=== PATIENT | male | born 1960 | race Caucasian/White ===

== ENCOUNTER 2021-10-11 03:08 | Emergency (ER) | payer OTHER, SELFPAY ==
[2021-10-11 03:13] VITALS: BP 163/100; PULSE 85; RESP 16; TEMP 36.6; O2SAT 97
--- NOTE | 2021-10-11 03:31 | ED_ITS ---
HPI - Abdominal Pain General Time Seen by Provider: 03:30 Date Seen: 10/11/21 Chief Complaint: Flank Pain Stated Complaint: Possible kidney stone Time Seen by Provider: 10/11/21 03:12 Source: patient Mode of arrival: ambulatory Limitations: no limitations History of Present Illness HPI narrative: Patient is a very nice 61-year-old gentleman who presents here with flank discomfort. And burning with urination. He has had this now for couple days more right-sided than left-sided. Very consistent with previous kidney stones he has had over 20 of these in the past. Greater than 16 CT scans here also. He does this pain isn't bad at all now. He has been taking a little bit ibuprofen on off he has had no blood in his urine he has had no fevers chills there is really no significant abdominal pain with this. Called the nurse line sinan. And he was worried that he possibly is obstructed and I came in. History of previous lithotripsy in the past, also previous instrumentation for removal of kidney stones. MD elicited complaint: flank pain Related Data Home Medications Medication Instructions Recorded Confirmed omeprazole 10/11/21 Allergies Allergy/AdvReac Type Severity Reaction Status Date / Time No Known Drug Allergies Allergy Verified 10/11/21 03:16 Review of Systems Status of ROS Reports: 10 or more systems reviewed and unremarkable except as noted in History and below [facility] Medical History (Updated 10/11/21 @ 04:02 by Luis Jasso MD) Hx of renal calculi Surgical History H/O rotator cuff surgery History of hernia surgery Social History Smoking Status: Never smoker Do you use any of these nicotine containing products: None How often do you have a drink containing alcohol: never AUDIT-C Alcohol total score: 0 Non-prescribed substance use: denies use Exam Const: Vital Signs, click to edit/add: Vital Signs - 24 hr 10/11/21 03:13 Temperature 97.8 F Pulse Rate [Right Pulse Oximeter] 85 Respiratory Rate 16 Blood Pressure [Ri ght Upper Arm] 163/100 H Pulse Oximetry 97 Documenting provider has reviewed patient's vital signs: yes Common normals: no apparent distress General appearance: cooperative, comfortable, well kempt and well developed HENMT: Common normals: normocephalic, head/scalp atraumatic, hearing grossly normal bilaterally, external ears normal, EAC's normal, TM's normal bilaterally, external nose normal, nasal mucous membranes and turbinates normal, moist oral mucous membranes, oropharynx normal, dentition normal and gingiva normal Head and scalp: normocephalic and atraumatic Nose: external nose normal and nasal mucous membranes and turbinates normal External ear: external ears normal External auditory canal: EAC's normal Tympanic membrane: TM's normal bilaterally Neck & C-Spine: Common normals: full ROM, no lymphadenopathy, supple, no meningeal signs, no JVD, thyroid normal and no carotid bruits Thyroid: thyroi d normal Resp: Common normals: normal respiratory effort, no retractions, no use of accessory muscles, clear to auscultation bilaterally and percussion normal Auscultation: clear to auscultation bilaterally Percussion: percussion normal Cardio: Common normals: no JVD, regular rate, regular rhythm, S1 normal heart sound, S2 normal heart sound, no gallops, no clicks, no murmurs, no rub and peripheral pulses 2+ throughout Rate: regular rate Rhythm: regular rhythm Heart sounds: S1 normal and S2 normal Peripheral pulses: pulses 2+ throughout GI: Common normals: Normal to inspection, nondistended, normoactive bowel sounds present, soft to palpation, non-tender, no hepatosplenomegaly, no masses and no bruits Palpation: soft and no hepatosplenomegaly : Common normals: no CVA tenderness, external exam normal, testes normal, scrotum normal, no scrotal swelling and no hernias present Bladder/kidney exam: no CVA tenderness Back & Pelvis: Common normals: no CVA tenderness Extremity: Common normals: normal to inspection, full ROM, normal capillary refill, no joint enlargement, no clubbing, cyanosis or edema and no pedal edema Neuro: Meningeal signs: no meningeal signs Psych: Appearance: well kempt Skin: Common normals: no rashes or lesions noted, no wounds, skin turgor normal, no jaundice, no petechiae and no mottling General skin exam: no rashes or lesions noted and turgor normal Course Course Hospital Course: I discussed with the patient at this point given his multitude of CT scans I think it would be prudent to get him to drink some water and we can do an ultrasound to see if he has hydronephrosis, and bilateral ureteral jets. If this is the case then I have a low suspicion that he has an obstructing stone. He was very comfortable with this. He declined any interventions such as Toradol or narcotic pain medications. As says he does not really have any pain. During this evaluation of this patient I considered multiple differential diagnosis is which included the life-threatening such as appendicitis, aortic aneurysm, mesenteric ischemia, bowel perforation, volvulus, and bowel obstruction. Other differential diagnosis is include but are not limited to cholecystitis, pancreatitis, hepatitis, gastritis, GERD, diverticulitis, peptic ulcer disease, pyelonephritis/UTI, renal colic/stone, testicular torsion as well as other acute scrotal processes, inflammatory bowel disease, as well as other etiologies Point of care ultrasound was done. I was unable to save the images. Both left and right kidney so no evidence of hydronephrosis. Small cyst is seen on the right kidney. I am able to see your tear old jets bilaterally in the bladder. Right greater than left. This does not all fit with his right-sided pain. Long talk with this nice gentleman about this. He is not really having any significant pain, he is using ibuprofen and Tylenol. Able to work normally. I explained to him that I think it be reasonable to watch this. Continue on the course continue with fluids, watch warning signs such as vomiting, increasing abdominal pain, fevers chills or sweats, dysuria frequency or arleen hematuria. Was at all prompt a re-evaluation here in the emergency room. He has an excellent relationship with his primary care physician Dr. Dove he says who could also order a CT scan as an outpatient if he feels like this is the way to go. Vital Signs Vital signs: Initial Vital Signs Temperature 97.8 F 10/11/21 03:13 Temperature Source Temporal Artery Scan 10/11/21 03:13 Pulse Rate 85 10/11/21 03:13 Pulse Rhythm 10/11/21 03:13 Respiratory Rate 16 10/11/21 03:13 Blood Pressure 163/100 H 10/11/21 03:13 Blood Pressure Mean 121 10/11/21 03:13 Blood Pressure Position Supine 10/11/21 03:13 Pulse Oximetry 97 10/11/21 03:13 Oxygen Delivery Method 10/11/21 03:13 Vital Signs Temperature 97.8 F 10/11/21 03:13 Pulse Rate 85 10/11/21 03:13 Respiratory Rate 16 10/11/21 03:13 Blood Pressure 163/100 H 10/11/21 03:13 Pulse Oximetry 97 10/11/21 03:13 Temperature 97.8 F 10/11/21 03:13 Pulse Rate 85 10/11/21 03:13 Respiratory Rate 16 10/11/21 03:13 Blood Pressure 163/100 H 10/11/21 03:13 Pulse Oximetry 97 10/11/21 03:13 MDM - Abdominal Pain Differential Diagnosis Differential diagnosis: Likely abdominal pain, calculus of kidney, constipation, diverticulitis, gastroenteritis, pancreatitis and small bowel obstruction Medical Records Attestation: I reviewed the patient's medical records. Discharge Plan Discharge Clinical Impression: Hx of renal calculi Abdominal pain Qualifiers: Abdominal location: right upper quadrant Qualified Code(s): R10.11 - Right upper quadrant pain Patient Disposition: Home, Self-Care Condition: Stable Instructions: Renal Colic (ED) Activity Level: No Restrictions Discharge Diet: Regular Prescriptions: No Action omeprazole 0RF Follow Up/Referrals: Kolby Lau MD [Primary Care Provider] - Stand Alone Forms: [facility] Info Instructions
== END 2021-10-11 04:14 | disposition home or self-care (01) ==
LOC: ED 04:09
PROVIDERS: Emergency Provider Family Medicine; PCP Family Medicine
DX: R10.11 Right upper quadrant pain (principal); Z87.442 Personal history of urinary calculi
CPT/HCPCS: 99283

== ENCOUNTER 2023-05-18 01:53 | Emergency (ER) | payer OTHER, SELFPAY ==
[2023-05-18 01:59] VITALS: BP 182/101; PULSE 74; RESP 20; TEMP 36.6; O2SAT 97; BMI 28.9
--- NOTE | 2023-05-18 02:11 | CT_ITS ---
CT ABDOMEN AND PELVIS WITHOUT CONTRAST. INDICATION: LEFT FLANK PAIN. TECHNIQUE: ROUTINE NONCONTRAST CT ABDOMEN AND PELVIS. COMPARISON: 12/22/2016, 07/05/2021, 01/04/2019, 09/02/2017, 07/18/2015. FINDINGS: LUNG BASES ARE CLEAR. STABLE SIMPLE CYST WITHIN THE CAUDATE LOBE OF THE LIVER. MILD HEPATIC STEATOSIS. CALCIFIED SPLENIC GRANULOMAS. MILD ATROPHY OF THE PANCREAS. THE GALLBLADDER IS NORMAL. CHRONIC CALCIFICATION ASSOCIATED WITH THE RIGHT ADRENAL GLAND. BILATERAL RENAL STONES. 7 MM STONE IN THE DISTAL LEFT URETER CAUSING MILD DISTENTION OF THE LEFT RENAL PELVIS. MILD VASCULAR CALCIFICATIONS. THERE IS A 1.9 CM EXOPHYTIC STRUCTURE ARISING FROM THE POSTERIOR ASPECT OF THE RIGHT KIDNEY. PROSTATE CALCIFICATIONS ARE PRESENT. NO BLADDER STONE. NO BOWEL OBSTRUCTION OR FREE AIR. NO FREE FLUID. NO ADENOPATHY. APPENDIX NORMAL. POSTOP CHANGES OF ANTERIOR ABDOMINAL WALL HERNIA REPAIR. DEGENERATIVE CHANGES ARE PRESENT AT BOTH HIPS. NO FRACTURE. IMPRESSION: PARTIALLY OBSTRUCTING 7 MM STONE IN THE DISTAL LEFT URETER. MULTIPLE STONES PRESENT ELSEWHERE THROUGHOUT BOTH KIDNEYS. PROBABLE CYST ARISING FROM THE RIGHT KIDNEY ALTHOUGH ULTRASOUND IS RECOMMENDED FOR CONFIRMATION. RESULTS COMMUNICATED VERBALLY TO THE EMERGENCY ROOM PHYSICIAN AFTER THE EXAMINATION.
--- NOTE | 2023-05-18 02:13 | ED_ITS ---
HPI - General Adult General Chief complaint: Flank Pain Stated complaint: possible kidney stone Time Seen by Provider: 05/18/23 02:05 Source: patient Mode of arrival: ambulatory Limitations: no limitations History of Present Illness HPI narrative: 62-year-old male presents the emergency department, self-referred. He has a history of prior kidney stones and awoke 2 hours ago with significant sharp pain in the left flank area. Feel similar to prior episodes of kidney stones, the last being about a year and half ago per his report. I do review N/C an episode from July of 2021. His unfortunately also had undergo stent placement and lithotripsy in the past, last was about 7 years ago. Reports that that was otherwise uncomplicated. Has not tried any medications to treat his pain prior to coming to the emergency department. No trauma or injury, no dysuria or hematuria. No recent fevers. Is nauseated but has not had any vomiting yet. No shortness of breath or difficulty breathing. No cough or abdominal pain. Pain does not radiate. Constant. Past medical history notable for multiple prior kidney stones, no other major long-term health problems. His only long-term medication is omeprazole. N onsmoker. ROS notable for the flank pain as above only, otherwise denies times 12 systems. Related Data Home Medications Medication Instructions Recorded Confirmed omeprazole 10/11/21 Previous Rx's Medication Instructions Recorded hydrocodone 5 mg-acetaminophen 325 1 tab PO Q6H PRN pain #30 tabs 10/11/21 mg tablet hydrocodone 5 mg-acetaminophen 325 1 tab PO Q4-6H PRN pain #10 tabs 05/18/23 mg tablet tamsulosin 0.4 mg capsule 0.4 mg PO DAILY PRN #30 caps 05/18/23 Allergies Allergy/AdvReac Type Severity Reaction Status Date / Time No Known Drug Allergies Allergy Verified 05/18/23 02:01 [facility] Medical History Hx of renal calculi ?Z87.442 - Personal history of urinary calculi (ICD-10) Surgical History H/O rotator cuff surgery ?Z98.890 - Other specified postprocedural states (ICD-10) History of hernia surgery ?Z98.890 - Other specified postprocedural states (ICD-10) ?Z87.19 - Personal history of other diseases of the digestive system (ICD-10) Social History Smoking Status: Never smoker Do you use any of these nicotine containing products: None How often do you have a drink containing alcohol: never AUDIT-C Alcohol total score: 0 Non-prescribed substance use: denies use Exam Const: Vital Signs, click to edit/add: Vital Signs - 24 hr 05/18/23 01:59 Temperature 98 F Pulse Rate [Pulse Oximeter] 74 Respiratory Rate 20 Blood Pressure [Ri ght Upper Arm] 182/101 H Pulse Oximetry 97 Oxygen Delivery Me thod Room Air Common normals: alert Other: Does seem uncomfortable but answers questions appropriately, no signs of intoxication. HENMT: Common normals: normocephalic Head and scalp: normocephalic Face and sinus: normal facial exam Mouth: oral and palatal mucosa normal Throat: posterior oropharynx normal Eye: Common normals: conjunctivae normal General eye: normal appearance of both eyes Conjunctiva: conjunctiva(e) normal Neck & C-Spine: Common normals: full ROM and no lymphadenopathy Resp: Common normals: normal respiratory effort, no use of accessory muscles and clear to auscultation bilaterally Effort & inspection: able to speak in complete sentences Auscultation: clear to auscultation bilaterally Cardio: Common normals: regular rate, regular rhythm, S1 normal heart sound, S2 normal heart sound and no murmurs Rate: regular rate Rhythm: regular rhythm Heart sounds: S1 normal and S2 normal GI: Common normals: Normal to inspection, nondistended, normoactive bowel sounds present, soft to palpation, non-tender, no hepatosplenomegaly and no masses Palpation: soft and no hepatosplenomegaly : Common normals: no CVA tenderness Bladder/kidney exam: no CVA tenderness Back & Pelvis: Common normals: no CVA tenderness Extremity: Common normals: normal capillary refill and no pedal edema Neuro: Sensorium/orientation: alert Motor exam: no movement abnormalities noted Psych: Common normals: speech normal Speech: normal speech Mood and affect: euthymic mood Insight: insight good Judgement: judgment good Skin: Common normals: no rashes or lesions noted General skin exam: no rashes or lesions noted Course Course ED Course: Left flank plain with no signs of tachycardia, hypotension or fever. Suspect kidney stone. Differential diagnosis also including musculoskeletal etiology, multiple different intra-abdominal possibilities, shingles though unlikely since there is no visible rash. Recommend CT scan of the abdomen and pelvis without contrast, urinalysis, basic labs to look for creatinine, electrolytes and white count. Will give Toradol 15 mg IV x1 with 4 mg of Zofran and 5 mg of oral oxycodone and await findings. Reevaluation(s) Time of Reevaluation #1: 03:22 Reevaluation #1: Patient feeling much better after Toradol, oxycodone and Zofran but pain not completely relieved. Normal labs reviewed. My interpretation of distal ureteral stone discussed. I am still waiting on Radiology over-read. Please note that we will only have limited Radiology interpretation due to the remote windows server administrator being down. We discussed plan of care. Discussed the risks and benefits of Flomax. Efficacy is small but I think it could be useful for him. Will give 0.4 mg now and send an additional supply to his pharmacy. He can follow up with Urology by phone in the morning, number given and referral placed. Will give prescriptions for Toradol and a few Percocet tablets from [employer]. Discussed pushing fluids. Encouraged straining of the urine but he does not need to return a stone. This will just help him know if it passes. Alarm symptoms reviewed that would warrant ED presentation including fever, severe pain and or inability to urinate. He verbalizes understanding and agreement. Vital Signs Vital signs: Initial Vital Signs Temperature 98 F 05/18/23 01:59 Temperature Source Temporal Artery Scan 05/18/23 01:59 Pulse Rate 74 05/18/23 01:59 Respiratory Rate 20 05/18/23 01:59 Blood Pressure 182/101 H 05/18/23 01:59 Blood Pressure Mean 128 H 05/18/23 01:59 Pulse Oximetry 97 05/18/23 01:59 Oxygen Delivery Method Room Air 05/18/23 01:59 Vital Signs Temperature 98 F 05/18/23 01:59 Pulse Rate 74 05/18/23 01:59 Respiratory Rate 20 05/18/23 01:59 Blood Pressure 182/101 H 05/18/23 01:59 Pulse Oximetry 97 02/12/24 01:59 Oxygen Delivery Method Room Air 05/18/23 01:59 Temperature 98 F 05/18/23 01:59 Pulse Rate 74 05/18/23 01:59 Respiratory Rate 20 05/18/23 01:59 Blood Pressure 182/101 H 05/18/23 01:59 Pulse Oximetry 97 05/18/23 01:59 Oxygen Delivery Method Room Air 05/18/23 01:59 Medications Administered Medications: Discontinued Medications Generic Name Dose Route Start Last Admin Trade Name Olivia PRN Reason Stop Dose Admin Ketorolac Tromethamine 15 mg 05/18/23 02:11 05/18/23 02:22 Ketorolac 15 Mg/Ml Inj IVP 05/18/23 02:12 15 mg ONCE ONE Administration Ondansetron HCl 4 mg 05/18/23 02:11 05/18/23 02:22 Ondansetron 2 Mg/Ml Inj IVP 05/18/23 02:12 4 mg ONCE ONE Administration Oxycodone HCl 5 mg 05/18/23 02:11 05/18/23 02:22 Oxycodone 5 Mg Tablet PO 05/18/23 02:12 5 mg ONCE ONE Administration Medical Decision Making Lab Data Lab results reviewed: Yes I reviewed the patient's lab results Lab results narrative: Labs all reassuring. Labs: Lab Results 05/18/23 05/18/23 Range/Units 02:02 02:30 WBC 8.27 (4.50-11.00) K/uL RBC 5.35 (4.30-5.90) m/uL Hgb 16.8 (13.5-17.5) gm/dL Hct 48.0 (37.0-53.0) % MCV 90 (80-100) fL MCH 31 (26-34) pg MCHC 35 (32-36) gm/dL RDW Coeff of Rajesh 12.6 (11.5-15.5) % Plt Count 270 (140-440) K/uL Neut % (Auto) 49.4 (42.0-72.0) % Lymph % (Auto) 37.4 (20-44) % [place] % (Auto) 9.4 (0.0-11.0) % Eos % (Auto) 3.1 (0.0-7.0) % Baso % (Auto) 0.5 (0.0-3.0) % Neut # (Auto) 4.08 (1.7-7.0) K/uL Lymph # (Auto) 3.09 H (0.90-2.90) K/uL [place] # (Auto) 0.80 (0.00-0.90) K/UL Eos # (Auto) 0.26 (0.00-0.50) K/uL Baso # (Auto) 0.04 (0.00-0.30) K/uL Abs Immat Gran (auto) 0.02 (0.00-0.30) K/uL Imm/Tot Granulo (auto) 0.2 % Sodium 140 (135-149) mmol/L Potassium 3.7 (3.6-5.1) mmol/L Chloride 107 (96-114) mmol/L Carbon Dioxide 20 (20-32) mmol/L Anion Gap 13 (7-15) mEq/L BUN 24 (7-30) mg/dL Creatinine 1.1 (0.5-1.5) mg/dL Estimated Creat Clear 76.06 Estimated GFR 77 ml/min Glucose 125 H (60-115) mg/dL Calcium 9.7 (8.4-10.6) mg/dL Urine Color Yellow (Yellow) Urine Appearance Clear (Clear) Urine pH 6.5 (5.0-8.5) Ur Specific [place] 1.020 (1.000-1.030) Urine Protein Negative (Negative) Urine Glucose (UA) Negative (Negative) Urine Ketones Negative (Negative) Urine Blood 1+ A (Negative) Urine Nitrite Negative (Negative) Urine Bilirubin Negative (Negative) Urine Urobilinogen 0.2 (0.2-1.0) Ur Leukocyte Esterase Negative (Negative) Urine RBC 0-2 (0-2) Urine WBC 0-2 (0-5) Ur Squamous Epith Cells Few (None-Few) Urine Bacteria None (None) Imaging Data CT scan - abdomen: Attestation: I have reviewed the pertinent imaging results. My impression: Please note that we do have limited CT interpretation due to computer processing and windows server administrator problem at this time. Per my interpretation, I see a left distal ureter stone that I am getting around 3-1/2 by 6 mm. There is some associated hydronephrosis and he has several stones still up in the kidney parenchyma. Radiologist's impression: 7mm distal left ureteral stone. Discharge Plan Discharge Clinical Impression: Calculus of distal left ureter Patient Disposition: Home, Self-Care Condition: Stable Instructions: Ureteral Stones (ED) Additional Instructions: As we discussed, your stone looks like it may need surgical help to pass. It is at the lower part of your ureter, near the turn into the bladder. This is 1 of the spots were kidney stones are most likely to get hung up. It is not surprising that you have increased symptoms here. I have started on a medication called Flomax, also known as tamsulosin. This may reduce spasm and could help the stone pass. For pain, I recommend Toradol. This is an anti-inflammatory medicine that is stronger than ibuprofen but similar. Take 1 of these tablets up to every 6 hours as needed for pain. You may stop it once the stone passes if you are pain free. I will also give you small supply of Percocet, a narcotic medication if the pain is more severe. Hopefully you rarely need this. Drink lots of fluids. If you start running high fevers, cannot urinate or feeling very ill, please come back to the emergency department. I have put in a referral for the urologist, but you should also call the number given early in the morning after opening to get an appointment this week. Please call [phone] and tell them that you have a 7mm distal ureteral stone and were told by the ED to call and that you should be seen this week. They will arrange the appointment. Activity Level: Activity as Tolerated Discharge Diet: Regular Prescriptions: New hydrocodone-acetaminophen 5-325 mg tablet 1 tab PO Q4-6H PRN (Reason: pain) Qty: 10 0RF tamsulosin 0.4 mg capsule 0.4 mg PO DAILY PRNQty: 30 0RF Rx Instructions: to help with spasm due to stone and to help it pass No Action omeprazole hydrocodone-acetaminophen 5-325 mg tablet 1 tab PO Q6H PRN (Reason: pain) Qty: 30 0RF Follow Up/Referrals: Kolby Lau MD [Primary Care Provider] - Nelson Anderson MD [Referring] - 2 Days (7mm left distal ureteral stone. needs urgent appointment.) Stand Alone Forms: [employer] Info Instructions
[2023-05-18 02:21] LABS: Basophils Absolute Auto 0.04 K/uL (0.00-0.30); Basophils Percent Auto 0.5 % (0.0-3.0); Eosinophils Absolute Auto 0.26 K/uL (0.00-0.50); Eosinophils Percent Auto 3.1 % (0.0-7.0); Hemoglobin* 16.8 gm/dL (13.5-17.5); Immature Granulocytes Abs Auto 0.02 K/uL (0.00-0.30); Immature Granulocytes Pct Auto 0.2 %; Lymphocytes Absolute Auto 3.09 K/uL (0.90-2.90); Lymphocytes Percent Auto 37.4 % (20-44); Mean Corpuscular HGB Conc 35 gm/dL (32-36); Mean Corpuscular Hemoglobin 31 pg (26-34); Mean Corpuscular Volume 90 fL (80-100); Monocytes Percent Auto 9.4 % (0.0-11.0); Neutrophils Absolute Auto 4.08 K/uL (1.7-7.0); Neutrophils Percent Auto 49.4 % (42.0-72.0); Platelet Count* 270 K/uL (140-440); RDW Coefficient of Variation % 12.6 % (11.5-15.5); Red Blood Count 5.35 m/uL (4.30-5.90); White Blood Count* 8.27 K/uL (4.50-11.00)
[2023-05-18 02:22] LABS: Chloride* 107 mmol/L (96-114); Sodium* 140 mmol/L (135-149)
[2023-05-18] MEDS: ONDANSETRON 2 MG/ML inj 4 MG IVP (02:22)
[2023-05-18] MEDS: OXYCODONE 5 MG TABLET PO (02:22)
[2023-05-18] MEDS: KETOROLAC 15 MG/ML inj IVP (02:22)
[2023-05-18 02:23] LABS: Potassium* 3.7 mmol/L (3.6-5.1); Slide Review Reflex No
[2023-05-18 02:25] LABS: Creatinine* 1.1 mg/dL (0.5-1.5); Est. Creatinine Clearance* 76.06; Estimated Glomerular Filt Rate 77 ml/min
[2023-05-18 02:26] LABS: Anion Gap 13 mEq/L (7-15); Blood Urea Nitrogen* 24 mg/dL (7-30); Calcium* 9.7 mg/dL (8.4-10.6); Carbon Dioxide* 20 mmol/L (20-32); Glucose* 125 mg/dL (60-115)
[2023-05-18 03:32] LABS: Appearance Urine Clear (Clear); Bilirubin Urine Negative (Negative); Blood Urine 1+ (Negative); Color Urine Yellow (Yellow); Glucose Urine Negative (Negative); Ketones Urine Negative (Negative); Leukocyte Esterase Urine Negative (Negative); Nitrite Urine Negative (Negative); Protein Urine Negative (Negative); Urobilinogen Urine 0.2 (0.2-1.0); pH Urine 6.5 (5.0-8.5)
[2023-05-18 03:42] LABS: RBC Urine 0-2 (0-2); Squamous Epithelial Cell Urine Few (None-Few); WBC Urine 0-2 (0-5)
== END 2023-05-18 04:10 | disposition home or self-care (01) ==
PROVIDERS: Emergency Provider Family Medicine; PCP Family Medicine
DX: N20.1 Calculus of ureter (principal)
CPT/HCPCS: 36415; 74176; 80048; 81001; 81003; 81015; 85025; 96374; 96375; 99284; A9270; J1885; J2405

== ENCOUNTER 2023-06-12 11:00 | Outpatient (CLI) | payer OTHER, SELFPAY | END 2023-06-12 11:01 | disposition home or self-care (01) | LOC: LKVREF 11:01 | PROVIDERS: PCP Family Medicine; Visit Provider Family Medicine | DX: Z01.818 Encounter for other preprocedural examination (principal) | CPT/HCPCS: 80048 ==

== ENCOUNTER 2023-11-25 15:01 | Outpatient (CLI) | payer OTHER, SELFPAY ==
--- OUTSIDE RECORDS SUMMARY | 2023-11-25 15:04 | XMS_ITS | Clinical Summary ---
Author Organization [facility] Address [address] [place] [id number] Care Team Providers Care Low Heel Builder Name Role Phone Melvin Lau MD Primary Care Provider [phone] Allergies No known active allergies Medications Medication Sig Dispensed Refills Start Date End Date Status TAMSULOSIN HCL PO Take 0.4 mg by mouth daily Active OMEPRAZOLE PO Take 20 mg by mouth daily Active HYDROcodone-acetamino phen (NORCO) 5-325 MG per tablet Take 1 tablet by mouth every 6 hours as needed for severe pain Active HYDROcodone-acetamino phen (NORCO) 5-325 MG per tabletIndications:Nihcolas culus of left kidney Take 1-2 tablets by mouth every 4 hours as needed for severe pain (Moderate to Severe Pain) 25 tablet 09/11/2017 Active ciprofloxacin (CIPRO) 250 MG tabletIndications:Nicholas culus of left kidney Take 1 tablet (250 mg) by mouth 2 times daily 6 tablet 09/11/2017 Active Social History Tobacco Use Types Packs/Day Years Used Date Smoking Tobacco: Never Smokeless Tobacco: Never Alcohol Use Standard Drinks/Week Comments Yes 0 (1 standard drink = 0.6 oz pur e alcohol) Adolescent Education Answer Date Record ed Getting School Help Needed Not on file 12/26 Sex and Gender Information Value Date Recorded Sex Assigned at Not on file Gender Identity Not on file Sexual Orientation Not on file Last Filed Vital Signs Vital Sign Reading Time Taken Comments Blood Pressure 140/93 09/11/2017 10:30 AM CDT Pulse - - Temperature 36.1 ??C (97 ??F) 09/11/2017 9:30 AM CDT Respiratory Rate 16 09/11/2017 10:30 AM CDT Oxygen Saturation 97% 09/11/2017 10:30 AM CDT Inhaled Oxygen Concentration - - Weight 88.5 kg (195 lb) 09/11/2017 6:03 AM CDT Height 177.8 cm (5' 10) 09/11/2017 6:03 AM CDT Body Mass Index 27.98 09/11/2017 6:03 AM CDT Plan of Treatment Not on file Medical Devices Implanted Type Area Sprayer Automatic Spray Machine Device Identifier Shelf Expiration Date Model / Serial / Lot Stent Ureteral Contour Soft Percuflex [id number] Implanted:Qty: 1 on 09/11/2017 by Nelson Anderson MD at [facility] Stent Left: Ureter [employer] 06/22/2020 [id number] / / [id number] Care Teams Low Heel Builder Relationship Specialty Start Date End Date Melvin Lau MD PCP - General Family Practice 09/08/17
--- OUTSIDE RECORDS SUMMARY | 2023-11-25 15:04 | XMS_ITS | Referral Summary ---
Author Organization [facility] Address [address] [place] [id number] Care Team Providers Care Tree Killer Name Role Phone Mlevin Lau MD Primary Care Provider [phone] Allergies No known active allergies Medications Medication Sig Dispensed Refills Start Date End Date Status TAMSULOSIN HCL PO Take 0.4 mg by mouth daily Active OMEPRAZOLE PO Take 20 mg by mouth daily Active HYDROcodone-acetamino phen (NORCO) 5-325 MG per tablet Take 1 tablet by mouth every 6 hours as needed for severe pain Active HYDROcodone-acetamino phen (NORCO) 5-325 MG per tabletIndications:Nicholas culus of left kidney Take 1-2 tablets [...] on file Medical Devices Implanted Type Area Program Administrator Device Identifier Shelf Expiration Date Model / Serial / Lot Stent Ureteral Contour Soft Percuflex [id number] Implanted:Qty: 1 on 09/11/2017 by Nelson Anderson MD at [facility] Stent Left: Ureter [employer] 06/22/2020 [id number] / / [id number] Care Teams Tree Killer Relationship Specialty Start Date End Date Melvin Lau MD PCP - General Family Practice 09/08/17
--- OUTSIDE RECORDS SUMMARY | 2023-11-25 15:05 | XMS_ITS | Patient Health Record ---
Author Organization [facility] Address [address] [place] [address] [place] [address] Care Team Providers Care Production Consultant Name Role Phone SELF, SELF Primary Care Provider Unavailabl e Reason For Referral No Information Medications Medication SIG (Take, Route, Fr equency, Duration) Notes Start Date End Date Status Omeprazole 20 MG 1 capsule 30 minutes before morning meal Orally Once a day for 30 day(s) Active Ibuprofen 200 MG 1 tablet with food o r milk as needed Orally Three times a day Active Tylenol 325 MG 1 tablet as needed O rally every 4 hrs Active Immunizations Vaccine Route Administration Date Status Comme nts Lidocaine Viscous 2% NS Nasal 04/10/2020 Administered Social History Tobacco Use: Social History Observation Description Date Details (start date - stop date) Never Smoker NA - NA Tobacco Use/Smoking Question Answer Notes Are you a nonsmoker Problems Problem Type SNOMED Code ICD Code Onset Dates Problem Status W/U Status Risk Notes Problem Gastroesophageal reflux disease (905560749) GERD (gastroesopha geal reflux disease) (K21.9) Active confirmed Problem Hiatal hernia (88567635) Hiatal hernia (K44.9) Active confirmed Problem Recurrent left inguinal hernia (752610114) Recurrent left inguinal hernia (K40.91) Active confirmed Problem Pain in testicle (81437748) Pain in left testicle (N50.812) Active confirmed Problem Postoperative follow-up visit (939219794) Post op follow-up exam (Z48.89) Active confirmed Plan Of Treatment No Information Insurance Providers Payer Name Payer Address Payer Phone Subscriber Number Group Number Insured Name Patient Relationship to Insured Coverage Start Date Coverage End Date [employer] [address] [place] [phone] [id number] BRADY Self - patient is the insured Medical (General) History Medical History History ICD Code GERD/acid reflux kidney stones testicle pain inguinal pain pain in scrotum controlled substance agreement signed - ?year ilioinguinal neuralgia genitofemoral neuralgia chronic pain hemorrhoids rotator cuff injury hydrocele Surgical History Surgery Date(Month/Year) Fragmenting of kidney stone Procedure on wrist Repair of shoulder Hernia repair
--- OUTSIDE RECORDS SUMMARY | 2023-11-25 15:05 | XMS_ITS | Referral Summary ---
Author Organization [facility] Address [address] [place] [address] Care Team Providers Care Gravure Press Set Up Operator Name Role Phone Clinic, No Primary Unavailable Unavailable Kolby Lau MD Primary Care Provider [phone] Allergies No known active allergies Medications Medication Sig Dispensed Refills Start Date End Date Status acetaminophen (TYLENOL) 325 mg oral tablet Take 325 mg by mouth every 4 (four) hours as needed. Active omeprazole (PRILOSEC) 10 mg oral delayed release capsule Take 20 mg by mouth once daily. Active ibuprofen 600 mg oral tablet Take 800 mg by mouth every 6 (six) hours as needed. Active ondansetron (ZOFRAN) 4 mg oral tablet Take 1 tablet (4 mg) by mouth every 8 (eight) hours as needed. 20 tablet 02/24/2020 Active calcium carbonate (TUMS) 200 mg calcium (500 mg) oral chew tab Chew 1 tablet twice a day. Active Active Problems No known active problems Social History Tobacco Use Types Packs/Day Years Used Date Smoking Tobacco: Never Smokeless Tobacco: Never Alcohol Use Standard Drinks/Week Comments Not Currently 0 (1 standard drink = 0.6 oz pur e alcohol) Sex and Gender Information Value Date Recorded Sex Assigned at Not on file Gender Identity Not on file Sexual Orientation Not on file Last Filed Vital Signs Vital Sign Reading Time Taken Comments Blood Pressure 139/83 04/10/2020 1:15 PM CORE PASTER Pulse 55 04/10/2020 1:15 PM CORE PASTER Temperature 36.1 ??C (97 ??F) 04/10/2020 1:15 PM CORE PASTER Respiratory Rate 16 04/10/2020 1:15 PM CORE PASTER Oxygen Saturation 100% 04/10/2020 1:15 PM CORE PASTER Inhaled Oxygen Concentration - - Weight 92.5 kg (204 lb) 04/03/2020 9:47 AM CORE PASTER Height 177.8 cm (5' 10) 04/03/2020 9:47 AM CORE PASTER Body Mass Index 29.27 04/03/2020 9:47 AM CORE PASTER Plan of Treatment Not on file Medical Devices Implanted Type Area Bridge Game Director Device Identifier Shelf Expiration Date Model / Serial / Lot Foley Cf Capsule - [id number] Implanted:Qty: 1 on 04/10/2020 by Kobe Johnson MD at [facility] Prosthetic Implant Non-Specific [employer] 05/17/2021 [id number] / [id number] Care Teams Gravure Press Set Up Operator Relationship Specialty Start Date End Date Clinic, No Primary PCP - Primary Care Clinic 02/24/20 [place] [address] [place] [address] PCP - General 02/24/20
--- OUTSIDE RECORDS SUMMARY | 2023-11-25 15:05 | XMS_ITS | Clinical Summary ---
Author Organization [facility] Address [address] [place], [place] [address] [address] Care Team Providers Care Appeals Examiner Name Role Phone Clinic, No Primary Unavailable Unavailable Kolby Lau MD Primary Care Provider [phone] Allergies No known active allergies Medications Medication [...] Comments Blood Pressure 139/83 04/10/2020 1:15 PM SECONDS HANDLER Pulse 55 04/10/2020 1:15 PM SECONDS HANDLER Temperature 36.1 ??C (97 ??F) 04/10/2020 1:15 PM SECONDS HANDLER Respiratory Rate 16 04/10/2020 1:15 PM SECONDS HANDLER Oxygen Saturation 100% 04/10/2020 1:15 PM SECONDS HANDLER Inhaled Oxygen Concentration - - Weight 92.5 kg (204 lb) 04/03/2020 9:47 AM SECONDS HANDLER Height 177.8 cm (5' 10) 04/03/2020 9:47 AM SECONDS HANDLER Body Mass Index 29.27 04/03/2020 9:47 AM SECONDS HANDLER Plan of Treatment Health Maintenance Due Date Last Done Comments Colonoscopy 1962 Hepatitis C Screening 1962 Lipid Screening 1962 Anxiety Screening (KAT-2) 08/31/1963 Depression Assessment (PHQ-2) 08/31/1963 Zoster Vaccine (1 of 2) 2012 Yearly Review of HCD 03/08/2021 03/08/2020, 02/24/2020 Adult Tetanus Booster 06/02/2021 06/02/2011 , 03/13/2008 RSV 60+ Yrs (1 - 1-dose 60+ series) 2022 COVID-19 Vaccine ( - 2022-2 4 season) 2022 Influenza Vaccine (#1) 2023 0, 01/18/2020, 02/15/2018 Pneumococcal <65 Aged Out No longer e ligible based on patient's age to complete this topic Medical Devices Implanted Type Area Bundles Hanger Device Identifier Shelf Expiration Date Model / Serial / Lot Foley Cf Capsule - [id number] Implanted:Qty: 1 on 04/10/2020 by Kobe Johnson MD at [facility] Prosthetic Implant Non-Specific [employer] 05/17/2021 [id number] / [id number] / [id number] Care Teams Appeals Examiner Relationship Specialty Start Date End Date Clinic, No Primary PCP - Primary Care Clinic 02/24/20 [place] [address] [place] [address] PCP - General 02/24/20
--- OUTSIDE RECORDS SUMMARY | 2023-11-25 15:05 | XMS_ITS | Clinical Summary ---
Author Organization [email or web address] Address [place], [place] [address] Care Team Providers Care Silk Washing Machine Operator Name Role Phone Pcp, No Primary Care Provider Unavailabl e Allergies Active Allergy Reactions Criticality Noted Date Comments Gabapentin Nausea Only,Behavior al Disturbances,Dizziness 09/07/2013 Medications Medication Sig Dispensed Refills Start Date End Date Status PRILOSEC 20 MG CAP take 1 capsule (20 mg) by oral route once daily before a meal 0 04/19/2007 Active ibuprofen (ADVIL; MOTRIN) 200 mg tablet Take 1 tablet by mouth 4 times daily if needed. 0 06/17/2013 Active ketamine 8%-gabapentin 6%-ketoprofen 10% gel Apply 1 mL topically to affected area(s) every 4 hours if needed. 60 mL 2 06/09/2014 Active HYDROcodone-aceta minophen, 5-325 mg, (NORCO) per tablet 1 tab prn HS for severe breakthru pain, Max acetaminophen dose: 4000mg in 24 hrs. 15 tablet 0 06/09/2014 Active traMADol (ULTRAM) 50 mg tabletIndications :Testicle pain 1-2 tabs HS prn moderate pain, Max of 4 tabs/day 45 tablet 0 11/10/2014 Active pregabalin (LYRICA) 25 mg capsuleIndication s:Testicle pain,Ilioinguinal neuralgia, left Take 1 capsule by mouth 2 times daily. 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 Genitofemoral neuralgia 06/17/2013 Kidney stones 07/07/2012 Immunizations Name Administration Dates Next Due Tdap 06/02/2011 Social History Tobacco Use Types Packs/Day Years Used Date Smoking Tobacco: Never Smokeless Tobacco: Never Tobacco Cessation:Counseling Given: Yes Alcohol Use Standard Drinks/Week Comments Yes 0 (1 standard drink = 0.6 oz pur e alcohol) occ Sex and Gender Information Value Date Recorded Sex Assigned at Not on file Gender Identity Not on file Sexual Orientation Not on file Obstetrics History Last Filed Vital Signs Vital Sign Reading Time Taken Comments Blood Pressure 151/97 11/10/2014 7:56 AM CDT Pulse 65 11/10/2014 7:56 AM CDT Temperature 36.5 ??C (97.7 ??F) 05/01/2014 12:[address] Respiratory Rate 14 11/10/2014 7:56 AM CDT Oxygen Saturation 97% 05/01/2014 12:51 PM GAS TURBINE POWERPLANT MECHANIC HELPER Inhaled Oxygen Concentration - - Weight 92.8 kg (204 lb 9.6 oz) 05/01/2014 12:51 PM GAS TURBINE POWERPLANT MECHANIC HELPER Height 177.8 cm (5' 10) 04/10/2014 1:53 PM GAS TURBINE POWERPLANT MECHANIC HELPER Body Mass Index 29.36 04/10/2014 1:53 PM GAS TURBINE POWERPLANT MECHANIC HELPER Plan of Treatment Health Maintenance Due Date Last Done Comments Depression screening for age 12+ 1974 HIV for age 15-65 1977 BMI (ht and wt on same day) for age 18+ 1980 Hepatitis C screening for age 18-79 1980 Zoster (shingles) series for age 50+ (1 of 2) 2012 Lipids for age 45-75 05/19/2016 05/19/2011 (Completed outside of [facility]) Tetanus booster 06/02/2021 06/02/2011, 06/02/2011 Colonoscopy through age 75 09/03/2021 09/04/2011 COVID-19 vaccine series ( - 2022-24 season) 2022 Influenza for age 50-64 12/06/2023 Tdap Completed 06/02/2011 Pneumococcal series for age 6-64 Aged Out No longer eligible based on patient's age to complete this topic Procedures Procedure Name Priority Date/Time Associated Diagnosis Comments SCAN-COLONOSCOPY 09/04/2011 12:0 0 AM CDT from Last 3 Months or Most Recently Relevant to Health Maintenance Results * SCAN-COLONOSCOPY (09/04/2011 12:00 AM CDT) Narrative Transcriptions Scanner - 09/04/2011 12:00 AM CDT Scanner OTHER from Last 3 Months or Most Recently Relevant to Health Maintenance Care Teams Silk Washing Machine Operator Relationship Specialty Start Date End Date Pcp, No . PCP - General 07/07/12
--- OUTSIDE RECORDS SUMMARY | 2023-11-25 15:05 | XMS_ITS | Data Portability ---
Author Organization [place] [facility] [place] [facility], [facility] Address [address] [place] [address] [address] [place] [address] Assessment Encounter Date Assessment Date Assessment LastModified by Organization Details LastModified Time 12/06/2019 12/06/2019 59 y/o male, HX OF CHRONIC LEFT TESTICULAR PAIN. HE RELATES IT TO HIS LEFT INGUINAL HERNIA REPAIR. EXAM POSSIBLE SMALL VARICOCELE. NO MASSES. ULTRASOUND NORMAL. PAIN IS QUITE TROUBLING. REVIEWED OPTIONS . PLAN- WILL PLAN CORD BLOCK WITH MARCAINE TO LOCALIZE PAIN TO TESTICLE. LATER DECIDE ON EXPLORATION. Not available 12/08/2019 10:25:49 12/16/2019 12/16/2019 59 Y/O MALE, HX CHRONIC LEFT TESTICULAR PAIN. SPERMATIC CORD BLOCK WITH 2 PERCENT MARCAINE. WILL ASSESS PAIN RELIEF. CALL NEXT WEEK. PLAN - CALL NEXT WEEK Not available 12/16/2019 13:52:57 01/09/2020 01/09/2020 59 Y/O MALE, HX CHRONIC LEFT GROIN , TESTICULAR PAIN . STARTED AFTER LIH REPAIR. ATTEMPTED A MARCAINE SPERMATIC CORD BLOCK TO SEE IT ITS TESTICULAR OR REFERRED PAIN. PAIN ONLY IMPROVED SLIGHTLY. APPEARS TO BE POSSIBLY NERVE PAIN. WILL HAVE HIM SEE GEN SURGERY FOR A SECOND OPINION. PLAN SEE GEN SURGERY. CHECK BACK AFTER EVALUATION. Not available 01/09/2020 15:51:40 06/23/2023 06/23/2023 62 Y/O MALE, HX RECURRENT STONES. S/P LEFT URS, HLL, LEFT STENT. DOING WELL. STENT REMOVED. RESIDUAL STONES ON PREEV. C.T. DONE AT [facility], HOWEVER , RADIOLOGIST DID NOT STATE SIZE OR LOCATIONS. PLAN RTC 3 MO KUB .INCREASED FLUIDS, LOW SALT DIET, LEMONADE. Not available 06/23/2023 14:41:00 Plan of Treatment Reminders Order Date Submit Date Provider Last Modified By Organization Details Last Modified Time Details Appointments None recorded. Lab urinalysis , dipstick 2023 024 [facility], [address] [place], [address], 13:53:10 Referral None recorded. Procedures None recorded. Surgeries cystoscopy , with ureterosco py, with lithotrips y, with insertion of ureteral stent (SURG) 2023 024 [email or web address] Not available 12:08:10 Imaging None recorded. Medication Orders tramadol 50 mg tablet 2019 020 Not available 13:50:37 Flomax 0.4 mg capsule 2023 024 [facility] #[id number], [address] [place], [place], [phone], 4 14:18:00 oxycodone 5 mg tablet 2023 024 [id number], [address] [place], [place], [phone], 14:17:59 Patient TargetsNo targets recorded. Patient Instructions Encounter Date Encounter Id Patient Instructions Last Modified By Organization Details Last Modified Time 05/25/2023 [id number] Discussed medica l expulsive therapy versus surgical intervention. Had a discussion with the patient about options for ureteral stone including medical expulsive therapy versus??ureterosc opy with??possible ureteral stent placement +/- laser lithotripsy.?H e??would like to proceed with cysto, URS/HLL/possible stent. ??Discussed the procedure, risks, and benefits with patient including but not limited to post-procedure pain or stent pain, infection/UTI/sep sis, hematuria, anesthesia reaction, injury to adjacent structures, and possible need for additional procedures. ??He??verbalized understanding of risks and wishes to proceed. 1. 7mm left distal stone - reviewed outside CT scan, labs, ED notes - no concern for infx based on UA today and no infectious symptoms - discussed medical expulsive therapy versus surgical intervention - continue Flomax, discussed side effects - continue PRN pain meds-- Tylenol, oxycodone - strain urine at home, bring stone for analysis if passed - will schedule for URS/HLL/possible stent, next available - return precautions for ER discussed-- worsening pain, fever/chills, N/V, other concerns [email or web address] Not available 05/25/2023 14:42:18 Reason for Referral None Reported. Results Created Date Observation Date Name Description Value Unit Range Abnormal Flag LastModifiedBy Organization Detail LastModifiedTime 05/25/19 24 05/25/2023 urina lysis , dipst ick Color-Status Yellow Not Available [facility] [address], [place], [address], 05/25/2023 13:52:34 05/25/19 24 05/25/2023 urina lysis , dipst ick Clarity-Stat us Clear Not Available [facility] [address], [place], [address], 05/25/2023 13:52:34 05/25/19 24 05/25/2023 urina lysis , dipst ick Sp [place]-Stat us 1.020 Not Available [facility] [address], [place], [address], 05/25/2023 13:52:34 05/25/19 24 05/25/2023 urina lysis , dipst ick pH-Status 5.5 Not Available [facility] [address], [place], [address], 05/25/2023 13:52:34 05/25/19 24 05/25/2023 urina lysis , dipst ick Nitrates-Sta tus negati ve Not Available [facility] [address], [place], [address], 05/25/2023 13:52:34 05/25/19 24 05/25/2023 urina lysis , dipst ick Blood-Status Small Not Available [facility] [address], [place], [address], 05/25/2023 13:52:34 05/25/19 24 05/25/2023 urina lysis , dipst ick Leuko-Status Negati ve Not Available [facility] [address], [place], [address], 05/25/2023 13:52:34 05/25/19 24 05/25/2023 urina lysis , dipst ick Specimen Type Voided Not Available [facility] [address], [place], [address], 05/25/2023 13:52:34 05/25/19 24 05/25/2023 urina lysis , dipst ick Performed by Morales michele RN Not Available [facility] [address], [place], [address], 05/25/2023 13:52:34 Result Notes None recorded. Problems Name Status Onset Date Resolution Date Notes Provider Name and Address Organization Details Recorded Time Calculus of kidney and ureter Active 4 Nelson Anderson MD [address] [place] [address],[address], [place], [address], [facility] 06/23/2023 14:41:07 Problem Notes None recorded. Procedures Surgical History Date Name Laterality Status Provider Name and Address Organization Details Recorded Time 06/23/19 24 Cystoscopy with foreign body/stent removal completed Nelson Anderson MD [address] [place] [address],[address], [place], [address], [facility] 06/23/2023 14:39:05 05/25/19 24 Urinalysis completed Macy shen [facility] 05/25/2023 13:51:40 repair of shoulder completed Rliey shen [facility] 12/06/2019 16:23:28 procedure on wrist completed Riley shen [facility] 12/06/2019 16:23:34 Fragmenting of kidney stone completed Riley shen [facility] 12/06/2019 16:24:10 Imaging Results None recorded. Procedure Notes None recorded. Medical Equipment None Reported. Allergies No known drug allergies Medications Name Sig Start Date Stop Date Status Note LastModified by Organization Details LastModified Time hydrocodone 5 mg-acetamino phen 325 mg tablet TAKE 1 TABLET BY MOUTH EVERY 4 TO 6 HOURS NEEDED FOR PAIN active Not Available Not Available No t Available doxycycline monohydrate 100 mg tablet 12/05 completed Not Available Not Available Not Available tramadol 50 mg tablet TAKE 1 TABLET BY MOUTH EVERY 8 HOURS NEEDED FOR PAIN. active Not Available Not Available No t Available ketorolac 10 mg tablet active Not Available Not Available No t Available oxycodone-ac etaminophen 5 mg-325 mg tablet active Not Available Not Available Not Available tamsulosin 0.4 mg capsule Take 1 capsule every day by oral route. active Not Available Not Available No t Available cephalexin 500 mg capsule TAKE 1 CAPSULE BY MOUTH TWICE DAILY. active Not Available Not Available No t Available levofloxacin 500 mg tablet 12/05 completed Not Available Not Available Not Available doxycycline hyclate 100 mg tablet 12/05 completed Not Available Not Available Not Available oxycodone 5 mg tablet TAKE 1 TABLET BY MOUTH EVERY 4 TO 6 HOURS NEEDED active Not Available Not Available No t Available cyclobenzapr ine 5 mg tablet TAKE 1 TABLET BY MOUTH EVERY DAY AT DINNER active Not Available Not Available No t Available omeprazole active Not Available Not Av ailable Not Available Vitals Date Recorded Body height Body mass index (BMI) Body weight Provider Name and Address Organization Details Last Updated DateTime 12/16/2019 177.8 cm 28.3 kg/m2 67614.7 g Nelson Anderson MD [address] [facility],[address], [place], [address], [facility] 12/16/2019 12:44:34 Date Recorded Body height Body mass index (BMI) Body weight Provider Name and Address Organization Details Last Updated DateTime 01/09/2020 177.8 cm 28.3 kg/m2 22567.7 g Nelson Anderson MD [address] [facility],[address], [place], [address], [facility] 01/09/2020 14:53:37 Date Recorded Body height Body mass index (BMI) Body weight Provider Name and Address Organization Details Last Updated DateTime 12/06/2019 177.8 cm 28.3 kg/m2 76092.7 g Riley [facility] 12/06/2019 16:22:19 Social History Question Answer Notes LastModified by Organizat ion Details LastModified Time Tobacco Smoking Status Never Smoker Riley shen [facility] 12/06/2019 16:23:12 What Is Your Level Of Alcohol Consumption? None Information not available 05/25/2023 What Was The Date Of Your Most Recent Tobacco Screening? 05/25/2023 Information not available 05/25/2023 Has Tobacco Cessation Counseling Been Provided? No [email or web address] Information not available 05/25/2023 Sex: Unknown Functional Status None recorded. Mental Status None recorded. Family History Nothing Reported. Medical History Condition Response Sexually Transmitted Infection N Diabetes N Other N Bleeding Disorder N High Blood Pressure N Kidney Stones Y High Cholesterol N GERD/Acid Reflux Y Heart Disease N Cancer N Depression N Lung Disease N Immunizations Vaccine Type Date Status Provider Name and Address Organization Details Recorded Time Influenza, split virus, quadrivalent, preservative 01/15/2023 completed Macy shen [facility] 05/25/2023 13:57:34 Influenza, split virus, quadrivalent, preservative 01/16/2021 karyn shen [facility] 05/25/2023 13:57:34 Influenza, split virus, quadrivalent, preservative 01/18/2020 karyn shen [facility] 05/25/2023 13:57:34 Influenza, split virus, quadrivalent, preservative 02/21/2022 karyn shen [facility] 05/25/2023 13:57:34 COVID-19, mRNA, LNP-S, PF, 100 mcg/0.5mL dose or 50 mcg/0.25mL dose 05/03/2020 completed Macy shen [facility] 05/25/2023 13:57:34 COVID-19, mRNA, LNP-S, PF, 100 mcg/0.5mL dose or 50 mcg/0.25mL dose 11[facility]01/2021 [facility]/25/[facility]23 13:57:34 COVID-19, mRNA, LNP-S, PF, 100 mcg/0.5mL dose or 50 mcg/0.25mL dose 04/05/2020 [facility] 05/25/2023 13:57:34 COVID-19, mRNA, LNP-S, PF, 30 mcg/0.3 mL dose 03/27/2021 [facility] 05/25/2023 13:57:34 COVID-19, mRNA, LNP-S, PF, 50 mcg/0.5 mL 01/30/2023 completed Macy shen [facility] 05/25/2023 13:57:34 Tdap 06/02/2011 [facility] 05/25/2023 13:57:34 Tdap 03/13/2008 [facility] 05/25/2023 13:57:34 Influenza, split virus, trivalent, preservative 03/14/2008 [facility] 05/25/2023 13:57:34 Influenza, split virus, quadrivalent, PF 01/24/2020 [facility] 05/25/[facility]23 13:57:34 Influenza, split virus, quadrivalent, PF 02/15/2018 [facility] 13:57:34 Past Encounters Encounter ID Performer Location Encounter Start Date Encounter Closed Date Diagnosis/Indication Diagnosis SNOMED-CT Code [id number] Nelson Anderson MD [facility] [address] [place] [address] 12/06/2019 16:01:42 12/08/2019 11:34:14 Pain in testicle [id number] Nelson Anderson MD [facility] [address] [place] [address] 12/16/2019 12:31:24 12/19/2019 12:53:19 Pain in scrotum [id number] Nelson Anderson MD [facility] [address] [place] [address] 01/09/2020 14:37:55 01/09/2020 17:54:17 Inguinal pain [id number] Pain in testicle 7574329 9 [id number] NADIA GAYTAN PA-C [facility] [address] [place] [id number] 05/25/2023 13:19:17 06/01/2023 09:29:06 Kidney stone [id number] [id number] Nelson Anderson MD [facility] [address] [place] [address] 06/23/2023 14:02:00 06/24/2023 11:03:24 Calculus of kidney and ureter [id number] Health Concerns Section Related Observation LastModified by Organization Detai ls LastModified Time None Recorded Concern Status LastModified by Organization Details LastModified Time None Recorded Advance Directives Directive None Recorded Payers Encounter Date Sequence Insurance Name Policy Number Policy [place] Covered Member ID [place] Member ID Guarantor Name 12/16/2019 1 [facility] Grace [id number] Kevin Grace 01/09/2020 1 [facility] Grace [id number] Kevin Grace 05/25/2023 1 TOMAS Grace [id number] Kevin Grace 06/23/2023 1 [facility] Grace [id number] Kevin Grace Notes Date Note Type Note Provider Name and Address Organization Details Recorded Time 12/06/2019 text/html HPI Notes: 59 YOM HERE FOR LEFT TESTICULAR PAIN THAT HAS BEEN ONGOING. HE WAS LAST SEEN (07-27-19).PAST HX LEFT HERNIA REPAIR , 2011. THATS WHEN THE PAIN STARTED. S/P VAS. PASSED STONE MULTIPLE STONE, LAST STONE PASSED WAS ON 03/12/19. CT DONE SHOWING MORE STONES. US done 08/31/19. Nelson Anderson MD [address] [place] [address],[address], [place], [address], [facility] 12/08/2019 10:27:08 12/16/2019 text/html HPI Notes: 59 YOM HERE FOR LEFT TESTICULAR PAIN THAT HAS BEEN ONGOING. HE WAS LAST SEEN (07-27-19).PAST HX LEFT HERNIA REPAIR , 2011. THATS WHEN THE PAIN STARTED. S/P VAS. PASSED MULTIPLE STONE, LAST STONE PASSED WAS ON 03/12/19. CT DONE SHOWING MORE STONES. US done 08/31/19 CHRONIC LEFT TESTICULAR PAIN. HERE FOR CORD BLOCK TRIAL. Nelson Anderson MD [address] [place] [address],[address], [place], [address], [facility] 12/16/2019 13:53:28 01/09/2020 text/html HPI Notes: 59 YOM HERE FOR LEFT TESTICULAR PAIN THAT HAS BEEN ONGOING. HE WAS LAST SEEN (07-27-19).PAST HX LEFT HERNIA REPAIR , 2011. THATS WHEN THE PAIN STARTED. S/P VAS. PASSED MULTIPLE STONE, LAST STONE PASSED WAS ON 03/12/19. CT DONE SHOWING MORE STONES. US done 08/31/19 CHRONIC LEFT TESTICULAR PAIN. HERE TO FOLLOW UP ON CORD BLOCK TRIAL. PAIN OERSISTED AFTER CORD BLOCK. APPEARS NERVE -LIKE PAIN ACCORDING TO PATIENT. Nelson Anderson MD [address] [place] [address],[address], [place], [address], [facility] 01/09/2020 15:52:15 05/25/2023 text/html HPI Notes: 62 yo M here for kidney stone. Recently seen in ED on 05/18 with flank pain; CT reveals 7mm distal left ureteral stone. He has had symptoms for about 2 weeks now. Continues to have renal colic, flares of severe pain. Has been taking Flomax TID and PRN narcotics from ED. Denies fever/chills, dysuria, n/v. 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 Has a long h/o stones, most recently passed stone 2018. Has required several surgeries with Dr Anderson. H/o chronic left testicular pain, tried marcaine spermatic cord block with Dr Anderson with minimal relief. UA today with blood NADIA GAYTAN PA-C [address] [facility],[address], [place], [address], [facility] 05/25/2023 14:42:36 06/23/2023 text/html HPI Notes: 62 yo M here for kidney stone. Recently seen in ED on 05/18 with flank pain; CT reveals 7mm distal left ureteral stone. He has had symptoms for about 2 weeks now. Continues to have renal colic, flares of severe pain. Has been taking Flomax TID and PRN narcotics from ED. Denies fever/chills, dysuria, n/v. 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 Has a long h/o stones, most recently passed stone 2019. Has required several surgeries with Dr Anderson. H/o chronic left testicular pain, tried marcaine spermatic cord block with Dr Anderson with minimal relief. UA today with blood S/P LEFT URS, HLL, LEFT STENT. DOING WELL, EXCEPT MILD STENT DISCOMFORT. HERE FOR STENT REMOVAL. Nelson Anderson MD [address] [facility],[address], [place], [address], [facility] 06/23/2023 14:41:23
--- OUTSIDE RECORDS SUMMARY | 2023-11-25 15:05 | XMS_ITS | Data Portability ---
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 I reviewed the pathophysiology of the disorder, potential contributing and risk factors as well as treatment options to address their complaints. I did not recommend advanced imaging with CT. Today panoramic imaging was obtained and reviewed with the patient. In this radiograph the mandibular condyles were partially visualized and appear relatively normal in morphology except for questionable osteophyte on the right condyle. There was no other suggestion of osseous or odontogenic abnormalities. Kevin was seen in consultation with Dr. Nirav DDS. He seems to have endured a muscle strain sprain injury triggered by shearing and chewing forces (biting into a frozen cookie). The primary location seems to be in the left masseter muscle area, however, there is also an articular disc presentation. He does seem to have episodic headaches which could be tension type. From a treatment perspective I recommended a rehabilitative treatment approach. Treatment begins with home self management designed to rest the muscles of mastication and reduce inflammation in the temporomandibular joints. This includes heat and ice compresses, eating a soft food or pain-free diet, bilateral chewing identifying and decreasing daytime muscle tension and modification of their sleep position. Today I taught simple jaw exercises designed to improve the jaw mechanics and movement, improve range of mouth opening and improve TM joint fluid circulation to facilitate healing. This includes jaw stretch with relaxed breathing. This was both demonstrated and given in written format. Beyond self management I believe that they would benefit from a mandibular intraoral appliance. In addition I've recommended rehabilitation with physical therapy. This will be done later. Today a prescription for cyclobenzaprine 5 mg qhs, was provided to the patient. The risks and benefits associated with the prescribed medication was discussed with the patient today. Patient was asked to discontinue medication intake and return to clinic if significant side effects were noted from the medication. The goal of treatment is to improve pain, function and focus on long-term self-management strategies. I believe that by following these treatment recommendations there is a excellent prognosis for reduction of symptoms. History was obtained from the patient. The patient has 4 diagnoses they would like to address. This case is moderate complexity because of limited diagnoses and acute nature. Data reviewed included: procedure documentation. Risk of complications include progressive disease/symptoms. Today time spent may have included a review of past records, history taking, review of diagnoses, contributing factors, treatment plan, diagnostic testing, prognosis, expectations, risks and complications of treatment/no treatment, discussions with other providers and completing documentation was 60 minutes. Not available 04/15/2023 09:30:24 04/15/2023 04/15/2023 Patient presents to therapy with signs and symptoms consistent with the ICD 10 diagnoses noted below. Main findings include: disc displacement with reduction. Subacute, now a month out from onset after biting into a frozen cookie. Painful click with chewing and also pain and deviation with full opening. Condition is evolving with moderate irritability and personal factors/comorbiditi es affecting the plan of care (see history section for list of factors). These findings limit the pt from participation in the following functional activities: eating chewy foods, opening wide to bite/yawn/drink and some discomfort with speaking/smiling. Treatment plan to include reducing myalgia, increasing joint ROM, teaching self management strategies and strengthening to provide long-term symptom reduction. The patient was educated on the risks/benefits of physical therapy and the anatomy pertaining to their present condition. The physical therapy POC and goals were discussed with the patient and all present questions/concerns were addressed. Pt agrees to treatment plan. Rehabilitation potential is good. Treatment to include: therapeutic exercise, manual therapy, neuro muscular re education, therapeutic activities, self care, possible dry needling and modalities as needed. Frequency: will be 2>1/weeks for 6-8 weeks, tapering as able for a total of 6 visits over 2 months. [email or web address] Not available 04/15/2023 11:26:23 04/28/2023 04/28/2023 Improved ROM bef ore and after click but still painful with a muscular knot in the L masseter. Advanced HEP today and dry needled this area. [email or web address] Not available 04/28/2023 17:37:55 05/14/2023 05/14/2023 Kevin presents wi th more pain that occ shoots into his ear with large opening. He was doing the CR exercise wrong with protrusion vs opening which we corrected today. I also advised him to trial OTC NSAIDs for inflammation and to avoid large opening bite with his lunch sandwhiches. [email or web address] Not available 05/14/2023 18:08:25 05/26/2023 05/26/2023 Today I reviewed the diagnosis, contributing factors and treatment options. I reviewed and reinforced continued use of self care and home exercises. I encouraged daily home care use which may consist of heat and ice compresses, oral habit reduction and relaxation techniques. - Kidney stone pain since a week. - Clenching teeth with kidney stone. - Jaw improving, symptoms with wide mouth opening. - Panorex reviewed. - He would like to wait on PT & do stretches by himself. - He will return if pain worsens. - Goals: bilateral chewing. - TMJ noises may be related with remodelling. History today was obtained from the patient. The patient has 4 diagnoses which we are addressing. Their symptoms are improving. This case is moderate complexity because of multiple diagnoses with chronic symptoms. Data reviewed included previous imaging. Discussion with treatment team members after visit was necessary. Risk of complications include disease/symptom progression were discussed. Today time spent may have included a review of past records, history taking, review of diagnoses, contributing factors, treatment plan, diagnostic testing, prognosis, expectations, risks and complications of treatment/no treatment, discussions with other providers and completing documentation was 30 minutes. Not available 05/26/2023 18:12:01 Plan of Treatment Reminders Order Date Submit Date Provider Last Modified By Organization Details Last Modified Time Details Appointments None recorded. Lab None recorded. Referral physical therapist referral 2023 024 Not available 09:27:04 Procedures None recorded. Surgeries None recorded. Imaging None recorded. Medication Orders cyclobenzap rine 5 mg tablet 2023 [id number], [address] [place], [place], [id number], 19:07:13 Patient Targets Encounter Date Encounter Id Patient Goals Patient Target Last Modified By Organization Details Last Modified Time buttermaker goals (to be met in 6 weeks):*Patient will report improved score on JFWL by at least 10%, indicating clinically significant improvement in self-reported level of function to allow patient to safely achieve pre-onset level of function.*Patien t will demonstrate the ability to open jaw to 40mm IO without compensations, noticeable difficulty or pain greater than 2/10 to be allow for adequate jaw function for chewing food of all types and consistencies without compensation or difficulty. [email or web address] Not available 04/15/2023 11:26:25 Patient Instructions Encounter Date Encounter Id Patient Instructions Last Modified By Organization Details Last Modified Time 04/07/2023 [id number] Self Care for TMD Not availab le 04/15/2023 09:27:04 oral appliance preparation* Not available 04/15/2023 09:27:06 Three Jaw Exercises Not available 04/15/2023 09:28:51 Contributing factors identified at today's appointment include: daytime clenching, sleep bruxism, oral habits. Not available 04/15/2023 09:29:16 04/15/2023 [id number] Total treatment time minutes today = 40 Next Visit Plan: how is joint mob? recheck ROM. Add CR. ROM to relocation 30mm, full 45 w/ pain. Patient/Therapist Goals: resume eating and decrease pain and popping Progress Note Date: 06/09 [email or web address] Not available 04/15/2023 11:28:26 04/28/2023 [id number] Total treatment time minutes today = 40 Next Visit Plan: Recheck ROM, upgrade CR. How was dry needling? ROM to relocation 40mm, full 42 w/ pain. Patient/Therapist Goals: resume eating and decrease pain and popping Progress Note Date: 06/09 lhovda Not available 04/28/2023 17:39:35 05/14/2023 [id number] Total treatment time minutes today = 33 Next Visit Plan: followup with Dr. Meza in 1.5 weeks. Plan PT followup after that. ROM to relocation 40mm, full 42 w/ pain. 2/8: 38 w/ more pain Patient/Therapist Goals: resume eating and decrease pain and popping Progress Note Date: 06/09 lhovda Not available 05/14/2023 18:10:06 Reason for Referral Physical Therapist Referral for Myofascial pain Referring Physician: Jayleen Meza, Pain Management, Encounter Date: 04/07/2023 Results Created Date Observation Date Name Description Value Unit Range Abnormal Flag LastModifiedBy Organization Detail LastModifiedTime 04/15/19 24 04/15/2023 oral appli ance prepa ratio n* Type of appliance mandib ular stabil izatio n applia nce Not Available [facility] [address], [place], [address], 04/15/2023 09:25:53 04/07/19 24 04/07/2023 XR, ortho panto gram No observ ation record ed. Not Available 04/07/2023 19:02:52 Result Notes None recorded. 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 Procedures Surgical History Date Name Laterality Status Provider Name and Address Organization Details Recorded Time 05/14/19 66208: Therapeutic Exercise completed Delmy Suresh DPT [address], [place], [address], [facility] 05/14/2023 18:09:34 05/14/19 24 29976: Neuromuscular Re-Education completed Delmy Suresh DPT [address], [place], [address], [facility] 05/14/2023 18:09:35 05/14/19 24 27189: Manual Therapy completed Delmy Suresh DPT [address], [place], [address], [facility] 05/14/2023 18:09:57 04/28/19 24 43896: Needle insertion(s) without injection(s), 1 or 2 muscle(s) completed Delmy Suresh DPT [address], [place], [address], [facility] 04/28/2023 17:39:15 04/28/19 24 47593: E-Stim - Direct Contact completed Delmy Suresh DPT [address], [place], [address], [facility] 04/28/2023 17:39:19 04/28/19 24 77338: Therapeutic Exercise completed Delmy Hovda, DPT [address], [place], [address], [place] [facility] 04/28/2023 17:38:33 04/28/19 24 42011: Neuromuscular Re-Education completed Delmy Suresh, DPT [address], [place], [address], [place] [facility] 04/28/2023 17:38:35 04/28/19 24 38022: Manual Therapy completed Delmy Suresh, DPT [address], [place], [address], [place] [facility] 04/28/2023 17:38:32 04/15/19 24 48607 - PT Eval Moderate Complexity completed Delmy Suresh, DPT [address], [place], [address], [place] [facility] 04/15/2023 11:24:52 04/15/19 24 38502: Self Care/Home Management Training completed Delmy Suresh, DPT [address], [place], [address], [place] [facility] 04/15/2023 11:24:00 04/15/19 24 64296: Therapeutic Exercise completed Delmy Suresh, DPT [address], [place], [address], [place] [facility] 04/15/2023 11:23:54 04/15/19 24 38862: Manual Therapy completed Delmy Suresh, DPT [address], [place], [address], [place] [facility] 04/15/2023 11:23:59 04/07/19 24 Orthopantogram completed Shaniqua shen, [facility] 04/07/2023 18:50:07 hernia repair completed Shaniqua shen, [facility] 04/07/2023 18:30:20 Shoulder Surgery completed Shaniqua shen, [facility] 04/07/2023 18:30:31 [place] Teeth Extraction completed Shaniqua shen [facility] 04/07/2023 18:30:39 Imaging Results Imaging Date Name Status LastModified by Organization Details LastModified Time 04/07/2023 XR, orthopantogram completed Inform ation not available 04/07/2023 19:02:52 Procedure Notes None recorded. Medical Equipment None Reported. Allergies No known drug allergies Medications Name Sig Start Date Stop Date Status Note LastModified by Organization Details LastModified Time hydrocodone 5 mg-acetaminophe n 325 mg tablet TAKE 1 TABLET BY MOUTH EVERY 4 TO 6 HOURS NEEDED FOR PAIN active Not Available Not Available No t Available ketorolac 10 mg tablet active Not Available Not Available Not Available oxycodone-aceta minophen 5 mg-325 mg tablet active Not Available Not Available Not Available tamsulosin 0.4 mg capsule TAKE 1 CAPSULE BY MOUTH DAILY NEEDED active Not Available Not Available No t Available omeprazole 20 mg capsule,delayed release Take 1 capsule every day by oral route. active Not Available Not Available No t Available oxycodone 5 mg tablet active Not Available Not Available Not Available cyclobenzaprine 5 mg tablet TAKE 1 TABLET BY MOUTH EVERY DAY AT DINNER active Not Available Not Available No t Available Vitals Date Recorded Body height Body mass index (BMI) Body weight Heart rate Systolic blood pressure Diastolic blood pressure Provider Name and Address Organization Details Last Updated DateTime 177.8 cm 29.7 kg/m2 12808.6 2 g 49 /min 153 mm[Hg] 95 mm[Hg] Shaniqua Hanks [facility] 18:29:07 Date Recorded Body height Systolic blood pressure Diastolic blood pressure Provider Name and Address Organization Details Last Updated DateTime 05/26/2023 177.8 cm 139 mm[Hg] 101 mm[Hg] Shaniqua Hanks [facility] 05/26/2023 16:30:01 Social History Question Answer Notes LastModified by Organizat ion Details LastModified Time Tobacco Smoking Status Never Smoker Shaniqua shen [facility] 04/07/2023 18:57:45 What Is Your Level Of Alcohol Consumption? Occasional Information not available 04/07/2023 What Is Your Level Of Caffeine Consumption? Moderate Information not available 04/07/2023 Are You Currently Employed? Yes Information not available 04/07/2023 What Type Of Diet Are You Following? REGULAR Information not available 04/07/2023 What Is The Highest Grade Or Level Of School You Have Completed Or The Highest Degree You Have Received? [id number] Information not available 04/07/2023 What Is Your Occupation? [employer] [place] Information not available 04/07/2023 What Number Best Describes Your Pain On Average In The Past Week? (0=no Pain, 10=pain As Bad As You Can Imagine) 3 Information not available 04/07/2023 What Number Best Describes How, During The Past Week, Pain Has Interfered With Your Enjoyment Of Life? (0=does Not Interfere, 10= Completely Interferes) 3 Information not available 04/07/2023 What Number Best Describes How, During The Past Week, Pain Has Interfered With Your General Activity? (0=does Not Interfere, 10=completely Interferes) 2 Information not available 04/07/2023 What Is Your Relationship Status? Information not available 04/07/2023 Sex: Unknown Functional Status Question Answer Note LastModified by Organization D etails LastModified Time What is your exercise level? None Information not available 04/07/2023 Mental Status None recorded. Family History Relationship Description Onset Age of this Age Resolved Age Notes Father No current problems or disability Mother No current problems or disability Medical History Condition Response Coronary Artery Disease N Other Y Gout N Chronic fatigue syndrome N Hyperthyroidism N Premenstrual syndrome (PMS) N MRSA N Head Trauma/Injury N Emphysema N Irritable bowel syndrome N Glaucoma N Lung Disease N COPD N Hypothyroidism N Depression N Pneumonia N Pacemaker N Orthopedic Problems N Obstructive Sleep Apnea N Anxiety Disorder N Autoimmune disease N Muscle, Joint, or Bone Problems N Vision or Eye Problems N Arthritis N Serious Illness or Injuries N Acid Reflux (GERD) Y Cancer N Stroke N Eating disorder N Neck Injury N Back Injury N High Cholesterol N History of chemotherapy N Neurologic Disorder N Liver Disease N Organ Transplant N Rheumatoid Arthritis N Headaches Y Fibromyalgia N Kidney Disease N Allergies/Hayfever N Post traumatic stress disorder (PTSD) N Parkinson's Disease N Migraines N Thyroid Problems N Brain Tumors N Anemia N Multiple Sclerosis N Immune System Disorder N Meningitis N Pancreatic disease N Heart Attack (NM) N Stomach Ulcers N Back pain N Diabetes N Bleeding Disorder N Seizures/Epilepsy N Sjogren's syndrome N Tuberculosis N AIDS/HIV N History of radiation therapy N Hyperlipidemia N Dementia N Asthma N Physical or sexual abuse N Substance Abuse N Peripheral Vascular Disease N Psoriasis N Reflux/GERD N Mental Problems N Vertigo N Sleep Disorder N GERD/Reflux N Aneurysm N Hepatitis N Heart Disease N Neuropathy N Pulmonary Embolism N Hypertension N Osteoporosis N Immunizations Vaccine Type Date Status Provider Name and Address Organization Details Recorded Time influenza, unspecified formulation 01/04/[address] [facility] 04/07/2023 18:28:37 SARS-COV-2 (COVID-19) vaccine, UNSPECIFIED 02/04/[address] 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 7175951043298 9104 Episodic t ension-type headache 995976480 [id number] MARK Pedraza e [address] [place] [id number] 04/15/2023 10:19:53 04/15/2023 11:37:43 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 4069787582933 9104 Episodic t ension-type headache 600126443 Myofascial pain 36945321 9 Spasm 12468726 [id number] Delmy Suresh, DPT [facility] [address] [place], [place] [id number] 04/28/2023 16:30:12 04/28/2023 17:22:39 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 0174385321242 9104 Episodic t ension-type headache 861015839 Myofascial pain 06539190 9 Spasm 48808498 [id number] Delmy Kerwin, DPT [place] [address] [place], [place] [id number] 05/14/2023 17:08:36 05/14/2023 18:04:53 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 2951362742398 9104 Episodic t ension-type headache 384022191 Myofascial pain 53307946 9 Spasm 33204908 [id number] SHIVANIAUGUSTINEGINATOMMY MEZA, BDS, [place] [address] [place] [id number] 05/26/2023 16:10:52 05/26/2023 18:16:47 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 2233322717241 9104 Episodic t ension-type headache 098309756 Myofascial pain 94797504 9 Spasm 79893761 Health Concerns Section Related Observation LastModified by Organization Detai ls LastModified Time None Recorded Concern Status LastModified by Organization Details LastModified Time None Recorded Advance Directives Directive None Recorded Payers Encounter Date Sequence Insurance Name Policy Number Policy [place] Covered Member ID [place] Member ID Guarantor Name 04/07/2023 1 [employer] Kevinryne Grace [id number] Kevin Grace 04/15/2023 1 [employer] Kevin Grace [id number] Kevin Grace 04/28/2023 1 [employer] Kevin Grace [id number] Kevin Grace 05/14/2023 1 [employer] Kevinryne Grace [id number] Kevin Grace 05/26/2023 1 [employer] Kevinryne Grace [id number] Kevin Grace Notes Date Note Type Note Provider Name and Address Organization Details Recorded Time text/html HPI Notes: general HPI for jaw, face, TMD pain Reported by patient. Onset: started 3 week(s) ago Location: left; masseteric; temporal Quality: dull Severity: pain level 3/10 Duration constant Symptom triggers: chews hard/crunchy/chewy foods Aggravating Factors: yawning; wide mouth opening; dental work; chewing Alleviating Factors: NSAIDs; acetaminophen; ice Associated Symptoms: no tooth pain; no malocclusion; no tinnitus; jaw popping left; headaches Prior Treatment: chiropractor adjustment Prior opinion dentist Patient presents today for evaluation of a possible temporomandibular disorder. These symptoms are acute and began with eating something hard. Previous consultation include evaluation with his/her dentist. Symptoms are left sided only and aggravated by jaw use and function. The patient is not aware of teeth clenching and grinding. Kevin states he was biting into a frozen cookie and that is when he noticed a pop in the jaw joint and sharp pain. He also has jaw joint noises which started with this injury. The patient does get headaches, but states that they occur 3-4 times per month. He manages it with OTC medications. Pain radiates to left ear. He has been working for the [employer] for about 42 years. JAYLEEN MEZA BDS, [place] [address] [address], [place], [address], [facility] 04/15/2023 09:30:51 4 text/html HPI Notes: Patient presents today for PT evaluation regarding: L sided jaw popping and pain. Symptoms present for: about a month after biting into a frozen cookie Aggravated by: chewing Improved by: heat and massaging it Current symptoms are reported at 2-3/10. Pt was previously able to complete ADLs and IADLs I without limitation or pain. Functional limitations and participation restrictions currently include: *yawning *speaking *laughing *oral hygiene *eating *friends and significant other can hear the click when he's eating Personal factors and/or comorbidities affecting the plan of care include: *Headaches: yes *Clenching *Bruxism *Stress *Stimulant use: caffeine *Medical/Surgical Hx: hernia repair, shoulder surgery - B RC repairs, 3rd molars, GERD. Denies: numbness, tingling, vision changes, swallowing difficulty. Previous Treatment: Dr. Meza Patient Goals include: Resume eating and decrease pain and popping. Patient Reported Outcome [id number] (out of 80): 04/14/23=24 Delmy Suresh DPT [address] [facility] [address], [place], [address], [facility] 04/15/2023 11:28:42 4 text/html HPI Notes: Pt reports less pain and the clicking is still present. He would like the clicking to improved as others can hear it when he is eating. Delmy Suresh DPT [address] [facility] [address], [place], [address], [facility] 04/28/2023 17:40:59 4 text/html HPI Notes: Pt reports being sore from being at the dentist yesterday. More of an ear ache lately, backed off on the exercises. Wide opening more painful and it takes a while to calm down. Click still present with chewing on the R. Delmy Suresh DPT [address] [facility] [address], [place], [address], [facility] 05/14/2023 18:10:15 4 text/html HPI Notes: general HPI for jaw, face, TMD pain Reported by patient. Onset: started 3 week(s) ago Location: left; masseteric; temporal Quality: dull Severity: pain level 0-3/10 Duration intermittent Symptom triggers: chews hard/crunchy/chewy foods Aggravating Factors: yawning; wide mouth opening; dental work; chewing Alleviating Factors: NSAIDs; acetaminophen; ice; soft foods; avoids opening wide, avoids hard foods Associated Symptoms: no tooth pain; no malocclusion; no tinnitus; jaw popping left; headaches Prior Treatment: chiropractor adjustment Prior opinion dentist Patient presents today for follow-up. They report jaw symptoms which are improved since the previous visit. Symptoms and pertinent information along with prior data was reviewed, updated and documented in the patient history of present illness. Patient rates the pain intensity as 0 on a scale of 0 to 10. Patient is engaged in active treatment at this time. Kevin is present today for a follow up appointment. His left sided jaw pain is intermittent, dull that occurs when opening wide and/or chewing hard foods. He also notes left sided jaw joint noises. He's avoids those triggers and is trying to do self care exercises. Kevin feels that the cyclobenzaprine was helpful with no side affects. He does not need a refill. He is currently dealing with kidney stones and has a future surgery coming. He's taking medications for his pain. JAYLEEN MEZA BDS, MS [address] [facility] [address], [place], [address], [facility] 05/26/2023 18:12:05
--- NOTE | 2023-11-25 15:30 | MR_ITS ---
[address] [address] Phone:?[phone] Fax:?[phone] Referring Physician Information: Taco Oneill M.D. [address] [facility] [address] Phone:?[phone] Fax:?[phone] Patient:?Kevin Grace D.O.B:?1960 Sex:?Male Phone:?[phone] [facility] MRN:?[id number] Exam Date:?11/25/2023 EXAM: MRI of the RIGHT SHOULDER, without contrast CLINICAL INFORMATION: Male, 63 years old, with right shoulder pain. INDICATION: Evaluate subscapularis and biceps. PRIOR SURGERY: History of shoulder surgery. PLAIN FILMS: Shoulder radiographs dated 11/16/2023. COMPARISONS: Right shoulder MRI dated 11/25/2019. TECHNICAL INFORMATION: Using a 1.5T MR scanner and a localizing surface coil: coronal obliques: PD, T2FS sagittal obliques: T2, PDFS axials: PD, PDFS SEDATION: None CONTRAST: None FINDINGS: Bones: Proximal humerus: A surgical anchor in the greater tuberosity reflects rotator cuff repair. No fracture or otherwise abnormal marrow signal/pathology. No humeral Hill-Sachs or reverse Hill-Sachs lesion/impaction or contusion. Glenoid: No fracture or marrow edema/pathology. No osseous Bankart lesion. Rotator cuff and muscles/tendons: Supraspinatus: Status post repair. As before, there is full-thickness disruption of the central tendon fibers measuring 10 mm anteroposterior by 20 mm mediolateral (sagittal T2 series image 12 and coronal STIR series 4 image 12). The anterior and posterior margins of the tendon appear to remain at least partially intact. Grade 1 muscle atrophy. Infraspinatus: Mild infraspinatus tendinopathy, without tear. Teres minor: No tendinopathy, tear or atrophy. Subscapularis: Full-thickness tearing of the lesser tuberosity attachment of subscapularis, which is retracted to level the glenohumeral joint and grade 1 muscle atrophy. The muscular attachment remains intact inferiorly. Deltoid: No strain or atrophy. Coracoacromial arch: Acromion morphology: Status post anterior acromioplasty for subacromial decompression, with good result. No os acromiale. Acromiohumeral space: The acromiohumeral space is decompressed. Coracohumeral space: The coracohumeral space is within normal limits. Acromioclavicular joint: Joint: Status post AC joint resection for subacromial decompression, with good result. Ligaments: Coracoclavicular ligaments are intact. Bursae: Subacromial-subdeltoid: Fluid in the subacromial-subdeltoid bursa reflects accumulation from the full-thickness rotator cuff tear. Subcoracoid: No convincing subcoracoid bursal thickening/bursitis. Biceps tendon: The long head of the biceps tendon is medially displaced at the lesser tuberosity. Marked tendinopathy and high-grade tearing of the intra- articular biceps long head tendon at the level of the bicipital groove (axial PD series 3 images 16-30). Glenohumeral joint: Effusion/cyst: Small glenohumeral joint effusion. Articular cartilage: Humeral head: Broad-based grade II/III chondromalacia of the humeral head with mild inferomedial marginal osteophytosis. Glenoid: Generalized grade II chondromalacia of the glenoid, with mild anterior and posterior marginal osteophytosis. Loose bodies: No discrete intra-articular body within the joint. Labrum:?Circumferential degeneration and tearing of the labrum, which is of doubtful clinical significance. Inferior glenohumeral ligament/axillary pouch:?Intact. The axillary pouch is normal in thickness and signal. No evidence of adhesive capsulitis or capsular injury. IMPRESSION: 1. Finding in keeping with a biceps tracy injury: -Full-thickness tearing of the lesser tuberosity attachment of subscapularis, with retraction to the level of the glenohumeral joint and grade 1 muscle atrophy. -Medial displacement of the biceps long head tendon at the lesser tuberosity. -Marked tendinopathy and high-grade tearing of the intra-articular biceps long head tendon at the level of the bicipital groove. -These findings have significantly progressed since the prior study dated 11/25/2019. 2. Status post supraspinatus tendon repair with a persistent full-thickness defect of the central distal tendon fibers measuring 10 mm anteroposterior by 20 mm mediolateral, but without significant interval change since the prior study. There is also mild infraspinatus tendinopathy, without tear. 3. Mild osteoarthritis of the glenohumeral joint with a small joint effusion that extends into the subacromial-subdeltoid bursa. 4. Status post anterior acromioplasty and AC joint resection for subacromial decompression, with good result. 5. Circumferential degeneration and tearing of the labrum, which is of doubtful clinical significance. BC Electronically signed on 11/26/2023 7:16:00 AM by Maksim Yoo M.D.
== END 2023-11-25 15:02 | disposition home or self-care (01) ==
LOC: MRI 15:02
PROVIDERS: PCP Family Medicine; Visit Provider Orthopaedic Surgery
DX: M25.511 Pain in right shoulder (principal); S46.211A Strain of muscle, fascia and tendon of other parts of biceps, right arm, initial encounter; M19.011 Primary osteoarthritis, right shoulder; S43.401A Unspecified sprain of right shoulder joint, initial encounter; Z98.890 Other specified postprocedural states
CPT/HCPCS: 73221

== ENCOUNTER 2023-12-12 11:10 | Emergency (ER) | payer OTHER, SELFPAY ==
[2023-12-12 11:24] VITALS: BP 177/91; PULSE 65; RESP 24; TEMP 36.3; O2SAT 98; BMI 30.3
--- NOTE | 2023-12-12 11:41 | CRLHL7_ITS ---
For Patients: As a result of the Century Cures Act, medical imaging exams and procedure reports are released immediately into your electronic medical record. You may view this report before your referring provider. If you have questions, please contact your health care provider. INDICATION: Flank pain TECHNIQUE: CT abdomen and pelvis without contrast. COMPARISON: CT 05/18/2023 FINDINGS: Lower chest: The heart is enlarged. Liver: Fatty liver. Gallbladder and bile ducts: No stones or inflammation. No biliary dilatation. Pancreas: Unremarkable. No mass or inflammation. Splenic granulomas. Adrenal glands: Stable peripherally calcified right adrenal nodule. Kidneys: Mild to moderate right hydronephrosis hydroureter with a 5 millimeters stone in the distal ureter just proximal to the UVJ. There is also nonobstructing 6 millimeter right pelvic stone in additional bilateral nonobstructing stones in both kidneys. Low-attenuation lesion right kidney incompletely assessed GI tract: Small hiatal hernia. Vasculature: Abdominal aorta is normal in caliber. Lymph nodes: No lymphadenopathy. Peritoneum/Abdominal Wall: Enlarged prostate gland. Inguinal hernia repair changes. Bones: Unremarkable for age. IMPRESSION: 1. [id number] right hydronephrosis hydroureter with a distal right ureteral 5 millimeter stone just proximal to the UVJ. Additional nonobstructing stones bilaterally. 2. Fatty Liver. Please note that all CT scans at this facility use dose modulation, iterative reconstruction, and/or weight-based dosing when appropriate to reduce radiation dose to as low as reasonably achievable. Dictated by Chelsey Abernathy MD @ 12/12/2023 12:40:57 PM (Electronically Signed)
[2023-12-12] MEDS: ONDANSETRON 2 MG/ML inj 4 MG IVP (11:44)
[2023-12-12] MEDS: HYDROmorphone 0.5 mg/0.5 ml inj 1 MG IVP (11:44)
[2023-12-12 11:45] VITALS: PULSE 62; RESP 32; O2SAT 97
[2023-12-12] MEDS: 0.9 % SODIUM CHLORIDE 1000 ml 1,000 ML IV (11:49)
--- NOTE | 2023-12-12 11:50 | ED.GENADULT ---
HPI - General Adult General Chief complaint: Flank Pain Stated complaint: Kidney stone Time Seen by Provider: 12/12/23 11:17 History of Present Illness HPI narrative: Patient is a 63-year-old gentleman who comes in today with severe right flank pain. He has a long history of kidney stones. His pain started this morning and is 10/10 with associated nausea without vomiting. Patient has had no hematuria. He has had multiple stones in the past. He has had no chest pain no shortness a breath orthopnea no PND. Patient has been feeling well in his usual state of health recently. Related Data Home Medications ?Medication ?Instructions ?Recorded ?Confirmed omeprazole 20 mg capsule,delayed 20 mg PO QDAY 06/12/23 12/12/23 release Allergies Allergy/AdvReac Type Severity Reaction Status Date / Time No Known Drug Allergies Allergy Verified 12/12/23 11:27 Review of Systems Status of ROS: Reports: 10 or more systems reviewed and unremarkable except as noted in History and below PFSH [facility] Medical History Hx of renal calculi ?Z87.442 - Personal history of urinary calculi (ICD-10) Hydronephrosis with urinary obstruction due to ureteral calculus ?N13.2 - Hydronephrosis with renal and ureteral calculous obstruction (ICD-10) History of hydrocele ?Z87.438 - Personal history of other diseases of male genital organs (ICD-10) Surgical History S/P nerve repair (03/23/97) ?Z98.890 - Other specified postprocedural states (ICD-10) History of excision of mass (03/20/97) ?Z98.890 - Other specified postprocedural states (ICD-10) History of hydrocelectomy ?Z98.890 - Other specified postprocedural states (ICD-10) S/P foot surgery, left ?Z98.890 - Other specified postprocedural states (ICD-10) Status post arthroscopy of right shoulder (11/21/16) ?Z98.890 - Other specified postprocedural states (ICD-10) Status post arthroscopy of left shoulder (01/01/07) ?Z98.890 - Other specified postprocedural states (ICD-10) History of inguinal hernia repair ?Z98.890 - Other specified postprocedural states (ICD-10) ?Z87.19 - Personal history of other diseases of the digestive system (ICD-10) History of hemorrhoidectomy (04/29/11) ?Z98.890 - Other specified postprocedural states (ICD-10) History of hernia surgery ?Z98.890 - Other specified postprocedural states (ICD-10) ?Z87.19 - Personal history of other diseases of the digestive system (ICD-10) Social History Smoking Status: Never smoker Do you use any of these nicotine containing products: None How often do you have a drink containing alcohol: never AUDIT-C Alcohol total score: 0 Non-prescribed substance use: denies use Exam Narrative: Exam Narrative: EXAM GENERAL: Patient appears acutely uncomfortable EYES: No scleral icterus. LYMPH: No supraclavicular or cervical lymphadenopathy. SKIN: Visible skin seen during exam normal or with benign process only. EXT: No dependent lower extremity pedal edema. HEART: Regular rate and rhythm with no murmurs, rubs, or gallops. LUNGS: Clear to auscultation bilaterally with no crackles or wheezes. ABD: Soft, non tender, non distended. PSYCH: Good eye contact, speech is not pressured. Const: Vital Signs, click to edit/add: Vital Signs - 24 hr 12/12/23 11:24 12/12/23 11:45 Temperature 97.3 F L Pulse Rate [Right Pulse Oximeter] 65 62 Respiratory Rate 24 32 H Blood Pressure [Ri ght Upper Arm] 177/91 H Pulse Oximetry 98 97 Oxygen Delivery Me thod Room Air Course Course ED Course: Patient seen and examined. CT abdomen pelvis CBC CMP UA lipase ordered. Patient given 1 L normal saline 4 mg of IV Zofran 1 mg of IV Dilaudid. Vital Signs Vital signs: Initial Vital Signs Temperature 97.3 F L 12/12/23 11:24 Temperature Source Temporal Artery Scan 12/12/23 11:24 Pulse Rate 65 12/12/23 11:24 Respiratory Rate 24 12/12/23 11:24 Blood Pressure 177/91 H 12/12/23 11:24 Blood Pressure Mean 119 H 12/12/23 11:24 Pulse Oximetry 98 12/12/23 11:24 Vital Signs Temperature 97.3 F L 12/12/23 11:24 Pulse Rate 65 12/12/23 11:24 Respiratory Rate 24 12/12/23 11:24 Blood Pressure 177/91 H 12/12/23 11:24 Pulse Oximetry 98 12/12/23 11:24 Temperature 97.3 F L 12/12/23 11:24 Pulse Rate 62 12/12/23 11:45 Respiratory Rate 32 H 12/12/23 11:45 Blood Pressure 177/91 H 12/12/23 11:24 Pulse Oximetry 97 12/12/23 11:45 Oxygen Delivery Method Room Air 12/12/23 11:45 Medications Administered Medications: Generic Name Dose Route Start Last Admin Trade Name Freq PRN Reason Stop Dose Admin Ondansetron HCl 4 mg 12/12/23 11:41 12/12/23 11:44 Ondansetron 2 Mg/Ml Inj IVP 4 mg ONCE PRN Administration Discontinued Medications Generic Name Dose Route Start Last Admin Trade Name Freq PRN Reason Stop Dose Admin Hydromorphone HCl 1 mg 12/12/23 11:41 12/12/23 11:44 Hydromorphone 0.5 Mg/0.5 Ml Inj IVP 12/12/23 11:42 1 mg ONCE ONE Administration Sodium Chloride 1,000 mls @ 1,000 mls/hr 12/12/23 11:41 12/12/23 11:49 0.9 % Sodium Chloride 1000 Ml IV 12/12/23 12:40 1,000 mls/hr .Q1H LUIZ Administration Ketorolac Tromethamine 30 mg 12/12/23 12:07 12/12/23 12:22 Ketorolac 30 Mg/Ml Inj IVP 12/12/23 12:08 30 mg ONCE ONE Administration Medical Decision Making MDM Narrative Medical decision making narrative: Patient is a 63-year-old gentleman with history of renal lithiasis who presents with right flank pain. He has a 5 minutes stone noted in the distal UVJ on the right. Did given 1 mg Dilaudid 4 mg of Zofran 30 mg of Toradol with resolution of his symptoms. One L of normal saline he now feels fine. Patient has a long history of stones and there does not appear to be any signs of infection. I did discharged with Vicodin 1-2 every 4-6 as needed no driving or using machinery. He will resume Flomax that he has at home non Zofran for nausea and follow-up with Dr. Lau after taking plenty fluids in the next week. Lab Data Labs: Lab Results 12/12/23 12/12/23 Range/Units 11:34 12:15 WBC 7.60 (4.50-11.00) K/uL RBC 5.43 (4.30-5.90) m/uL Hgb 16.8 (13.5-17.5) gm/dL Hct 48.1 (37.0-53.0) % MCV 89 (80-100) fL MCH 31 (26-34) pg MCHC 35 (32-36) gm/dL RDW Coeff of Rajesh 12.6 (11.5-15.5) % Plt Count 256 (140-440) K/uL Neut % (Auto) 69.9 (42.0-72.0) % Lymph % (Auto) 21.6 (20-44) % [place] % (Auto) 7.0 (0.0-11.0) % Eos % (Auto) 0.8 (0.0-7.0) % Baso % (Auto) 0.4 (0.0-3.0) % Neut # (Auto) 5.32 (1.7-7.0) K/uL Lymph # (Auto) 1.64 (0.90-2.90) K/uL [place] # (Auto) 0.50 (0.00-0.90) K/UL Eos # (Auto) 0.06 (0.00-0.50) K/uL Baso # (Auto) 0.03 (0.00-0.30) K/uL Abs Immat Gran (auto) 0.02 (0.00-0.30) K/uL Imm/Tot Granulo (auto) 0.3 % Sodium 136 (135-149) mmol/L Potassium 3.8 (3.6-5.1) mmol/L Chloride 104 (96-114) mmol/L Carbon Dioxide 20 (20-32) mmol/L Anion Gap 12 (7-15) mEq/L BUN 19 (7-30) mg/dL Creatinine 1.1 (0.5-1.5) mg/dL Estimated Creat Clear 72.82 Estimated GFR 76 ml/min Glucose 119 H (60-115) mg/dL Calcium 9.6 (8.4-10.6) mg/dL Total Bilirubin 1.3 (0.1-1.5) mg/dL AST 40 H (12-35) U/L ALT 36 (4-50) U/L Alkaline Phosphatase 72 (40-150) U/L Total Protein 8.2 (6.0-8.3) g/dL Albumin 4.9 (3.3-5.0) g/dL Lipase 49 (23-300) U/L Urine Color Dark yellow (Yellow) Urine Appearance Clear (Clear) Urine pH 8.5 (5.0-8.5) Ur Specific [place] 1.020 (1.000-1.030) Urine Protein 1+ A (Negative) Urine Glucose (UA) Negative (Negative) Urine Ketones Negative (Negative) Urine Blood 2+ A (Negative) Urine Nitrite Negative (Negative) Urine Bilirubin Negative (Negative) Urine Urobilinogen 0.2 (0.2-1.0) Ur Leukocyte Esterase Negative (Negative) Urine RBC 25-50 A (0-2) Urine WBC 2-5 (0-5) Ur Squamous Epith Cells Few (None-Few) Urine Bacteria Few A (None) Discharge Plan Discharge Clinical Impression: Kidney calculi Patient Disposition: Home, Self-Care Condition: Stable Instructions: Kidney Stones (ED) Additional Instructions: [place] as directed Zofran as directed Flomax which patient has previously had prescribed has at home. Plenty of rest Plenty fluids Follow-up with your doctor next week. Activity Level: No Restrictions Discharge Diet: Regular Prescriptions: No Action omeprazole 20 mg capsule,delayed release(DR/EC) 20 mg PO QDAY Follow Up/Referrals: oKlby Lau MD [Primary Care Provider] - Stand Alone Forms: [facility] Info Instructions
[2023-12-12 11:54] LABS: Basophils Absolute Auto 0.03 K/uL (0.00-0.30); Basophils Percent Auto 0.4 % (0.0-3.0); Eosinophils Absolute Auto 0.06 K/uL (0.00-0.50); Eosinophils Percent Auto 0.8 % (0.0-7.0); Hematocrit 48.1 % (37.0-53.0); Hemoglobin* 16.8 gm/dL (13.5-17.5); Immature Granulocytes Abs Auto 0.02 K/uL (0.00-0.30); Immature Granulocytes Pct Auto 0.3 %; Lymphocytes Absolute Auto 1.64 K/uL (0.90-2.90); Lymphocytes Percent Auto 21.6 % (20-44); Mean Corpuscular HGB Conc 35 gm/dL (32-36); Mean Corpuscular Hemoglobin 31 pg (26-34); Mean Corpuscular Volume 89 fL (80-100); Neutrophils Absolute Auto 5.32 K/uL (1.7-7.0); Neutrophils Percent Auto 69.9 % (42.0-72.0); Platelet Count* 256 K/uL (140-440); RDW Coefficient of Variation % 12.6 % (11.5-15.5); Red Blood Count 5.43 m/uL (4.30-5.90)
[2023-12-12 12:00] LABS: Slide Review Reflex No
--- OUTSIDE RECORDS SUMMARY | 2023-12-12 12:04 | XMS_ITS | Clinical Summary ---
Author Organization [facility] Address [address] [place], [place] [address] [address] Care Team Providers Care Gas Truck Driver Name Role Phone Clinic, No Primary Unavailable Unavailable Kolby Lau MD Primary Care Provider [phone] Allergies No known active allergies Medications Medication [...] Comments Blood Pressure 139/83 04/10/2020 1:15 PM ROOM SERVICE WAITER Pulse 55 04/10/2020 1:15 PM ROOM SERVICE WAITER Temperature 36.1 ??C (97 ??F) 04/10/2020 1:15 PM ROOM SERVICE WAITER Respiratory Rate 16 04/10/2020 1:15 PM ROOM SERVICE WAITER Oxygen Saturation 100% 04/10/2020 1:15 PM ROOM SERVICE WAITER Inhaled Oxygen Concentration - - Weight 92.5 kg (204 lb) 04/03/2020 9:47 AM ROOM SERVICE WAITER Height 177.8 cm (5' 10) 04/03/2020 9:47 AM ROOM SERVICE WAITER Body Mass Index 29.27 04/03/2020 9:47 AM ROOM SERVICE WAITER Plan of Treatment Health Maintenance Due Date Last Done Comments Colonoscopy 1960 Hepatitis C Screening 1960 Lipid Screening 1960 Anxiety Screening (KAT-2) 08/31/1961 Depression Assessment (PHQ-2) 08/31/1963 Zoster Vaccine (1 of 2) 2012 Yearly Review of HCD 03/08/2021 03/08/2020, 02/24/2020 Adult Tetanus Booster 06/02/2021 06/02/2011 , 03/13/2008 RSV 60+ Yrs (1 - 1-dose 60+ series) 2022 COVID-19 Vaccine ( - 2022-2 4 season) 2023 Influenza Vaccine (#1) 2023 0, 01/18/2020, 02/15/2018 Pneumococcal <65 Aged Out No longer e ligible based on patient's age to complete this topic Medical Devices Implanted Type Area Laboratory Immunologist Device Identifier Shelf Expiration Date Model / Serial / Lot Foley Cf Capsule - [id number] Implanted:Qty: 1 on 04/10/2020 by Kobe Johnson MD at [facility] [place] [facility] Prosthetic Implant Non-Specific [employer] 05/17/2021 [id number] Care Teams Gas Truck Driver Relationship Specialty Start Date End Date Clinic, No Primary PCP - Primary Care Clinic 02/24/20 [place] [address] [place] [address] PCP - General 02/24/20
--- OUTSIDE RECORDS SUMMARY | 2023-12-12 12:04 | XMS_ITS | Referral Summary ---
Author Organization [facility] Address [address] [place] [address] Care Team Providers Care Paper Bag Inspector Name Role Phone Melvin Lau MD Primary Care Provider [phone] Allergies No known active allergies Medications Medication [...] on file Medical Devices Implanted Type Area Accounts Receivable Processor Device Identifier Shelf Expiration Date Model / Serial / Lot Stent Ureteral Contour Soft Percuflex [id number] Implanted:Qty: 1 on 09/11/2017 by Nelson Anderson MD at [facility] Stent Left: Ureter [employer] 06/22/2020 [id number] / / [id number] Care Teams Paper Bag Inspector Relationship Specialty Start Date End Date Melvin Lau MD PCP - General Family Practice 09/08/17
--- OUTSIDE RECORDS SUMMARY | 2023-12-12 12:04 | XMS_ITS | Data Portability ---
Author Organization [place] [facility] Address [facility] [address] [place] [address] Care Team Providers Care Pediatric Clinical Dietician Name Role Phone THERESA YANCEY Referring Provider Assessment Encounter Date Assessment Date Assessment LastModified [...] Orders cyclobenzap rine 5 mg tablet 2023 [id number], [address] [place], [place], [id number], 19:07:13 Patient Targets Encounter Date Encounter Id Patient Goals Patient Target Last Modified By Organization Details Last Modified Time [facility] goals (to be met in 6 weeks):*Patient [...] By Organization Details Last Modified Time 04/07/2023 [id number] Self Care for TMD Not availab le 04/15/2023 09:27:04 oral appliance preparation* Not available 04/15/2023 09:27:06 Three Jaw Exercises Not available 04/15/2023 09:28:51 Contributing factors identified at today's appointment include: daytime clenching, sleep bruxism, oral habits. Not available 04/15/2023 09:29:16 04/15/2023 [id number] Total treatment time minutes today = 40 Next Visit Plan: how is joint mob? recheck ROM. Add CR. ROM to relocation 30mm, full 45 w/ pain. Patient/Therapist Goals: resume eating and decrease pain and popping Progress Note Date: 06/09 lhovda Not available 04/15/2023 11:28:26 04/28/2023 [id number] Total treatment time minutes today = 40 Next Visit Plan: Recheck ROM, upgrade CR. How was dry needling? ROM to relocation 40mm, full 42 w/ pain. Patient/Therapist Goals: resume eating and decrease pain and popping Progress Note Date: 06/09 lhovda Not available 04/28/2023 17:39:35 05/14/2023 [id number] Total treatment time minutes today = 33 [...] Name Description Value Unit Range Abnormal Flag Note LastModifiedBy Organization Detail LastModifiedTime 04/15/19 24 04/15/2023 oral appli ance prepa ratio n* Type of appliance mandib ular stabil izatio n applia nce Not Available [place] [address], [place], [address], 04/15/2023 09:25:53 04/07/19 24 04/07/2023 XR, ortho panto gram No observ ation record ed. Not Available 2023 19:02:52 Result Notes None recorded. 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 Procedures Surgical History Date Name Laterality Status Provider Name and Address Organization Details Recorded Time 05/14/19 24 57067: Therapeutic Exercise completed Delmy Suresh DPT [address], [place], [address], [facility] 05/14/2023 18:09:34 05/14/19 24 43806: Neuromuscular Re-Education completed Delmy Suresh DPT [address], [place], [address], [facility] 05/14/2023 18:09:35 05/14/19 24 17008: Manual Therapy completed Delmy Suresh DPT [address], [place], [address], [facility] 05/14/2023 18:09:57 04/28/19 24 88299: Needle insertion(s) without injection(s), 1 or 2 muscle(s) completed Delmy Suresh DPT [address], [place], [address], [facility] 04/28/2023 17:39:15 04/28/19 24 49566: E-Stim - Direct Contact completed Delmy Suresh DPT [address], [place], [address], [facility] 04/28/2023 17:39:19 04/28/19 64137: Therapeutic Exercise completed Delmy Suresh, DPT [address], [place], [address], [facility] 04/28/2023 17:38:33 04/28/19 79634: Neuromuscular Re-Education completed Delmy Suresh, DPT [address], [place], [address], [facility] 04/28/2023 17:38:35 04/28/19 29006: Manual Therapy completed Delmy Suresh, DPT [address], [place], [address], [facility] 04/28/2023 17:38:32 04/15/19 67120 - PT Eval Moderate Complexity completed Delmy Suresh DPT [address], [place], [address], [facility] 04/15/2023 11:24:52 04/15/19 11145: Self Care/Home Management Training completed JERARDO PedrazaT [address], [place], [address], [facility] 04/15/2023 11:24:00 04/15/19 30473: Therapeutic Exercise completed JERARDO PedrazaT [address], [place], [address], [facility] 04/15/2023 11:23:54 04/15/19 00192: Manual Therapy completed Delmy Suresh DPT [address], [place], [address], [facility] 04/15/2023 11:23:59 04/07/19 Orthopantogram completed Shaniqua shen [facility] 04/07/2023 18:50:07 hernia repair completed Shaniqua shen [facility] 04/07/2023 18:30:20 Shoulder Surgery completed Shaniqua shen [facility] 04/07/2023 18:30:31 Inez Teeth Extraction completed Shaniqua shen [facility] 04/07/2023 18:30:39 [...] and Address Organization Details Last Updated DateTime 4 177.8 cm 29.7 kg/m2 76402.6 2 g 49 /min 153 mm[Hg] 95 mm[Hg] Shaniqua Hanks [facility] 18:29:07 Date Recorded Body height Systolic blood pressure Diastolic blood pressure Provider Name and Address Organization Details Last Updated DateTime 05/26/2023 177.8 cm 139 mm[Hg] 101 mm[Hg] Shaniqua Hanks [facility] 05/26/2023 16:30:01 Social History Question Answer Notes LastModified by Organizat ion Details LastModified Time Tobacco Smoking Status Never Smoker Shaniqua shen [facility] 04/07/2023 18:57:45 [...] Or The Highest Degree You Have Received? [id number] Information not available 04/07/2023 What Is Your Occupation? [employer] Information not available 04/07/2023 What Number Best [...] Meningitis N Pancreatic disease N Heart Attack ([place]) N Stomach Ulcers N Back pain N [...] unspecified formulation 01/04/[address] [facility] 04/07/2023 18:28:37 SARS-COV-2 (COVID-19) vaccine, UNSPECIFIED 02/04/[address] [facility] 04/07/2023 18:28:57 Past Encounters Encounter ID Performer Location Encounter Start Date Encounter Closed Date Diagnosis/Indication Diagnosis SNOMED-CT Code Diagnosis ICD10 Code [id number] ROSALINA MEZA BDS, [place] [address] [place] [id number] 04/07/2023 18:12:57 04/07/2023 19:25:21 Myofascial pain 093191287 M79.11 Spasm 16204944 R25.2 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 1288543842 4413116 M26.632 Episodic t ension-type headache 970032588 G44.219 [id number] MARK Pedraza e [address] [place] [id number] 04/15/2023 10:19:53 04/15/2023 11:37:43 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 2371950940 2430030 M26.632 Episodic t ension-type headache 503075795 G44.219 Myofascial pain 36124748 9 M79.11 Spasm 95633144 R25.2 [id number] Delmy Kerwin, JERARDOT [place] [address] [place], [place] [id number] 04/28/2023 16:30:12 04/28/2023 17:22:39 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 8794434827 1087824 M26.632 Episodic t ension-type headache 093367440 G44.219 Myofascial pain 04598015 9 M79.11 Spasm 77552527 R25.2 [id number] Delmy Kerwin, JERARDOT [place] [address] [place], [place] [id number] 05/14/2023 17:08:36 05/14/2023 18:04:53 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 5556563288 5627315 M26.632 Episodic t ension-type headache 151528171 G44.219 Myofascial pain 79424747 9 M79.11 Spasm 64126035 R25.2 [id number] ROSALINA MEZA BDS, [place] [address] [place] [address] 05/26/2023 16:10:52 05/26/2023 18:16:47 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 5258268861 3916364 M26.632 Episodic t ension-type headache 692099824 G44.219 Myofascial pain 77092123 9 M79.11 Spasm 20176146 R25.2 Health Concerns Section Related Observation LastModified by Organization Detai ls LastModified Time None Recorded Concern Status LastModified by Organization Details LastModified Time None Recorded Advance Directives Directive None Recorded Payers Encounter Date Sequence Insurance Name Policy Number Policy [place] Covered Member ID [place] Member ID Guarantor Name 04/07/2023 1 [employer] Kevinryne Grace [id number] Kevinryne Grace 04/15/2023 1 [employer] Kevin Snajay [id number] Kevinryne Grace 04/28/2023 1 [employer] Kevin Sanjay [id number] Kevinryne Grace 05/14/2023 1 [employer] Kevinryne Grace [id number] Kevin Grace 05/26/2023 1 [employer] Kevinryne Grace [id number] Kevin Grace Notes Date Note Type Note Provider Name and Address Organization Details Recorded Time 4 text/html HPI Notes: general HPI for [...] ear. He has been working for the [employer] for about 42 years. JAYLEEN MEZA BDS, [place] [address], [place], [address], [facility] 04/15/2023 09:30:51 [...] of 82): 04/14/23=24 Delmy Suresh DPT [address], [place], [address], [facility] 04/15/2023 11:28:42 4 text/html HPI Notes: Pt reports less pain and the clicking is still present. He would like the clicking to improved as others can hear it when he is eating. Delmy Suresh DPT [address], [place], [address], [facility] 04/28/2023 17:40:59 4 text/html HPI Notes: Pt reports being sore from being at the dentist yesterday. More of an ear ache lately, backed off on the exercises. Wide opening more painful and it takes a while to calm down. Click still present with chewing on the R. Delmy Suresh DPT [address], [place], [address], [facility] 05/14/2023 18:10:15 [...] for his pain. JAYLEEN MEZA BDS, [place] [address], [place], [address], [facility] 05/26/2023 18:12:05
--- OUTSIDE RECORDS SUMMARY | 2023-12-12 12:04 | XMS_ITS | Referral Summary ---
Author Organization [facility] Address [address] [place] [address] Care Team Providers Care Brine Maker Name Role Phone Clinic, No Primary Unavailable Unavailable Kolby Lau MD Primary Care Provider [phone] Allergies No known active allergies Medications Medication [...] Comments Blood Pressure 139/83 04/10/2020 1:15 PM MAGNETIC OBSERVER Pulse 55 04/10/2020 1:15 PM MAGNETIC OBSERVER Temperature 36.1 ??C (97 ??F) 04/10/2020 1:15 PM MAGNETIC OBSERVER Respiratory Rate 16 04/10/2020 1:15 PM MAGNETIC OBSERVER Oxygen Saturation 100% 04/10/2020 1:15 PM MAGNETIC OBSERVER Inhaled Oxygen Concentration - - Weight 92.5 kg (204 lb) 04/03/2020 9:47 AM MAGNETIC OBSERVER Height 177.8 cm (5' 10) 04/03/2020 9:47 AM MAGNETIC OBSERVER Body Mass Index 29.27 04/03/2020 9:47 AM MAGNETIC OBSERVER Plan of Treatment Not on file Medical Devices Implanted Type Area Shingle Packer Device Identifier Shelf Expiration Date Model / Serial / Lot Foley Cf Capsule - [id number] Implanted:Qty: 1 on 04/10/2020 by Kobe Johnson MD at [facility] Prosthetic Implant Non-Specific [employer] 05/17/2021 [id number] Care Teams Brine Maker Relationship Specialty Start Date End Date Clinic, No Primary PCP - Primary Care Clinic 02/24/20 [place] [address] [place] [address] PCP - General 02/24/20
--- OUTSIDE RECORDS SUMMARY | 2023-12-12 12:04 | XMS_ITS | Clinical Summary ---
Author Organization [facility] Address [address] [place] [address] Care Team Providers Care Computer Engineering Technician Name Role Phone Melvin Lau MD Primary Care Provider [phone] Allergies No known active allergies Medications Medication [...] on file Medical Devices Implanted Type Area Online Retailer Device Identifier Shelf Expiration Date Model / Serial / Lot Stent Ureteral Contour Soft Percuflex [id number] Implanted:Qty: 1 on 09/11/2017 by Nelson Anderson MD at [facility] Stent Left: Ureter [employer] 06/22/2020 [id number] / / [id number] Care Teams Computer Engineering Technician Relationship Specialty Start Date End Date Melvin Lau MD PCP - General Family Practice 09/08/17
--- OUTSIDE RECORDS SUMMARY | 2023-12-12 12:04 | XMS_ITS | Patient Health Record ---
Author Organization [facility] Address [address] [place] [address] [place] [address] Care Team Providers Care Director Adult Name Role Phone SELF, SELF Primary Care [...] Status Risk Notes Problem Gastroesophageal reflux disease (387015128) GERD (gastroesopha geal reflux disease) (K21.9) Active confirmed Problem Hiatal hernia (00524391) Hiatal hernia (K44.9) Active confirmed Problem Recurrent left inguinal hernia (031324060) Recurrent left inguinal hernia (K40.91) Active confirmed Problem Pain in testicle (22281420) Pain in left testicle (N50.812) Active confirmed Problem Postoperative follow-up visit (607749254) Post op follow-up exam (Z48.89) Active confirmed Plan Of Treatment No Information Insurance Providers Payer Name Payer Address Payer Phone Subscriber Number Group Number Insured Name Patient Relationship to Insured Coverage Start Date Coverage End Date [facility] [address] [address] [place] [id number] KYLAH BRADY Self - patient is the [...]
--- OUTSIDE RECORDS SUMMARY | 2023-12-12 12:04 | XMS_ITS | Clinical Summary ---
Author Organization [facility] Address [place], [place] [address] Care Team Providers Care Medical Office Administrator Name Role Phone Pcp, No Primary Care [...] pain 03/20/2014 Controlled substance agreement signed 02/01/2014 Overview (02/01/2014): Manjit Rosenberg [facility] Testicle pain 06/17/2013 Ilioinguinal neuralgia [...] CDT Oxygen Saturation 97% 05/01/2014 12:51 PM SCIENTIFIC EDITOR Inhaled Oxygen Concentration - - Weight 92.8 kg (204 lb 9.6 oz) 05/01/2014 12:51 PM SCIENTIFIC EDITOR Height 177.8 cm (5' 10) 04/10/2014 1:53 PM SCIENTIFIC EDITOR Body Mass Index 29.36 04/10/2014 1:53 PM SCIENTIFIC EDITOR Plan of Treatment Health Maintenance Due Date Last Done Comments Depression screening for age 12+ 1974 HIV for age 15-65 1977 BMI (ht and wt on same day) for age 18+ 1980 Hepatitis C screening for age 18-79 1980 Zoster (shingles) series for age 50+ (1 of 2) 2012 Lipids for age 45-75 05/19/2016 05/19/2011 [facility] Tetanus booster 06/02/2021 06/02/2011, 06/02/2011 Colonoscopy through age 75 09/03/2021 09/04/2011 COVID-19 vaccine series ( season) 2023 Influenza for age 50-64 12/06/2023 Tdap Completed [...] Recently Relevant to Health Maintenance Care Teams Medical Office Administrator Relationship Specialty Start Date End Date Pcp, No . PCP - General 07/07/12
--- OUTSIDE RECORDS SUMMARY | 2023-12-12 12:05 | XMS_ITS | Data Portability ---
Author Organization [place] [facility], [facility] Address [address] [place] [address] [address] [place] [address] Assessment Encounter Date Assessment Date Assessment LastModified [...] RESIDUAL STONES ON PREEV. C.T. DONE AT [facility], HOWEVER , RADIOLOGIST DID NOT STATE SIZE OR LOCATIONS. PLAN RTC 3 MO KUB .INCREASED FLUIDS, LOW SALT DIET, LEMONADE. Not available 06/23/2023 14:41:00 Plan of Treatment Reminders Order Date Submit Date Provider Last Modified By Organization Details Last Modified Time Details Appointments None recorded. Lab urinalysis , dipstick 2023 024 [facility], [address] [place], [address], 13:53:10 Referral None recorded. Procedures None recorded. Surgeries cystoscopy , with ureterosco py, with lithotrips y, with insertion of ureteral stent (SURG) 2023 024 [email or web address] Not available 12:08:10 Imaging None recorded. Medication Orders tramadol 50 mg tablet 2019 020 Not available 13:50:37 Flomax 0.4 mg capsule 2023 024 [facility] #[id number], [address] [place], [place], [id number], 4 14:18:00 oxycodone 5 mg tablet 2023 024 [facility] #[id number], [address] [place], [place], [id number], 14:17:59 Patient TargetsNo targets recorded. Patient Instructions Encounter Date Encounter Id Patient Instructions Last Modified By Organization Details Last Modified Time 05/25/2023 [id number] Discussed medica l expulsive therapy versus surgical [...] Abnormal Flag Note LastModifiedBy Organization Detail LastModifiedTime 05/25/19 24 05/25/2023 urina lysis , dipst ick Color-Status Yellow Not Available [facility] [address], [place], [address], 05/25/2023 13:52:34 05/25/19 24 05/25/2023 urina lysis , dipst ick Clarity-Stat us Clear Not Available [facility] [address], [place], [address], 05/25/2023 13:52:34 05/25/19 24 05/25/2023 urina lysis , dipst ick Sp Romance-Stat us 1.020 Not Available [facility] [address], [place], [address], 05/25/2023 13:52:34 05/25/19 24 05/25/2023 urina lysis , dipst ick pH-Status 5.5 Not Available [facility] [address], [place], [address], 05/25/2023 13:52:34 05/25/19 24 05/25/2023 urina lysis , dipst ick Nitrates-Sta tus negati ve Not Available [facility] [address], [place], [address], 05/25/2023 13:52:34 05/25/19 24 05/25/2023 urina lysis , dipst ick Blood-Status Small Not Available [facility] [address], [place], [address], 05/25/2023 13:52:34 05/25/19 24 05/25/2023 urina lysis , dipst ick Leuko-Status Negati ve Not Available [facility] [address], [place], [address], 05/25/2023 13:52:34 05/25/19 24 05/25/2023 urina lysis , dipst ick Specimen Type Voided Not Available [facility] [address], [place], [address], 05/25/2023 13:52:34 05/25/19 24 05/25/2023 urina lysis , dipst ick Performed by Morales michele RN Not Available [facility] [address], [place], [address], 05/25/2023 13:52:34 Result Notes None recorded. Problems Name Problem SNOMED Code Status Onset Date Resolution Date Notes Provider Name and Address Organization Details Recorded Time Calculus of kidney and ureter 846984165 Active 024 Nelson Anderson MD [address] [place] [address],[address], [place], [address] , [facility] 14:41:07 Problem Notes None recorded. Procedures Surgical History Date Name Laterality Status Provider Name and Address Organization Details Recorded Time 06/23/19 24 Cystoscopy with foreign body/stent removal completed Nelson Anderson MD [address] [place] [address],[address], [place], [address], [facility] 06/23/2023 14:39:05/25/19 24 Urinalysis completed Macy shen, [facility] 05/25/2023 13:51:40 repair of shoulder completed Riley shen [facility] 12/06/2019 16:23:28 procedure on wrist completed Riley shen [facility] 12/06/2019 16:23:34 Fragmenting of kidney stone completed Riley shen [facility] 12/06/2019 16:24:10 Imaging Results None recorded. [...] Updated DateTime 12/16/2019 177.8 cm 28.3 kg/m2 43349.7 g Nelson Anderson MD [address] [facility],[address], [place], [address], [facility] 12/16/2019 12:44:34 Date Recorded Body height Body mass index (BMI) Body weight Provider Name and Address Organization Details Last Updated DateTime 01/09/2020 177.8 cm 28.3 kg/m2 13470.7 g Nelson Anderson MD [address] [facility] [address], [place], [address], [facility] 01/09/2020 14:53:37 Date Recorded Body height Body mass index (BMI) Body weight Provider Name and Address Organization Details Last Updated DateTime 12/06/2019 177.8 cm 28.3 kg/m2 30630.7 g Riley ANDRADE [facility] 12/06/2019 16:22:19 Social History Question Answer Notes LastModified by Organizat ion Details LastModified Time Tobacco Smoking Status Never Smoker Riley shen [facility] 12/06/2019 16:23:12 What Is Your Level Of Alcohol Consumption? None Information not available 05/25/2023 What Was The Date Of Your Most Recent Tobacco Screening? 05/25/2023 Information not available 05/25/2023 Has Tobacco Cessation Counseling Been Provided? No Information not available 05/25/2023 Sex: Unknown Functional Status None recorded. Mental Status None recorded. Family History Nothing Reported. Medical History Condition Response Sexually Transmitted Infection N Diabetes N Other N Bleeding Disorder N High Blood Pressure N Kidney Stones Y High Cholesterol N GERD/Acid Reflux Y Heart Disease N Cancer N Lung Disease N Depression N Immunizations Vaccine Type Date Status Provider Name and Address Organization Details Recorded Time Influenza, split virus, quadrivalent, preservative 01/15/2023 completed Macy shen [facility] 05/25/2023 13:57:34 Influenza, split virus, quadrivalent, preservative 01/16/2021 karyn shen [facility] 05/25/2023 13:57:34 Influenza, split virus, quadrivalent, preservative 01/18/2020 karyn shen [facility] 05/25/2023 13:57:34 Influenza, split virus, quadrivalent, preservative 02/21/2022 karyn shen [facility] 05/25/2023 13:57:34 COVID-19, mRNA, LNP-S, PF, 100 mcg/0.5mL dose or 50 mcg/0.25mL dose 05/03/2020 completed Macy shen [facility] 05/25/2023 13:57:34 COVID-19, mRNA, LNP-S, PF, 100 mcg/0.5mL dose or 50 mcg/0.25mL dose 11[facility]01[facility]2021 [facility] 13:57:34 COVID-19, mRNA, LNP-S, PF, 100 mcg/0.5mL dose or 50 mcg/0.25mL dose 04/05/2020 [facility]/25[facility]23 13:57:34 COVID-19, mRNA, LNP-S, PF, 30 mcg/0.3 mL dose 03/27/2021 [facility]/25[facility]23 13:57:34 COVID-19, mRNA, LNP-S, PF, 50 mcg/0.5 mL 01/30/2023 [facility] 13:57:34 Tdap 06/02/2011 [facility]/25/[facility]23 13:57:34 Tdap 03/13/2008 [facility]/25/[facility]23 13:57:34 Influenza, split virus, trivalent, preservative 03/14/2008 [facility]/25/[facility]23 13:57:34 Influenza, split virus, quadrivalent, PF 01/24/2020 [facility] 13:57:34 Influenza, split virus, quadrivalent, PF 02/15/2018 [facility] 13:57:34 Past Encounters Encounter ID Performer Location Encounter Start Date Encounter Closed Date Diagnosis/Indication Diagnosis SNOMED-CT Code Diagnosis ICD10 Code [id number] MD NATHANIEL Gupta[facility] [address] [place] [address] 12/06/2019 16:01:42 12/08/2019 11:34:14 Pain in testicle 36792914 N50.819 [id number] Nelson Anderson MD [facility] [address] [place] [address] 12/16/2019 12:31:24 12/19/2019 12:53:19 Pain in scrotum 16431903 N50.82 [id number] Nelson Anderson MD [facility] [address] [place], [place] [address] 01/09/2020 14:37:55 01/09/2020 17:54:17 Inguinal pain 722867990 R10.2 Pain in testicle 5347145 9 N50.819 [id number] NADIA GAYTAN PA-C [facility] [address] [place] [address] 05/25/2023 13:19:17 06/01/2023 09:29:06 Kidney stone 43400416 N20.0 [id number] Nelson Anderson MD [facility] [address] [place], [place] [address] 06/23/2023 14:02:00 06/24/2023 11:03:24 Calculus of kidney and ureter 064211721 N20.2 Health Concerns Section Related Observation LastModified by Organization Detai ls LastModified Time None Recorded Concern Status LastModified by Organization Details LastModified Time None Recorded Advance Directives Directive None Recorded Payers Encounter Date Sequence Insurance Name Policy Number Policy Ogden Covered Member ID [place] Member ID Guarantor Name 12/16/2019 1 [facility] [id number] Kevin Grace 01/09/2020 1 TOMAS Grace [id number] Kevin Grace 05/25/2023 1 TOMAS Grace [id number] Kevin Grace 06/23/2023 1 [facility] [id number] Kevin Grace Notes Date Note Type Note [...] STONES. US done 08/31/19. Nelson Anderson MD [address] [place] [address],[address], [place], [address], [facility] 12/08/2019 10:27:08 12/16/2019 text/html HPI [...] FOR CORD BLOCK TRIAL. Nelson Anderson MD [address] [place] [address],[address], [place], [address], [facility] 12/16/2019 13:53:28 01/09/2020 text/html HPI [...] PAIN ACCORDING TO PATIENT. Nelson Anderson MD [address] [place] [address],[address], [place], [address], [facility] 01/09/2020 15:52:15 05/25/2023 text/html HPI [...] Denies fever/chills, dysuria, n/v. 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 Has a long h/o stones, most recently passed stone 2018. Has required several surgeries with Dr Anderson. H/o chronic left testicular pain, tried marcaine spermatic cord block with Dr Anderson with minimal relief. UA today with blood NADIA GAYTAN PA-C [address] [facility],[address], [place], [address], [facility] 05/25/2023 14:42:36 06/23/2023 text/html HPI [...] Denies fever/chills, dysuria, n/v. 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 Nelson Anderson MD [address] [facility],[address], [place], [address], [facility] 06/23/2023 14:41:23
[2023-12-12 12:16] LABS: Albumin* 4.9 g/dL (3.3-5.0); Chloride* 104 mmol/L (96-114); Potassium* 3.8 mmol/L (3.6-5.1); Sodium* 136 mmol/L (135-149)
[2023-12-12 12:19] LABS: Alanine Aminotransferase* 36 U/L (4-50); Alkaline Phosphatase* 72 U/L (40-150); Anion Gap 12 mEq/L (7-15); Aspartate Amino Transferase* 40 U/L (12-35); Bilirubin Total* 1.3 mg/dL (0.1-1.5); Blood Urea Nitrogen* 19 mg/dL (7-30); Carbon Dioxide* 20 mmol/L (20-32); Creatinine* 1.1 mg/dL (0.5-1.5); Est. Creatinine Clearance* 72.82; Estimated Glomerular Filt Rate 76 ml/min; Glucose* 119 mg/dL (60-115); Lipase* 49 U/L (23-300); Total Protein* 8.2 g/dL (6.0-8.3)
[2023-12-12 12:20] LABS: Calcium* 9.6 mg/dL (8.4-10.6)
[2023-12-12 12:21] LABS: Appearance Urine Clear (Clear); Bilirubin Urine Negative (Negative); Blood Urine 2+ (Negative); Color Urine Dark yellow (Yellow); Glucose Urine Negative (Negative); Ketones Urine Negative (Negative); Leukocyte Esterase Urine Negative (Negative); Nitrite Urine Negative (Negative); Protein Urine 1+ (Negative); Urobilinogen Urine 0.2 (0.2-1.0); pH Urine 8.5 (5.0-8.5)
[2023-12-12] MEDS: KETOROLAC 30 MG/ML inj IVP (12:22)
[2023-12-12 12:46] LABS: Bacteria Urine Few; RBC Urine 25-50 (0-2); Squamous Epithelial Cell Urine Few (None-Few)
[2023-12-12 13:11] VITALS: BP 178/105; PULSE 62; RESP 16
== END 2023-12-12 13:12 | disposition home or self-care (01) ==
PROVIDERS: Emergency Provider Internal Medicine; PCP Family Medicine
DX: N20.0 Calculus of kidney (principal)
CPT/HCPCS: 36415; 74176; 80053; 81001; 81003; 83690; 85025; 87086; 96374; 96375; 99283; J1170; J1885; J2405; J7030

== ENCOUNTER 2023-12-13 00:08 | Emergency (ER) | payer OTHER, SELFPAY ==
[2023-12-13 00:14] VITALS: BP 154/99; PULSE 74; RESP 22; TEMP 36.4; O2SAT 97; BMI 30.3
--- NOTE | 2023-12-13 00:28 | ED_ITS ---
HPI - Male Genitourinary General Time Seen by Provider: 00:28 Date Seen: 12/13/23 Chief complaint: Urogenital Problems, Male Stated complaint: kidney stone, uncontrolled pain Time Seen by Provider: 12/13/23 00:27 Source: patient and RN notes reviewed Mode of arrival: ambulatory Limitations: no limitations History of Present Illness HPI Narrative: Kevin is a very pleasant 63-year-old gentleman with a known history of kidney stones, visit to the emergency room approximately 18 hours ago for 5 mm right ureteral calculus who comes to the emergency room this evening for increasing pain. Patient notes that he had awoken yesterday morning December 11 with pain 10/10 right flank with nausea. He was seen by my colleague shaunna at which time CT showed Jhpo-[id number] right hydronephrosis hydroureter with a distal right ureteral 5 millimeter stone just proximal to the UVJ. Patient had resolution of his discomfort with IV Toradol Dilaudid and Zofran. He was discharged home and instructed to continue with Flomax and he also had Vicodin and Zofran at his disposal. He states that he did well throughout the day until just recently when the pain suddenly returned quite intense. He did not have any vomiting nor has he experienced any fevers. He is concerned as he is not urinating as much as he would expect any is seeing blood in his urine. Kevin is not currently on any blood thinners. Unfortunately he does have a history of requiring lithotripsy. In May of this year he had a 7 mm stone requiring urological intervention. He has had at least 2 other incidents requiring intervention as well. Related Data Home Medications ?Medication ?Instructions ?Recorded ?Confirmed omeprazole 20 mg capsule,delayed 20 mg PO QDAY 06/12/23 12/12/23 release Allergies Allergy/AdvReac Type Severity Reaction Status Date / Time No Known Drug Allergies Allergy Verified 12/12/23 11:27 Review of Systems Status of ROS: Reports: 6 or more systems reviewed and unremarkable except as noted in History and below Const: Denies: fever, chills or fatigue ENMT: Denies: neck pain Cardio: Denies: chest pain or shortness of breath with exertion Resp: Denies: shortness of breath GI: Reports: abdominal pain and nausea; Denies: vomiting or diarrhea : Reports: blood in urine; Denies: painful urination or urinary frequency Musculo: Denies: neck pain Endo: Denies: fatigue PFSH PFSH Medical History Hx of renal calculi ?Z87.442 - Personal history of urinary calculi (ICD-10) Hydronephrosis with urinary obstruction due to ureteral calculus ?N13.2 - Hydronephrosis with renal and ureteral calculous obstruction (ICD- 10) History of hydrocele ?Z87.438 - Personal history of other diseases of male genital organs (ICD-10) Surgical History S/P nerve repair (03/23/97) ?Z98.890 - Other specified postprocedural states (ICD-10) History of excision of mass (03/20/97) ?Z98.890 - Other specified postprocedural states (ICD-10) History of hydrocelectomy ?Z98.890 - Other specified postprocedural states (ICD-10) S/P foot surgery, left ?Z98.890 - Other specified postprocedural states (ICD-10) Status post arthroscopy of right shoulder (11/21/16) ?Z98.890 - Other specified postprocedural states (ICD-10) Status post arthroscopy of left shoulder (01/01/07) ?Z98.890 - Other specified postprocedural states (ICD-10) History of inguinal hernia repair ?Z98.890 - Other specified postprocedural states (ICD-10) ?Z87.19 - Personal history of other diseases of the digestive system (ICD-10) History of hemorrhoidectomy (04/29/11) ?Z98.890 - Other specified postprocedural states (ICD-10) History of hernia surgery ?Z98.890 - Other specified postprocedural states (ICD-10) ?Z87.19 - Personal history of other diseases of the digestive system (ICD-10) Social History Smoking Status: Never smoker Do you use any of these nicotine containing products: None How often do you have a drink containing alcohol: never AUDIT-C Alcohol total score: 0 Non-prescribed substance use: denies use Exam Narrative: Exam Narrative: Alert and oriented. Patient appears to be uncomfortable but he is not toxic in appearance. External ears eyes nose clear. Heart with a regular rate and rhythm and lungs are clear bilaterally. Abdomen soft nontender. Lower extremities without edema and moving all extremities. Const: Vital Signs, click to edit/add: Vital Signs - 24 hr 12/13/23 00:14 Temperature 97.6 F Pulse Rate [Pulse Oximeter] 74 Respiratory Rate 22 Blood Pressure [Ri ght Upper Arm] 154/99 H Pulse Oximetry 97 Oxygen Delivery Me thod Room Air Documenting provider has reviewed patient's vital signs: yes Course Course ED Course: Patient had stone of 5 mm noted proximal to the UVJ earlier today. I suspect this stone is now moving. Patient will have IV placed, 1 L of saline given, meds to include 4 mg of IV morphine, Zofran 4 mg and the Toradol 15 mg IV. Will strain his urine. Reevaluation(s) Reevaluation #1: During the course of patient's stay, expanse updates were done from 0100 hours until 0345 hours. Access to past medical history was available during that time. Reevaluation #2: Patient required Dilaudid 0.5 mg as morphine only moderately improved patient's pain from 8/10 to 5/10. Post Dilaudid administration patient is feeling much improved. He was able to urinate but did not note is stone in the strainer. Vital Signs Vital signs: Initial Vital Signs Temperature 97.6 F 12/13/23 00:14 Temperature Source Oral 12/13/23 00:14 Pulse Rate 74 12/13/23 00:14 Respiratory Rate 22 12/13/23 00:14 Blood Pressure 154/99 H 12/13/23 00:14 Blood Pressure Mean 117 H 12/13/23 00:14 Blood Pressure Position Sitting 12/13/23 00:14 Pulse Oximetry 97 12/13/23 00:14 Oxygen Delivery Method Room Air 12/13/23 00:14 Vital Signs Temperature 97.6 F 12/13/23 00:14 Pulse Rate 74 12/13/23 00:14 Respiratory Rate 22 12/13/23 00:14 Blood Pressure 154/99 H 12/13/23 00:14 Pulse Oximetry 97 12/13/23 00:14 Oxygen Delivery Method Room Air 12/13/23 00:14 Temperature 97.6 F 12/13/23 00:14 Pulse Rate 74 12/13/23 00:14 Respiratory Rate 22 12/13/23 00:14 Blood Pressure 154/99 H 12/13/23 00:14 Pulse Oximetry 97 12/13/23 00:14 Oxygen Delivery Method Room Air 12/13/23 00:14 Medications Administered Medications: Generic Name Dose Route Start Last Admin Trade Name Olivia PRN Reason Stop Dose Admin Sodium Chloride 500 mls @ 500 mls/hr 12/13/23 00:33 12/13/23 03:38 0.9 % Sodium Chloride 500 Ml IV 12/13/23 01:32 Infused .Q1H ONE Infusion Ketorolac Tromethamine 15 mg 12/13/23 00:33 12/13/23 00:42 Ketorolac 15 Mg/Ml Inj IVP 12/13/23 00:34 15 mg ONCE ONE Administration Morphine Sulfate 4 mg 12/13/23 00:33 12/13/23 00:42 Morphine 4 Mg/Ml Inj IVP 12/13/23 00:34 4 mg ONCE ONE Administration Ondansetron HCl 4 mg 12/13/23 00:33 12/13/23 00:42 Ondansetron 2 Mg/Ml Inj IVP 12/13/23 00:34 4 mg ONCE ONE Administration MDM - Male Genitourinary MDM Narrative Medical decision making narrative: 1. Ureteral colic-known 5 mm stone proximal to the UVJ on CT earlier today. Patient is improved after morphine, Toradol, Zofran and Dilaudid. He also received normal saline. At this time will discharge him home. Ask him to continue to strain his urine. If he notes a stone any is feeling improved no follow-up necessary unless he has recurrent symptoms. If however, he does not notice stone and his pain is ongoing he will need to follow up with Urology or his primary care provider. He did undergo lithotripsy in May of this year for 7 mm stone. We are hopeful that he is able to pass the stone that he has at this time. 2. Disposition-home. Return for worsening symptoms especially fever, vomiting, worsening pain. Continue to strain urine. Medical Records Attestation: I reviewed the patient's medical records. Medical records narrative: CT from December 11 reviewed Lab Data Attestation: I reviewed the patient's lab results. Lab results narrative: Lab results from December 11 reviewed. Discharge Plan Discharge Prescriptions: No Action omeprazole 20 mg capsule,delayed release(DR/EC) 20 mg PO QDAY Follow Up/Referrals: Kolby Lau MD [Primary Care Provider] -
[2023-12-13] MEDS: MORPHINE 4 MG/ML INJ IVP (00:42)
[2023-12-13] MEDS: 0.9 % SODIUM CHLORIDE 500 ML 500 ML IV (00:42)
[2023-12-13] MEDS: ONDANSETRON 2 MG/ML inj 4 MG IVP (00:42)
[2023-12-13] MEDS: KETOROLAC 15 MG/ML inj IVP (00:42)
[2023-12-13] MEDS: HYDROmorphone 0.5 mg/0.5 ml inj IVP (01:30)
== END 2023-12-13 04:03 | disposition home or self-care (01) ==
PROVIDERS: Emergency Provider Family Medicine; PCP Family Medicine
DX: N23 Unspecified renal colic (principal)
CPT/HCPCS: 96361; 96374; 96375; 99283; 99284; J1170; J1885; J2270; J2405; J7030

== ENCOUNTER 2024-01-11 02:53 | Emergency (ER) | payer OTHER, SELFPAY ==
[2024-01-11 02:57] VITALS: BP 196/102; PULSE 100; RESP 18; TEMP 36.7; O2SAT 98; BMI 30.1
--- NOTE | 2024-01-11 03:03 | CRLHL7_ITS ---
For Patients: As a result of the Century Cures Act, medical imaging exams and procedure reports are released immediately into your electronic medical record. You may view this report before your referring provider. If you have questions, please contact your health care provider. Indication: Right-sided abdominal pain, history of urolithiasis Technique: Noncontrast CT through the abdomen and pelvis with multiplanar reformats. Comparison: CT abdomen and pelvis performed 12/12/2023 Findings: Lower chest: No acute abnormality appreciated. Hepatobiliary: Hepatic steatosis. No acute abnormality appreciated. Spleen: Unremarkable. Pancreas: No acute abnormality appreciated. Adrenal glands: Partially calcified right adrenal gland lesion appears unchanged. Kidneys: Multiple bilateral renal stones are again noted. A stone previously in the renal pelvis has migrated to the mid ureter measuring 6 millimeters and causing [id number] hydronephrosis. Bowel: No obstruction. No focal perienteric or pericolonic stranding is appreciated. The appendix is visualized and appears unremarkable. Vascular: Calcified atherosclerosis. Lymph nodes: No gross lymphadenopathy. Peritoneum: No free air. No free fluid. : No acute abnormality appreciated. Soft tissues: No acute abnormality appreciated. Postop changes to the ventral abdominal wall. Bones: No acute fracture. No lytic or blastic lesion. Impression: Multiple bilateral renal stones are again noted. Since prior examination, a 6 millimeter stone previously within the renal pelvis has migrated and is now present in the right mid ureter causing obstruction with mild to moderate hydronephrosis. Please note that all CT scans at this facility use dose modulation, iterative reconstruction, and/or weight-based dosing when appropriate to reduce radiation dose to as low as reasonably achievable. Dictated by Williams Fernandez MD @ 01/11/2024 3:48:46 AM (Electronically Signed)
[2024-01-11 03:08] LABS: Appearance Urine Clear (Clear); Bilirubin Urine Negative (Negative); Blood Urine Trace-lysed (Negative); Color Urine Yellow (Yellow); Glucose Urine Negative (Negative); Ketones Urine Negative (Negative); Leukocyte Esterase Urine Negative (Negative); Nitrite Urine Negative (Negative); Protein Urine Negative (Negative); Specific Gravity Urine 1.025 (1.000-1.030); Urobilinogen Urine 0.2 (0.2-1.0)
[2024-01-11 03:15] LABS: RBC Urine 0-2 (0-2); Squamous Epithelial Cell Urine Few (None-Few); WBC Urine 0-2 (0-5)
--- NOTE | 2024-01-11 03:15 | ED_ITS ---
HPI - Abdominal Pain General Date Seen: 01/11/24 Chief Complaint: Flank Pain Stated Complaint: Kidney Stone Time Seen by Provider: 01/11/24 02:59 Source: patient Mode of arrival: ambulatory Limitations: no limitations History of Present Illness HPI narrative: Patient is 63-year-old gentleman who presents here with right-sided abdominal pain, he has had this since last week, where he says of developed acutely is been taking ibuprofen 600 mg 2 to 3 times a day and able to control this, he has had previous kidney stones. Tells me he has had it least in past 20 kidney stones total. Has an appointment next week with his urologist consideration of lithotripsy. Was here a month ago, off for kidney stones and pain, but did pass that stone, and did was able to collected, tonight the pain got worse, so he came in here. He has no history of fevers chills or sweats there is no dysuria is noted no blood in his urine there is no history of abdominal trauma he has not vomited, although sometimes when the pain gets bad he feels like he might. Denies any changes bowel habits, does drink a lot of pop. MD elicited complaint: abdominal pain Related Data Home Medications ?Medication ?Instructions ?Recorded ?Confirmed omeprazole 20 mg capsule,delayed 20 mg PO QDAY 06/12/23 12/12/23 release Previous Rx's ?Medication ?Instructions ?Recorded hydrocodone 5 mg-acetaminophen 325 See Rx Instructions PO .ud PRN 12/14/23 mg tablet pain #42 tabs Allergies Allergy/AdvReac Type Severity Reaction Status Date / Time No Known Drug Allergies Allergy Verified 01/11/24 03:00 Review of Systems Status of ROS Reports: 10 or more systems reviewed and unremarkable except as noted in History and below [facility] Medical History Hx of renal calculi ?Z87.442 - Personal history of urinary calculi (ICD-10) Hydronephrosis with urinary obstruction due to ureteral calculus ?N13.2 - Hydronephrosis with renal and ureteral calculous obstruction (ICD- 10) History of hydrocele ?Z87.438 - Personal history of other diseases of male genital organs (ICD-10) Surgical History S/P nerve repair (03/23/97) ?Z98.890 - Other specified postprocedural states (ICD-10) History of excision of mass (03/20/97) ?Z98.890 - Other specified postprocedural states (ICD-10) History of hydrocelectomy ?Z98.890 - Other specified postprocedural states (ICD-10) S/P foot surgery, left ?Z98.890 - Other specified postprocedural states (ICD-10) Status post arthroscopy of right shoulder (11/21/16) ?Z98.890 - Other specified postprocedural states (ICD-10) Status post arthroscopy of left shoulder (01/01/07) ?Z98.890 - Other specified postprocedural states (ICD-10) History of inguinal hernia repair ?Z98.890 - Other specified postprocedural states (ICD-10) ?Z87.19 - Personal history of other diseases of the digestive system (ICD-10) History of hemorrhoidectomy (04/29/11) ?Z98.890 - Other specified postprocedural states (ICD-10) History of hernia surgery ?Z98.890 - Other specified postprocedural states (ICD-10) ?Z87.19 - Personal history of other diseases of the digestive system (ICD-10) Social History Smoking Status: Never smoker Do you use any of these nicotine containing products: None How often do you have a drink containing alcohol: never AUDIT-C Alcohol total score: 0 Non-prescribed substance use: denies use Exam Narrative: Exam Narrative: On examination in room 1, he is uncomfortable but speaking meet to me otherwise normally, vital signs are reviewed showed elevated blood pressure. Pupils equal round reactive to light there is no scleral icterus or redness he is alert or iented x3 cranial nerves 3-12 are normal oropharynx is normal, good hydration status chest is clear bilaterally no wheezing crackles noted his heart sounds are normal no clicks murmurs or gallops his abdomen is soft there is no guarding no organomegaly elevated BMI testicles both descended and normal, no evidence of inguinal masses. Or pain skin reveals no petechiae redness. Const: Vital Signs, click to edit/add: Vital Signs - 24 hr 01/11/24 02:57 Temperature 98.0 F Pulse Rate [Right Pulse Oximeter] 100 Respiratory Rate 18 Blood Pressure [Ri ght Upper Arm] 196/102 H Pulse Oximetry 98 Oxygen Delivery Me thod Room Air Documenting provider has reviewed patient's vital signs: yes Course Course ED Course: Discussed with the patient is a new 6 mm stone in his mid ureteral on the right, there is evidence of hydronephrosis here, and movement of the stone. I do think he needs to take his Flomax at home I will give him a small supply of hydrocodone he can take he has a follow-up appointment with Urology already. Uncontrolled pain fevers chills nausea vomiting he should come back to the emergency room, he will have someone come and get him. Vital Signs Vital signs: Initial Vital Signs Temperature 98.0 F 01/11/24 02:57 Temperature Source Temporal Artery Scan 01/11/24 02:57 Pulse Rate 100 01/11/24 02:57 Pulse Rhythm Regular 01/11/24 02:57 Pulse Strength 3+ Normal 01/11/24 02:57 Respiratory Rate 18 01/11/24 02:57 Blood Pressure 196/102 H 01/11/24 02:57 Blood Pressure Mean 133 H 01/11/24 02:57 Blood Pressure Position Standing 01/11/24 02:57 Pulse Oximetry 98 01/11/24 02:57 Oxygen Delivery Method Room Air 01/11/24 02:57 Vital Signs Temperature 98.0 F 01/11/24 02:57 Pulse Rate 100 01/11/24 02:57 Respiratory Rate 18 01/11/24 02:57 Blood Pressure 196/102 H 01/11/24 02:57 Pulse Oximetry 98 01/11/24 02:57 Oxygen Delivery Method Room Air 01/11/24 02:57 Temperature 98.0 F 01/11/24 02:57 Pulse Rate 100 01/11/24 02:57 Respiratory Rate 18 01/11/24 02:57 Blood Pressure 196/102 H 01/11/24 02:57 Pulse Oximetry 98 01/11/24 02:57 Oxygen Delivery Method Room Air 01/11/24 02:57 Medications Administered Medications: Discontinued Medications Generic Name Dose Route Start Last Admin Trade Name Freq PRN Reason Stop Dose Admin Hydromorphone HCl 0.5 mg 10/07/24 03:02 01/11/24 03:19 Hydromorphone 0.5 Mg/0.5 Ml Inj IVP 01/11/24 03:03 0.5 mg ONCE ONE Administration Ketorolac Tromethamine 30 mg 01/11/24 03:02 01/11/24 03:19 Ketorolac 30 Mg/Ml Inj IVP 01/11/24 03:03 30 mg ONCE ONE Administration Ondansetron HCl 4 mg 01/11/24 03:02 01/11/24 03:18 Ondansetron 2 Mg/Ml Inj IVP 01/11/24 03:03 4 mg ONCE ONE Administration Oral Electrolytes 1,014 ml 01/11/24 03:02 01/11/24 03:19 Electrolytes/Dextrose Oral Amber 1,000 Ml PO 01/11/24 03:03 1,014 ml ONCE STA Administration MDM - Abdominal Pain MDM Narrative Medical decision making narrative: During this evaluation of this patient I considered multiple differential diagnosis is which included the life-threatening such as appendicitis, aortic aneurysm, mesenteric ischemia, bowel perforation, volvulus, and bowel obstruction. Other differential diagnosis is include but are not limited to cholecystitis, pancreatitis, hepatitis, gastritis, GERD, diverticulitis, peptic ulcer disease, pyelonephritis/UTI, renal colic/stone, testicular torsion as well as other acute scrotal processes, inflammatory bowel disease, as well as other etiologies Differential Diagnosis Differential diagnosis: Likely abdominal pain, acute appendicitis, calculus of kidney, constipation, diverticulitis, endometriosis, gastroenteritis, p ancreatitis and small bowel obstruction Medical Records Attestation: I reviewed the patient's medical records. Lab Data Attestation: I reviewed the patient's lab results. Labs: Lab Results 01/11/24 01/11/24 Range/Units 03:00 03:21 WBC 7.18 (4.50-11.00) K/uL RBC 5.00 (4.30-5.90) m/uL Hgb 15.6 (13.5-17.5) gm/dL Hct 45.4 (37.0-53.0) % MCV 91 (80-100) fL MCH 31 (26-34) pg MCHC 34 (32-36) gm/dL RDW Coeff of Rajesh 12.9 (11.5-15.5) % Plt Count 235 (140-440) K/uL Neut % (Auto) 51.4 (42.0-72.0) % Lymph % (Auto) 34.4 (20-44) % Gonzales % (Auto) 10.4 (0.0-11.0) % Eos % (Auto) 2.8 (0.0-7.0) % Baso % (Auto) 0.7 (0.0-3.0) % Neut # (Auto) 3.69 (1.7-7.0) K/uL Lymph # (Auto) 2.47 (0.90-2.90) K/uL Gonzales # (Auto) 0.70 (0.00-0.90) K/UL Eos # (Auto) 0.20 (0.00-0.50) K/uL Baso # (Auto) 0.05 (0.00-0.30) K/uL Abs Immat Gran (auto) 0.02 (0.00-0.30) K/uL Imm/Tot Granulo (auto) 0.3 % Sodium 138 (135-149) mmol/L Potassium 3.5 L (3.6-5.1) mmol/L Chloride 108 (96-114) mmol/L Carbon Dioxide 20 (20-32) mmol/L Anion Gap 10 (7-15) mEq/L BUN 22 (7-30) mg/dL Creatinine 1.3 (0.5-1.5) mg/dL Estimated Creat Clear 61.61 Estimated GFR 63 ml/min Glucose 113 (60-115) mg/dL Calcium 9.7 (8.4-10.6) mg/dL Urine Color Yellow (Yellow) Urine Appearance Clear (Clear) Urine pH 6.0 (5.0-8.5) Ur Specific [place] 1.025 (1.000-1.030) Urine Protein Negative (Negative) Urine Glucose (UA) Negative (Negative) Urine Ketones Negative (Negative) Urine Blood Trace-lysed A (Negative) Urine Nitrite Negative (Negative) Urine Bilirubin Negative (Negative) Urine Urobilinogen 0.2 (0.2-1.0) Ur Leukocyte Esterase Negative (Negative) Urine RBC 0-2 (0-2) Urine WBC 0-2 (0-5) Ur Squamous Epith Cells Few (None-Few) Urine Bacteria None (None) Imaging Data CT scan - abdomen: Attestation: I have reviewed the pertinent imaging results. Radiologist's impression: [place] [address] Diagnostic Imaging Report Patient: Kevin Grace MR#: [id number] : 1960 Acct:[id number] Loc: ED Service Date: 01/11/[address]: Ordering Physician: Luis Jasso M.D. Date of Service: 01/11/24 Procedure(s): CT abdomen pelvis wo con Accession Number(s): [id number] cc: Kolby Lau M.D.; Luis Jasso M.D.~ For Patients: As a result of the Cures Act, medical imaging exams and procedure reports are released immediately into your electronic medical record. You may view this report before your referring provider. If you have questions, please contact your health care provider. Indication: Right-sided abdominal pain, history of urolithiasis Technique: Noncontrast CT through the abdomen and pelvis with multiplanar reformats. Comparison: CT abdomen and pelvis performed 12/12/2023 Findings: Lower chest: No acute abnormality appreciated. Hepatobiliary: Hepatic steatosis. No acute abnormality appreciated. Spleen: Unremarkable. Pancreas: No acute abnormality appreciated. Adrenal glands: Partially calcified right adrenal gland lesion appears unchanged. Kidneys: Multiple bilateral renal stones are again noted. A stone previously in the renal pelvis has migrated to the mid ureter measuring 6 millimeters and causing [id number] hydronephrosis. Bowel: No obstruction. No focal perienteric or pericolonic stranding is appreciated. The appendix is visualized and appears unremarkable. Vascular: Calcified atherosclerosis. Lymph nodes: No gross lymphadenopathy. Peritoneum: No free air. No free fluid. : No acute abnormality appreciated. Soft tissues: No acute abnormality appreciated. Postop changes to the ventral abdominal wall. Bones: No acute fracture. No lytic or blastic lesion. Impression: Multiple bilateral renal stones are again noted. Since prior examination, a 6 millimeter stone previously within the renal pelvis has migrated and is now present in the right mid ureter causing obstruction with mild to moderate hydronephrosis. Please note that all CT scans at this facility use dose modulation, iterative reconstruction, and/or weight-based dosing when appropriate to reduce radiation dose to as low as reasonably achievable. Dictated by Williams Fernandez MD @ 01/11/2024 3:48:46 AM (Electronically Signed) Discharge Plan Discharge Clinical Impression: Renal colic on right side, Urolithiasis Patient Disposition: Home w/ Parent or Adult Condition: Improved Instructions: Renal Colic (ED), How to Strain Your Urine (ED), Lithotripsy (DC) Additional Instructions: Home rest pain medications, and oral fluids, increasing fevers chills abdominal pain and return follow-up on Thursday with your urologist, you undoubtedly will need lithotripsy and possibly a stent. Activity Level: Light activity Prescriptions: No Action omeprazole 20 mg capsule,delayed release(DR/EC) 20 mg PO QDAY hydrocodone-acetaminophen 5-325 mg tablet See Rx Instructions PO .ud PRN (Reason: pain) Qty: 42 0RF Rx Instructions: 1-2 tabs Q6H prn pain orally UD PRN; Follow Up/Referrals: Kolby Lau MD [Primary Care Provider] - Stand Alone Forms: [employer] Info Instructions
[2024-01-11] MEDS: ONDANSETRON 2 MG/ML inj 4 MG IVP (03:18)
[2024-01-11] MEDS: ELECTROLYTES/DEXTROSE ORAL SOL 1,000 ML 1014 ML PO (03:19)
[2024-01-11] MEDS: KETOROLAC 30 MG/ML inj IVP (03:19)
[2024-01-11] MEDS: HYDROmorphone 0.5 mg/0.5 ml inj IVP ×2 (03:19→04:19)
--- OUTSIDE RECORDS SUMMARY | 2024-01-11 03:31 | XMS_ITS | Clinical Summary ---
Author Organization [email or web address] Address [place], [place] [address] Care Team Providers Care Operations Vocational Instructor Name Role Phone Pcp, No Primary Care [...] agreement signed 02/01/2014 Overview (02/01/2014): [facility] Testicle pain 06/17/2013 Ilioinguinal neuralgia [...] CDT Oxygen Saturation 97% 05/01/2014 12:51 PM CERTIFIED PHLEBOTOMY TECHNICIAN Inhaled Oxygen Concentration - - Weight 92.8 kg (204 lb 9.6 oz) 05/01/2014 12:51 PM CERTIFIED PHLEBOTOMY TECHNICIAN Height 177.8 cm (5' 10) 04/10/2014 1:53 PM CERTIFIED PHLEBOTOMY TECHNICIAN Body Mass Index 29.36 04/10/2014 1:53 PM CERTIFIED PHLEBOTOMY TECHNICIAN Plan of Treatment Health Maintenance Due Date Last Done Comments Depression screening for age 12+ 1974 HIV for age 15-65 1977 BMI (ht and wt on same day) for age 18+ 1980 Hepatitis C screening for age 18-79 1980 Zoster (shingles) series for age 50+ (1 of 2) 2012 Lipids for age 45-75 05/19/2016 05/19/2011 (Completed outside of [facility]) Tetanus booster 06/02/2021 06/02/2011, 06/02/2011 Colonoscopy through age 75 09/03/2021 09/04/2011 COVID-19 vaccine series (2023- season) 2023 Influenza for age 50-64 12/06/2023 [...] Recently Relevant to Health Maintenance Care Teams Operations Vocational Instructor Relationship Specialty Start Date End Date Pcp, No . PCP - General 07/07/12
--- OUTSIDE RECORDS SUMMARY | 2024-01-11 03:31 | XMS_ITS | Clinical Summary ---
Author Organization [facility] Address [address] [place] [address] Care Team Providers Care Ware Tester Name Role Phone Melvin Lau MD Primary Care Provider [phone] Allergies No known active allergies Medications Medication [...] on file Medical Devices Implanted Type Area Motors Assembler Device Identifier Shelf Expiration Date Model / Serial / Lot Stent Ureteral Contour Soft Percuflex [id number] Implanted:Qty: 1 on 09/11/2017 by Nelson [place] MD at [facility] Stent Left: Ureter [employer] 06/22/2020 [id number] / / [id number] Care Teams Ware Tester Relationship Specialty Start Date End Date Melvin Lau MD PCP - General Family Practice 09/08/17
--- OUTSIDE RECORDS SUMMARY | 2024-01-11 03:31 | XMS_ITS | Clinical Summary ---
Author Organization [facility] Address [address] [place], [place] [address] [address] Care Team Providers Care Advice Nurse Name Role Phone Clinic, No Primary Unavailable Unavailable Kolby Lau MD Primary Care Provider [phone] Allergies No known active allergies Medications Medication [...] Comments Blood Pressure 139/83 04/10/2020 1:15 PM TITLE CLERK AUTOMOBILE Pulse 55 04/10/2020 1:15 PM TITLE CLERK AUTOMOBILE Temperature 36.1 ??C (97 ??F) 04/10/2020 1:15 PM TITLE CLERK AUTOMOBILE Respiratory Rate 16 04/10/2020 1:15 PM TITLE CLERK AUTOMOBILE Oxygen Saturation 100% 04/10/2020 1:15 PM TITLE CLERK AUTOMOBILE Inhaled Oxygen Concentration - - Weight 92.5 kg (204 lb) 04/03/2020 9:47 AM TITLE CLERK AUTOMOBILE Height 177.8 cm (5' 10) 04/03/2020 9:47 AM TITLE CLERK AUTOMOBILE Body Mass Index 29.27 04/03/2020 9:47 AM TITLE CLERK AUTOMOBILE Plan of Treatment Health Maintenance Due Date Last Done Comments Colonoscopy 1960 Hepatitis C Screening 1960 Lipid Screening 1960 Anxiety Screening (KAT-2) 08/31/1963 Depression Assessment (PHQ-2) 08/31/1963 Zoster Vaccine (1 of 2) 2012 Yearly Review of HCD 03/08/2021 03/08/2020, 02/24/2020 Adult Tetanus Booster 06/02/2021 06/02/2011 , 03/13/2008 COVID-19 Vaccine ( - 2023-2 5 season) 2023 Influenza Vaccine (#1) 2023 0, 01/18/2020, 02/15/2018 RSV Vaccines (1 - 1-dose 75+ series) 2037 Pneumococcal <65 Aged Out No longer e ligible based on patient's age to complete this topic Medical Devices Implanted Type Area Manager Solar Device Identifier Shelf Expiration Date Model / Serial / Lot Foley Cf Capsule - [id number] Implanted:Qty: 1 on 04/10/2020 by Kobe Johnson MD at [facility] Prosthetic Implant Non-Specific [employer] 05/17/2021 [id number] Care Teams Advice Nurse Relationship Specialty Start Date End Date Clinic, No Primary PCP - Primary Care Clinic 02/24/20 [place] [address] [place] [address] PCP - General 02/24/20
--- OUTSIDE RECORDS SUMMARY | 2024-01-11 03:31 | XMS_ITS | Referral Summary ---
Author Organization [facility] Address [address] [place] [address] Care Team Providers Care Associate Civil Engineer Name Role Phone Clinic, No Primary Unavailable Unavailable Kolby Lau MD Primary Care Provider [phone] Allergies No known active allergies Medications Medication [...] Comments Blood Pressure 139/83 04/10/2020 1:15 PM CERTIFIED PROFESSIONAL CODER Pulse 55 04/10/2020 1:15 PM CERTIFIED PROFESSIONAL CODER Temperature 36.1 ??C (97 ??F) 04/10/2020 1:15 PM CERTIFIED PROFESSIONAL CODER Respiratory Rate 16 04/10/2020 1:15 PM CERTIFIED PROFESSIONAL CODER Oxygen Saturation 100% 04/10/2020 1:15 PM CERTIFIED PROFESSIONAL CODER Inhaled Oxygen Concentration - - Weight 92.5 kg (204 lb) 04/03/2020 9:47 AM CERTIFIED PROFESSIONAL CODER Height 177.8 cm (5' 10) 04/03/2020 9:47 AM CERTIFIED PROFESSIONAL CODER Body Mass Index 29.27 04/03/2020 9:47 AM CERTIFIED PROFESSIONAL CODER Plan of Treatment Not on file Medical Devices Implanted Type Area Press Service Reader Device Identifier Shelf Expiration Date Model / Serial / Lot Foley Cf Capsule - [id number] Implanted:Qty: 1 on 04/10/2020 by Kobe Johnson MD at [facility] Prosthetic Implant Non-Specific [employer] 05/17/2021 [id number] / [id number] Care Teams Associate Civil Engineer Relationship Specialty Start Date End Date Clinic, No Primary PCP - Primary Care Clinic 02/24/20 [place] [address] [place] [address] PCP - General 02/24/20
--- OUTSIDE RECORDS SUMMARY | 2024-01-11 03:31 | XMS_ITS | Referral Summary ---
Author Organization [facility] Address [address] [place] [address] Care Team Providers Care Manager Biostatistics Name Role Phone Melvin Lau MD Primary Care Provider [phone] Allergies No known active allergies Medications Medication [...] on file Medical Devices Implanted Type Area Financial Data Analyst Device Identifier Shelf Expiration Date Model / Serial / Lot Stent Ureteral Contour Soft Percuflex [id number] Implanted:Qty: 1 on 09/11/2017 by Nelson [place] MD at [facility] Stent Left: Ureter [employer] 06/22/2020 [id number] / / [id number] Care Teams Manager Biostatistics Relationship Specialty Start Date End Date Melvin Lau MD PCP - General Family Practice 09/08/17
--- OUTSIDE RECORDS SUMMARY | 2024-01-11 03:32 | XMS_ITS | Data Portability ---
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 Not available 04/15/2023 09:29:16 04/15/2023 [id number] Total treatment time minutes today = 40 Next Visit Plan: how is joint mob? recheck ROM. Add CR. ROM to relocation 30mm, full 45 w/ pain. Patient/Therapist Goals: resume eating and decrease pain and popping Progress Note Date: 06/09 lhovda Not available 04/15/2023 11:28:26 04/28/2023 [id number] Total treatment time minutes today = 40 Next Visit Plan: Recheck ROM, upgrade CR. How was dry needling? ROM to relocation 40mm, full 42 w/ pain. Patient/Therapist Goals: resume eating and decrease pain and popping Progress Note Date: 06/09 lhovda Not available 04/28/2023 17:39:35 05/14/2023 [id number] Total treatment time minutes today = 33 [...] stabil izatio n applia nce Not Available [place] [address], [place], [address], 04/15/2023 09:25:53 04/07/19 24 04/07/2023 XR, ortho panto gram No observ ation record ed. Not Available 2023 19:02:52 Result Notes None recorded. 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 Procedures Surgical History Date Name Laterality Status Provider Name and Address Organization Details Recorded Time 05/14/19 24 90436: Therapeutic Exercise completed Dlemy Suresh DPT [address], [place], [address], [facility] 05/14/2023 18:09:34 05/14/19 24 76783: Neuromuscular Re-Education completed Delmy Suresh DPT [address], [place], [address], [facility] 05/14/2023 18:09:35 05/14/19 24 55705: Manual Therapy completed Delmy Suresh DPT [address], [place], [address], [facility] 05/14/2023 18:09:57 04/28/19 24 13427: Needle insertion(s) without injection(s), 1 or 2 muscle(s) completed Delmy Suresh DPT [address], [place], [address], [facility] 04/28/2023 17:39:15 04/28/19 24 11631: E-Stim - Direct Contact completed Delmy Suresh DPT [address], [place], [address], [facility] 04/28/2023 17:39:19 04/28/19 79083: Therapeutic Exercise completed Delmy Suresh, DPT [address], [place], [address], [facility] 04/28/2023 17:38:33 04/28/19 16028: Neuromuscular Re-Education completed Delmy Suresh, DPT [address], [place], [address], [facility] 04/28/2023 17:38:35 04/28/19 47923: Manual Therapy completed Delmy Suresh, DPT [address], [place], [address], [facility] 04/28/2023 17:38:32 04/15/19 71873 - PT Eval Moderate Complexity completed Delmy Suresh DPT [address], [place], [address], [facility] 04/15/2023 11:24:52 04/15/19 38505: Self Care/Home Management Training completed JERARDO PedrazaT [address], [place], [address], [facility] 04/15/2023 11:24:00 04/15/19 96531: Therapeutic Exercise completed JERARDO PedrazaT [address], [place], [address], [facility] 04/15/2023 11:23:54 04/15/19 37489: Manual Therapy completed Delmy Suresh DPT [address], [place], [address], [facility] 04/15/2023 11:23:59 04/07/19 [facility] 04/07/2023 18:50:07 hernia repair completed Shaniqua Hanks [facility] 04/07/2023 18:30:20 Shoulder Surgery completed Shaniqua Hanks [facility] 04/07/2023 18:30:31 [place] Teeth Extraction [facility] [...] Updated DateTime 4 177.8 cm 29.7 kg/m2 66643.6 2 g 49 /min 153 mm[Hg] 95 mm[Hg] [facility] 18:29:07 Date Recorded Body height Systolic blood pressure Diastolic blood pressure Provider Name and Address Organization Details Last Updated DateTime 05/26/2023 177.8 cm 139 mm[Hg] 101 mm[Hg] [facility] 05/26/2023 16:30:01 Social History Question Answer Notes LastModified by Organizat ion Details LastModified Time Tobacco Smoking Status Never Smoker Shaniqua Hanks [facility] 04/07/2023 18:57:45 [...] Or The Highest Degree You Have Received? [id number] Information not available 04/07/2023 What Is Your Occupation? [employer] Information not available 04/07/2023 What Number Best [...] Age of this Age Resolved Age Notes LastModified by Organization Details LastModified Time Father No current problems or disability Not available 05/2023 18:29:33 Mother No current problems or disability Not available 05/2023 18:29:33 Medical History Condition Response Coronary Artery Disease N Other Y Gout N Chronic fatigue syndrome N Hyperthyroidism N Premenstrual syndrome (PMS) N MRSA N Head Trauma/Injury N Emphysema N Irritable bowel syndrome N COPD N Depression N Lung Disease N Glaucoma N Hypothyroidism N Pneumonia N Pacemaker N Orthopedic Problems N Obstructive Sleep Apnea N Anxiety Disorder N Muscle, Joint, or Bone Problems N Autoimmune disease N Vision or Eye Problems N Arthritis N Serious Illness or Injuries N Acid Reflux (GERD) Y Cancer N Stroke N Eating disorder N Neck Injury N Back Injury N High Cholesterol N Neurologic Disorder N History of chemotherapy N Liver Disease N Organ Transplant N [...] Vertigo N Sleep Disorder N GERD/Reflux N Hepatitis N Aneurysm N Neuropathy N Heart Disease N Pulmonary Embolism N Hypertension N Osteoporosis N Immunizations Vaccine Type Date Status Provider Name and Address Organization Details Recorded Time influenza, unspecified formulation 01/04/2023 completed R[place] [facility] 04/07/2023 18:28:37 SARS-COV-2 (COVID-19) vaccine, UNSPECIFIED 02/04/2023 completed [place]MOND [facility] 04/07/2023 18:28:57 Past Encounters Encounter ID Performer Location Encounter Start Date Encounter Closed Date Diagnosis/Indication Diagnosis SNOMED-CT Code Diagnosis ICD10 Code [id number] ROSALINA MEZA BDS, [place] [facility] [address] [place] [id number] 04/07/2023 18:12:57 04/07/2023 19:25:21 Myofascial pain 788642203 M79.11 Spasm 51430052 R25.2 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 7622382434 2227125 M26.632 Episodic t ension-type headache 336008523 G44.219 [id number] JERARDO PedrazaT [place] [address] [place] [id number] 04/15/2023 10:19:53 04/15/2023 11:37:43 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 5507925890 1340557 M26.632 Episodic t ension-type headache 055515179 G44.219 Myofascial pain 85407732 9 M79.11 Spasm 52989560 R25.2 [id number] Delmy Sweeneychanoeden, DPT [place] [address] [place] [id number] 04/28/2023 16:30:12 04/28/2023 17:22:39 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 1989420828 5653809 M26.632 Episodic t ension-type headache 519122320 G44.219 Myofascial pain 17348238 9 M79.11 Spasm 45740597 R25.2 [id number] Delmy Kerwin, DPT [place] [address] [place] [id number] 05/14/2023 17:08:36 05/14/2023 18:04:53 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 2740552817 7525153 M26.632 Episodic t ension-type headache 710173452 G44.219 Myofascial pain 86171661 9 M79.11 Spasm 90409619 R25.2 [id number] FRANKLIN ALANIZS, [place] [address] [place] [id number] 05/26/2023 16:10:52 05/26/2023 18:16:47 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 8479917066 6719005 M26.632 Episodic t ension-type headache 633195566 G44.219 Myofascial pain 74244695 9 M79.11 Spasm 38287420 R25.2 Health Concerns Section Related Observation LastModified by Organization Detai ls LastModified Time None Recorded Concern Status LastModified by Organization Details LastModified Time None Recorded Advance Directives Directive None Recorded Payers Encounter Date Sequence Insurance Name Policy Number Policy [place] Covered Member ID [place] Member ID Guarantor Name 04/07/2023 1 [employer] Kevinryne Grace [id number] Kevinryne Grace 04/15/2023 1 [employer] Kevinryne Grace [id number] Kevinryne Grace 04/28/2023 1 [employer] Kevinryne Grace [id number] Kevinryne Grace 05/14/2023 1 [employer] Kevinryne Grace [id number] Kevinryne Grace 05/26/2023 1 [employer] Kevinryne Grace [id number] Kevinryne Grace Notes Date Note Type Note Provider [...] ear. He has been working for the [employer] for about 42 years. JAYLEEN MEZA BDS, [place] [address], [place], [address], [facility] 04/15/2023 09:30:51 4 text/html HPI Notes: Patient presents today for PT evaluation regarding: L sided jaw popping and pain. Symptoms present for: about a month after biting into a frozen cookie Aggravated by: chewing Improved by: heat and massaging it Current symptoms are reported at 2-06/13. Pt was previously able to complete ADLs [...] (out of 80): 04/14/23=24 Delmy Suresh DPT [address] [place] [address] [address], [place], [address], [facility] 04/15/2023 11:28:42 4 text/html HPI Notes: Pt reports less pain and the clicking is still present. He would like the clicking to improved as others can hear it when he is eating. Delmy Suresh DPT [address], [place], [address], [facility] 04/28/2023 17:40:59 4 text/html HPI Notes: Pt reports being sore from being at the dentist yesterday. More of an ear ache lately, backed off on the exercises. Wide opening more painful and it takes a while to calm down. Click still present with chewing on the R. Delmy Suresh DPT [address], [place], [address], [facility] 05/14/2023 [...] for his pain. JAYLEEN MEZA BDS, [place] [address], [place], [address], [facility] 05/26/2023 18:12:05
--- OUTSIDE RECORDS SUMMARY | 2024-01-11 03:32 | XMS_ITS | Patient Health Record ---
Author Organization [facility] Address [address] [place] [address] [place] [address] Care Team Providers Care Hydraulic Design Engineer Name Role Phone SELF, SELF Primary Care [...] Status Risk Notes Problem Gastroesophageal reflux disease (687286844) GERD (gastroesopha geal reflux disease) (K21.9) Active confirmed Problem Hiatal hernia (97234569) Hiatal hernia (K44.9) Active confirmed Problem Recurrent left inguinal hernia (818126145) Recurrent left inguinal hernia (K40.91) Active confirmed Problem Pain in testicle (06510929) Pain in left testicle (N50.812) Active confirmed Problem Postoperative follow-up visit (381065848) Post op follow-up exam (Z48.89) Active confirmed Plan Of Treatment No Information Insurance Providers Payer Name Payer Address Payer Phone Subscriber Number Group Number Insured Name Patient Relationship to Insured Coverage Start Date Coverage End Date [facility] [address] [address] [place] [address] [id number] KYLAH BRADY Self - patient is the [...]
--- OUTSIDE RECORDS SUMMARY | 2024-01-11 03:32 | XMS_ITS | Data Portability ---
Author Organization [place] [facility] [place] [facility], [facility] Address [address] [place] [address] [address] [place] [address] Assessment Encounter Date Assessment Date Assessment LastModified [...] RESIDUAL STONES ON PREEV. C.T. DONE AT [facility], HOWEVER , RADIOLOGIST DID NOT STATE SIZE OR LOCATIONS. PLAN RTC 3 MO KUB .INCREASED FLUIDS, LOW SALT DIET, LEMONADE. Not available 06/23/2023 14:41:00 Plan of Treatment Reminders Order Date Submit Date Provider Last Modified By Organization Details Last Modified Time Details Appointments ESTABLISH ED 10 2023 03:10P M Not available Not available Not available Lab urinalysi s, dipstick 2023 024 [facility], [address], [place], [address], 05/25/2023 13:53:10 Referral None recorded. Procedures None recorded. Surgeries cystoscop y, with ureterosc opy, with lithotrip sy, with insertion of ureteral stent (SURG) 2023 024 [email or web address] Not available 06/02/2023 12:08:10 Imaging None recorded. Medication Orders tramadol 50 mg tablet 2019 020 Not available 05/25/2023 13:50:37 Flomax 0.4 mg capsule 2023 024 [facility] #[id number], [address] [place], [place], [phone], 05/25/2023 14:18:00 oxycodone 5 mg tablet 2023 024 [id number], [address] [place], [place], [phone], 05/25/2023 14:17:59 Patient TargetsNo targets recorded. Patient Instructions Encounter Date Encounter Id Patient Instructions Last Modified By Organization Details Last Modified Time 05/25/2023 [id number] Discussed medica l expulsive therapy versus surgical [...] Available [facility] [address], [place], [address], 05/25/2023 13:52:34 05/25/19 24 05/25/2023 urina lysis , dipst ick Clarity-Stat us Clear Not Available [facility] [address], [place], [address], 05/25/2023 13:52:34 05/25/19 24 05/25/2023 urina lysis , dipst ick Sp [place]-Stat us 1.020 Not Available [facility] [address], [place], [address], 05/25/2023 13:52:34 05/25/19 24 05/25/2023 urina lysis , dipst ick pH-Status 5.5 Not Available [facility] [address], [place], [address], 05/25/2023 13:52:34 05/25/19 24 05/25/2023 urina lysis , dipst ick Nitrates-Sta tus negati ve Not Available [facility] [address], [place], [address], 05/25/2023 13:52:34 05/25/19 24 05/25/2023 urina lysis , dipst ick Blood-Status Small Not Available [facility] [address], [place], [address], 05/25/2023 13:52:34 05/25/19 24 05/25/2023 urina lysis , dipst ick Leuko-Status Negati ve Not Available [facility] [address], [place], [address], 05/25/2023 13:52:34 05/25/19 24 05/25/2023 urina lysis , dipst ick Specimen Type Voided Not Available [facility] [address], [place], [address], 05/25/2023 13:52:34 05/25/19 24 05/25/2023 urina lysis , dipst ick Performed by Morales michele RN Not Available [facility] [address], [place], [address], 05/25/2023 13:52:34 12/22/19 24 12/12/2023 CT, abdom en + pelvi s, w/o contr ast No observ ation record ed. [email or web address] [facility] [address], [place], [address], 12/24/2023 14:03:48 Result Notes None recorded. Problems Name Problem SNOMED Code Status Onset Date Resolution Date Notes Provider Name and Address Organization Details Recorded Time Calculus of kidney and ureter 577558957 Active 024 Nelson Anderson MD [address] [place] [address],[address], [place], [address] , [facility] 14:41:07 Problem Notes None recorded. Procedures Surgical History Date Name Laterality Status Provider Name and Address Organization Details Recorded Time 06/23/19 24 Cystoscopy with foreign body/stent removal completed Nelson Anderson MD [address] [facility],[address], [place], [address], [facility] 06/23/2023 14:39:05 05/25/19 24 Urinalysis completed Macy Ding [facility] 05/25/2023 13:51:40 repair of shoulder completed Riley [address] [facility] 12/06/2019 16:23:28 procedure on wrist completed Riley Ariana [facility] 12/06/2019 16:23:34 Fragmenting of kidney stone completed Riley Ariana [facility] 12/06/2019 16:24:10 Imaging Results Imaging Date Name Status LastModified by Organiz ation Details LastModified Time 12/12/2023 CT, abdomen + pelvis, w/o contrast completed [email or web address] [facility] [address], [place], [address], 12/24/2023 14:03:48 Procedure Notes None recorded. Medical Equipment None [...] Updated DateTime 12/16/2019 177.8 cm 28.3 kg/m2 67535.7 g Nelson Anderson MD [address] [place] [address] 12/16/2019 12:44:34 Date Recorded Body height Body mass index (BMI) Body weight Provider Name and Address Organization Details Last Updated DateTime 01/09/2020 177.8 cm 28.3 kg/m2 49588.7 g Nelson Anderson MD [address] [place] [address] [facility] 01/09/2020 14:53:37 Date Recorded Body height Body mass index (BMI) Body weight Provider Name and Address Organization Details Last Updated DateTime 12/06/2019 177.8 cm 28.3 kg/m2 [address] [facility] 12/06/2019 16:22:19 Social History Question Answer Notes LastModified by Organizat ion Details LastModified Time Tobacco Smoking Status Never Smoker Riley shen [facility] 12/06/2019 16:23:12 What Is Your Level Of Alcohol Consumption? None Information not available 05/25/2023 What Was The Date Of Your Most Recent Tobacco Screening? 05/25/2023 Information not available 05/25/2023 Has Tobacco Cessation Counseling Been Provided? No Information not available 05/25/2023 Sex: Unknown Functional Status None recorded. Mental Status None recorded. Family History Nothing Reported. Medical History Condition Response Diabetes N Sexually Transmitted Infection N Bleeding Disorder N Other N High Blood Pressure N Kidney Stones Y Cancer N Depression N Lung Disease N High Cholesterol N GERD/Acid Reflux Y Heart Disease N Immunizations Vaccine Type Date Status Provider Name and Address Organization Details Recorded Time Influenza, split virus, quadrivalent, preservative 01/15/2023 completed Macy shen, [facility] 05/25/2023 13:57:34 Influenza, split virus, quadrivalent, preservative 01/16/2021 completed Macy Ding null, [facility] 05/25/2023 13:57:34 Influenza, split virus, quadrivalent, preservative 01/18/2020 completed Macy Ding null, [facility] 05/25/2023 13:57:34 Influenza, split virus, quadrivalent, preservative 02/21/2022 completed Macy Ding null, [facility] 05/25/2023 13:57:34 COVID-19, mRNA, LNP-S, PF, 100 mcg/0.5mL dose or 50 mcg/0.25mL dose 05/03/2020 [facility] 13:57:34 COVID-19, mRNA, LNP-S, PF, 100 mcg/0.5mL dose or 50 mcg/0.25mL dose 11/01/2021 [facility] 05/25/2023 13:57:34 COVID-19, mRNA, LNP-S, PF, 100 mcg/0.5mL dose or 50 mcg/0.25mL dose 04/05/2020 [facility] 13:57:34 COVID-19, mRNA, LNP-S, PF, 30 mcg/0.3 mL dose 03/27/2021 [facility] 13:57:34 COVID-19, mRNA, LNP-S, PF, 50 mcg/0.5 mL 01/30/2023 completed Macy Ding null, [facility] 05/25/2023 13:57:34 Tdap 06/02/2011 [facility] 05/25/[facility]23 13:57:34 Tdap 03/13/2008 [facility] 05/25/2023 13:57:34 Influenza, split virus, trivalent, preservative 03/14/2008 completed [place] [facility] 05/25/2023 13:57:34 Influenza, split virus, quadrivalent, PF 01/24/2020 completed RAYMOND Gardner [facility] 05/25/2023 13:57:34 Influenza, split virus, quadrivalent, PF 02/15/2018 completed [place]AY[place] Gardner [facility] 05/25/2023 13:57:34 Past Encounters Encounter ID Performer Location Encounter Start Date Encounter Closed Date Diagnosis/Indication Diagnosis SNOMED-CT Code Diagnosis ICD10 Code [id number] Nelson Anderson MD [facility] [address] [place] [address] 12/06/2019 16:01:42 12/08/2019 11:34:14 Pain in testicle 07676233 N50.819 [id number] Nelson Anderson MD [facility] [address] [place] [address] 12/16/2019 12:31:24 12/19/2019 12:53:19 Pain in scrotum 68452923 N50.82 [id number] Nelson Anderson MD [facility] [address] [place] [address] 01/09/2020 14:37:55 01/09/2020 17:54:17 Inguinal pain 704736755 R10.2 Pain in testicle 9179763 9 N50.819 [id number] NADIA GAYTAN PA-C [facility] [address] [place] [id number] 05/25/2023 13:19:17 06/01/2023 09:29:06 Kidney stone 20135525 N20.0 [id number] Nelson Anderson MD [facility] [address] [place] [address] 06/23/2023 14:02:00 06/24/2023 11:03:24 Calculus of kidney and ureter 104321227 N20.2 Health Concerns Section Related Observation LastModified by Organization Detai ls LastModified Time None Recorded Concern Status LastModified by Organization Details LastModified Time None Recorded Advance Directives Directive None Recorded Payers Encounter Date Sequence Insurance Name Policy Number Policy Og[place] Covered Member ID [place] Member ID Guarantor Name 12/16/2019 1 [facility] [id number] Kevin Grace 01/09/2020 1 [employer] Fishern Sanjay [id number] Kevin Grace 05/25/2023 1 [employer] Fishern Sanjay [id number] Kevin Sridhar Johntiff 06/23/2023 1 [facility] Robson Fisherryne Lopeztiff [id number] Kevin Sridhar Sanjay Notes Date Note Type Note Provider Name [...] STONES. US done 08/31/19. Nelson Anderson MD [address] [place] [address],[address], [address], [facility] 12/08/2019 10:27:08 12/16/2019 text/html HPI Notes: 59 [...] FOR CORD BLOCK TRIAL. Nelson Anderson MD [address] [place] [address],[address] [place] [address], [address], [facility] 12/16/2019 13:53:28 01/09/2020 text/html HPI Notes: [...] PAIN ACCORDING TO PATIENT. Nelson Anderson MD [address] [facility],[address], [place], [address], [facility] 01/09/2020 15:52:15 05/25/2023 text/html HPI Notes: [...] Denies fever/chills, dysuria, n/v. 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 Has a long h/o stones, most recently passed stone 2018. Has required several surgeries with Dr Anderson. H/o chronic left testicular pain, tried marcaine spermatic cord block with Dr Anderson with minimal relief. UA today with blood NADIA GAYTAN PA-C [address] [place] [address],[address], [place], [address], [facility] 05/25/2023 14:42:36 06/23/2023 text/html HPI Notes: [...] Denies fever/chills, dysuria, n/v. 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 Nelson Anderson MD [address] [place] [address],[address], [place], [address], [facility] 06/23/2023 14:41:23
[2024-01-11 03:34] LABS: Basophils Absolute Auto 0.05 K/uL (0.00-0.30); Basophils Percent Auto 0.7 % (0.0-3.0); Eosinophils Percent Auto 2.8 % (0.0-7.0); Hematocrit 45.4 % (37.0-53.0); Hemoglobin* 15.6 gm/dL (13.5-17.5); Immature Granulocytes Abs Auto 0.02 K/uL (0.00-0.30); Immature Granulocytes Pct Auto 0.3 %; Lymphocytes Absolute Auto 2.47 K/uL (0.90-2.90); Lymphocytes Percent Auto 34.4 % (20-44); Mean Corpuscular HGB Conc 34 gm/dL (32-36); Mean Corpuscular Hemoglobin 31 pg (26-34); Mean Corpuscular Volume 91 fL (80-100); Monocytes Percent Auto 10.4 % (0.0-11.0); Neutrophils Absolute Auto 3.69 K/uL (1.7-7.0); Neutrophils Percent Auto 51.4 % (42.0-72.0); Platelet Count* 235 K/uL (140-440); RDW Coefficient of Variation % 12.9 % (11.5-15.5); White Blood Count* 7.18 K/uL (4.50-11.00)
[2024-01-11 03:36] LABS: Slide Review Reflex No
[2024-01-11 03:40] LABS: Chloride* 108 mmol/L (96-114); Potassium* 3.5 mmol/L (3.6-5.1); Sodium* 138 mmol/L (135-149)
[2024-01-11 03:43] LABS: Anion Gap 10 mEq/L (7-15); Blood Urea Nitrogen* 22 mg/dL (7-30); Carbon Dioxide* 20 mmol/L (20-32); Creatinine* 1.3 mg/dL (0.5-1.5); Est. Creatinine Clearance* 61.61; Estimated Glomerular Filt Rate 63 ml/min; Glucose* 113 mg/dL (60-115)
[2024-01-11 03:44] LABS: Calcium* 9.7 mg/dL (8.4-10.6)
== END 2024-01-11 05:16 | disposition home or self-care (01) ==
PROVIDERS: Emergency Provider Family Medicine; PCP Family Medicine
DX: N20.0 Calculus of kidney (principal)
CPT/HCPCS: 36415; 74176; 80048; 81001; 85025; 96374; 96375; 96376; 99283; 99284; J1171; J1885; J2405

== ENCOUNTER 2024-01-16 22:49 | Observation (INO) | payer OTHER, SELFPAY ==
[2024-01-16 22:55] VITALS: BP 170/105; PULSE 67; RESP 20; TEMP 36.8; O2SAT 98; BMI 30.8
--- NOTE | 2024-01-16 23:07 | ED_ITS ---
HPI - General Adult General Time Seen by Provider: 23:07 Date Seen: 01/16/24 Chief complaint: Flank Pain Stated complaint: kidney stone Time Seen by Provider: 01/16/24 23:06 Source: patient, RN notes reviewed and old records reviewed Mode of arrival: ambulatory Limitations: no limitations History of Present Illness HPI narrative: Kevin is a very pleasant 63-year-old gentleman with a history of kidney stones, recent passage of a 5 mm stone a and now diagnosed 1 week ago with a 2nd stone measuring 6 mm who comes to the emergency room with sudden increasing pain and some hematuria. He notes that he has seen the urologist and he does have a planned procedure on January 31. However, the pain became so much worse tonight in spite of the use of tramadol and [place] as well as ibuprofen earlier this morning that he came to the emergency room. He denies fevers chills. He has had waves of nausea but no vomiting. He noticed that his urine became more pink this evening. Related Data Home Medications ?Medication ?Instructions ?Recorded ?Confirmed omeprazole 20 mg capsule,delayed 20 mg PO DAILY 06/12/23 01/17/24 release tamsulosin 0.4 mg capsule 0.4 mg PO DAILY 01/16/24 01/16/24 tramadol 50 mg tablet 50 mg PO Q8H PRN 01/16/24 01/16/24 Allergies Allergy/AdvReac Type Severity Reaction Status Date / Time No Known Drug Allergies Allergy Verified 01/16/24 22:58 Review of Systems Status of ROS: Reports: 6 or more systems reviewed and unremarkable except as noted in History and below [facility] Medical History (Updated 01/19/24 @ 00:01 by Background Geoffrey) Rotator cuff tear, right ?M75.101 - Unspecified rotator cuff tear or rupture of right shoulder, not specified as traumatic (ICD-10) Osteoarthritis of right shoulder ?M19.011 - Primary osteoarthritis, right shoulder (ICD-10) Osteoarthritis of right hip ?M16.11 - Unilateral primary osteoarthritis, right hip (ICD-10) Tear of right biceps muscle ?S46.211A - Strain of muscle, fascia and tendon of other parts of biceps, right arm, initial encounter (ICD-10) Calculus of kidney ?N20.0 - Calculus of kidney (ICD-10) Gastroesophageal reflux (09/13/11) ?K21.9 - Gastro-esophageal reflux disease without esophagitis (ICD-10) Adenomatous polyp of colon ?D12.6 - Benign neoplasm of colon, unspecified (ICD-10) Diverticulosis (01/14/12) ?K57.90 - Diverticulosis of intestine, part unspecified, without perforation or abscess without bleeding (ICD-10) Family history of colon cancer ?Z80.0 - Family history of malignant neoplasm of digestive organs (ICD-10) Nephrolithiasis ?N20.0 - Calculus of kidney (ICD-10) Hypertension ?I10 - Essential (primary) hypertension (ICD-10) Hydronephrosis with urinary obstruction due to ureteral calculus ?N13.2 - Hydronephrosis with renal and ureteral calculous obstruction (ICD- 10) History of hydrocele ?Z87.438 - Personal history of other diseases of male genital organs (ICD-10) Surgical History S/P nerve repair (03/23/97) ?Z98.890 - Other specified postprocedural states (ICD-10) History of excision of mass (03/20/97) ?Z98.890 - Other specified postprocedural states (ICD-10) History of hydrocelectomy ?Z98.890 - Other specified postprocedural states (ICD-10) S/P foot surgery, left ?Z98.890 - Other specified postprocedural states (ICD-10) Status post arthroscopy of right shoulder (11/21/16) ?Z98.890 - Other specified postprocedural states (ICD-10) Status post arthroscopy of left shoulder (01/01/07) ?Z98.890 - Other specified postprocedural states (ICD-10) History of inguinal hernia repair ?Z98.890 - Other specified postprocedural states (ICD-10) ?Z87.19 - Personal history of other diseases of the digestive system (ICD-10) History of hemorrhoidectomy (04/29/11) ?Z98.890 - Other specified postprocedural states (ICD-10) History of hernia surgery ?Z98.890 - Other specified postprocedural states (ICD-10) ?Z87.19 - Personal history of other diseases of the digestive system (ICD-10) Social History What is your current living situation?: I presently have a place to live Problems where you live: no known problems Problems where you live details: NA In the past 12 months, utilities in danger of being shut off: no In past 12 months, lack of transportation kept you from medical appts, meetings, work, or getting things needed for daily living: no In the past 12 mos, have been you worried that your food would run out before you had money to buy more?: never true In the past 12 mos, the food you bought just didn't last and you didn't have money to buy more?: never true Highest level of school completed/degree received: Associate degree: academic program Smoking Status: Never smoker Do you use any of these nicotine containing products: None Second hand tobacco smoke exposure: No How often do you have a drink containing alcohol: never AUDIT-C Alcohol total score: 0 Non-prescribed substance use: denies use Caffeine: No How often does anyone, including family, friends and others, physically hurt you : never How often does anyone, including family, friends and others, insult or talk down to you: never How often does anyone, including family, friends and others, threaten you with harm: never How often does anyone, including family, friends and others, scream or curse at you: never service: No Exam Narrative: Exam Narrative: Alert and oriented. Clearly uncomfortable. Difficult to remain still. Mentating normally. Heart with regular rate and rhythm lungs are clear. Oral cavity with moist mucous membranes. Abdomen is protruded firm. No significant tenderness or palpation. Lower extremities without edema. Const: Vital Signs, click to edit/add: Vital Signs - 24 hr 01/16/24 22:55 01/16/24 23:17 01/16/24 23:24 Temperature 98.2 F 98.2 F Pulse Rate [Right Pulse Oximeter] 67 Respiratory Rate 20 Blood Pressure [Ri ght Upper Arm] 170/105 H Pulse Oximetry 98 96 Oxygen Delivery Me thod Room Air Documenting provider has reviewed patient's vital signs: yes Course Course ED Course: Patient notes ongoing symptoms since newly diagnosed with a 2nd stone this fall measuring 6 mm in the right mid ureter on January 10. Tonight patient has increasing pain but no evidence of fever. Patient had has had IV placed and Toradol 50 mg IV given as well as Dilaudid 0.5 mg IV. Will check CBC, basic panel, urinalysis. Reevaluation(s) Reevaluation #1: Patient initially had some relief with the Dilaudid. Patient is noting with pain coming back and will repeat dose of Dilaudid. At this time do not feel patient would be able to maintain pain control at home and thus will admit. Vital Signs Vital signs: Initial Vital Signs Temperature 98.2 F 01/16/24 22:55 Temperature Source Temporal Artery Scan 01/16/24 22:55 Pulse Rate 67 01/16/24 22:55 Respiratory Rate 20 01/16/24 22:55 Blood Pressure 170/105 H 01/16/24 22:55 Blood Pressure Mean 126 H 01/16/24 22:55 Blood Pressure Position Sitting 01/16/24 22:55 Pulse Oximetry 98 01/16/24 22:55 Oxygen Delivery Method Room Air 01/16/24 22:55 Vital Signs Temperature 98.2 F 01/16/24 22:55 Pulse Rate 67 01/16/24 22:55 Respiratory Rate 20 01/16/24 22:55 Blood Pressure 170/105 H 01/16/24 22:55 Pulse Oximetry 98 01/16/24 22:55 Oxygen Delivery Method Room Air 01/16/24 22:55 Temperature 98.2 F 01/17/24 08:30 Pulse Rate 70 01/17/24 08:30 Respiratory Rate 18 01/17/24 08:30 Blood Pressure 168/103 H 01/17/24 08:30 Pulse Oximetry 95 01/17/24 08:30 Oxygen Delivery Method Room Air 01/17/24 08:30 Medications Administered Medications: Discontinued Medications Generic Name Dose Route Start Last Admin Trade Name Freq PRN Reason Stop Dose Admin Amlodipine Besylate 5 mg 01/17/24 09:00 01/17/24 08:34 Amlodipine 5 Mg Tablet PO 5 mg DAILY LUIZ Administration Docusate Sodium 100 mg 01/17/24 11:20 01/17/24 12:47 Docusate Sodium 100 Mg Capsule PO 100 mg BID PRN Administration Constipation Hydromorphone HCl 0.5 mg 01/16/24 23:13 01/16/24 23:18 Hydromorphone 0.5 Mg/0.5 Ml Inj IVP 01/16/24 23:14 0.5 mg ONCE ONE Administration Hydromorphone HCl 0.5 mg 01/17/24 00:15 01/17/24 00:00 Hydromorphone 0.5 Mg/0.5 Ml Inj IVP 01/17/24 00:16 0.5 mg ONCE ONE Administration Hydromorphone HCl 0.5 mg 01/17/24 00:54 01/17/24 03:58 Hydromorphone 0.5 Mg/0.5 Ml Inj IVP 0.5 mg Q1H PRN Administration Pain Hydromorphone HCl 1 mg 01/17/24 04:20 01/17/24 12:51 Hydromorphone 0.5 Mg/0.5 Ml Inj IVP 1 mg Q2H PRN Administration Pain Sodium Chloride 500 mls @ 500 mls/hr 01/17/24 00:15 01/17/24 00:20 0.9 % Sodium Chloride 500 Ml IV 01/17/24 01:14 500 mls/hr .Q1H ONE Administration Sodium Chloride 1,000 mls @ 75 mls/hr 01/17/24 00:56 01/17/24 04:06 0.9 % Sodium Chloride 1000 Ml IV 75 mls/hr .[id number] LUIZ Administration Ketorolac Tromethamine 15 mg 01/16/24 23:13 01/16/24 23:17 Ketorolac 15 Mg/Ml Inj IVP 01/16/24 23:14 15 mg ONCE ONE Administration Omeprazole 20 mg 01/17/24 04:30 01/17/24 04:36 Omeprazole [address] PO 20 mg DAILY LUIZ Administration Ondansetron HCl 4 mg 01/16/24 23:13 01/16/24 23:17 Ondansetron 2 Mg/Ml Inj IVP 01/16/24 23:14 4 mg ONCE ONE Administration Sodium Chloride 5 ml 01/17/24 09:00 01/17/24 08:34 Sodium Chloride 0.9 % (Flush) 10 Ml Syringe IVF 5 ml BID LUIZ Administration Tamsulosin HCl 0.4 mg 01/17/24 09:00 01/17/24 08:34 Tamsulosin Hcl 0.4 Mg Capsule PO 0.4 mg DAILY LUIZ Administration Medical Decision Making MDM Narrative Medical decision making narrative: 1. Ureteral colic-patient known to have a 6 mm right mid ureter stone. Patient has procedure for removal scheduled for January 31. No evidence of UTI, leukocytosis tonight. Dilaudid use for discomfort after initial dose of Toradol 15 mg IV. Seems to be improved with this but I do not think we would be able to control his pain as an outpatient and thus I suggested admission. Without evidence of sepsis or rising abnormal creatinine, unfortunately I do not think we would be able to find urologist that would take this stone out this evening. Therefore, suggest admission with transfer to tertiary care during day hours. Perhaps we could find somebody tomorrow but it is Thursday. More likely on Thursday morning. 2. Rising creatinine-patient had a creatinine of 0.9 previously in tonight 1.3 with a normal BUN. Initiating 500 mL fluids at this time. Further hydration will be p.o. but patient is somewhat nauseated. 3. Disposition-admit to the [facility] for pain control. Will speak to [facility] hospitalist. Dictation finished at a later time as [email or web address] update shut our system down. Dr. Kemp, hospitalist accepted this patient to the floor. Did have concerns about admitting here versus transfer to outside facility. As above, my experience has been that urologist will not take out stones in a stable patient for pain alone. Do suggest trying to transfer during daylight hours. Medical Records Medical records reviewed: Yes I reviewed the patient's medical records Lab Data Lab results reviewed: Yes I reviewed the patient's lab results Labs: Lab Results 01/16/24 Range/Units 23:07 WBC 9.02 (4.50-11.00) K/uL RBC 5.07 (4.30-5.90) m/uL Hgb 15.8 (13.5-17.5) gm/dL Hct 47.0 (37.0-53.0) % MCV 93 (80-100) fL MCH 31 (26-34) pg MCHC 34 (32-36) gm/dL RDW Coeff of Rajesh 12.9 (11.5-15.5) % Plt Count 216 (140-440) K/uL Neut % (Auto) 60.3 (42.0-72.0) % Lymph % (Auto) 26.8 (20-44) % [place] % (Auto) 9.4 (0.0-11.0) % Eos % (Auto) 2.1 (0.0-7.0) % Baso % (Auto) 0.6 (0.0-3.0) % Neut # (Auto) 5.44 (1.7-7.0) K/uL Lymph # (Auto) 2.42 (0.90-2.90) K/uL [place] # (Auto) 0.80 (0.00-0.90) K/UL Eos # (Auto) 0.19 (0.00-0.50) K/uL Baso # (Auto) 0.05 (0.00-0.30) K/uL Abs Immat Gran (auto) 0.07 (0.00-0.30) K/uL Imm/Tot Granulo (auto) 0.8 % Sodium 133 L (135-149) mmol/L Potassium 3.9 (3.6-5.1) mmol/L Chloride 103 (96-114) mmol/L Carbon Dioxide 20 (20-32) mmol/L Anion Gap 10 (7-15) mEq/L BUN 23 (7-30) mg/dL Creatinine 1.3 (0.5-1.5) mg/dL Estimated Creat Clear 61.61 Estimated GFR 63 ml/min Glucose 99 (60-115) mg/dL Calcium 9.1 (8.4-10.6) mg/dL Urine Color Yellow (Yellow) Urine Appearance Clear (Clear) Urine pH 5.0 (5.0-8.5) Ur Specific [place] <= 1.005 (1.000-1.030) Urine Protein Negative (Negative) Urine Glucose (UA) Negative (Negative) Urine Ketones Negative (Negative) Urine Blood 3+ A (Negative) Urine Nitrite Negative (Negative) Urine Bilirubin Negative (Negative) Urine Urobilinogen 0.2 (0.2-1.0) Ur Leukocyte Esterase Negative (Negative) Urine RBC 5-10 A (0-2) Urine WBC 0-2 (0-5) Ur Squamous Epith Cells None (None-Few) Urine Bacteria Few A (None) Imaging Data CT scan - abdomen: Attestation: I have reviewed the pertinent imaging results. My impression: This CT was done on January 10. No CT was repeated tonight. Radiologist's impression: Lower chest: No acute abnormality appreciated. Hepatobiliary: Hepatic steatosis. No acute abnormality appreciated. Spleen: Unremarkable. Pancreas: No acute abnormality appreciated. Adrenal glands: Partially calcified right adrenal gland lesion appears unchanged. Kidneys: Multiple bilateral renal stones are again noted. A stone previously in the renal pelvis has migrated to the mid ureter measuring 6 millimeters and causing [id number] hydronephrosis. Bowel: No obstruction. No focal perienteric or pericolonic stranding is appreciated. The appendix is visualized and appears unremarkable. Vascular: Calcified atherosclerosis. Lymph nodes: No gross lymphadenopathy. Peritoneum: No free air. No free fluid. : No acute abnormality appreciated. Soft tissues: No acute abnormality appreciated. Postop changes to the ventral abdominal wall. Bones: No acute fracture. No lytic or blastic lesion. Impression: Multiple bilateral renal stones are again noted. Since prior examination, a 6 millimeter stone previously within the renal pelvis has migrated and is now present in the right mid ureter causing obstruction with mild to moderate hydronephrosis. Discharge Plan Discharge Clinical Impression: Colic, ureteral, Nephrolithiasis Patient Disposition: Admitted As Observation Condition: Improved
[2024-01-16 23:10] LABS: Appearance Urine Clear (Clear); Basophils Absolute Auto 0.05 K/uL (0.00-0.30); Basophils Percent Auto 0.6 % (0.0-3.0); Bilirubin Urine Negative (Negative); Blood Urine 3+ (Negative); Color Urine Yellow (Yellow); Eosinophils Absolute Auto 0.19 K/uL (0.00-0.50); Eosinophils Percent Auto 2.1 % (0.0-7.0); Glucose Urine Negative (Negative); Hemoglobin* 15.8 gm/dL (13.5-17.5); Immature Granulocytes Abs Auto 0.07 K/uL (0.00-0.30); Immature Granulocytes Pct Auto 0.8 %; Ketones Urine Negative (Negative); Leukocyte Esterase Urine Negative (Negative); Lymphocytes Absolute Auto 2.42 K/uL (0.90-2.90); Lymphocytes Percent Auto 26.8 % (20-44); Mean Corpuscular HGB Conc 34 gm/dL (32-36); Mean Corpuscular Hemoglobin 31 pg (26-34); Mean Corpuscular Volume 93 fL (80-100); Monocytes Percent Auto 9.4 % (0.0-11.0); Neutrophils Absolute Auto 5.44 K/uL (1.7-7.0); Neutrophils Percent Auto 60.3 % (42.0-72.0); Nitrite Urine Negative (Negative); Platelet Count* 216 K/uL (140-440); Protein Urine Negative (Negative); RDW Coefficient of Variation % 12.9 % (11.5-15.5); Red Blood Count 5.07 m/uL (4.30-5.90); Specific Gravity Urine <= 1.005 (1.000-1.030); Urobilinogen Urine 0.2 (0.2-1.0); White Blood Count* 9.02 K/uL (4.50-11.00)
[2024-01-16 23:13] LABS: Slide Review Reflex No
--- OUTSIDE RECORDS SUMMARY | 2024-01-16 23:16 | XMS_ITS | Clinical Summary ---
Author Organization [facility] Address [address] [place], [place] [address] [address] Care Team Providers Care Security Assurance Analyst Name Role Phone Clinic, No Primary Unavailable Unavailable Kolby Lau MD Primary Care Provider [phone] Allergies No known active allergies Medications Medication [...] Comments Blood Pressure 139/83 04/10/2020 1:15 PM SEWING INSPECTOR Pulse 55 04/10/2020 1:15 PM SEWING INSPECTOR Temperature 36.1 ??C (97 ??F) 04/10/2020 1:15 PM SEWING INSPECTOR Respiratory Rate 16 04/10/2020 1:15 PM SEWING INSPECTOR Oxygen Saturation 100% 04/10/2020 1:15 PM SEWING INSPECTOR Inhaled Oxygen Concentration - - Weight 92.5 kg (204 lb) 04/03/2020 9:47 AM SEWING INSPECTOR Height 177.8 cm (5' 10) 04/03/2020 9:47 AM SEWING INSPECTOR Body Mass Index 29.27 04/03/2020 9:47 AM SEWING INSPECTOR Plan of Treatment Health Maintenance Due Date [...] this topic Medical Devices Implanted Type Area Basket Hand Weaver Device Identifier Shelf Expiration Date Model / Serial / Lot Foley Cf Capsule - [id number] Implanted:Qty: 1 on 04/10/2020 by Kobe Johnson MD at [facility] [place] Prosthetic Implant Non-Specific [employer] 05/17/2021 [id number] Care Teams Security Assurance Analyst Relationship Specialty Start Date End Date Clinic, No Primary PCP - Primary Care Clinic 02/24/20 [place] [address] [place] [address] PCP - General 02/24/20
--- OUTSIDE RECORDS SUMMARY | 2024-01-16 23:16 | XMS_ITS | Clinical Summary ---
Author Organization [facility] Address [address] [place] [id number] Care Team Providers Care Spooler Name Role Phone Melvin Lau MD Primary Care Provider [phone] Allergies No known active allergies Medications Medication [...] 09/11/2017 6:03 AM CDT Plan of Treatment Upcoming Encounters Date Type Department Care Team (Latest Contact Info) Description 02/01/2024 11:30 AM CDT [facility] [address], [address] [place] [phone] Nelson Anderson MD [facility] [address] [place] [id number] 02/01/2024 11:30 AM CDT - 02/01/2024 1:[address] [facility] [address] [place] [phone] Nelson Anderson MD [facility] [address] [place] [id number] cystoscopy, right retrograde pyelogram, right ureteroscopy, holmium laser lithotripsy, possible right ureteral stent placement Scheduled Procedures Name Priority Associated Diagnoses Date/Ti wi CYSTOURETEROSCOPY, WITH RETROGRADE PYELOGRAM, HOLMIUM LASER LITHOTRIPSY OF URETERAL CALCULUS, AND STENT INSERTION Calculus, kidney Calculus, ureter 02/01/2024 11:30 AM CDT Goals Goal Patient Goal Type Associated Problems Recent Progress Patient-Stated? Author MYC ECC SURG ENROLL Care Plan MyC ECC SURG ENROLL No Millicent [employer] Medical Devices Implanted Type Area Technical Staff Assistant Device Identifier Shelf Expiration Date Model / Serial / Lot Stent Ureteral Contour Soft Percuflex [id number] Implanted:Qty: 1 on 09/11/2017 by Nelson Anderson MD at [facility] Stent Left: Ureter [employer] 06/22/2020 [id number] / / [id number] Additional Health Concerns Active Problems Noted Date Diagnosed Date MyC ECC SURG ENROLL 01/15/2024 Care Teams Spooler Relationship Specialty Start Date End Date Melvin Lau MD PCP - General Family Practice 09/08/17
--- OUTSIDE RECORDS SUMMARY | 2024-01-16 23:16 | XMS_ITS | Data Portability ---
Author Organization [place] - [facility] Address [address] [facility] [address] [place] [address] Assessment Encounter Date Assessment Date Assessment LastModified by Organization Details LastModified Time 12/16/2019 12/16/2019 59 Y/O MALE, HX CHRONIC LEFT TESTICULAR PAIN. SPERMATIC CORD BLOCK WITH 2 PERCENT MARCAINE. WILL ASSESS PAIN RELIEF. CALL NEXT WEEK. PLAN - CALL NEXT WEEK [email or web address] Not available 12/16/2019 13:52:57 01/09/2020 01/09/2020 59 [...] RESIDUAL STONES ON PREEV. C.T. DONE AT [facility], HOWEVER , RADIOLOGIST DID NOT STATE SIZE OR LOCATIONS. PLAN RTC 3 MO KUB .INCREASED FLUIDS, LOW SALT DIET, LEMONADE. Not available 06/23/2023 14:41:00 01/13/2024 01/13/2024 63 Y/O MALE, HX OF RECURRENT STONES. PASSED A RT. 5 MM STONE IN . NOW WITH NEW ONSET PAIN AND A 6MM RT MID URETERAL STONE WITH RT HYDRO. KUB TODAY SHOWS THAT THE STONE HAS PROGRESSED INTO THE LOWER URETER. ALSO NOTED 1.5 CM LEFT LOWER POLE STONE.REVIEWED OPTIONS ORDERED REVIEWED ,INTERPRETED KUB REVIEWED RECENT ER VISIT, C.T. SCAN PLAN WILL SCHEDULE CYSTO, RT RETROGRADE, RT URS, HOLMIUM LASER, POSSIBLE RT STENT.PROCEDUR E EXPLAINED IN DETAIL. Not available 01/13/2024 16:29:46 Plan of Treatment Reminders Order Date Submit Date Provider Last Modified By Organization Details Last Modified Time Details Appointments None recorded. Lab urinalysis, dipstick 2023 [facility], [address], [place], [address], 13:53:10 Referral None recorded. Procedures None recorded. Surgeries cystoscopy, with ureteroscop y, with lithotripsy , with insertion of ureteral stent (SURG) 2023 [email or web address] Not available 12:08:10 Imaging XR, kidney + ureter + bladder - [facility] [place] 12/12/232023 024 [email or web address] 89 [facility] , [address], [place], [address], 14:25:07 Medication Orders Flomax 0.4 mg capsule 2023 [id number], [address] [place], [place], [id number], 14:18:00 oxycodone 5 mg tablet 2023 024 [id number], [address] [place], [place], [phone], 14:17:59 tramadol 50 mg tablet 2023 024 [email or web address] Not available 16:17:51 tamsulosin 0.4 mg capsule 2023 024 [id number], [address] [facility] [place], [id number], 16:24:24 Patient TargetsNo targets recorded. Patient Instructions Encounter Date Encounter Id Patient Instructions Last Modified By Organization Details Last Modified Time 05/25/2023 [id number] Discussed medica l expulsive therapy versus surgical [...] Abnormal Flag Note LastModifiedBy Organization Detail LastModifiedTime 05/25/1905/25/2023 urina lysis , dipst ick Color-Status Yellow Not Available [facility] [address], [place], [address], 05/25/2023 13:52:34 05/25/19 24 05/25/2023 urina lysis , dipst ick Clarity-Stat us Clear Not Available [facility] [address], [place], [address], 05/25/2023 13:52:34 05/25/19 24 05/25/2023 urina lysis , dipst ick Sp [place]-Stat us 1.020 Not Available [facility] [address], [place], [address], 05/25/2023 13:52:34 05/25/19 24 05/25/2023 urina lysis , dipst ick pH-Status 5.5 Not Available [facility] [address], [place], [address], 05/25/2023 13:52:34 05/25/19 24 05/25/2023 urina lysis , dipst ick Nitrates-Sta tus negati ve Not Available [facility] [address], [place], [address], 05/25/2023 13:52:34 05/25/19 24 05/25/2023 urina lysis , dipst ick Blood-Status Small Not Available [facility] [address], [place], [address], 05/25/2023 13:52:34 05/25/19 24 05/25/2023 urina lysis , dipst ick Leuko-Status Negati ve Not Available [facility] [address], [place], [address], 05/25/2023 13:52:34 05/25/19 24 05/25/2023 urina lysis , dipst ick Specimen Type Voided Not Available [facility] [address], [place], [address], 05/25/2023 13:52:34 05/25/19 24 05/25/2023 urina lysis , dipst ick Performed by Morales michele RN Not Available [facility] [address], [place], [address], 05/25/2023 13:52:34 12/22/19 24 12/12/2023 CT, abdom en + pelvi s, w/o contr ast No observ ation record ed. [email or web address] [facility] [address], [place], [address], 01/12/2024 13:54:53 01/14/20 24 01/13/2024 XR, kidne y + urete r + bladd er EXAM: XR, KIDNEY + URETER + BLADDE R LOCATI ON: [facility] DATE: INDICA TION: Calcul us of kidney COMPAR GENOVEVA: IMPRES CHRIS: The right mid/di stal ureter al obstru cting calcul us that was previo usly projec ting at the level of the L5 upper endpla te on the CT is not defini tively seen radiog raphic ally. There is a 5 mm calcif icatio n in the right pelvis which could repres ent the ureter al calcul us that has passed slight ly inferi flaquito. Few other stable bilate ral renal calcul i includ ing the larges t 12 mm calcul us in the left kidney and a few right renal calcul i measur ing about 3 mm. Mesh repair of a ventra l abdomi nal hernia . Prosta tic calcif icatio ns. This report was electr onical ly interp reted by: Tawanna Connors MD on 2023 at 13:28 [facility] [place] [address] [facility] [address], [place], [address], 01/14/2024 14:31:17 Result Notes Documentation Provider Name and Address Organization Details Recorded Time Xr, Kidney + Ureter + Bladder : EXAM: XR, KIDNEY + URETER + BLADDER LOCATION: [facility] DATE: 01/13/2024 INDICATION: Calculus of kidney COMPARISON: 01/11/2024 IMPRESSION: The right mid/distal ureteral obstructing calculus that was previously projecting at the level of the L5 upper endplate on the CT is not definitively seen radiographically. There is a 5 mm calcification in the right pelvis which could represent the ureteral calculus that has passed slightly inferiorly. Few other stable bilateral renal calculi including the largest 12 mm calculus in the left kidney and a few right renal calculi measuring about 3 mm. Mesh repair of a ventral abdominal hernia. Prostatic calcifications. This report was electronically interpreted by: Tawanna Connors MD on 01/14/2024 at 13:28 Not Available [facility] 01/14/2024 14:31:18 Problems Name Problem SNOMED Code Status Onset Date Resolution Date Notes Provider Name and Address Organization Details Recorded Time Calculus of kidney and ureter 682670439 Active 024 Nelson Anderson MD [address] [place] [address],[address], [address] , [facility] 4 14:41:07 Ureteric stone 83347550 Active 024 Nelson Anderson MD [address] [place] [address],[address], [address] , [facility] 4 16:29:56 Right flank pain 938673139 Active 024 Nelson Anderson MD [address] [place] [address],[address] [place] [address], [address] , [facility] 4 16:30:01 Problem Notes None recorded. Procedures Surgical History Date Name Laterality Status Provider Name and Address Organization Details Recorded Time 06/23/19 24 Cystoscopy with foreign body/stent removal completed Nelson Anderson MD [address] [place] [address],[address], [address], [facility] 06/23/2023 14:39:05 05/25/19 24 Urinalysis [facility] 05/25/2023 13:51:40 repair of shoulder completed [address] [facility] 12/06/2019 16:23:28 procedure on wrist completed [address] [facility] 12/06/2019 16:23:34 Fragmenting of kidney stone completed [facility] 12/06/2019 16:24:10 Imaging Results Imaging Date Name Status LastModified by Organiz ation Details LastModified Time 12/12/2023 CT, abdomen + pelvis, w/o contrast completed [email or web address] [facility] [address], [place], [address], 01/12/2024 13:54:53 01/13/2024 XR, kidney + ureter + bladder [facility] [address], [place], [address], 01/14/2024 14:31:17 Procedure Notes None recorded. Medical Equipment None Reported. Allergies No known drug allergies Medications Name Sig Start Date Stop Date Status Note LastModified by Organization Details LastModified Time hydrocodone 5 mg-acetamin ophen 325 mg tablet TAKE 1 TO 2 TABLETS BY MOUTH EVERY 6 HOURS NEEDED DIRECTED FOR PAIN active Not Available Not Available No t Available doxycycline monohydrate 100 mg tablet 12/05 completed Not Available Not Available Not Available tramadol 50 mg tablet Take 1 tablet every 8 hours by oral route as needed. 2023 active Not Available Not Available Not Avai lable ketorolac 10 mg tablet active Not Available Not Available Not Available oxycodone-a cetaminophe n 5 mg-325 mg tablet active Not Available Not Available No t Available tamsulosin 0.4 mg capsule Take 1 capsule every day by oral route. 2023 active Not Available Not Available Not Avai lable cephalexin 500 mg capsule TAKE 1 CAPSULE BY MOUTH TWICE DAILY. active Not Available Not Available No t Available levofloxaci n 500 mg tablet 12/05 completed Not Available Not Available Not Available ondansetron 4 mg disintegrat ing tablet active Not Available Not Available N ot Available doxycycline hyclate 100 mg tablet 12/05 completed Not Available Not Available Not Available oxycodone 5 mg tablet TAKE 1 TABLET BY MOUTH EVERY 4 TO 6 HOURS NEEDED active Not Available Not Available No t Available cyclobenzap rine 5 mg tablet TAKE 1 TABLET BY MOUTH EVERY DAY AT DINNER active Not Available Not Available No t Available omeprazole active Not Available Not Av ailable Not Available Vitals Date Recorded Body height Body mass index (BMI) Body weight Provider Name and Address Organization Details Last Updated DateTime 12/16/2019 177.8 cm 28.3 kg/m2 15225.7 g Nelson Anderson MD [address] [facility],[address], [address] 12/16/2019 12:44:34 Date Recorded Body height Body mass index (BMI) Body weight Provider Name and Address Organization Details Last Updated DateTime 01/09/2020 177.8 cm 28.3 kg/m2 68219.7 g Nelson Anderson MD [address] [place] [address], [address] 01/09/2020 14:53:37 Date Recorded Body height Body mass index (BMI) Body weight Provider Name and Address Organization Details Last Updated DateTime 01/13/2024 177.8 cm 28.3 kg/m2 78008.7 g Nelson Anderson MD [address] [place] [address], [address] [place] [address] 01/13/2024 15:53:44 Social History Question Answer Notes LastModified by Organizat ion Details LastModified Time Tobacco Smoking Status Never Smoker [facility] 12/06/2019 16:23:12 What Is Your Level [...] Time Influenza, split virus, quadrivalent, preservative 01/15/2023 karyn shen [facility] 05/25/2023 13:57:34 Influenza, split virus, quadrivalent, preservative 01/16/2021 karyn shen [facility] 05/25/2023 13:57:34 Influenza, split virus, quadrivalent, preservative 01/18/2020 karyn shen [facility] 05/25/2023 13:57:34 Influenza, split virus, quadrivalent, preservative 02/21/2022 [facility] 05/25/2023 13:57:34 COVID-19, mRNA, LNP-S, PF, 100 mcg/0.5mL dose or 50 mcg/0.25mL dose 05/03/2020 [facility] 05/25/2023 13:57:34 COVID-19, mRNA, LNP-S, PF, 100 mcg/0.5mL dose or 50 mcg/0.25mL dose 11/01/2021 [facility] 05/25/2023 13:57:34 COVID-19, mRNA, LNP-S, PF, 100 mcg/0.5mL dose or 50 mcg/0.25mL dose 04/05/2020 [facility] 05/25/2023 13:57:34 COVID-19, mRNA, LNP-S, PF, 30 mcg/0.3 mL dose 03/27/2021 [facility] 05/25/2023 13:57:34 COVID-19, mRNA, LNP-S, PF, 50 mcg/0.5 mL 01/30/2023 [facility] 05/25/2023 13:57:34 Tdap 06/02/2011 [facility] 05/25/2023 13:57:34 Tdap 03/13/2008 [facility] 05/25/2023 13:57:34 Influenza, split virus, trivalent, preservative 03/14/2008 [facility] 05/25/2023 13:57:34 Influenza, split virus, quadrivalent, PF 01/24/2020 [facility] 05/25/2023 13:57:34 Influenza, split virus, quadrivalent, PF 02/15/2018 [facility] 05/25/2023 13:57:34 Tdap 06/12/2023 completed Riley shen [facility] 01/13/2024 15:51:31 Past Encounters Encounter ID Performer Location Encounter Start Date Encounter Closed Date Diagnosis/Indication Diagnosis SNOMED-CT Code Diagnosis ICD10 Code [id number] Nelson Anderson MD [facility] [address] [place] [address] 12/06/2019 16:01:42 12/08/2019 11:34:14 Pain in testicle 16485258 N50.819 [id number] Nelson Anderson MD [facility] [address] [place] [address] 12/16/2019 12:31:24 12/19/2019 12:53:19 Pain in scrotum N50.82 [id number] Nelson Anderson MD [facility] [address] [place] [address] 01/09/2020 14:37:55 01/09/2020 17:54:17 Inguinal pain 665412546 R10.2 Pain in testicle 5995246 9 N50.819 [id number] NADIA GAYTAN PA-C [facility] [address] [place] [id number] 05/25/2023 13:19:17 06/01/2023 09:29:06 Kidney stone 87078219 N20.0 [id number] Nelson Anderson MD [facility] [address] [place] [address] 06/23/2023 14:02:00 06/24/2023 11:03:24 Calculus of kidney and ureter 869917623 N20.2 [id number] Nelson Anderson MD [facility] [address] [place] [address] 01/13/2024 15:46:35 01/14/2024 14:25:07 Calculus of kidney and ureter 944190534 N20.2 Ureteric stone 74867494 N20.1 Right flank pain 0266145 09 R10.9 Health Concerns Section Related Observation LastModified by Organization Detai ls LastModified Time None Recorded Concern Status LastModified by Organization Details LastModified Time None Recorded Advance Directives Directive None Recorded Payers Encounter Date Sequence Insurance Name Policy Number Policy Ogden Covered Member ID [place] Member ID Guarantor Name 12/16/2019 1 [employer] [place] Kevin Grace [id number] Kevin Grace 01/09/2020 1 [employer] [id number] Kevinryne Grace [id number] Kevin Grace 05/25/2023 1 [employer] [id number] Kevin Grace [id number] Kevin Grace 06/23/2023 1 [employer] [id number] Kevin Grace [id number] Kevin Grace 01/13/2024 1 [employer] [id number] Kevinryne Grace [id number] Kevinryne Grace Notes Date Note Type Note Provider Name and Address Organization Details Recorded Time 12/16/2019 text/html HPI Notes: 59 YOM HERE FOR LEFT TESTICULAR PAIN THAT HAS BEEN ONGOING. HE WAS LAST SEEN (07-27-19).PAST HX LEFT HERNIA REPAIR , 2011. THATS WHEN THE PAIN STARTED. S/P VAS. PASSED MULTIPLE STONE, LAST STONE PASSED WAS ON 03/12/19. CT DONE SHOWING MORE STONES. US done 08/31/19 CHRONIC LEFT TESTICULAR PAIN. HERE FOR CORD BLOCK TRIAL. Nelson Anderson MD [address] [place] [address],[address], [address], [facility] 12/16/2019 13:53:28 01/09/2020 text/html HPI [...] PAIN ACCORDING TO PATIENT. Nelson Anderson MD [address] [place] [address],[address], [place], [address], [facility] 01/09/2020 15:52:15 05/25/2023 text/html HPI [...] Denies fever/chills, dysuria, n/v. 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 Has a long h/o stones, most recently passed stone 2019. Has required several surgeries with Dr Anderson. H/o chronic left testicular pain, tried marcaine spermatic cord block with Dr Anderson with minimal relief. UA today with blood NADIA GAYTAN PA-C [address] [facility],[address], [place], [address], [facility] 05/25/2023 14:42:36 06/23/2023 text/html HPI [...] Denies fever/chills, dysuria, n/v. 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 Nelson Anderson MD [address] [facility],[address], [place], [address], [facility] 06/23/2023 14:41:23 01/13/2024 text/html HPI Notes: 62 yo M here for kidney stones. PASSED A 5MM, NOW HAS 6MM IN RIGHT MID URETER Recently seen in ED on 05/18 with flank pain; CT reveals 7mm distal left ureteral stone. He has had symptoms for about 2 weeks now. Continues to have renal colic, flares of severe pain. Has been taking Flomax TID and PRN narcotics from ED. Denies fever/chills, dysuria, n/v. 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 Has a long h/o stones, most recently passed stone 2019. Has required several surgeries with Dr Anderson. H/o chronic left testicular pain, tried marcaine spermatic cord block with Dr Anderson with minimal relief. UA today with blood STENT REMOVAL ON 06/2201/13/24 MOD RT FLANK PAIN. KUB SHOWS THAT THE STONE HAS MIGRATED INTO THE DISTAL URETER. ALSO NOTED WAS A LARGE 1.5 CM LEFT LOWER POLE STONE. Nelson Anderson MD [address] [facility],[address], [place], [address], [facility] 01/13/2024 16:30:18
--- OUTSIDE RECORDS SUMMARY | 2024-01-16 23:16 | XMS_ITS | Clinical Summary ---
Author Organization [facility] Address [place], [place] [address] Care Team Providers Care Extrusion Press Operator Name Role Phone Pcp, No Primary [...] agreement signed 02/01/2014 Overview (02/01/2014): Manjit Rosenberg [facility] Testicle pain 06/17/2013 Ilioinguinal neuralgia [...] CDT Oxygen Saturation 97% 05/01/2014 12:51 PM WATCH CRYSTAL CUTTER Inhaled Oxygen Concentration - - Weight 92.8 kg (204 lb 9.6 oz) 05/01/2014 12:51 PM WATCH CRYSTAL CUTTER Height 177.8 cm (5' 10) 04/10/2014 1:53 PM WATCH CRYSTAL CUTTER Body Mass Index 29.36 04/10/2014 1:53 PM WATCH CRYSTAL CUTTER Plan of Treatment Health Maintenance Due Date Last Done Comments Depression screening for age 12+ 1974 HIV for age 15-65 1977 BMI (ht and wt on same day) for age 18+ 1980 Hepatitis C screening for age 18-79 1980 Zoster (shingles) series for age 50+ (1 of 2) 2012 Lipids for age 45-75 05/19/2016 05/19/2011 ([facility] outside [facility]) Tetanus booster 06/02/2021 06/02/2011, 06/02/2011 Colonoscopy [...] Recently Relevant to Health Maintenance Care Teams Extrusion Press Operator Relationship Specialty Start Date End Date Pcp, No . PCP - General 07/07/12
--- OUTSIDE RECORDS SUMMARY | 2024-01-16 23:16 | XMS_ITS | Referral Summary ---
Author Organization [facility] Address [address] [place] [address] Care Team Providers Care Metal Roofing Mechanic Name Role Phone Melvin Lau MD Primary Care Provider [phone] Allergies No known active allergies Medications Medication [...] Description 02/01/2024 11:30 AM CDT [facility] [address], [address] [place] [phone] Nelson Anderson MD [facility] [address] [place] [id number] 02/01/2024 11:30 AM CDT - 02/01/2024 1:[address] [facility] [address], [address] [place] [phone] Nelson Anderson MD [facility] [address] [place] [id number] cystoscopy, right retrograde pyelogram, right ureteroscopy, holmium laser lithotripsy, possible right ureteral stent placement Scheduled Procedures Name Priority Associated Diagnoses Date/Ti ok CYSTOURETEROSCOPY, WITH RETROGRADE PYELOGRAM, HOLMIUM LASER LITHOTRIPSY OF URETERAL CALCULUS, AND STENT INSERTION Calculus, kidney Calculus, ureter 02/01/2024 11:30 AM CDT Goals Goal Patient Goal Type Associated Problems Recent Progress Patient-Stated? Author MYC ECC SURG ENROLL Care Plan MyC ECC SURG ENROLL No Millicent [employer] Medical Devices Implanted Type Area Radiological Metallurgist Device Identifier Shelf Expiration Date Model / Serial / Lot Stent Ureteral Contour Soft Percuflex [id number] Implanted:Qty: 1 on 09/11/2017 by Nelson Anderson MD at [facility] Stent Left: Ureter [employer] 06/22/2020 [id number] / / [id number] Additional Health Concerns Active Problems Noted Date Diagnosed Date MyC ECC SURG ENROLL 01/15/2024 Care Teams Metal Roofing Mechanic Relationship Specialty Start Date End Date Melvin Lau MD PCP - General Family Practice 09/08/17
--- OUTSIDE RECORDS SUMMARY | 2024-01-16 23:16 | XMS_ITS | Patient Health Record ---
Author Organization [facility] Address [address] [place] [address] [place] [address] Care Team Providers Care Brownfield Redevelopment Site Manager Name Role Phone SELF, SELF Primary Care [...] Status Risk Notes Problem Gastroesophageal reflux disease (364661306) GERD (gastroesopha geal reflux disease) (K21.9) Active confirmed Problem Hiatal hernia (56637325) Hiatal hernia (K44.9) Active confirmed Problem Recurrent left inguinal hernia (373963266) Recurrent left inguinal hernia (K40.91) Active confirmed Problem Pain in testicle (77964229) Pain in left testicle (N50.812) Active confirmed Problem Postoperative follow-up visit (408116324) Post op follow-up exam (Z48.89) Active confirmed Plan Of Treatment No Information Insurance Providers Payer Name Payer Address Payer Phone Subscriber Number Group Number Insured Name Patient Relationship to Insured Coverage Start Date Coverage End Date [facility] [address] [address] [place] [id number] KYLAH BRADY Self - patient is the [...]
--- OUTSIDE RECORDS SUMMARY | 2024-01-16 23:16 | XMS_ITS | Referral Summary ---
Author Organization [facility] Address [address] [place] [address] Care Team Providers Care Senior Java Web Developer Name Role Phone Clinic, No Primary Unavailable Unavailable Kolby Lau MD Primary Care Provider [phone] Allergies No known active allergies Medications Medication [...] Comments Blood Pressure 139/83 04/10/2020 1:15 PM SUPPLY CHAIN PROCUREMENT MANAGER Pulse 55 04/10/2020 1:15 PM SUPPLY CHAIN PROCUREMENT MANAGER Temperature 36.1 ??C (97 ??F) 04/10/2020 1:15 PM SUPPLY CHAIN PROCUREMENT MANAGER Respiratory Rate 16 04/10/2020 1:15 PM SUPPLY CHAIN PROCUREMENT MANAGER Oxygen Saturation 100% 04/10/2020 1:15 PM SUPPLY CHAIN PROCUREMENT MANAGER Inhaled Oxygen Concentration - - Weight 92.5 kg (204 lb) 04/03/2020 9:47 AM SUPPLY CHAIN PROCUREMENT MANAGER Height 177.8 cm (5' 10) 04/03/2020 9:47 AM SUPPLY CHAIN PROCUREMENT MANAGER Body Mass Index 29.27 04/03/2020 9:47 AM SUPPLY CHAIN PROCUREMENT MANAGER Plan of Treatment Not on file Medical Devices Implanted Type Area Swedger Device Identifier Shelf Expiration Date Model / Serial / Lot Foley Cf Capsule - [id number] Implanted:Qty: 1 on 04/10/2020 by Kobe Johnson MD at [facility] Prosthetic Implant Non-Specific [employer] 05/17/2021 [id number] / [id number] / [id number] Care Teams Senior Java Web Developer Relationship Specialty Start Date End Date Clinic, No Primary PCP - Primary Care Clinic 02/24/20 [place] [address] [place] [address] PCP - General 02/24/20
--- OUTSIDE RECORDS SUMMARY | 2024-01-16 23:16 | XMS_ITS | Data Portability ---
Author Organization [place] [facility] Address [address] 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 Not available 04/15/2023 09:29:16 04/15/2023 [id number] Total treatment time minutes today = 40 Next Visit Plan: how is joint mob? recheck ROM. Add CR. ROM to relocation 30mm, full 45 w/ pain. Patient/Therapist Goals: resume eating and decrease pain and popping Progress Note Date: 06/09 lhovda Not available 04/15/2023 11:28:26 04/28/2023 [id number] Total treatment time minutes today = 40 Next Visit Plan: Recheck ROM, upgrade CR. How was dry needling? ROM to relocation 40mm, full 42 w/ pain. Patient/Therapist Goals: resume eating and decrease pain and popping Progress Note Date: 06/09 lhovda Not available 04/28/2023 17:39:35 05/14/2023 [id number] Total treatment time minutes today = 33 [...] stabil izatio n applia nce Not Available Sidell [address], [place], [address], 04/15/2023 09:25:53 04/07/19 24 04/07/2023 XR, ortho panto gram No observ ation record ed. Not Available 2023 19:02:52 Result Notes None recorded. 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 Procedures Surgical History Date Name Laterality Status Provider Name and Address Organization Details Recorded Time 05/14/19 24 21200: Therapeutic Exercise completed Delmy Suresh DPT [address], [place], [address], [facility] 05/14/2023 18:09:34 05/14/19 24 13053: Neuromuscular Re-Education completed Delmy Suresh DPT [address], [place], [address], [facility] 05/14/2023 18:09:35 05/14/19 24 71360: Manual Therapy completed Delmy Suresh DPT [address], [place], [address], [facility] 05/14/2023 18:09:57 04/28/19 24 21039: Needle insertion(s) without injection(s), 1 or 2 muscle(s) completed Delmy Suresh DPT [address], [place], [address], [facility] 04/28/2023 17:39:15 04/28/19 24 99470: E-Stim - Direct Contact completed Delmy Suresh DPT [address], [place], [address], [facility] 04/28/2023 17:39:19 04/28/19 10637: Therapeutic Exercise completed Delmy Suresh, DPT [address], [place], [address], [facility] 04/28/2023 17:38:33 04/28/19 34785: Neuromuscular Re-Education completed Delmy Suresh, DPT [address], [place], [address], [facility] 04/28/2023 17:38:35 04/28/19 33950: Manual Therapy completed Delmy Suresh, DPT [address], [place], [address], [facility] 04/28/2023 17:38:32 04/15/19 08310 - PT Eval Moderate Complexity completed Delmy Suresh DPT [address], [place], [address], [facility] 04/15/2023 11:24:52 04/15/19 84120: Self Care/Home Management Training completed JERARDO PedrazaT [address], [place], [address], [facility] 04/15/2023 11:24:00 04/15/19 28582: Therapeutic Exercise completed JERARDO PedrazaT [address], [place], [address], [facility] 04/15/2023 11:23:54 04/15/19 92818: Manual Therapy completed Delmy Suresh DPT [address], [place], [address], [facility] 04/15/2023 11:23:59 04/07/19 [facility] 04/07/2023 18:50:07 hernia repair completed Shaniqua Hanks [facility] 04/07/2023 18:30:20 Shoulder Surgery completed Shaniqua Hanks [facility] 04/07/2023 18:30:31 Chapin Teeth Extraction [facility] [...] Updated DateTime 4 177.8 cm 29.7 kg/m2 54838.6 2 g 49 /min 153 mm[Hg] 95 mm[Hg] [facility] 18:29:07 Date Recorded Body height Systolic blood pressure Diastolic blood pressure Provider Name and Address Organization Details Last Updated DateTime 05/26/2023 177.8 cm 139 mm[Hg] 101 mm[Hg] [facility] 05/26/2023 16:30:01 Social History Question Answer Notes LastModified by Organizat ion Details LastModified Time Tobacco Smoking Status Never Smoker Shaniqua Hanks [facility] 04/07/2023 [...] Or The Highest Degree You Have Received? VS42430-4 Information not available 04/07/2023 What Is Your Occupation? [employer] [place] Information not available 04/07/2023 What Number Best [...] N Premenstrual syndrome (PMS) N MRSA N Emphysema N Head Trauma/Injury N Irritable bowel syndrome N COPD N Depression N Lung Disease N Hypothyroidism N Glaucoma N Pneumonia N Pacemaker N Orthopedic Problems N Obstructive Sleep Apnea N Anxiety Disorder N Autoimmune disease N Muscle, Joint, or Bone Problems N Vision or Eye Problems N Arthritis N Serious Illness or Injuries N Acid Reflux (GERD) Y Cancer N Stroke N Neck Injury N Eating disorder N Back Injury N High Cholesterol N History of chemotherapy N Neurologic Disorder N Liver Disease N Organ Transplant N Rheumatoid Arthritis N Fibromyalgia N Headaches Y Kidney Disease N Allergies/Hayfever N Post traumatic stress disorder (PTSD) N Parkinson's Disease N Migraines N Thyroid Problems N Brain Tumors N Anemia N Multiple Sclerosis N Immune System Disorder N Meningitis N Pancreatic disease N Heart Attack ([place]) N Stomach Ulcers N Back pain N [...] influenza, unspecified formulation 01/04/2023 completed RAYMOND [facility] 04/07/2023 18:28:37 SARS-COV-2 (COVID-19) vaccine, UNSPECIFIED 02/04/2023 completed RAYMOND [facility] 04/07/2023 18:28:57 Past Encounters Encounter ID Performer Location Encounter Start Date Encounter Closed Date Diagnosis/Indication Diagnosis SNOMED-CT Code Diagnosis ICD10 Code [id number] ROSALINA MEZA BDS, [place] [address] [place] [id number] 04/07/2023 18:12:57 04/07/2023 19:25:21 Myofascial pain 721328804 M79.11 Spasm 05842392 R25.2 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 1098538358 3829343 M26.632 Episodic t ension-type headache 509714059 G44.219 [id number] JERARDO PedrazaT [place] to [address] [place] [id number] 04/15/2023 10:19:53 04/15/2023 11:37:43 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 9082689418 7704446 M26.632 Episodic t ension-type headache 579476058 G44.219 Myofascial pain 64428232 9 M79.11 Spasm 61951547 R25.2 [id number] Delmy Sweeneychanoeden, DPT [place] [address] [place] [id number] 04/28/2023 16:30:12 04/28/2023 17:22:39 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 8303228436 0245906 M26.632 Episodic t ension-type headache 656513738 G44.219 Myofascial pain 61669406 9 M79.11 Spasm 90999577 R25.2 [id number] Delmy Kerwin, DPT [place] [address] [place] [id number] 05/14/2023 17:08:36 05/14/2023 18:04:53 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 3445124206 7130179 M26.632 Episodic t ension-type headache 216651989 G44.219 Myofascial pain 20145170 9 M79.11 Spasm 44747941 R25.2 [id number] FRANKLIN ALANIZS, [place] e [address] [place] [id number] 05/26/2023 16:10:52 05/26/2023 18:16:47 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 9905233849 7876849 M26.632 Episodic t ension-type headache 055082694 G44.219 Myofascial pain 35616592 9 M79.11 Spasm 44381132 R25.2 Health Concerns Section Related Observation LastModified by Organization Detai ls LastModified Time None Recorded Concern Status LastModified by Organization Details LastModified Time None Recorded Advance Directives Directive None Recorded Payers Encounter Date Sequence Insurance Name Policy Number Policy [place] Covered Member ID Ogden Member ID Guarantor Name 04/07/2023 1 [employer] Kevinryne Grace [id number] Kevinryne Grace 04/15/2023 1 [employer] Kevinryne Grace [id number] Kevinryne Grace 04/28/2023 1 [employer] Kevinryne Grace [id number] Kevinryne Grace 05/14/2023 1 [employer] Kevinryne Grace [id number] Kevinryne Grace 05/26/2023 1 [employer] Kevinryne Grace [id number] Kevinryne Grace Notes Date Note Type Note [...] ear. He has been working for the [employer] for about 42 years. JAYLEEN MEZA BDS, [place] [address], [place], [address], [facility] 04/15/2023 [...] (out of 80): 04/14/23=24 Delmy Suresh DPT [address] [place] [address], [place], [address], [facility] 04/15/2023 11:28:42 4 text/html HPI Notes: Pt reports less pain and the clicking is still present. He would like the clicking to improved as others can hear it when he is eating. Delmy Suresh DPT [address], [place], [address], [facility] 04/28/2023 17:40:59 4 text/html HPI Notes: Pt reports being sore from being at the dentist yesterday. More of an ear ache lately, backed off on the exercises. Wide opening more painful and it takes a while to calm down. Click still present with chewing on the R. Delmy Suresh DPT [address], [place], [address], [facility] 05/14/2023 [...] for his pain. [place]LE[place]DS[place] [address], [place], [address], [facility] 05/26/2023 18:12:05
[2024-01-16 23:17] VITALS: TEMP 36.8
[2024-01-16 23:17] LABS: Bacteria Urine Few; WBC Urine 0-2 (0-5)
[2024-01-16] MEDS: ONDANSETRON 2 MG/ML inj 4 MG IVP (23:17)
[2024-01-16] MEDS: KETOROLAC 15 MG/ML inj IVP (23:17)
--- OUTSIDE RECORDS SUMMARY | 2024-01-16 23:17 | XMS_ITS | Continuity of Care Document ---
Author Organization [place] - [facility] Address [address] [place] [address] Assessment Encounter Date Assessment Date Assessment LastModified by Organization Details LastModified Time 01/13/2024 01/13/2024 63 Y/O MALE, HX OF RECURRENT STONES. PASSED A RT. 5 MM STONE IN . NOW WITH NEW ONSET PAIN AND A 6MM RT MID URETERAL STONE WITH RT HYDRO. KUB TODAY SHOWS THAT THE STONE HAS PROGRESSED INTO THE LOWER URETER. ALSO NOTED 1.5 CM LEFT LOWER POLE STONE.REVIEWE D OPTIONS ORDERED REVIEWED ,INTERPRETED KUB REVIEWED RECENT ER VISIT, C.T. SCAN PLAN WILL SCHEDULE CYSTO, RT RETROGRADE, RT URS, HOLMIUM LASER, POSSIBLE RT STENT.PROCEDU RE EXPLAINED IN DETAIL. Not available 01/13/2024 16:29:46 Plan of Treatment Reminders Order Date Submit Date Provider Last Modified By Organization Details Last Modified Time Details Appointments None recorded. Lab None recorded. Referral None recorded. Procedures None recorded. Surgeries None recorded. Imaging XR, kidney + ureter + bladder - PREV KINMUNDY 12/12/232023 024 [email or web address] [address] [facility] , [address], [place], [address], 14:25:07 Medication Orders tramadol 50 mg tablet 2023 024 ssamb Not available 16:17:51 tamsulosin 0.4 mg capsule 2023 024 [id number], [address] [place], [place], [id number], 16:24:24 Patient TargetsNo targets recorded. Patient InstructionsNo instructions recorded. Reason for Referral None Reported. Results Created Date Observation Date Name Description Value Unit Range Abnormal Flag Note LastModifiedBy Organization Detail LastModifiedTime 12/22/19 24 12/12/2023 CT, abdom en + pelvi s, w/o contr ast No observ ation record ed. [email or web address] [facility] [address], [place], [address], 01/12/2024 13:54:53 01/14/2001/13/2024 XR, kidne y + urete r + bladd er EXAM: XR, KIDNEY + URETER + BLADDE R LOCATI ON: [facility] DATE: INDICA TION: Calcul us of kidney [...] Tawanna Connors MD on 2023 at 13:28 [facility] [address], [place], [address], 01/14/2024 14:31:17 Result Notes None recorded. Problems Name Problem SNOMED Code Status Onset Date Resolution Date Notes Provider Name and Address Organization Details Recorded Time Calculus of kidney and ureter 544202228 Active Nelson [place] MD [address] [place] [address] [place], [place] [address], [place], [address] , [facility] 4 14:41:07 Ureteric stone 90980757 Active 024 Nelson [place] MD [address] [place] [address],[address], [place], [address] , [facility] 4 16:29:56 Right flank pain 208362336 Active 024 Nelson [place] MD [address] [place] [address],[address], [place], [address] , [facility] 4 16:30:01 Problem Notes None recorded. Procedures Surgical History Date Name Laterality Status Provider Name and Address Organization Details Recorded Time 06/23/19 24 Cystoscopy with foreign body/stent removal completed Nelson [place] MD [address] [place] [address],[address], [place], [address], [facility] 06/23/2023 14:39:05 05/25/19 24 Urinalysis completed Macy Ding [facility] 05/25/2023 13:51:40 repair of shoulder completed Riley Lane [facility] 12/06/2019 16:23:28 procedure on wrist completed Riley Lane [facility] 12/06/2019 16:23:34 Fragmenting of kidney stone completed Riley Ariana [facility] 12/06/2019 16:24:10 Imaging Results None recorded. Procedure [...] Updated DateTime 01/13/2024 177.8 cm 28.3 kg/m2 95845.7 g Nelson [place] MD [address] [place] [address],[facility] [address], [place], [address] 01/13/2024 15:53:44 Social History Question Answer Notes LastModified by Organizat ion Details LastModified Time Tobacco Smoking Status Never Smoker Riley shen [facility] 12/06/2019 16:23:12 What Is Your Level Of [...] split virus, quadrivalent, preservative 01/15/2023 karyn shen [facility] 05/25/2023 13:57:34 Influenza, split virus, quadrivalent, preservative 01/16/2021 karyn Cavazos Toña null, [facility] 05/25/2023 13:57:34 Influenza, split virus, quadrivalent, preservative 01/18/2020 completed Macy Ding null, [facility] 05/25/2023 13:57:34 Influenza, split virus, quadrivalent, preservative 02/21/2022 [facility] 13:57:34 COVID-19, mRNA, LNP-S, PF, 100 mcg/0.5mL dose or 50 mcg/0.25mL dose 05/03/2020 [facility] 05/25/2023 13:57:34 COVID-19, mRNA, LNP-S, PF, 100 mcg/0.5mL dose or 50 mcg/0.25mL dose 11/01/2021 [facility] 05/25/2023 13:57:34 COVID-19, mRNA, LNP-S, PF, 100 mcg/0.5mL dose or 50 mcg/0.25mL dose 04/05/2020 [facility] 05/25/2023 13:57:34 COVID-19, mRNA, LNP-S, PF, 30 mcg/0.3 mL dose 03/27/2021 [facility] 05/25/2023 13:57:34 COVID-19, mRNA, LNP-S, PF, 50 mcg/0.5 mL 01/30/2023 completed Macy Ding null, [facility] 05/25/2023 13:57:34 Tdap 06/02/2011 [facility] 05/25/2023 13:57:34 Tdap 03/13/2008 [facility] 05/25/2023 13:57:34 Influenza, split virus, trivalent, preservative 03/14/2008 [facility] 05/25/2023 13:57:34 Influenza, split virus, quadrivalent, PF 01/24/2020 completed Macy shen [facility] 05/25/2023 13:57:34 Influenza, split virus, quadrivalent, PF 02/15/2018 completed RAYMOND [facility] 05/25/2023 13:57:34 Tdap 06/12/2023 completed Riley Bermanb hermelinda [facility] 01/13/2024 15:51:31 Past Encounters Encounter ID Performer Location Encounter Start Date Encounter Closed Date Diagnosis/Indication Diagnosis SNOMED-CT Code Diagnosis ICD10 Code [id number] Nelson [place] MD [facility] [address] [place] [id number] 01/13/2024 15:46:35 01/14/2024 14:25:07 Calculus of kidney and ureter 810919485 N20.2 Ureteric stone 52977751 N20.1 Right flank pain 8134504 09 R10.9 Health Concerns Section Related Observation LastModified by Organization Detai ls LastModified Time None Recorded Concern Status LastModified by Organization Details LastModified Time None Recorded Payers Encounter Date Sequence Insurance Name Policy Number Policy [place] Covered Member ID Og[place] Member ID Guarantor Name 01/13/2024 1 [employer] [id number] Kevinryne Grace [id number] Kevin Sridhar Grace Notes Date Note Type Note Provider Name and Address Organization Details Recorded Time 01/13/2024 text/html HPI Notes: 62 yo M [...] Denies fever/chills, dysuria, n/v. 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 Nelson [place] MD [address] [facility],[address], [place], [address], [facility] 01/13/2024 16:30:18
[2024-01-16] MEDS: HYDROmorphone 0.5 mg/0.5 ml inj IVP (23:18)
[2024-01-16 23:22] LABS: Chloride* 103 mmol/L (96-114)
[2024-01-16 23:23] LABS: Potassium* 3.9 mmol/L (3.6-5.1); Sodium* 133 mmol/L (135-149)
[2024-01-16 23:24] VITALS: O2SAT 96
[2024-01-16 23:25] LABS: Creatinine* 1.3 mg/dL (0.5-1.5); Est. Creatinine Clearance* 61.61; Estimated Glomerular Filt Rate 63 ml/min
[2024-01-16 23:26] LABS: Anion Gap 10 mEq/L (7-15); Blood Urea Nitrogen* 23 mg/dL (7-30); Calcium* 9.1 mg/dL (8.4-10.6); Carbon Dioxide* 20 mmol/L (20-32); Glucose* 99 mg/dL (60-115)
[2024-01-16 23:30] VITALS: TEMP 36.8
[2024-01-17] MEDS: 0.9 % SODIUM CHLORIDE 500 ML 500 ML IV (00:20)
[2024-01-17 00:49] VITALS: BP 150/85; PULSE 74; RESP 20; TEMP 36.8; O2SAT 96
[2024-01-17] MEDS: HYDROmorphone 0.5 mg/0.5 ml inj IVP ×3 (02:00→03:58)
[2024-01-17] MEDS: 0.9 % SODIUM CHLORIDE 1000 ml 1,000 ML 75 ML IV (04:06)
[2024-01-17 04:19] VITALS: BP 184/106; RESP 18; TEMP 35.7; O2SAT 99; BMI 30.7
[2024-01-17 04:20] VITALS: BP 184/106; RESP 18; TEMP 35.7; O2SAT 99
--- NOTE | 2024-01-17 04:21 | W.PM.THH&P_ITS ---
Telehealth- H&P: HPI History of Present Illness Time Seen by Provider: 04:01 Date Seen: 01/17/24 Chief complaint: kidney stone Narrative: Kevni Grace is seen as an Interactive Telehealth visit. Kevin Grace is a 63 year old male who isWith history of recurrent nephro lithiasis and ureterolithiasis with multiple urologic procedures over the last 30 years. He recently had a 5 mm stone that passed on its own. He has had prior stone retrieval via transurethral cystoscopy multiple times in the past with prior stenting's. He has had prior lithotripsy. He believes his stone morphology is calcium. He had recurrence of the pain on the 09 of January, d of the right posterior flank radiating to the groin to the testicle. Was found to have a 6 mm mid ureteral stone on the right with some hydronephrosis. Previously there was a plan for urologic intervention for January 31. He presented tonight with increasing pain and some hematuria. . He is being admitted observation for pain control and to arrange for transfer to a facility that can provide urologic care. no fevers or chills. Review of Systems Status of ROS: Reports: 6 or more systems reviewed and unremarkable except as noted in History and below [facility] Medical History Hx of renal calculi ?Z87.442 - Personal history of urinary calculi (ICD-10) Hydronephrosis with urinary obstruction due to ureteral calculus ?N13.2 - Hydronephrosis with renal and ureteral calculous obstruction (ICD- 10) History of hydrocele ?Z87.438 - Personal history of other diseases of male genital organs (ICD-10) Surgical History S/P nerve repair (03/23/97) ?Z98.890 - Other specified postprocedural states (ICD-10) History of excision of mass (03/20/97) ?Z98.890 - Other specified postprocedural states (ICD-10) History of hydrocelectomy ?Z98.890 - Other specified postprocedural states (ICD-10) S/P foot surgery, left ?Z98.890 - Other specified postprocedural states (ICD-10) Status post arthroscopy of right shoulder (11/21/16) ?Z98.890 - Other specified postprocedural states (ICD-10) Status post arthroscopy of left shoulder (01/01/07) ?Z98.890 - Other specified postprocedural states (ICD-10) History of inguinal hernia repair ?Z98.890 - Other specified postprocedural states (ICD-10) ?Z87.19 - Personal history of other diseases of the digestive system (ICD-10) History of hemorrhoidectomy (04/29/11) ?Z98.890 - Other specified postprocedural states (ICD-10) History of hernia surgery ?Z98.890 - Other specified postprocedural states (ICD-10) ?Z87.19 - Personal history of other diseases of the digestive system (ICD-10) Social History Smoking Status: Never smoker Do you use any of these nicotine containing products: None Second hand tobacco smoke exposure: No How often do you have a drink containing alcohol: never AUDIT-C Alcohol total score: 0 Non-prescribed substance use: denies use Meds Home Medications and Allergies Home Medications ?Medication ?Instructions ?Recorded ?Confirmed ?Type omeprazole 20 mg capsule,delayed 20 mg PO QDAY 06/12/23 01/16/24 History release tamsulosin 0.4 mg capsule 0.4 mg PO DAILY 01/16/24 01/16/24 History tramadol 50 mg tablet 50 mg PO Q8H PRN 01/16/24 01/16/24 History Allergies Allergy/AdvReac Type Severity Reaction Status Date / Time No Known Drug Allergies Allergy Verified 01/16/24 22:58 Exam Narrative Exam Narrative: Physical Exam GENERAL: ?vital signs reviewed, well developed and nourished, moderate discomfort HEENT: pupils are equal round and reactive to light, extraocular movements are grossly within normal limits and oral mucosa is moist. NECK: Supple without lymphadenopathy or thyromegaly according to nursing staff examination observation HEART: Regular rate and rhythm without any rubs, murmurs, or gallops. LUNGS: Clear to auscultation bilaterally with good air movement throughout ABDOMEN: Observation from nurse assisted exam, abdomen appears soft, nontender, and nondistended with Positive bowel sounds noted No CVA tenderness EXTREMITIES: no edema good perfusion Const Vital Signs, click to edit/add: Vital Signs - 24 hr 01/16/24 22:55 01/16/24 23:17 01/16/24 23:24 Temperature 98.2 F 98.2 F Pulse Rate [Right Pulse Oximeter] 67 Respiratory Rate 20 Blood Pressure [Left Arm] Blood Pressure [Right Upper Arm] 170/105 H Pulse Oximetry 98 96 Oxygen Delivery Method Room Air 01/16/24 23:30 01/17/24 00:49 01/17/24 04:20 Temperature 98.2 F 98.2 F 96.2 F L Pulse Rate [Right Pulse Oximeter] 74 Respiratory Rate 20 18 Blood Pressure [Left Arm] 184/106 H Blood Pressure [Right Upper Arm] 150/85 H Pulse Oximetry 96 99 Oxygen Delivery Method Room Air Room Air Hospitalist - H&P: Result Labs Labs: Short CBC Laboratory Results - last 24 hr 01/16/24 23:07 WBC 9.02 RBC 5.07 Hgb 15.8 Hct 47.0 MCV 93 MCH 31 MCHC 34 RDW Coeff of Rajesh 12.9 Plt Count 216 Neut % (Auto) 60.3 Lymph % (Auto) 26.8 [place] % (Auto) 9.4 Eos % (Auto) 2.1 Baso % (Auto) 0.6 Neut # (Auto) 5.44 Lymph # (Auto) 2.42 [place] # (Auto) 0.80 Eos # (Auto) 0.19 Baso # (Auto) 0.05 Abs Immat Gran (auto) 0.07 Imm/Tot Granulo (auto) 0.8 Sodium 133 L Potassium 3.9 Chloride 103 Carbon Dioxide 20 Anion Gap 10 BUN 23 Creatinine 1.3 Estimated Creat Clear 61.61 Estimated GFR 63 Glucose 99 Calcium 9.1 Urine Color Yellow Urine Appearance Clear Urine pH 5.0 Ur Specific [place] <= 1.005 Urine Protein Negative Urine Glucose (UA) Negative Urine Ketones Negative Urine Blood 3+ A Urine Nitrite Negative Urine Bilirubin Negative Urine Urobilinogen 0.2 Ur Leukocyte Esterase Negative Urine RBC 5-10 A Urine WBC 0-2 Ur Squamous Epith Cells None Urine Bacteria Few A Imaging CT scan - abdomen: Radiologist's impression: 01/10 Multiple bilateral renal stones are again noted. Since prior examination, a 6 millimeter stone previously within the renal pelvis has migrated and is now present in the right mid ureter causing obstruction with mild to moderate hydronephrosis. Assessment and Plan Assessment and plan (1) Ureterolithiasis: Status: Acute (2) Hydronephrosis, right: Status: Acute (3) Hypertension: Status: Acute Plan 63-year-old gentleman with recurrent kidney stones who has a mid right ureteral stone [address] on 10 6 comes in with uncontrolled pain. Has evidence of hydronephrosis on CT scan from the seventh. Plan: Repeat CT unenhanced today Patient warrants transfer for acute urologic intervention Symptomatic treatment with hydromorphone for pain control Gentle hydration with normal saline at 75 cc an hour Tamsulosin Sequential intermittent compression devices for DVT prophylaxis amlodipine 5mg x 1 Seen tonight by telemedicne Camera on time 0401 Camera off time 0413 Telehealth: Statement Statement Telehealth Visit: Today's History and Physical is provided via interactive telehealth by Jose Kemp MD.? Patient is located at [facility].? Provider is located at [facility] Nursing staff assisted with the patient's exam. The visit being done today meets criteria for a telehealth visit and the patient or patient?s parent/guardian is aware the visit is a telehealth visit. Camera Start Time: 04:01 Camera End Time: 04:13
[2024-01-17] MEDS: OMEPRAZOLE 20 MG CAPSULE DR PO (04:36)
[2024-01-17] MEDS: HYDROmorphone 0.5 mg/0.5 ml inj 1 MG IVP ×4 (05:50→12:51)
--- NOTE | 2024-01-17 06:01 | PC.NURSE ---
Pt here for pain control. Needs to be transferred to have 6mm Stone removed.
[2024-01-17 08:00] VITALS: PULSE 70; RESP 18
[2024-01-17 08:30] VITALS: BP 168/103; PULSE 70; RESP 18; TEMP 36.8; O2SAT 95
[2024-01-17] MEDS: SODIUM CHLORIDE 0.9 % (FLUSH) 10 ML SYRINGE 5 ML IVF (08:34)
[2024-01-17] MEDS: AMLODIPINE 5 MG TABLET PO (08:34)
[2024-01-17] MEDS: TAMSULOSIN HCL 0.4 MG CAPSULE PO (08:34)
--- NOTE | 2024-01-17 11:33 | P.DS_ITS ---
Transfer Discharge Sum: Prov Provider Time Seen by Provider: 08:10 Date Seen: 01/17/24 Date of admission: 01/17/24 00:46 Primary care physician: Kolby Lau MD Attending physician on discharge: Irina Simpson Anticipated date of transfer: 01/17/24 Receiving physician/facility: Dr. Brisa [facility], Hospitalist DS: Diagnosis Discharge Diagnosis (1) Ureterolithiasis: Status: Acute Problem details: - 12/12/23 CT abd/pelvis: [id number] right hydronephrosis hydroureter with a distal right ureteral 5 millimeter stone just proximal to the UVJ. Additional nonobstructing stones bilaterally. - 01/11/24 CT abd/pelvis: Multiple bilateral renal stones are again noted. Since prior examination, a 6 millimeter stone previously within the renal pelvis has migrated and is now present in the right mid ureter causing obstruction with mild to moderate hydronephrosis. (2) Hydronephrosis, right: Status: Acute (3) Renal colic on right side: Status: Acute (4) Hypertension: Status: Chronic Transfer Discharge Sum: Med Medications Active and Home Medications: Home Medications omeprazole 20 mg capsule,delayed release 20 mg PO DAILY 06/12/23 [History Confirmed 01/17/24] tamsulosin 0.4 mg capsule 0.4 mg PO DAILY 01/16/24 [History Confirmed 01/16/24] tramadol 50 mg tablet 50 mg PO Q8H PRN 01/16/24 [History Confirmed 01/16/24] Active Medications Acetaminophen (Acetaminophen 325 Mg Tablet) 975 mg PO Q6H PRN Amlodipine Besylate (Amlodipine 5 Mg Tablet) 5 mg PO DAILY [facility] Last Admin: 01/17/24 08:34 Dose: 5 mg Docusate Sodium (Docusate Sodium 100 Mg Capsule) 100 mg PO BID PRN PRN Reason: Constipation Hydromorphone HCl (Hydromorphone 0.5 Mg/0.5 Ml Inj) 1 mg IVP Q2H PRN PRN Reason: Pain Last Admin: 01/17/24 10:52 Dose: 1 mg Sodium Chloride (0.9 % Sodium Chloride 1000 Ml) 1,000 mls @ 75 mls/hr IV .[id number] [facility] Last Admin: 01/17/24 04:06 Dose: 75 mls/hr Omeprazole (Omeprazole 20 Mg Capsule ) 20 mg PO DAILY [facility] Last Admin: 01/17/24 04:36 Dose: 20 mg Ondansetron HCl (Ondansetron 2 Mg/Ml Inj) 4 mg IVP Q6H PRN PRN Reason: Nausea Sodium Chloride (Sodium Chloride 0.9 % (Flush) 10 Ml Syringe) 5 ml IVF BID [facility] Last Admin: 01/17/24 08:34 Dose: 5 ml Sodium Chloride (Sodium Chloride 0.9 % (Flush) 10 Ml Syringe) 5 ml IVF .FLUSH PRN Tamsulosin HCl (Tamsulosin Hcl 0.4 Mg Capsule) 0.4 mg PO DAILY [facility] Last Admin: 01/17/24 08:34 Dose: 0.4 mg Transfer Discharge Sum: Hosp Hospital Course Hospital course: Kevin Grace is a 63 year old male with a 30 year history of recurrent nephro and ureterolithiasis with multiple urologic procedures. Earlier this year and multiple times in the past he had stone retrieval via trans re thrill cystoscopy he has also had prior stenting and lithotripsy. Last month he had a 5 mm stone that passed on its own. He started having right-sided pain again about a week ago that came in waves. He made an appointment with his urologist, Dr. Knowles from [facility] in [place], who then scheduled him for a lithotripsy on January 31. He was seen in the ER on 01/11/24 and found to have a right renal pelvis stone measuring about 6 mm. He had not had any fevers or chills or dysuria or blood in the urine. He has been monitoring his symptoms at home since then, but the pain is getting worse and he started having blood in his urine yesterday off and on. He still is not having any fevers, chills, or night sweats. He came in to the ER again last night and was admitted for pain control. White count is unremarkable. He has not had any fevers. Due to the obstructive nature of this stone and that it is 6 mm, unlikely to pass on its own, I contacted Dr. Ireland, a urologist from Dr. Knowles's group, who r ecommended that he be transferred to hospital with Urology as he will likely need stone retrieval or lithotripsy at this point. [place] spoke with Dr. Ledezma, an [facility] hospitalist, who accepted this patient in transfer. Time Spent with Patient Time attestation: Total time spent providing and/or coordinating transfer services: 40 minutes: conversation with patient, reviewing ER notes, Admission note, labs, CT results, phone conversation with Dr. Lopez from [facility], phone conversation with [facility] transfer cuney and Dr. Ledezma Exam Narrative: Exam Narrative: General: Walking carefully and slowly around the room, hunched over in pain, holding his right low flank. Awake, alert, oriented x3. No pallor. No jaundice. Oropharynx: Clear. Mucous membranes moist. Cardiovascular: Regular rate and rhythm. No murmurs, gallops, or rubs. Respiratory: Clear to auscultation bilaterally. No wheezes or crackles. Abdomen: Obese. Bowel sounds present. Soft, nondistended, nontender. Mild tenderness to percussion of low right flank, no costovertebral angle tenderness. Extremities: No pedal edema. Const: Vital Signs, click to edit/add: Vital Signs - 24 hr 01/16/24 22:55 01/16/24 23:17 01/16/24 23:24 Temperature 98.2 F 98.2 F Pulse Rate [Pulse Oximeter] Pulse Rate [Right Pulse Oximeter] 67 Respiratory Rate 20 Blood Pressure [Le ft Arm] Blood Pressure [Ri ght Upper Arm] 170/105 H Pulse Oximetry 98 96 Oxygen Delivery Me thod Room Air 01/16/24 23:30 01/17/24 00:49 01/17/24 04:19 Temperature 98.2 F 98.2 F 96.2 F L Pulse Rate [Pulse Oximeter] Pulse Rate [Right Pulse Oximeter] 74 Respiratory Rate 20 18 Blood Pressure [Le ft Arm] 184/106 H Blood Pressure [Ri ght Upper Arm] 150/85 H Pulse Oximetry 96 99 Oxygen Delivery Me thod Room Air Room Air 01/17/24 04:20 01/17/24 08:00 01/17/24 08:30 Temperature 96.2 F L 98.2 F Pulse Rate [Pulse Oximeter] 70 70 Pulse Rate [Right Pulse Oximeter] Respiratory Rate 18 18 18 Blood Pressure [Le ft Arm] 184/106 H 168/103 H Blood Pressure [Ri ght Upper Arm] Pulse Oximetry 99 95 Oxygen Delivery Me thod Room Air Room Air Transfer Discharge Sum: Data Data Completed and Pending Completed studies during hospitalization: Laboratory Results - last 24 hr 01/16/24 23:07 WBC 9.02 RBC 5.07 Hgb 15.8 Hct 47.0 MCV 93 MCH 31 MCHC 34 RDW Coeff of Rajesh 12.9 Plt Count 216 Neut % (Auto) 60.3 Lymph % (Auto) 26.8 [place] % (Auto) 9.4 Eos % (Auto) 2.1 Baso % (Auto) 0.6 Neut # (Auto) 5.44 Lymph # (Auto) 2.42 [place] # (Auto) 0.80 Eos # (Auto) 0.19 Baso # (Auto) 0.05 Abs Immat Gran (auto) 0.07 Imm/Tot Granulo (auto) 0.8 Sodium 133 L Potassium 3.9 Chloride 103 Carbon Dioxide 20 Anion Gap 10 BUN 23 Creatinine 1.3 Estimated Creat Clear 61.61 Estimated GFR 63 Glucose 99 Calcium 9.1 Urine Color Yellow Urine Appearance Clear Urine pH 5.0 Ur Specific [place] <= 1.005 Urine Protein Negative Urine Glucose (UA) Negative Urine Ketones Negative Urine Blood 3+ A Urine Nitrite Negative Urine Bilirubin Negative Urine Urobilinogen 0.2 Ur Leukocyte Esterase Negative Urine RBC 5-10 A Urine WBC 0-2 Ur Squamous Epith Cells None Urine Bacteria Few A Discharge Plan Discharge Disposition: [facility] Discharge Location: [facility] Date of Admission: 01/17/24 00:46 Attending Provider on Discharge: Irina Simpson Primary Care Provider: Kolby Lau Condition: Improved Discharge Orders: Transfer of Care to Other Hospital (ORDER); Ordered 01/17/24 Ordered By: Irina Simpson Oxygen: No Urinary Catheter: No Services not available here: urology
[2024-01-17] MEDS: DOCUSATE SODIUM 100 MG CAPSULE PO (12:47)
--- NOTE | 2024-01-17 14:13 | PC.NURSE ---
Discharge: Patient pleasant and cooperative, A&O. VSS, afebrile. Patient reported his pain being a 6-7 out of 10 this shift, managed with PRN medication, see MAR. Independent in room. Transferred at 1301 via EMS.
== END 2024-01-17 13:01 | disposition short-term general hospital (02) ==
LOC: ED 01-17 00:35 → MEDSURG 01-17 00:46
PROVIDERS: Admitting Provider Internal Medicine; Emergency Provider Family Medicine; PCP Family Medicine; Visit Provider Internal Medicine
DX: N20.1 Calculus of ureter (principal); N13.30 Unspecified hydronephrosis; N23 Unspecified renal colic; I10 Essential (primary) hypertension; K59.00 Constipation, unspecified; R11.0 Nausea; N20.0 Calculus of kidney; M19.011 Primary osteoarthritis, right shoulder; M16.11 Unilateral primary osteoarthritis, right hip; M75.101 Unspecified rotator cuff tear or rupture of right shoulder, not specified as traumatic; S46.211A Strain of muscle, fascia and tendon of other parts of biceps, right arm, initial encounter; K21.9 Gastro-esophageal reflux disease without esophagitis; D12.6 Benign neoplasm of colon, unspecified; Z87.442 Personal history of urinary calculi; Z80.0 Family history of malignant neoplasm of digestive organs; Z98.890 Other specified postprocedural states; Z87.19 Personal history of other diseases of the digestive system
CPT/HCPCS: 36415; 80048; 81001; 85025; 87086; 94761; 96361; 96374; 96375; 96376; 99284; 99285; A9270; G0378; J1171; J1885; J2405; J7030

== ENCOUNTER 2024-01-17 12:57 | Outpatient (CLI) | payer OTHER, SELFPAY ==
--- OUTSIDE RECORDS SUMMARY | 2024-01-18 23:17 | XMS_ITS | Clinical Summary ---
Author Organization [facility] Address [address] [place] [address] Care Team Providers Care Metrology Technician Name Role Phone Melvin Lau MD Primary Care Provider [phone] Allergies No known active allergies Medications Medication [...] on file Medical Devices Implanted Type Area Banking Pin Adjuster Device Identifier Shelf Expiration Date Model / Serial / Lot Stent Ureteral Contour Soft Percuflex [id number] Implanted:Qty: 1 on 09/11/2017 by Nelson Anderson MD at [facility] Stent Left: Ureter [employer] 06/22/2020 [id number] / / [id number] Care Teams Metrology Technician Relationship Specialty Start Date End Date Melvin Lau MD PCP - General Family Practice 09/08/17
--- OUTSIDE RECORDS SUMMARY | 2024-01-18 23:17 | XMS_ITS | Patient Health Record ---
Author Organization [facility] Address [address] [place] [address] [place] [address] Care Team Providers Care Drafter Geophysical Name Role Phone SELF, SELF Primary Care [...] Status Risk Notes Problem Gastroesophageal reflux disease (225726229) GERD (gastroesopha geal reflux disease) (K21.9) Active confirmed Problem Hiatal hernia (75015372) Hiatal hernia (K44.9) Active confirmed Problem Recurrent left inguinal hernia (089330816) Recurrent left inguinal hernia (K40.91) Active confirmed Problem Pain in testicle (21977726) Pain in left testicle (N50.812) Active confirmed Problem Postoperative follow-up visit (725583302) Post op follow-up exam (Z48.89) Active confirmed Plan Of Treatment No Information Insurance Providers Payer Name Payer Address Payer Phone Subscriber Number Group Number Insured Name Patient Relationship to Insured Coverage Start Date Coverage End Date [facility] [address] [address] [place] [address] [id number] KYLAH BRADY Self - patient is the [...]
--- OUTSIDE RECORDS SUMMARY | 2024-01-18 23:17 | XMS_ITS | Referral Summary ---
Author Organization [facility] Address [address] [place] [address] Care Team Providers Care Bulk Folder Name Role Phone Clinic, No Primary Unavailable Unavailable Kolby Lau MD Primary Care Provider [phone] Allergies No known active allergies Medications Medication [...] Comments Blood Pressure 139/83 04/10/2020 1:15 PM MACHINERY RIGGER Pulse 55 04/10/2020 1:15 PM MACHINERY RIGGER Temperature 36.1 ??C (97 ??F) 04/10/2020 1:15 PM MACHINERY RIGGER Respiratory Rate 16 04/10/2020 1:15 PM MACHINERY RIGGER Oxygen Saturation 100% 04/10/2020 1:15 PM MACHINERY RIGGER Inhaled Oxygen Concentration - - Weight 92.5 kg (204 lb) 04/03/2020 9:47 AM MACHINERY RIGGER Height 177.8 cm (5' 10) 04/03/2020 9:47 AM MACHINERY RIGGER Body Mass Index 29.27 04/03/2020 9:47 AM MACHINERY RIGGER Plan of Treatment Not on file Medical Devices Implanted Type Area Registered Client Associate Device Identifier Shelf Expiration Date Model / Serial / Lot Foley Cf Capsule - [id number] Implanted:Qty: 1 on 04/10/2020 by Kobe Johnson MD at [facility] Prosthetic Implant Non-Specific [employer] 05/17/2021 [id number] / [id number] / [id number] Care Teams Bulk Folder Relationship Specialty Start Date End Date Clinic, No Primary PCP - Primary Care Clinic 02/24/20 [place] [address] [place] [address] PCP - General 02/24/20
--- OUTSIDE RECORDS SUMMARY | 2024-01-18 23:17 | XMS_ITS | Clinical Summary ---
Author Organization [facility] Address [address] [place], [place] [address] [address] Care Team Providers Care Tip Mender Name Role Phone Clinic, No Primary Unavailable Unavailable Kolby Lau MD Primary Care Provider [phone] Allergies No known active allergies Medications Medication [...] Comments Blood Pressure 139/83 04/10/2020 1:15 PM CONTROLS OPERATOR MOLDED GOODS Pulse 55 04/10/2020 1:15 PM CONTROLS OPERATOR [employer]ED [employer] Temperature 36.1 ??C (97 ??F) 04/10/2020 1:15 PM CONTROLS OPERATOR [employer] Respiratory Rate 16 04/10/2020 1:15 PM CONTROLS OPERATOR [employer] Oxygen Saturation 100% 04/10/2020 1:15 PM CONTROLS OPERATOR MOLDED GOODS Inhaled Oxygen Concentration - - Weight 92.5 kg (204 lb) 04/03/2020 9:47 AM CONTROLS OPERATOR [employer]ED [employer] Height 177.8 cm (5' 10) 04/03/2020 9:47 AM CONTROLS OPERATOR [employer]ED [employer] Body Mass Index 29.27 04/03/2020 9:47 AM CONTROLS OPERATOR [employer] Plan of Treatment Health Maintenance Due Date [...] this topic Medical Devices Implanted Type Area Multisensor Intelligence Officer Device Identifier Shelf Expiration Date Model / Serial / Lot Foley Cf Capsule - [id number] Implanted:Qty: 1 on 04/10/2020 by Kobe Johnson MD at [facility] Prosthetic Implant Non-Specific [employer] 05/17/2021 [id number] / [id number] / [id number] Care Teams Tip Mender Relationship Specialty Start Date End Date Clinic, No Primary PCP - Primary Care Clinic 02/24/20 [place] [address] [place] [address] PCP - General 02/24/20
--- OUTSIDE RECORDS SUMMARY | 2024-01-18 23:17 | XMS_ITS | Clinical Summary ---
Author Organization [employer] [facility] Address [place], [place] [address] Care Team Providers Care Area Mechanic Name Role Phone Pcp, No Primary Care Provider Unavailabl e Allergies Active Allergy Reactions Criticality Noted Date Comments Gabapentin Nausea Only,Behavior al Disturbances,Dizziness 09/07/2013 Medications Medication Sig Dispensed Refills Start Date End Date Status traMADoL (ULTRAM) 50 mg tablet Take 50 mg by mouth every 8 hours if needed for Pain. Active tamsulosin (FLOMAX) 0.4 mg capsule Take 0.4 mg by mouth once daily. Active HYDROcodone-carmen taminophen (5-325 mg/tablet) Take 1 Tablet by mouth every 4 hours if needed for Pain. Max acetaminophen dose: 4000 mg in 24 hrs. Active omeprazole (PRILOSEC) 20 mg Delayed-Release capsule Take 20 mg by mouth once daily. Active traMADoL (ULTRAM) 50 mg tabletIndicatio ns:Kidney stones Take 1 Tablet (50 mg) by mouth two times daily. 12 Tablet 4 Active cephalexin (KEFLEX) 500 mg capsuleIndicati ons:Kidney stones Take 1 Capsule (500 mg) by mouth two times daily for 7 days. 14 Capsule 4 01/25/20 24 Active tamsulosin (FLOMAX) 0.4 mg capsuleIndicati ons:Kidney stones Take 1 Capsule (0.4 mg) by mouth once daily after a meal for 14 days. 14 Capsule 4 02/01/20 24 Active PRILOSEC 20 MG CAP take 1 capsule (20 mg) by oral route once daily before a meal 0 8 01/17/20 24 Discontinued(P harmacist change per medication history (E-cancel not sent)) ibuprofen (ADVIL; MOTRIN) 200 mg tablet Take 1 tablet by mouth 4 times daily if needed. 0 4 01/17/20 24 Discontinued(P harmacist change per medication history (E-cancel not sent)) ketamine 8%-gabapentin 6%-ketoprofen 10% gel Apply 1 mL topically to affected area(s) every 4 hours if needed. 60 mL 2 5 01/17/20 24 Discontinued(P harmacist change per medication history (E-cancel not sent)) HYDROcodone-carmen taminophen, 5-325 mg, (NORCO) per tablet 1 tab prn HS for severe breakthru pain, Max acetaminophen dose: 4000mg in 24 hrs. 15 tablet 0 5 01/17/20 24 Discontinued(P harmacist change per medication history (E-cancel not sent)) traMADol (ULTRAM) 50 mg tabletIndicatio ns:Testicle pain 1-2 tabs HS prn moderate pain, Max of 4 tabs/day 45 tablet 0 5 01/17/20 24 Discontinued(P harmacist change per medication history (E-cancel not sent)) pregabalin (LYRICA) 25 mg capsuleIndicati ons:Testicle pain,Ilioinguin al neuralgia, left Take 1 capsule by mouth 2 times daily. 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 Genitofemoral neuralgia 06/17/2013 Kidney stones 07/07/2012 Encounters Date Type Department Care Team Description 01/18/2024 10:24 AM CDT Anesthesia Event [facility] [address] [place] [address] Valentino Villa MD Danger, Wes Eugene, AVIONICS SYSTEMS ENGINEER 01/18/2024 9:50 AM CDT - 01/18/2024 11:11 AM CDT Surgery [facility] [address] [place] [address] Nelson Anderson MD CYSTOSCOPY, RIGHT URETEROSCOPY, HOLMIUM LASER LITHOTRIPSY, RIGHT URETERAL STENT PLACEMENT 01/17/2024 2:10 PM CDT - 01/18/2024 2:52 PM CDT Hospital Encounter [facility] [address] [place] [address] [facility] [place] Hospitalists [facility], MD Cody Sierra, Merrick Mcdonald MD Kidney stones (Primary Dx) Discharge Disposition: Home Self Care 01/17/2024 Travel from Last 3 Months Immunizations Name Administration Dates Next Due Tdap 06/02/2011 Social History Tobacco Use Types Packs/Day Years Used Date Smoking Tobacco: Never Smokeless Tobacco: Never Tobacco Cessation:Counseling Given: Yes Alcohol Use Standard Drinks/Week Comments Yes 0 (1 standard drink = 0.6 oz pur e alcohol) occ Social Connections Answer Date Recorded Frequency of Communication with Friends and Fami ly 0 01/17/2024 Financial Resource Strain Answer Date R ecorded Difficulty of Paying Living Expenses 3 01/17/2024 Difficulty of Paying Living Expenses Not on file 01/17/2024 Food Insecurity Answer Date Recorded Worried About Running Out of Food in the Last Ye ar 1 01/17/2024 Transportation Needs Answer Date Record ed Lack of Transportation (Medical) 1 01/17/2024 Housing Stability Answer Date Recorded Unable to Pay for Housing in the Last Year 1 01/17/2024 Sex and Gender Information Value Date Recorded Sex Assigned at Not on file Gender Identity Not on file Sexual Orientation Not on file Obstetrics History Last Filed Vital Signs Vital Sign Reading Time Taken Comments Blood Pressure 148/90 01/18/2024 1:12 PM CDT Pulse 60 01/18/2024 1:12 PM CDT Temperature 36 ??C (96.8 ??F) 01/18/2024 11:22 AM CDT Respiratory Rate 18 01/18/2024 1:12 PM CDT Oxygen Saturation 97% 01/18/2024 1:12 PM CDT Inhaled Oxygen Concentration - - Weight 92.8 kg (204 lb 9.6 oz) 05/01/2014 12:51 PM NURSERY SCHOOL TEACHER Height 177.8 cm (5' 10) 04/10/2014 1:53 PM NURSERY SCHOOL TEACHER Body Mass Index 29.36 04/10/2014 1:53 PM NURSERY SCHOOL TEACHER Plan of Treatment Scheduled Procedures Name Priority Associated Diagnoses Date/Ti me CYSTOSCOPY URETEROSCOPY LASER Class D Urgent Right ureteral stone, right hydronephrosis, right flank pain 01/18/2024 10:07 AM CDT Health Maintenance Due Date Last Done Comments Depression screening for age 12+ 1974 HIV for age 15-65 1977 BMI (ht and wt on same day) for age 18+ 1980 Hepatitis C screening for age 18-79 1980 Zoster (shingles) series for age 50+ (1 of 2) 2012 Lipids for age 45-75 05/19/2016 05/19/2011 (Completed outside of [facility]) Tetanus booster 06/02/2021 06/02/2011, 06/02/2011 Colonoscopy through age 75 09/03/2021 09/04/2011 COVID-19 vaccine series (2023- season) 2023 01/30/2023, 11/01/2021, 03/27/2021, Additional history exists Influenza for age 50-64 12/06/2023 Tdap Completed 06/02/2011 Pneumococcal series for age 6-64 Aged Out No longer eligible based on patient's age to complete this topic Medical Devices Implanted Type Area Automat Car Attendant Device Identifier Shelf Expiration Date Model / Serial / Lot Fly Implanted:Qty: 1 on 01/18/2024 by Nelson Anderson MD at [facility] Right: Ureter / / X Description:See implant shee t Procedures Procedure Name Priority Date/Time Associated Diagnosis Comments XR RETROGRADE PYELOGRAM W/WO KUB Routine 01/18/2024 11:17 AM CDT SUPRAGLOTTIC-LMA Routine 01/18/2024 10:3 8 AM CDT WHITE BLOOD COUNT Early AM 01/18/2024 5:1 5 AM CDT CREATININE Early AM 01/18/2024 5:15 AM CDT SCAN-COLONOSCOPY 09/04/2011 12:0 0 AM CDT from Last 3 Months or Most Recently Relevant to Health Maintenance Results * XR RETROGRADE PYELOGRAM W/WO KUB (01/18/2024 11:17 AM CDT) Anatomical Region Laterality Modality KIDNEYS, Abdomen Digital Radiogr aphy Narrative 01/18/2024 10:31 AM CDT 39 seconds fluoroscopy time was provided. ??See operative/procedure report for further information. Nelson Anderson MD GENERAL IMAGING * HCHG MASK PR5 (01/18/2024 10:38 AM CDT) Narrative Danger, Wes Jabier, AVIONICS SYSTEMS ENGINEER - 01/18/2024 10:38 AM CDT Danger, Wes Jabier, AVIONICS SYSTEMS ENGINEER ? 01/18/2024 10:39 AM Procedure: Supraglottic Patient location during procedure: OR Supraglottic Airway Properties Mask Ventilation: easy Type: unique Tube Size: 5 Placement Verification: auscultation and CO2 detection Assessment Assessment: atraumatic and dentition unchanged Airway Intervention: repositioned - midline and cuff inflated Cuff Volume: 7 Valentino Villa MD ANESTHESIA PX NOTE O RDERABLES * WBC AM (01/18/2024 5:15 AM CDT) WHITE BLOOD COUNT 6.7 4.5 - 11.0 thou/cu mm 01/18/2024 6:01 AM CDT [facility] NRBC 0.0 % 01/18/2024 6:01 AM CDT [facility] ABS NRBC 0.0 thou /cu mm 01/18/2024 6:01 AM CDT [facility] Blood BLOOD SPECIMEN / Unknown Butterfly / Unknown 01/18/2024 5:15 AM CDT 01/18/2024 5:51 AM CDT Eric Schilling MD HEMATOLOGY Performing Organization Address [facility] Co de Phone Number [facility] [address] [place] [address], * (ABNORMAL) Creatinine AM (01/18/2024 5:15 AM CDT) eGFR 58(L) >90 mL/min/1.7 3m2 01/18/2024 6:49 AM CDT [facility] Comment:As of 2021, eG FR is calculated by the CKD-EPI creatinine equation without race adjustment. ??eGFR can be influenced by muscle mass, exercise, and diet. ??The reported eGFR is an estimation only and is only applicable if the renal function is stable. CREATININE 1.39(H) 0.70 - 1.20 mg/dL 01/18/2024 6:49 AM CDT [facility] Blood BLOOD SPECIMEN / Unknown Butterfly / Unknown 01/18/2024 5:15 AM CDT 01/18/2024 6:08 AM CDT Eric Schilling MD CHEMISTRY Performing Organization Address [facility] de Phone Number [facility] [address] [place] [address], * SCAN-COLONOSCOPY (09/04/2011 12:00 AM CDT) Narrative Transcriptions Scanner - 09/04/2011 12:00 AM CDT Scanner OTHER from Last 3 Months or Most Recently Relevant to Health Maintenance Advance Directives * Full Code (Latest Code Status on File) Date Activated Date Inactivated Comments 01/17/2024 2:41 PM 01/18/2024 5:02 PM Question Answer Comments Code Status Discussion: Reviewed Preferences Care Teams Area Mechanic Relationship Specialty Start Date End Date Pcp, No . PCP - General 07/07/12
--- OUTSIDE RECORDS SUMMARY | 2024-01-18 23:17 | XMS_ITS | Data Portability ---
Author Organization [place] [facility] Address [address] [place] [address] Assessment Encounter Date Assessment Date Assessment LastModified [...] RESIDUAL STONES ON PREEV. C.T. DONE AT [facility], HOWEVER , RADIOLOGIST DID NOT STATE [...] Organization Details Last Modified Time Details Appointments HOSPITAL 60 2023 11:30A M Nelson Anderson MD Not available Not available Not available Lab urinalysi s, dipstick 2023 024 [facility], [address], [place], [address], 05/25/2023 13:53:10 Referral None recorded. Procedures None recorded. Surgeries cystoscop y, with ureterosc opy, with lithotrip sy, with insertion of ureteral stent (SURG) 2023 024 [email or web address] Not available 06/02/2023 12:08:10 Imaging XR, kidney + ureter + bladder - [facility] 12/12/232023 024 [email or web address] 9 [facility] , [address] [place], [address], 01/14/2024 14:25:07 Medication Orders Flomax 0.4 mg capsule 2023 024 [place] [id number], [address] [place], [place], [phone], 05/25/2023 14:18:00 oxycodone 5 mg tablet 2023 024 [id number], [address] [place], [place], [id number], 05/25/2023 14:17:59 tramadol 50 mg tablet 2023 024 [email or web address] Not available 01/13/2024 16:17:51 tamsulosi n 0.4 mg capsule 2023 024 [id number], [address] [place], [place], [phone], 01/13/2024 16:24:24 Patient TargetsNo targets recorded. Patient Instructions Encounter Date Encounter Id Patient Instructions Last Modified By Organization Details Last Modified Time 05/25/2023 [id number] Discussed medica l expulsive therapy versus surgical [...] Available [facility] [address], [place], [address], 05/25/2023 13:52:34 05/25/19 24 05/25/2023 urina lysis , dipst ick Clarity-Stat us Clear Not Available [facility] [address], [place], [address], 05/25/2023 13:52:34 05/25/19 24 05/25/2023 urina lysis , dipst ick Sp [place]-Stat us 1.020 Not Available [facility] [address], [place], [address], 05/25/2023 13:52:34 05/25/19 24 05/25/2023 urina lysis , dipst ick pH-Status 5.5 Not Available [facility] [address], [place], [address], 05/25/2023 13:52:34 05/25/19 24 05/25/2023 urina lysis , dipst ick Nitrates-Sta tus negati ve Not Available [facility] [address], [place], [address], 05/25/2023 13:52:34 05/25/19 24 05/25/2023 urina lysis , dipst ick Blood-Status Small Not Available [facility] [address], [place], [address], 05/25/2023 13:52:34 05/25/19 24 05/25/2023 urina lysis , dipst ick Leuko-Status Negati ve Not Available [facility] [address], [place], [address], 05/25/2023 13:52:34 05/25/19 24 05/25/2023 urina lysis , dipst ick Specimen Type Voided Not Available [facility] [address], [place], [address], 05/25/2023 13:52:34 05/25/19 24 05/25/2023 urina lysis , dipst ick Performed by Morales michele RN Not Available [facility] [address], [place], [address], 05/25/2023 13:52:34 12/22/19 24 12/12/2023 CT, abdom en + pelvi s, w/o contr ast No observ ation record ed. [email or web address] [facility] [address], [place], [address], 01/12/2024 13:54:53 01/14/20 24 01/13/2024 XR, kidne y + urete r + bladd er EXAM: XR, KIDNEY + URETER + BLADDE R [facility]I [facility]: [facility] [place] DATE: INDICA TION: Calcul us of kidney [...] Tawanna Connors MD on 2023 at 13:28 [facility] [place] [address], [place], [address], 01/14/2024 14:31:17 Result Notes Documentation Provider Name and Address Organization Details Recorded Time Xr, Kidney + Ureter + Bladder : EXAM: XR, KIDNEY + URETER + BLADDER LOCATION: [facility] DATE: 01/13/2024 INDICATION: Calculus of kidney COMPARISON: [...] MD on 01/14/2024 at 13:[address] [facility] 01/14/2024 14:31:18 Problems Name Problem SNOMED Code Status Onset Date Resolution Date Notes Provider Name and Address Organization Details Recorded Time Calculus of kidney and ureter 153508409 Active 024 Nelson Anderson MD [address] [place] [address],[place] [phone] , [facility] 4 14:41:07 Ureteric stone 44843381 Active 024 Nelson Anderson MD [address] [place], [place] [phone] , [facility] 4 16:29:56 Right flank pain 990328436 Active 024 Nelson Anderson MD [address] [place] [address],[address] [address] , [facility] 4 16:30:01 Problem Notes None recorded. Procedures Surgical History Date Name Laterality Status Provider Name and Address Organization Details Recorded Time 06/23/19 24 Cystoscopy with foreign body/stent removal completed Nelson Anderson MD [address] [place] [address],[address] [address], [facility] 06/23/2023 14:39:05 05/25/19 24 [facility]inal[facility] 05/25/2023 13:51:40 repair of shoulder completed [address] [facility] 12/06/2019 16:23:28 procedure on wrist completed [address] [facility] 12/06/2019 16:23:34 Fragmenting of kidney stone completed [address] [facility] 12/06/2019 16:24:10 Imaging Results Imaging Date Name Status LastModified by Organiz ation Details LastModified Time 12/12/2023 CT, abdomen + pelvis, w/o contrast completed [email or web address] [facility] [address], [place], [address], 01/12/2024 13:54:53 01/13/2024 XR, kidney + ureter + bladder active [facility] [place] [address], [place], [address], 01/14/2024 14:31:17 Procedure Notes None recorded. Medical [...] Updated DateTime 12/16/2019 177.8 cm 28.3 kg/m2 93950.7 g Nelson Anderson MD [address] [place] [address],[address], [address] [place] [address] 12/16/2019 12:44:34 Date Recorded Body height Body mass index (BMI) Body weight Provider Name and Address Organization Details Last Updated DateTime 01/09/2020 177.8 cm 28.3 kg/m2 16140.7 g Nelson Anderson MD [address] [place] [address],[address], [address] [place] [address] 01/09/2020 14:53:37 Date Recorded Body height Body mass index (BMI) Body weight Provider Name and Address Organization Details Last Updated DateTime 01/13/2024 177.8 cm 28.3 kg/m2 52899.7 g Nelson Anderson MD [address] [place] [address],[address] 01/13/2024 15:53:44 Social History Question Answer Notes LastModified by Organizat ion Details LastModified Time Tobacco Smoking Status Never Smoker Riley shen [facility] 12/06/2019 16:23:12 What Is Your Level Of Alcohol Consumption? None Information not available 05/25/2023 What Was The Date Of Your Most Recent Tobacco Screening? 05/25/2023 Information not available 05/25/2023 Has Tobacco Cessation Counseling Been Provided? No [facility] Information not available 05/25/2023 Sex: Unknown Functional Status None recorded. Mental Status None recorded. Family History Nothing Reported. Medical History Condition Response Other N High Blood Pressure N Kidney Stones Y Lung Disease N Depression N GERD/Acid Reflux Y Sexually Transmitted Infection N Cancer N High Cholesterol N Diabetes N Bleeding Disorder N Heart Disease N Immunizations Vaccine Type Date Status Provider Name and Address Organization Details Recorded Time Influenza, split virus, quadrivalent, preservative 01/15/2023 karyn shen [facility] 05/25/2023 13:57:34 Influenza, split virus, quadrivalent, preservative 01/16/2021 karyn shen [facility] 05/25/2023 13:57:34 Influenza, split virus, quadrivalent, preservative 01/18/2020 completed Macy shen, [facility] 05/25/2023 13:57:34 Influenza, split virus, quadrivalent, preservative [facility]2022 [facility] 13:57:34 COVID-19, mRNA, LNP-S, PF, 100 mcg/0.5mL dose or 50 mcg/0.25mL dose 05/03/2020 [facility] 05/25/2023 13:57:34 COVID-19, mRNA, LNP-S, PF, 100 mcg/0.5mL dose or 50 mcg/0.25mL dose 11/01/2021 [facility] 05/25/2023 13:57:34 COVID-19, mRNA, LNP-S, PF, 100 mcg/0.5mL dose or 50 mcg/0.25mL dose 04/05/2020 [facility] 05/25/2023 13:57:34 COVID-19, mRNA, LNP-S, PF, 30 mcg/0.3 mL dose 03/27/2021 [facility] 05/25/2023 13:57:34 COVID-19, mRNA, LNP-S, PF, 50 mcg/0.5 mL 01/30/2023 [facility] 05/25/2023 13:57:34 Tdap 06/02/2011 [facility] 05/25/2023 13:57:34 Tdap 03/13/2008 [facility] 05/25/2023 13:57:34 Influenza, split virus, trivalent, preservative 03/14/2008 [facility] 05/25/2023 13:57:34 Influenza, split virus, quadrivalent, PF 01/24/2020 [facility] 05/25/2023 13:57:34 Influenza, split virus, quadrivalent, PF 02/15/2018 completed Macy shen, [facility] 05/25/2023 13:57:34 Tdap 06/12/2023 completed Riley shen, [facility] 01/13/2024 15:51:31 Past Encounters Encounter ID Performer Location Encounter Start Date Encounter Closed Date Diagnosis/Indication Diagnosis SNOMED-CT Code Diagnosis ICD10 Code [id number] MD Jarett Gupta [address] [place] [address] 12/06/2019 16:01:42 12/08/2019 11:34:14 Pain in testicle 31390297 N50.819 [id number] MD Jarett Gupta [address] [place] [address] 12/16/2019 12:31:24 12/19/2019 12:53:19 Pain in scrotum N50.82 [id number] MD Jarett Gupta [address] [place] [address] 01/09/2020 14:37:55 01/09/2020 17:54:17 Inguinal pain 079467598 R10.2 Pain in testicle 3668623 9 N50.819 [id number] [facility] [address] [place] [address] 05/25/2023 13:19:17 06/01/2023 09:29:06 Kidney stone 33770442 N20.0 [id number] MD Jarett Gupta [address] [place] [address] 06/23/2023 14:02:00 06/24/2023 11:03:24 Calculus of kidney and ureter 451529715 N20.2 [id number] MD Jarett Gupta [address] [place] [address] 01/13/2024 15:46:35 01/14/2024 14:25:07 Calculus of kidney and ureter 068106973 N20.2 Ureteric stone 59996692 N20.1 Right flank pain 1150722 09 R10.9 Health Concerns Section Related Observation LastModified by Organization Detai ls LastModified Time None Recorded Concern Status LastModified by Organization Details LastModified Time None Recorded Advance Directives Directive None Recorded Payers Encounter Date Sequence Insurance Name Policy Number Policy Ogden Covered Member ID Ogden Member ID Guarantor Name 12/16/2019 1 [employer] [id number] Kevinryne Grace [id number] Kevinryne Grace 01/09/2020 1 [employer] [id number] Kevin Sanjay [id number] Kevinryne Grace 05/25/2023 1 [employer] [id number] Kevin Sanjay [id number] Kevinryne Grace 06/23/2023 1 [employer] [id number] Kevin Sanjay [id number] Kevinryne Grace 01/13/2024 1 [employer] [id number] Kevin Sanjay [id number] Kevin Sridhar Grace Notes Date Note Type [...] FOR CORD BLOCK TRIAL. Nelson Anderson MD [address] [place] [address],[address], [address], [facility] 12/16/2019 13:53:28 01/09/2020 text/html HPI Notes: 59 [...] PAIN ACCORDING TO PATIENT. Nelson Anderson MD [address] [place] [address],[address], [place], [address], [facility] 01/09/2020 15:52:15 05/25/2023 text/html HPI Notes: [...] Denies fever/chills, dysuria, n/v. 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 Has a long h/o stones, most recently passed stone 2018. Has required several surgeries with Dr Anderson. H/o chronic left testicular pain, tried marcaine spermatic cord block with Dr Anderson with minimal relief. UA today with blood NADIA GAYTAN PA-C [address], [place], [address], [facility] 05/25/2023 14:42:36 06/23/2023 text/html HPI Notes: [...] Denies fever/chills, dysuria, n/v. 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 Nelson Anderson MD [address], [place], [address], [facility] 06/23/2023 14:41:23 01/13/2024 text/html HPI Notes: [...] Denies fever/chills, dysuria, n/v. 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 Nelson Anderson MD [address], [place], [address], [facility] 01/13/2024 16:30:18
--- OUTSIDE RECORDS SUMMARY | 2024-01-18 23:17 | XMS_ITS | Referral Summary ---
Author Organization [place] Address [address] [place] [address] Care Team Providers Care Quality Improvement Coordinator (Rn) Name Role Phone Melvin Lau MD Primary Care Provider [phone] Allergies No known active allergies Medications Medication [...] on file Medical Devices Implanted Type Area Survey Technician Device Identifier Shelf Expiration Date Model / Serial / Lot Stent Ureteral Contour Soft Percuflex [id number] Implanted:Qty: 1 on 09/11/2017 by Nelson Anderson MD at [facility] Stent Left: Ureter [employer] 06/22/2020 [id number] / / [id number] Care Teams Quality Improvement Coordinator (Rn) Relationship Specialty Start Date End Date Melvin Lau MD PCP - General Family Practice 09/08/17
--- OUTSIDE RECORDS SUMMARY | 2024-01-18 23:17 | XMS_ITS | Data Portability ---
Author Organization [place] [facility] Address [facility] [address] [place] [address] Care Team Providers Care Nurse Private Duty Name Role Phone THERESA YANCEY Referring Provider [...] Orders cyclobenzap rine 5 mg tablet 2023 [id number], [address] [place], [place], [phone], 19:07:13 Patient Targets Encounter Date Encounter Id Patient Goals Patient Target Last Modified By Organization Details Last Modified Time superintendent terminal goals (to be met in 6 weeks):*Patient [...] By Organization Details Last Modified Time 04/07/2023 [id number] Self Care for TMD Not availab le 04/15/2023 09:27:04 oral appliance preparation* Not available 04/15/2023 09:27:06 Three Jaw Exercises Not available 04/15/2023 09:28:51 Contributing factors identified at today's appointment include: daytime clenching, sleep bruxism, oral habits. Not available 04/15/2023 09:29:16 04/15/2023 [id number] Total treatment time minutes today = 40 Next Visit Plan: how is joint mob? recheck ROM. Add CR. ROM to relocation 30mm, full 45 w/ pain. Patient/Therapist Goals: resume eating and decrease pain and popping Progress Note Date: 06/09 lhovda Not available 04/15/2023 11:28:26 04/28/2023 136134 Total treatment time minutes today = 40 Next Visit Plan: Recheck ROM, upgrade CR. How was dry needling? ROM to relocation 40mm, full 42 w/ pain. Patient/Therapist Goals: resume eating and decrease pain and popping Progress Note Date: 06/09 lhovda Not available 04/28/2023 17:39:35 05/14/2023 404009 Total treatment time minutes today = 33 [...] stabil izatio n applia nce Not Available [place] [address], [place], [address], 04/15/2023 09:25:53 04/07/19 24 04/07/2023 XR, ortho panto gram No observ ation record ed. Not Available 2023 19:02:52 Result Notes None recorded. 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 Procedures Surgical History Date Name Laterality Status Provider Name and Address Organization Details Recorded Time 05/14/19 24 57559: Therapeutic Exercise completed Delmy Suresh DPT [address], [place], [address], [facility] 05/14/2023 18:09:34 05/14/19 24 86013: Neuromuscular Re-Education completed Delmy Suresh DPT [address], [place], [address], [facility] 05/14/2023 18:09:35 05/14/19 24 82897: Manual Therapy completed Delmy Suresh DPT [address], [place], [address], [facility] 05/14/2023 18:09:57 04/28/19 24 71469: Needle insertion(s) without injection(s), 1 or 2 muscle(s) completed Delmy Suresh DPT [address], [place], [address], [facility] 04/28/2023 17:39:15 04/28/19 24 72347: E-Stim - Direct Contact completed Delmy Suresh DPT [address], [place], [address], [facility] 04/28/2023 17:39:19 04/28/19 78883: Therapeutic Exercise completed Delmy Suresh, DPT [address], [place], [address], [facility] 04/28/2023 17:38:33 04/28/19 91322: Neuromuscular Re-Education completed Delmy Suresh, DPT [address], [place], [address], [facility] 04/28/2023 17:38:35 04/28/19 69440: Manual Therapy completed Delmy Suresh, DPT [address], [place], [address], [facility] 04/28/2023 17:38:32 04/15/19 94583 - PT Eval Moderate Complexity completed Delmy Suresh DPT [address], [place], [address], [facility] 04/15/2023 11:24:52 04/15/19 50162: Self Care/Home Management Training completed JERARDO PedrazaT [address], [place], [address], [facility] 04/15/2023 11:24:00 04/15/19 31609: Therapeutic Exercise completed JERARDO PedrazaT [address], [place], [address], [facility] 04/15/2023 11:23:54 04/15/19 49607: Manual Therapy completed Delmy Suresh DPT [address], [place], [address], [facility] 04/15/2023 11:23:59 04/07/19 [facility] 04/07/2023 18:50:07 hernia repair completed Shaniqua Hanks [facility] 04/07/2023 18:30:20 Shoulder Surgery completed Shaniqua Hanks [facility] 04/07/2023 18:30:31 [place] Teeth Extraction [facility] 04/07/2023 18:30:39 [...] Updated DateTime 4 177.8 cm 29.7 kg/m2 60419.6 2 g 49 /min 153 mm[Hg] 95 mm[Hg] [facility] 18:29:07 Date Recorded Body height Systolic blood pressure Diastolic blood pressure Provider Name and Address Organization Details Last Updated DateTime 05/26/2023 177.8 cm 139 mm[Hg] 101 mm[Hg] [facility] 05/26/2023 16:30:01 Social History Question Answer Notes LastModified by Organizat ion Details LastModified Time Tobacco Smoking Status Never Smoker Shaniqua Hanks [facility] [...] Or The Highest Degree You Have Received? [id number] Information not available 04/07/2023 What Is Your Occupation? [employer] [place] Information not available 04/07/2023 What Number Best [...] Meningitis N Pancreatic disease N Heart Attack (NH) N Stomach Ulcers N Back pain N [...] influenza, unspecified formulation 01/04/2023 completed RAYMOND Corley [facility] 04/07/2023 18:28:37 SARS-COV-2 (COVID-19) vaccine, UNSPECIFIED 02/04/2023 completed RAYMOND Corley [facility] 04/07/2023 18:28:57 Past Encounters Encounter ID Performer Location Encounter Start Date Encounter Closed Date Diagnosis/Indication Diagnosis SNOMED-CT Code Diagnosis ICD10 Code [id number] ROSALINA MEZA BDS, [place] [address] [place] [id number] 04/07/2023 18:12:57 04/07/2023 19:25:21 Myofascial pain 058183504 M79.11 Spasm 91179843 R25.2 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 6274727323 5201907 M26.632 Episodic t ension-type headache 634330319 G44.219 [id number] JERARDO PedrazaT [place] to [address] [place] [id number] 04/15/2023 10:19:53 04/15/2023 11:37:43 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 2949220481 8324981 M26.632 Episodic t ension-type headache 594103032 G44.219 Myofascial pain 01903143 9 M79.11 Spasm 28994658 R25.2 [id number] Delmy Sweeneychanoeden, DPT [place] [address] [place] [id number] 04/28/2023 16:30:12 04/28/2023 17:22:39 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 8847108307 3144655 M26.632 Episodic t ension-type headache 861017822 G44.219 Myofascial pain 41455207 9 M79.11 Spasm 73362808 R25.2 [id number] Delmy Kerwin, DPT [place] [address] [place] [id number] 05/14/2023 17:08:36 05/14/2023 18:04:53 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 8373771416 6212465 M26.632 Episodic t ension-type headache 713216661 G44.219 Myofascial pain 14230954 9 M79.11 Spasm 85113385 R25.2 [id number] FRANKLIN ALANIZS, [place] [address] [place] [id number] 05/26/2023 16:10:52 05/26/2023 18:16:47 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 4537392139 1794911 M26.632 Episodic t ension-type headache 952598505 G44.219 Myofascial pain 24019027 9 M79.11 Spasm 96732448 R25.2 Health Concerns Section Related Observation LastModified by Organization Detai ls LastModified Time None Recorded Concern Status LastModified by Organization Details LastModified Time None Recorded Advance Directives Directive None Recorded Payers Encounter Date Sequence Insurance Name Policy Number Policy [place] Covered Member ID [place] Member ID Guarantor Name 04/07/2023 1 [employer] Kevinryne Grace [id number] Kevinryne Grace 04/15/2023 1 [employer] Kevinryne Grace [id number] Kevinryne Grace 04/28/2023 1 [employer] Kevinryne rGace [id number] Kevinryne Grace 05/14/2023 1 [employer] Kevinryne Grace [id number] Kevinryne Grace 05/26/2023 1 [employer] Kevinryne Grace [id number] Kevinryne Grace Notes Date Note Type Note [...] ear. He has been working for the [employer] for about 42 years. JAYLEEN MEZA BDS, [place] [address] [facility] [address], [place], [address], [facility] 04/15/2023 [...] (out of 80): 04/14/23=24 Delmy Suresh DPT [address] [place] [address], [place], [address], [facility] 04/15/2023 11:28:42 4 text/html HPI Notes: Pt reports less pain and the clicking is still present. He would like the clicking to improved as others can hear it when he is eating. Delmy Suresh DPT [address], [place], [address], [facility] 04/28/2023 17:40:59 4 text/html HPI Notes: Pt reports being sore from being at the dentist yesterday. More of an ear ache lately, backed off on the exercises. Wide opening more painful and it takes a while to calm down. Click still present with chewing on the R. Delmy Suresh DPT [address] [facility] [address], [place], [address], [facility] 05/14/2023 [...] for his pain. JAYLEEN MEZA BDS, [place] [address] [facility] [address], [place], [address], [facility] 05/26/2023 18:12:05
--- OUTSIDE RECORDS SUMMARY | 2024-01-18 23:18 | XMS_ITS | Continuity of Care Document ---
Author Organization [place] [facility] Address [address] [place] [address] Assessment Encounter Date Assessment Date Assessment LastModified [...] kidney + ureter + bladder - [facility] 12/12/232023 024 [email or web address] 89 [facility] , [address], [place], [address], 14:25:07 Medication Orders tramadol 50 mg tablet 2023 024 ssamb Not available 16:17:51 tamsulosin 0.4 mg capsule 2023 024 [id number], [address] [place], [place], [id number], 16:24:24 Patient TargetsNo targets recorded. Patient InstructionsNo instructions recorded. Reason for Referral None Reported. Results Created Date Observation Date Name Description Value Unit Range Abnormal Flag Note LastModifiedBy Organization Detail LastModifiedTime 12/22/1912/12/2023 CT, abdom en + pelvi s, w/o contr ast No observ ation record ed. [email or web address] [facility] [address], [place], [address], 01/12/2024 13:54:53 01/14/2001/13/2024 XR, kidne y + urete r + bladd er EXAM: XR, KIDNEY + URETER + BLADDE R [facility]ATI [facility]: [facility] DATE: INDICA TION: Calcul us of kidney [...] Tawanna Connors MD on 2023 at 13:28 [facility] [place] [address] [facility] [address], [place], [address], 01/14/2024 14:31:17 01/18/2001/18/2024 imagi ng/di agnos tic resul t No observ ation record ed. [facility] [address], [place], [address], 01/18/2024 20:53:58 Result Notes None recorded. Problems Name Problem SNOMED Code Status Onset Date Resolution Date Notes Provider Name and Address Organization Details Recorded Time Calculus of kidney and ureter 554508299 Active 024 Nelson Anderson MD [address] [place] [address],[address] [place] [address], [address] , [facility] 4 14:41:07 Ureteric stone 62997914 Active 024 Nelson Anderson MD [address] [place] [address],[address], [address] , [facility] 4 16:29:56 Right flank pain 183621579 Active 024 Nelson Anderson MD [address] [place] [address],[address], [address] , [facility] 4 16:30:01 Problem Notes None recorded. Procedures Surgical History Date Name Laterality Status Provider Name and Address Organization Details Recorded Time 06/23/19 24 Cystoscopy with foreign body/stent removal completed Nelson Anderson MD [address] [place] [address],[address], [place], [address], [facility] 06/23/2023 14:39:05 05/25/19 24 Urinalysis completed Macy Ding [facility] 05/25/2023 13:51:40 repair of shoulder completed Riley Ariana [facility] 12/06/2019 16:23:28 procedure on wrist completed Riley Lane [facility] 12/06/2019 16:23:34 Fragmenting of kidney stone completed Riley Ariana [facility] 12/06/2019 16:24:10 Imaging Results None recorded. Procedure [...] Updated DateTime 01/13/2024 177.8 cm 28.3 kg/m2 61121.7 g Nelson Anderson MD [address] [place] [address], [address] [place] [address] Urology 01/13/2024 15:53:44 Social History Question Answer Notes LastModified by Organizat ion Details LastModified Time Tobacco Smoking Status Never Smoker [address] [facility] 12/06/2019 16:23:12 What Is Your Level [...] High Blood Pressure N Kidney Stones Y Depression N Lung Disease N GERD/Acid Reflux Y Sexually Transmitted Infection N Cancer N High Cholesterol N Diabetes N Bleeding Disorder N Heart Disease N Immunizations Vaccine Type Date Status Provider Name and Address Organization Details Recorded Time Influenza, split virus, quadrivalent, preservative [facility]23 [facility] 13:57:34 Influenza, split virus, quadrivalent, preservative 01/16/2021 [facility]23 13:57:34 Influenza, split virus, quadrivalent, preservative 01/18/2020 [facility]2023 13:57:34 Influenza, split virus, quadrivalent, preservative 02/21/2022 [facility] 05/25/2023 13:57:34 COVID-19, mRNA, LNP-S, PF, 100 mcg/0.5mL dose or 50 mcg/0.25mL dose 05/03/2020 [facility] 05/25/2023 13:57:34 COVID-19, mRNA, LNP-S, PF, 100 mcg/0.5mL dose or 50 mcg/0.25mL dose 11/01/2021 [facility] 05/25/2023 13:57:34 COVID-19, mRNA, LNP-S, PF, 100 mcg/0.5mL dose or 50 mcg/0.25mL dose 04/05/2020 [facility] 05/25/2023 13:57:34 COVID-19, mRNA, LNP-S, PF, 30 mcg/0.3 mL dose 03/27/2021 [facility] 05/25/2023 13:57:34 COVID-19, mRNA, LNP-S, PF, 50 mcg/0.5 mL 01/30/2023 [facility] 05/25/2023 13:57:34 Tdap 06/02/2011 [facility] 05/25/2023 13:57:34 Tdap 03/13/2008 [facility] 05/25/2023 13:57:34 Influenza, split virus, trivalent, preservative 03/14/2008 completed Mcaybiju Ding hermelinda, [facility] 05/25/2023 13:57:34 Influenza, split virus, quadrivalent, PF 01/24/2020 completed Macy Toña hermelinda, [facility] 05/25/2023 13:57:34 Influenza, split virus, quadrivalent, PF 02/15/2018 completed Macy Toña null, [facility] 05/25/2023 13:57:34 Tdap 06/12/[address] null, [facility] 01/13/2024 15:51:31 Past Encounters Encounter ID Performer Location Encounter Start Date Encounter Closed Date Diagnosis/Indication Diagnosis SNOMED-CT Code Diagnosis ICD10 Code [id number] Nelson Anderson MD [facility] [address] [place] [address] 01/13/2024 15:46:35 01/14/2024 14:25:07 Calculus of kidney and ureter 439203348 N20.2 Ureteric stone 24536352 N20.1 Right flank pain 1418656 09 R10.9 Health Concerns Section Related Observation LastModified by Organization Detai ls LastModified Time None Recorded Concern Status LastModified by Organization Details LastModified Time None Recorded Payers Encounter Date Sequence Insurance Name Policy Number Policy [place] Covered Member ID [place] Member ID Guarantor Name 01/13/2024 1 [facility] [id number] Kevin Grace [id number] Kevin Sridhar Grace Notes Date Note Type [...] Denies fever/chills, dysuria, n/v. 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 Nelson Anderson MD [address] [facility], [place], [address], [facility] 01/13/2024 16:30:18
== END 2024-01-17 12:58 | disposition home or self-care (01) ==
LOC: AMB 01-18 23:15
PROVIDERS: PCP Family Medicine; Visit Provider Emergency Medicine Emergency Medical Services
DX: N20.0 Calculus of kidney (principal)
CPT/HCPCS: A0425; A0427

== ENCOUNTER 2024-02-05 15:00 | Outpatient (CLI) | payer OTHER, SELFPAY ==
--- OUTSIDE RECORDS SUMMARY | 2024-02-05 15:04 | XMS_ITS | Referral Summary ---
Author Organization [facility] Address [address] [place] [address] Care Team Providers Care Auto Top Mechanic Name Role Phone Clinic, No Primary Unavailable Unavailable Kolby Lau MD Primary Care Provider [phone] Allergies No known active allergies Medications Medication [...] Comments Blood Pressure 139/83 04/10/2020 1:15 PM WAREHOUSEMAN Pulse 55 04/10/2020 1:15 PM WAREHOUSEMAN Temperature 36.1 ??C (97 ??F) 04/10/2020 1:15 PM WAREHOUSEMAN Respiratory Rate 16 04/10/2020 1:15 PM WAREHOUSEMAN Oxygen Saturation 100% 04/10/2020 1:15 PM WAREHOUSEMAN Inhaled Oxygen Concentration - - Weight 92.5 kg (204 lb) 04/03/2020 9:47 AM WAREHOUSEMAN Height 177.8 cm (5' 10) 04/03/2020 9:47 AM WAREHOUSEMAN Body Mass Index 29.27 04/03/2020 9:47 AM WAREHOUSEMAN Plan of Treatment Not on file Medical Devices Implanted Type Area Rivet Flunky Device Identifier Shelf Expiration Date Model / Serial / Lot Foley Cf Capsule - [id number] Implanted:Qty: 1 on 04/10/2020 by Kobe Johnson MD at [facility] Prosthetic Implant Non-Specific [employer] 05/17/2021 [id number] / [id number] / [id number] Care Teams Auto Top Mechanic Relationship Specialty Start Date End Date Clinic, No Primary PCP - Primary Care Clinic 02/24/20 [place] [address] [place] [address] PCP - General 02/24/20
--- OUTSIDE RECORDS SUMMARY | 2024-02-05 15:04 | XMS_ITS | Clinical Summary ---
Author Organization [facility] Address [place], [place] [address] Care Team Providers Care Asphalt Tamper Name Role Phone Pcp, No Primary Care [...] two times daily. 12 Tablet 4 Active PRILOSEC 20 MG CAP take 1 [...] change per medication history (E-cancel not sent)) cephalexin (KEFLEX) 500 mg capsuleIndicati ons:Kidney stones Take 1 Capsule (500 mg) by mouth two times daily for 7 days. 14 Capsule 4 01/25/20 24 tamsulosin (FLOMAX) 0.4 mg capsuleIndicati ons:Kidney stones Take 1 Capsule (0.4 mg) by mouth once daily after a meal for 14 days. 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 Genitofemoral neuralgia 06/17/2013 Kidney stones 07/07/2012 Encounters Date Type Department Care Team Description 01/18/2024 10:24 AM CDT Anesthesia Event [facility] [address] [place] [address] Valentino Villa MD DangerWes, POLICE JUSTICE 01/18/2024 9:50 AM CDT - 01/18/2024 11:11 AM CDT Surgery [facility] [address] [place] [address] Nelson Anderson MD CYSTOSCOPY, RIGHT URETEROSCOPY, HOLMIUM LASER LITHOTRIPSY, RIGHT URETERAL STENT PLACEMENT 01/17/2024 2:10 PM CDT - 01/18/2024 2:52 PM CDT Hospital Encounter [facility] [address] [place] [address] [facility], [facility] Hospitalists Of [facility], MD Cody Sierra, Merrick Mcdonald MD Kidney [...] alcohol) occ Social Connections Answer Date Recorded Do you often feel lonely or isolated from those around you? 0 01/17/2024 Financial Resource Strain Answer Date R ecorded Difficulty of Paying Living Expenses 3 01/17/2024 Difficulty of Paying Living Expenses Not on file 01/17/2024 Food Insecurity Answer Date Recorded Do you worry your food will run out before you are able to buy more? 1 01/17/2024 Transportation Needs Answer Date Record ed Does lack of transportation keep you from medica l appointments? 1 01/17/2024 Does lack of transportation keep you from work, meetings or getting things that you need? 1 01/17/2024 Housing Stability Answer Date Recorded What is your housing situation today? 1 01/17/2024 Sex and Gender Information Value [...] (204 lb 9.6 oz) 05/01/2014 12:51 PM HOSPICE ENTRANCE ATTENDANT Height 177.8 cm (5' 10) 04/10/2014 1:53 PM HOSPICE ENTRANCE ATTENDANT Body Mass Index 29.36 04/10/2014 1:53 PM HOSPICE ENTRANCE ATTENDANT Plan of Treatment Health Maintenance Due Date Last Done Comments Depression screening for age 12+ 1974 HIV for age 15-65 1977 BMI (ht and wt on same day) for age 18+ 1980 Hepatitis C screening for age 18-79 1980 Zoster (shingles) series for age 50+ (1 of 2) 2012 Lipids for age 45-75 05/19/2016 05/19/2011 (Completed outside of [facility]) Tetanus booster 06/02/2021 06/02/2011, 06/02/2011 Colonoscopy through age 75 09/03/2021 09/04/2011 COVID-19 vaccine series ( season) 2023 01/30/2023, 11/01/2021, 03/27/2021, Additional history exists Influenza for age 50-64 12/06/2023 Tdap Completed 06/02/2011 Pneumococcal series for age 6-64 Aged Out No longer eligible based on patient's age to complete this topic Medical Devices Implanted Type Area Negative Retoucher Device Identifier Shelf Expiration Date Model / Serial / Lot Stent Uret [id number] Contour - [id number] Implanted:Qty: 1 on 01/18/2024 by Nelson Anderson MD at [facility] Right: Ureter [facility] 08/09/2026 [id number] / / [id number] Procedures Procedure Name Priority Date/Time Associated Diagnosis Comments SCAN CORRESP-LABORATORY RESULTS 01/18/2024 1:51 PM CDT XR RETROGRADE PYELOGRAM W/WO KUB Routine 01/18/2024 11:17 AM CDT SUPRAGLOTTIC-LMA Routine 01/18/2024 10:3 8 AM CDT CYSTOSCOPY PLACEMENT URETERAL STENT RETROGRADES Class D Urgent 01/18/2024 10:07 AM CDT Right ureteral stone, right hydronephrosis, right flank pain LITHOTRIPSY URETEROSCOPY WITH LASER Class D Urgent 01/18/2024 10:07 AM CDT Right ureteral stone, right hydronephrosis, right flank pain WHITE BLOOD COUNT Early AM 01/18/2024 5:1 5 AM CDT CREATININE Early AM 01/18/2024 5:15 AM CDT SCAN-CARDIAC STRIP 01/17/2024 12 :00 AM CDT SCAN-COLONOSCOPY 09/04/2011 12:0 0 AM CDT from Last 3 Months or Most Recently Relevant to Health Maintenance Results * SCAN CORRESP-LABORATORY RESULTS (01/18/2024 1:51 PM CDT) Narrative 01/18/2024 1:51 PM CDT Ordered by an unspecified provider. Other Clinical Staff OTHER * XR RETROGRADE PYELOGRAM W/WO KUB (01/18/2024 11:17 AM CDT) Anatomical Region Laterality Modality KIDNEYS, Abdomen Digital Radiogr aphy Narrative 01/18/2024 10:31 AM CDT 39 seconds fluoroscopy time was provided. ??See operative/procedure report for further information. Nelson Anderson MD GENERAL IMAGING * HCHG MASK PR5 (01/18/2024 10:38 AM CDT) Narrative Danger, Wes Jabier, POLICE JUSTICE - 01/18/2024 10:38 AM CDT Danger, Wes Jabier, POLICE JUSTICE ? 01/18/2024 10:39 AM Procedure: Supraglottic Patient [...] 11.0 thou/cu mm 01/18/2024 6:01 AM CDT [facility] NRBC 0.0 % 01/18/2024 6:01 AM CDT [facility] ABS NRBC 0.0 thou /cu mm 01/18/2024 6:01 AM CDT [facility] Blood BLOOD SPECIMEN / Unknown Butterfly / Unknown 01/18/2024 5:15 AM CDT 01/18/2024 5:51 AM CDT Eric Schilling MD HEMATOLOGY [facility] [address] [place] [address] * (ABNORMAL) Creatinine AM (01/18/2024 5:15 AM CDT) eGFR 58(L) >90 mL/min/1.7 3m2 01/18/2024 6:49 AM CDT [facility] Comment:As of 2021, eG FR is calculated by the CKD-EPI creatinine equation without race adjustment. ??eGFR can be influenced by muscle mass, exercise, and diet. ??The reported eGFR is an estimation only and is only applicable if the renal function is stable. CREATININE 1.39(H) 0.70 - 1.20 mg/dL 01/18/2024 6:49 AM CDT [facility] Blood BLOOD SPECIMEN / Unknown Butterfly / Unknown 01/18/2024 5:15 AM CDT 01/18/2024 6:08 AM CDT Eric Schilling MD CHEMISTRY [facility] [address] [place] [address], * SCAN-CARDIAC STRIP (01/17/2024 12:00 AM CDT) Narrative 01/17/2024 12:00 AM CDT Ordered by an unspecified provider. Other Clinical Staff OTHER * SCAN-COLONOSCOPY (09/04/2011 12:00 AM CDT) Narrative Transcriptions Scanner - 09/04/2011 12:00 AM CDT Scanner OTHER from Last 3 Months or Most Recently Relevant to Health Maintenance Advance Directives * Full Code (Latest Code Status on File) Date Activated Date Inactivated Comments 01/17/2024 2:41 PM 01/18/2024 5:02 PM Question Answer Comments Code Status Discussion: Reviewed Preferences Care Teams Asphalt Tamper Relationship Specialty Start Date End Date Pcp, No . PCP - General 07/07/12
--- OUTSIDE RECORDS SUMMARY | 2024-02-05 15:04 | XMS_ITS | Clinical Summary ---
Author Organization [facility] Address [address] [place], [place] [address] [address] Care Team Providers Care One Piece Expansion Maker Hand Name Role Phone Clinic, No Primary Unavailable Unavailable Kolby Lau MD Primary Care Provider [phone] Allergies No known active allergies Medications Medication [...] Comments Blood Pressure 139/83 04/10/2020 1:15 PM POPCORN VENDOR Pulse 55 04/10/2020 1:15 PM POPCORN VENDOR Temperature 36.1 ??C (97 ??F) 04/10/2020 1:15 PM POPCORN VENDOR Respiratory Rate 16 04/10/2020 1:15 PM POPCORN VENDOR Oxygen Saturation 100% 04/10/2020 1:15 PM POPCORN VENDOR Inhaled Oxygen Concentration - - Weight 92.5 kg (204 lb) 04/03/2020 9:47 AM POPCORN VENDOR Height 177.8 cm (5' 10) 04/03/2020 9:47 AM POPCORN VENDOR Body Mass Index 29.27 04/03/2020 9:47 AM POPCORN VENDOR Plan of Treatment Health Maintenance Due Date [...] this topic Medical Devices Implanted Type Area Stoker Installation Mechanic Device Identifier Shelf Expiration Date Model / Serial / Lot Foley Cf Capsule - [id number] Implanted:Qty: 1 on 04/10/2020 by Kobe Johnson MD at [facility] Prosthetic Implant Non-Specific [employer] 05/17/2021 [id number] / [id number] / [id number] Care Teams One Piece Expansion Maker Hand Relationship Specialty Start Date End Date Clinic, No Primary PCP - Primary Care Clinic 02/24/20 [place] [address] [place] [address] PCP - General 02/24/20
--- OUTSIDE RECORDS SUMMARY | 2024-02-05 15:04 | XMS_ITS | Referral Summary ---
Author Organization [facility] Address [address] [place] [address] Care Team Providers Care Competency Evaluated Nurse Aide Name Role Phone Melvin Lau MD Primary Care Provider [phone] Allergies No known active allergies Medications TAMSULOSIN HCL PO Take 0.4 mg by mouth daily Active OMEPRAZOLE PO Take 20 mg by mouth daily Active HYDROcodone-carmen taminophen (NORCO) 5-325 MG per tablet Take 1 tablet by mouth every 6 hours as needed for severe pain Active HYDROcodone-carmen taminophen (NORCO) 5-325 MG per tabletIndicatio ns:Calculus of left kidney Take 1-2 tablets by mouth every 4 hours as needed for severe pain (Moderate to Severe Pain) 25 tablet 09/11/2017 Active ciprofloxacin (CIPRO) 250 MG tabletIndicatio ns:Calculus of left kidney Take 1 tablet (250 [...] Recorded Sex Assigned at Not on file Legal Sex Male 4:40 PM CDT Gender Identity Not on file Sexual Orientation [...] on file Medical Devices Implanted Type Area Dumper Operator Device Identifier Shelf Expiration Date Model / Serial / Lot Stent Ureteral Contour Soft Percuflex [id number] Implanted:Qty: 1 on 09/11/2017 by Nelson Anderson MD at [facility] Stent Left: Ureter [employer] 06/22/2020 [id number] Insurance [employer] Care Teams Competency Evaluated Nurse Aide Relationship Specialty Start Date End Date Melvin Lau MD PCP - General Family Practice 09/08/17
--- OUTSIDE RECORDS SUMMARY | 2024-02-05 15:04 | XMS_ITS | Clinical Summary ---
Author Organization [facility] Address [address] [place] [address] Care Team Providers Care Plug Sorter Name Role Phone Melvin Lau MD Primary Care Provider [phone] Allergies No known active allergies Medications TAMSULOSIN [...] on file Medical Devices Implanted Type Area Exit Booth Agent Device Identifier Shelf Expiration Date Model / Serial / Lot Stent Ureteral Contour Soft Percuflex [id number] Implanted:Qty: 1 on 09/11/2017 by Nelson Anderson MD at [facility] Stent Left: Ureter [employer] 06/22/2020 [id number] Insurance [employer] Care Teams Plug Sorter Relationship Specialty Start Date End Date Melvin Lau MD PCP - General Family Practice 09/08/17
--- OUTSIDE RECORDS SUMMARY | 2024-02-05 15:04 | XMS_ITS | Data Portability ---
Author Organization [place] [facility] Address [address] [place] [address] Care Team Providers Care Agricultural Sciences Professor Name Role Phone THERESA YANCEY Referring Provider [phone] Assessment Encounter Date Assessment Date Assessment LastModified [...] Orders cyclobenzap rine 5 mg tablet 2023 [id number], [address] [place], [place], [id number], 19:07:13 Patient Targets Encounter Date Encounter Id Patient Goals Patient Target Last Modified By Organization Details Last Modified Time group home goals (to be met in 6 weeks):*Patient [...] By Organization Details Last Modified Time 04/07/2023 [id number] Self Care for TMD Not availab le 04/15/2023 09:27:04 oral appliance preparation* Not available 04/15/2023 09:27:06 Three Jaw Exercises Not available 04/15/2023 09:28:51 Contributing factors identified at today's appointment include: daytime clenching, sleep bruxism, oral habits. Not available 04/15/2023 09:29:16 04/15/2023 [id number] Total treatment time minutes today = 40 Next Visit Plan: how is joint mob? recheck ROM. Add CR. ROM to relocation 30mm, full 45 w/ pain. Patient/Therapist Goals: resume eating and decrease pain and popping Progress Note Date: 06/09 [email or web address] Not available 04/15/2023 11:28:26 04/28/2023 [id number] Total treatment time minutes today = 40 Next Visit Plan: Recheck ROM, upgrade CR. How was dry needling? ROM to relocation 40mm, full 42 w/ pain. Patient/Therapist Goals: resume eating and decrease pain and popping Progress Note Date: 06/09 [email or web address] Not available 04/28/2023 17:39:35 05/14/2023 [id number] Total treatment time minutes today = 33 [...] stabil izatio n applia nce Not Available [facility] [address], [place], [address], 04/15/2023 09:25:53 04/07/19 24 04/07/2023 XR, ortho panto gram No observ ation record ed. Not Available 2023 19:02:52 Result Notes None recorded. 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 Procedures Surgical History Date Name Laterality Status Provider Name and Address Organization Details Recorded Time 05/14/19 24 68921: Therapeutic Exercise completed Delmy Suresh DPT [address], [place], [address], [facility] 05/14/2023 18:09:34 05/14/19 24 93540: Neuromuscular Re-Education completed Delmy Suresh DPT [address], [place], [address], [facility] 05/14/2023 18:09:35 05/14/19 24 34206: Manual Therapy completed Delmy Suresh DPT [address], [place], [address], [facility] 05/14/2023 18:09:57 04/28/19 24 08386: Needle insertion(s) without injection(s), 1 or 2 muscle(s) completed Delmy Suresh DPT [address], [place], [address], [facility] 04/28/2023 17:39:15 04/28/19 24 15545: E-Stim - Direct Contact completed Delmy Suresh DPT [address], [place], [address], [facility] 04/28/2023 17:39:19 01/23/20 24 02237: Therapeutic Exercise completed Delmy Suresh, DPT [address], [place], [address], [facility] 04/28/2023 17:38:33 04/28/19 73792: Neuromuscular Re-Education completed Delmy Suresh, DPT [address], [place], [address], [facility] 04/28/2023 17:38:35 04/28/19 24 53705: Manual Therapy completed Delmy Suresh, DPT [address], [place], [address], [facility] 04/28/2023 17:38:32 04/15/19 67789 - PT Eval Moderate Complexity completed Delym Suresh, DPT [address], [place], [address], [facility] 04/15/2023 11:24:52 04/15/19 24 41395: Self Care/Home Management Training completed JERARDO PedrazaT [address], [place], [address], [facility] 04/15/2023 11:24:00 04/15/19 37385: Therapeutic Exercise completed JERARDO PedrazaT [address], [place], [address], [facility] 04/15/2023 11:23:54 04/15/19 24 46598: Manual Therapy completed Delmy Suresh, DPT [address], [place], [address], [facility] 04/15/2023 11:23:59 04/07/19 24 Orthopantogram completed Shaniqua Hanks [facility] 04/07/2023 18:50:07 hernia repair completed Shaniqua Hanks [facility] 04/07/2023 18:30:20 Shoulder Surgery [facility] 04/07/2023 18:30:31 [place] Teeth Extraction completed [facility] 04/07/2023 18:30:39 [...] Last Updated DateTime 177.8 cm 29.7 kg/m2 69805.6 2 g 49 /min 153 mm[Hg] 95 mm[Hg] Shaniqua [facility] 18:29:07 Date Recorded Body height Systolic blood pressure Diastolic blood pressure Provider Name and Address Organization Details Last Updated DateTime 05/26/2023 177.8 cm 139 mm[Hg] 101 mm[Hg] [facility] 05/26/2023 16:30:01 Social History Question Answer Notes LastModified by Organizat ion Details LastModified Time Tobacco Smoking Status Never Smoker Shaniqua Hanks [facility] [...] Or The Highest Degree You Have Received? [id number] Information not available 04/07/2023 What Is Your Occupation? [employer] Information not available 04/07/2023 What Number Best [...] Head Trauma/Injury N Irritable bowel syndrome N Hypothyroidism N Lung Disease N Glaucoma N Depression N COPD N Pneumonia N Pacemaker N Orthopedic Problems [...] Meningitis N Pancreatic disease N Heart Attack ([place]) N Stomach Ulcers N Diabetes N Back pain N Bleeding Disorder N Seizures/Epilepsy N Sjogren's syndrome N Tuberculosis N AIDS/HIV N Hyperlipidemia N History of radiation therapy N Dementia N Asthma N Physical or sexual abuse N Substance Abuse N Psoriasis N Peripheral Vascular Disease N Reflux/GERD N Mental Problems N Vertigo N Sleep Disorder N GERD/Reflux N Hepatitis N Aneurysm N Neuropathy N Heart Disease N Pulmonary Embolism N Hypertension N Osteoporosis N Immunizations Vaccine Type Date Status Provider Name and Address Organization Details Recorded Time influenza, unspecified formulation 01/04/2023 completed RAYMOND Corley [facility] 04/07/2023 18:28:37 SARS-COV-2 (COVID-19) vaccine, UNSPECIFIED 02/04/2023 completed RAYMOND Corley [facility] 04/07/2023 18:28:57 Past Encounters Encounter ID Performer Location Encounter Start Date Encounter Closed Date Diagnosis/Indication Diagnosis SNOMED-CT Code Diagnosis ICD10 Code [id number] ROSALINA MEZA BDS, [place] [facility] [address] [place] [id number] 04/07/2023 18:12:57 04/07/2023 19:25:21 Myofascial pain 046978465 M79.11 Spasm 09099503 R25.2 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 2025656094 6355795 M26.632 Episodic t ension-type headache 485908159 G44.219 [id number] Delmy Suresh, JERARDOT [place] to [address] [place] [id number] 04/15/2023 10:19:53 04/15/2023 11:37:43 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 2243607677 6513034 M26.632 Episodic t ension-type headache 582744303 G44.219 Myofascial pain 94676649 9 M79.11 Spasm 53693218 R25.2 [id number] Delmy Sweeneychanoeden, DPT [place] [address] [place] [id number] 04/28/2023 16:30:12 04/28/2023 17:22:39 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 9196072478 6411553 M26.632 Episodic t ension-type headache 069075608 G44.219 Myofascial pain 82740443 9 M79.11 Spasm 54782838 R25.2 [id number] Delmy Kerwin, DPT [facility] [address] [place] [id number] 05/14/2023 17:08:36 05/14/2023 18:04:53 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 5336731321 5307410 M26.632 Episodic t ension-type headache 305271906 G44.219 Myofascial pain 25314731 9 M79.11 Spasm 16759492 R25.2 [id number] PRERACHEL MEZA, BDS, [place] [address] [place] [id number] 05/26/2023 16:10:52 05/26/2023 18:16:47 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 7486804270 3930169 M26.632 Episodic t ension-type headache 452303320 G44.219 Myofascial pain 09929901 9 M79.11 Spasm 97119873 R25.2 Health Concerns Section Related Observation LastModified by Organization Detai ls LastModified Time None Recorded Concern Status LastModified by Organization Details LastModified Time None Recorded Advance Directives Directive None Recorded Payers Encounter Date Sequence Insurance Name Policy Number Policy [place] Covered Member ID [place] Member ID Guarantor Name 04/07/2023 1 [facility] [id number] Kevinryne Grace 04/15/2023 1 [employer] Kevinryne Grace [id number] Kevinryne Grace 04/28/2023 1 [employer] Kevinryne Grace [id number] Kevinryne Grace 05/14/2023 1 [employer] Kevinryne Grace [id number] Kevinryne Grace 05/26/2023 1 [facility] Kevinryne Grace [id number] Kevinryne Grace Notes Date Note Type Note [...] ear. He has been working for the [employer] for about 42 years. JAYLEEN MEZA BDS, [place] [address] [facility] [address], [place], [address], [facility] 04/15/2023 [...] (out of 80): 04/14/23=24 Delmy Suresh DPT [address] [place] [address], [address], [facility] 04/15/2023 11:28:42 4 text/html HPI Notes: Pt reports less pain and the clicking is still present. He would like the clicking to improved as others can hear it when he is eating. Delmy Suresh DPT [address] [facility] [address], [place], [address], [facility] 04/28/2023 17:40:59 4 text/html HPI Notes: Pt reports being sore from being at the dentist yesterday. More of an ear ache lately, backed off on the exercises. Wide opening more painful and it takes a while to calm down. Click still present with chewing on the R. Delmy Suresh DPT [address] [facility] [address], [place], [address], [facility] 05/14/2023 [...] for his pain. JAYLEEN MEZA BDS, [place] [address] [address], [place], [address], [facility] 05/26/2023 18:12:05
--- OUTSIDE RECORDS SUMMARY | 2024-02-05 15:05 | XMS_ITS | Data Portability ---
Author Organization [place] [facility] [place] [facility], [facility] Address [address] [place] [address] Assessment Encounter Date Assessment Date Assessment LastModified by Organization Details LastModified Time 01/09/2020 01/09/2020 59 Y/O MALE, HX CHRONIC [...] RESIDUAL STONES ON PREEV. C.T. DONE AT [facility], HOWEVER , RADIOLOGIST DID NOT STATE [...] EXPLAINED IN DETAIL. Not available 01/13/2024 16:29:46 01/26/2024 01/26/2024 63 y/o male, hx of recurrent stones. s/p rt urs, hll, rt stent. KUB LOOKS GOOD, RT STENT REMOVED. ALSO NOTED IS A 1.5 CM LEFT LOWER POLE STONES. ODERED REVIEWED KUB DISCUSSED MANAGEMENT OF LEFT RENAL STONES PLAN WILL SCHEDULE CYSTO , LEFT STENT, LEFT ESWL. PROCEDURE EXPLAINED IN DETAIL. Not available 01/26/2024 12:13:22 Plan of Treatment Reminders Order Date Submit Date Provider Last Modified By Organization Details Last Modified Time Details Appointments None recorded. Lab urinalysis, dipstick 2023 024 [facility], [address] [place], [address], 13:53:10 Referral None recorded. Procedures None recorded. Surgeries cystoscopy, with ureteroscop y, with lithotripsy , with insertion of ureteral stent (SURG) 2023 024 [email or web address] Not available 4 12:08:10 Imaging XR, kidney + ureter + bladder - PREV SHENANDOAH 12/12/2320[address] [facility] , [address], [place], [address], 4 04:19:08 Medication Orders Flomax 0.4 mg capsule 2023 024 [facility] #[id number], [address] [place], [place], [id number], 4 14:18:00 oxycodone 5 mg tablet 2023 024 [facility] #90347, [address] [place], [place], [id number], 4 14:17:59 tramadol 50 mg tablet 2023 024 ssamb Not available 16:17:51 tamsulosin 0.4 mg capsule 2023 024 [facility], [address] , [place], [place], [id number], 16:24:24 Patient TargetsNo targets recorded. Patient Instructions Encounter Date Encounter Id Patient Instructions Last Modified By Organization Details Last Modified Time 05/25/2023 [id number] Discussed medica l expulsive therapy versus surgical [...] Available [facility] [address], [place], [address], 05/25/2023 13:52:34 05/25/19 24 05/25/2023 urina lysis , dipst ick Clarity-Stat us Clear Not Available [facility] [address], [place], [address], 05/25/2023 13:52:34 05/25/19 24 05/25/2023 urina lysis , dipst ick Sp [place]-Stat us 1.020 Not Available [facility] [address], [place], [address], 05/25/2023 13:52:34 05/25/19 24 05/25/2023 urina lysis , dipst ick pH-Status 5.5 Not Available [facility] [address], [place], [address], 05/25/2023 13:52:34 05/25/19 24 05/25/2023 urina lysis , dipst ick Nitrates-Sta tus negati ve Not Available [facility] [address], [place], [address], 05/25/2023 13:52:34 05/25/19 24 05/25/2023 urina lysis , dipst ick Blood-Status Small Not Available [facility] [address], [place], [address], 05/25/2023 13:52:34 05/25/19 24 05/25/2023 urina lysis , dipst ick Leuko-Status Negati ve Not Available [facility] [address], [place], [address], 05/25/2023 13:52:34 05/25/19 24 05/25/2023 urina lysis , dipst ick Specimen Type Voided Not Available [facility] [address], [place], [address], 05/25/2023 13:52:34 05/25/19 24 05/25/2023 urina lysis , dipst ick Performed by Morales biju Willma n, RN Not Available [facility] [address], [place], [address], 05/25/2023 13:52:34 12/22/1912/12/2023 CT, abdom en + pelvi s, w/o contr ast No observ ation record ed. [email or web address], [place], [address], 01/12/2024 13:54:53 01/14/2001/13/2024 XR, kidne y + urete r + bladd er EXAM: XR, KIDNEY + URETER + BLADDE R LOCATI ON: [facility] [place] DATE: INDICA TION: Calcul us of kidney [...] Tawanna Connors MD on 2023 at 13:[address] [facility] [address], [place], [address], 01/27/2024 13:18:12 01/18/2001/18/2024 XR, urogr am, retro grade No observ ation record ed. [email or web address], [place], [address], 01/20/2024 09:11:16 01/26/2027 0101/26/2024 XR, kidne y + urete r + bladd er EXAM: XR, KIDNEY + URETER + BLADDE R [facility]ATI ON: [facility] DATE: 2023 INDICA TION: Calcul us of kidney . COMPAR GENOVEVA: 2023. IMPRES CHRIS: Right ureter stent in place. Promin ent left lower renal stone contin ues to be 15 mm. Right renal stone is 4 mm. Previo usly noted potent ial right ureter stone is limite d in view. Nonobs tructi ve bowel. Coils of the pelvis . This report was electr onical ly interp reted by: Ashutosh Cuevas MD on 2023 at 13:[address] [facility] [address], [place], [address], 01/27/2024 09:12:17 Result Notes Documentation Provider Name and Address Organization Details Recorded Time Xr, Kidney + Ureter + Bladder : EXAM: XR, KIDNEY + URETER + BLADDER LOCATION: [facility] DATE: 01/13/2024 INDICATION: Calculus of kidney COMPARISON: [...] Tawanna Connors MD on 01/14/2024 at 13:28 Nelson Anderson MD [address] [place] [address],[address], [place], [address], [facility] 01/27/2024 13:18:12 Xr, Kidney + Ureter + Bladder : EXAM: XR, KIDNEY + URETER + BLADDER LOCATION: [facility] DATE: 01/26/2024 INDICATION: Calculus of kidney. COMPARISON: 01/13/2024. IMPRESSION: Right ureter stent in place. Prominent left lower renal stone continues to be 15 mm. Right renal stone is 4 mm. Previously noted potential right ureter stone is limited in view. Nonobstructive bowel. Coils of the pelvis. This report was electronically interpreted by: Ashutosh Cuevas MD on 01/26/2024 at 13:58 Nelson Anderson MD [address] [place] [address],[address], [address], [facility] 01/27/2024 09:12:17 Problems Name Problem SNOMED Code Status Onset Date Resolution Date Notes Provider Name and Address Organization Details Recorded Time Calculus of kidney and ureter 624620573 Active 024 Nelson Anderson MD [address] [place] [address],[address], [address] , [facility] 4 14:41:07 Ureteric stone 23718517 Active 024 Nelson Anderson MD [address] [place] [address], [address] , [facility] 4 16:29:56 Right flank pain 882484334 Active 024 Nelson Anderson MD [address] [place] [address],[address], [address] , [facility] 4 16:30:01 Problem Notes None recorded. Procedures Surgical History Date Name Laterality Status Provider Name and Address Organization Details Recorded Time 01/26/20 24 Cystoscopy with foreign body/stent removal completed Nelson Anderson MD [address] [place] [address],[address], [address], [facility] 01/26/2024 12:11:09 01/26/20 24 COMPLEX VISIT completed Nelson Anderson MD [address] [place] [address],[address], [address], [facility] 01/26/2024 12:10:54 06/23/19 24 Cystoscopy with foreign body/stent removal completed Nelson Anderson MD [address] [place] [address],[address], [address], [facility] 06/23/2023 14:39:05 05/25/19 24 Urinalysis completed Macy Ding [facility] 05/25/2023 13:51:40 repair of shoulder completed Riley Lane [facility] 12/06/2019 16:23:28 procedure on wrist completed Riley Lane [facility] 12/06/2019 16:23:34 Fragmenting of kidney stone completed Riley Lane [facility] 12/06/2019 16:24:10 Imaging Results Imaging Date Name Status LastModified by Organiz ation Details LastModified Time 12/12/2023 CT, abdomen + pelvis, w/o contrast completed [email or web address], [place], [address], 01/12/2024 13:54:53 01/13/2024 XR, kidney + ureter + bladder completed [address] [facility] [address], [place], [address], 01/27/2024 13:18:12 01/18/2024 XR, urogram, retrograde completed [email or web address], [place], [address], 01/20/2024 09:11:16 01/26/2024 XR, kidney + ureter + bladder completed [address] [facility] [place] [address], [place], [address], 01/27/2024 09:12:17 Procedure Notes None recorded. Medical Equipment None [...] TABLET BY MOUTH EVERY 8 HOURS NEEDED active Not Available Not Available No t Available ketorolac 10 mg tablet active Not Available Not Available Not Available oxycodone-a cetaminophe n 5 mg-325 mg tablet active Not Available Not Available No t Available tamsulosin 0.4 mg capsule TAKE 1 CAPSULE BY MOUTH EVERY DAY active Not Available Not Available No t [...] Updated DateTime 01/09/2020 177.8 cm 28.3 kg/m2 74650.7 g Nelson Anderson MD [address] [place] [address] Urology 01/09/2020 14:53:37 Date Recorded Body height Body mass index (BMI) Body weight Provider Name and Address Organization Details Last Updated DateTime 01/13/2024 177.8 cm 28.3 kg/m2 00654.7 g Nelson Anderson MD [address] [place] [address] Urology 01/13/2024 15:53:44 Date Recorded Body height Body mass index (BMI) Body weight Provider Name and Address Organization Details Last Updated DateTime 01/26/2024 177.8 cm 28.3 kg/m2 [address] [facility] 01/26/2024 11:50:18 Social History Question Answer Notes LastModified by Organizat ion Details LastModified Time Tobacco Smoking Status Never Smoker Riley shen [facility] 12/06/2019 16:23:12 What Is Your Level [...] split virus, quadrivalent, preservative [facility]23 [facility] 13:57:34 Influenza, split virus, quadrivalent, preservative 01/16/2021 [facility]23 13:57:34 Influenza, split virus, quadrivalent, preservative 01/18/2020 [facility]/25[facility]2023 13:57:34 Influenza, split virus, quadrivalent, preservative 02/21/2022 [facility] 05/25/2023 13:57:34 COVID-19, mRNA, LNP-S, PF, 100 mcg/0.5mL dose or 50 mcg/0.25mL dose 05/03/2020 [facility] 05/25/2023 13:57:34 COVID-19, mRNA, LNP-S, PF, 100 mcg/0.5mL dose or 50 mcg/0.25mL dose 11/01/2021 karyn shen [facility] 05/25/2023 13:57:34 COVID-19, mRNA, LNP-S, PF, 100 mcg/0.5mL dose or 50 mcg/0.25mL dose 04/05/2020 completed Macy shen [facility] 05/25/2023 13:57:34 COVID-19, mRNA, LNP-S, PF, 30 mcg/0.3 mL dose 03/27/2021 karyn shen [facility] 05/25/2023 13:57:34 COVID-19, mRNA, LNP-S, PF, 50 mcg/0.5 mL 01/30/2023 completed Macy shen, [facility] 05/25/2023 13:57:34 Tdap 06/02/2011 completed Macy Ding null, [facility] 05/25/2023 13:57:34 Tdap 03/13/2008 completed Macy Ding null, [facility] 05/25/2023 13:57:34 Influenza, split virus, trivalent, preservative 03/14/2008 completed Macy Ding null, [facility] 05/25/2023 13:57:34 Influenza, split virus, quadrivalent, PF 01/24/2020 completed Macy shen, [facility] 05/25/2023 13:57:34 Influenza, split virus, quadrivalent, PF 02/15/2018 completed Macy shen, [facility] 05/25/2023 13:57:34 Tdap 06/12/[address] null, [facility] 01/13/2024 15:51:31 Past Encounters Encounter ID Performer Location Encounter Start Date Encounter Closed Date Diagnosis/Indication Diagnosis SNOMED-CT Code Diagnosis ICD10 Code [id number] MD NATHANIEL [facility] [address] [place] [address] 12/06/2019 16:01:42 12/08/2019 11:34:14 Pain in testicle 03119089 N50.819 [id number] MD NATHANIEL [facility] [address] [place] [address] 12/16/2019 12:31:24 12/19/2019 12:53:19 Pain in scrotum 24183801 N50.82 [id number] MD Jarett Gupta [address] [place] [address] 01/09/2020 14:37:55 01/09/2020 17:54:17 Inguinal pain 809948398 R10.2 Pain in testicle 9468366 9 N50.819 [id number] ARCHIE [facility] [address] [place] [address] 05/25/2023 13:19:17 06/01/2023 09:29:06 Kidney stone 68540665 N20.0 [id number] Nelson Anderson MD _[facility] [address] [place] [address] 06/23/2023 14:02:00 06/24/2023 11:03:24 Calculus of kidney and ureter 671987387 N20.2 [id number] Nelson Anderson MD _[place] [address] [place], [place] [address] 01/13/2024 15:46:35 01/14/2024 14:25:07 Calculus of kidney and ureter 871817668 N20.2 Ureteric stone 52658005 N20.1 Right flank pain 1550844 09 R10.9 [id number] Nelson Anderson MD _[place] [address] [place] [address] 01/26/2024 11:11:06 01/29/2024 11:47:26 Right flank pain 214699302 R10.9 Calculus o f kidney and ureter 716019719 N20.2 Health Concerns Section Related Observation LastModified by Organization Detai ls LastModified Time None Recorded Concern Status LastModified by Organization Details LastModified Time None Recorded Advance Directives Directive None Recorded Payers Encounter Date Sequence Insurance Name Policy Number Policy [place]den Covered Member ID [place] Member ID Guarantor Name 01/09/2020 1 [facility] [id number] Kevin Grace 05/25/2023 1 [facility] Grace [id number] Kevin Grace 06/23/2023 1 TOMAS Grace [id number] Kevin Grace 01/13/2024 1 [facility] [id number] Kevin Grace 01/26/2024 1 [facility] Grace [id number] Kevin Grace Notes Date Note Type Note Provider Name and Address Organization Details Recorded Time 01/09/2020 text/html HPI Notes: 59 YOM HERE [...] ACCORDING TO PATIENT. Nelson Anderson MD [address], [place], [address], [facility] 01/09/2020 15:52:15 05/25/2023 text/html HPI [...] Denies fever/chills, dysuria, n/v. 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 Has a long h/o stones, most recently passed stone 2018. Has required several surgeries with Dr Anderson. H/o chronic left testicular pain, tried marcaine spermatic cord block with Dr Anderson with minimal relief. UA today with blood NADIA GAYTAN PA-C [address] [facility] [facility],[address], [place], [address], [facility] 05/25/2023 14:42:36 06/23/2023 text/html HPI [...] Denies fever/chills, dysuria, n/v. 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 Nelson Anderson MD [address] [place] [address],[address], [place], [address], [facility] 06/23/2023 14:41:23 01/13/2024 text/html HPI [...] Denies fever/chills, dysuria, n/v. 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 Nelson Anderson MD [address] [facility],[address], [place], [address], [facility] 01/13/2024 16:30:18 01/26/2024 text/html HPI Notes: 62 yo M here [...] Denies fever/chills, dysuria, n/v. 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 Has a long h/o stones, most recently passed stone 2018. Has required several surgeries with Dr Anderson. H/o chronic left testicular pain, tried marcaine spermatic cord block with Dr Anderson with minimal relief. UA today with blood STENT REMOVAL ON 06/2201/26/24 MOD RT FLANK PAIN. KUB SHOWS THAT THE STONE HAS MIGRATED INTO THE DISTAL URETER. ALSO NOTED WAS A LARGE 1.5 CM LEFT LOWER POLE STONE.here for stent removal. Nelson Anderson MD [address] [place] [address],[address], [place], [address], [facility] 01/26/2024 12:13:52
--- OUTSIDE RECORDS SUMMARY | 2024-02-05 15:05 | XMS_ITS | Continuity of Care Document ---
Author Organization [facility], [facility] Address [address] [place] [address] Assessment Encounter Date Assessment Date Assessment LastModified [...] kidney + ureter + bladder - [facility] [place] 12/12/232023 [facility] , [address], [place], [address], 04:19:08 Medication Orders tramadol 50 mg tablet 2023 ssamb Not available 16:17:51 tamsulosin 0.4 mg capsule 2023 [place], [address] , [place], [place], [id number], 16:24:24 Patient TargetsNo targets recorded. Patient InstructionsNo instructions recorded. Reason for Referral None Reported. Results Created Date Observation Date Name Description Value Unit Range Abnormal Flag Note LastModifiedBy Organization Detail LastModifiedTime 12/22/19 24 12/12/2023 CT, abdom en + pelvi s, w/o contr ast No observ ation record ed. [email or web address], [place], [address], 01/12/2024 13:54:53 01/14/2001/13/2024 XR, kidne y + urete r + bladd er EXAM: XR, KIDNEY + URETER + BLADDE R LOCATI ON: [facility] [place] DATE: INDICA TION: Calcul us of kidney [...] Tawanna Connors MD on 2023 at 13:[address] [facility] [place] [address] [facility] [address], [place], [address], 01/27/2024 13:18:12 01/18/2001/18/2024 XR, urogr am, retro grade No observ ation record ed. [email or web address] [facility] [address], [place], [address], 01/20/2024 09:11:16 01/26/20 24 01/26/2024 XR, kidne y + urete r + bladd er EXAM: XR, KIDNEY + URETER + BLADDE R LOCATI ON: [facility] DATE: 2023 INDICA TION: [...] Ashutosh Cuevas MD on 2023 at 13:[address] [facility] [place] [address] [facility] [address], [place], [address], 01/27/2024 09:12:17 Result Notes None recorded. Problems Name Problem SNOMED Code Status Onset Date Resolution Date Notes Provider Name and Address Organization Details Recorded Time Calculus of kidney and ureter 576207174 Active 024 Nelson Anderson MD [address] [place] [address],[address], [address] , [facility] 4 14:41:07 Ureteric stone 34093521 Active 024 Nelson Anderson MD [address] [place] [address],[address], [address] , [facility] 4 16:29:56 Right flank pain 888525043 Active 024 Nelson Anderson MD [address] [place] [address],[address], [address] , [facility] 4 16:30:01 Problem Notes None recorded. Procedures Surgical History Date Name Laterality Status Provider Name and Address Organization Details Recorded Time 01/26/20 24 Cystoscopy with foreign body/stent removal completed Nelson Anderson MD [address] [place] [address],[address], [address], [facility] 01/26/2024 12:11:09 01/26/20 24 COMPLEX VISIT completed Nelson Anderson MD [address] [facility],[address], [place], [address], [facility] 01/26/2024 12:10:54 06/23/19 24 Cystoscopy with foreign body/stent removal completed Nelson Anderson MD [address] [facility],[address], [place], [address], [facility] 06/23/2023 14:39:05 05/25/19 24 Urinalysis completed Macy Ding [facility] 05/25/2023 13:51:40 repair of shoulder completed Riley Ariana [facility] 12/06/2019 16:23:28 procedure on wrist completed Riley Lane [facility] 12/06/2019 16:23:34 Fragmenting of kidney stone completed Riley [facility] 12/06/2019 16:24:10 Imaging Results None recorded. Procedure [...] Updated DateTime 01/13/2024 177.8 cm 28.3 kg/m2 14855.7 g Nelson Anderson MD [address] [place] [address],[address], [place], [address], [facility] 01/13/2024 15:53:44 Social History Question Answer Notes LastModified by Organizat ion Details LastModified Time Tobacco Smoking Status Never Smoker Riley Ariana shen [facility] 12/06/2019 16:23:12 What Is Your Level [...] virus, quadrivalent, preservative 01/15/[address] [facility] 05/25/2023 13:57:34 Influenza, split virus, quadrivalent, preservative 01/16/[address] [facility] 05/25/2023 13:57:34 Influenza, split virus, quadrivalent, preservative 01/18/[address] [facility] 05/25/2023 13:57:34 Influenza, split virus, quadrivalent, preservative 02/21/[address] [facility] 05/25/2023 13:57:34 COVID-19, mRNA, LNP-S, PF, 100 mcg/0.5mL dose or 50 mcg/0.25mL dose 05/03/2020 completed Macy Ding null, [facility] 05/25/2023 13:57:34 COVID-19, mRNA, LNP-S, PF, 100 mcg/0.5mL dose or 50 mcg/0.25mL dose 11/01/2021 [facility] 13:57:34 COVID-19, mRNA, LNP-S, PF, 100 mcg/0.5mL dose or 50 mcg/0.25mL dose 04/05/2020 completed Macy Ding null, [facility] 05/25/2023 13:57:34 COVID-19, mRNA, LNP-S, PF, 30 mcg/0.3 mL dose 03/27/2021 [facility] 13:57:34 COVID-19, mRNA, LNP-S, PF, 50 mcg/0.5 mL 01/30/2023 completed Macy shen, [facility] 05/25/2023 13:57:34 Tdap 06/02/2011 completed Macy shen, [facility] 05/25/2023 13:57:34 Tdap 03/13/2008 [facility] 13:57:34 Influenza, split virus, trivalent, preservative 03/14/2008 [facility] 13:57:34 Influenza, split virus, quadrivalent, PF 01/24/2020 completed Macy shen, [facility] 05/25/2023 13:57:34 Influenza, split virus, quadrivalent, PF 02/15/2018 [facility]23 13:57:34 Tdap 06/12/2023 [facility] 01/13/2024 15:51:31 Past Encounters Encounter ID Performer Location Encounter Start Date Encounter Closed Date Diagnosis/Indication Diagnosis SNOMED-CT Code Diagnosis ICD10 Code [id number] Nelson Anderson MD [facility] [address] [place] [address] 01/13/2024 15:46:35 01/14/2024 14:25:07 Calculus of kidney and ureter 602101255 N20.2 Ureteric stone 59638191 N20.1 Right flank pain 6702820 09 R10.9 Health Concerns Section Related Observation LastModified by Organization Detai ls LastModified Time None Recorded Concern Status LastModified by Organization Details LastModified Time None Recorded Payers Encounter Date Sequence Insurance Name Policy Number Policy Ogden Covered Member ID Ogden Member ID Guarantor Name 01/13/2024 1 [employer] [id number] Kevin Sanjay [id number] Kevin Sridhar Grace Notes Date Note Type [...] Denies fever/chills, dysuria, n/v. 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 Nelson Anderson MD [address] [facility],[address], [place], [address], [facility] 01/13/2024 16:30:18
--- OUTSIDE RECORDS SUMMARY | 2024-02-05 15:05 | XMS_ITS | Patient Health Record ---
Author Organization [facility] Address [address] [place] [address] [place] [address] Care Team Providers Care Lineman Name Role Phone SELF, SELF Primary Care [...] Status Risk Notes Problem Gastroesophageal reflux disease (431228783) GERD (gastroesopha geal reflux disease) (K21.9) Active confirmed Problem Hiatal hernia (56381634) Hiatal hernia (K44.9) Active confirmed Problem Recurrent left inguinal hernia (805843990) Recurrent left inguinal hernia (K40.91) Active confirmed Problem Pain in testicle (41095458) Pain in left testicle (N50.812) Active confirmed Problem Postoperative follow-up visit (010043330) Post op follow-up exam (Z48.89) Active confirmed Plan Of Treatment No Information Insurance Providers Payer Name Payer Address Payer Phone Subscriber Number Group Number Insured Name Patient Relationship to Insured Coverage Start Date Coverage End Date [facility] [address] [address] [place] [address] [id number] KYLAH BRADY Self - patient is the [...]
== END 2024-02-05 15:01 | disposition home or self-care (01) ==
LOC: LKVREF 15:02
PROVIDERS: PCP Family Medicine; Visit Provider Family Medicine
DX: Z01.818 Encounter for other preprocedural examination (principal)
CPT/HCPCS: 80048

== ENCOUNTER 2024-02-23 06:58 | Day surgery (SDC) | payer OTHER, SELFPAY ==
[2024-02-23] VITALS (18 sets, daily range): BP systolic 97–153; BP diastolic 66–92; PULSE 59–71; RESP 16; TEMP 35.8–36.3; O2SAT 92–97; BMI 30.2
--- OUTSIDE RECORDS SUMMARY | 2024-02-23 07:01 | XMS_ITS | Clinical Summary ---
Author Organization [facility] Address [address] [place] [address] [place] [address] Care Team Providers Care Acid Condenser Name Role Phone Clinic, No Primary Unavailable Unavailable Kolby Lau MD Primary Care Provider [phone] Allergies No known active allergies Medications acetaminophen (TYLENOL) 325 mg oral tablet Take [...] (eight) hours as needed. 20 tablet 02/24/2020 5:04 PM DENTAL TECHNICIAN INSTRUCTOR 02/24/2020 Active calcium carbonate (TUMS) 200 mg [...] at Not on file Legal Sex Male 2:22 PM DENTAL TECHNICIAN INSTRUCTOR Gender Identity Not on file Sexual Orientation Not on file Last Filed Vital Signs Vital Sign Reading Time Taken Comments Blood Pressure 139/83 04/10/2020 1:15 PM DENTAL TECHNICIAN INSTRUCTOR Pulse 55 04/10/2020 1:15 PM DENTAL TECHNICIAN INSTRUCTOR Temperature 36.1 C (97 F) 04/10/2020 1:15 PM DENTAL TECHNICIAN INSTRUCTOR Respiratory Rate 16 04/10/2020 1:15 PM DENTAL TECHNICIAN INSTRUCTOR Oxygen Saturation 100% 04/10/2020 1:15 PM DENTAL TECHNICIAN INSTRUCTOR Inhaled Oxygen Concentration - - Weight 92.5 kg (204 lb) 04/03/2020 9:47 AM DENTAL TECHNICIAN INSTRUCTOR Height 177.8 cm (5' 10) 04/03/2020 9:47 AM DENTAL TECHNICIAN INSTRUCTOR Body Mass Index 29.27 04/03/2020 9:47 AM DENTAL TECHNICIAN INSTRUCTOR Plan of Treatment Health Maintenance Due Date Last Done Comments Colonoscopy 1962 Hepatitis C Screening 1960 Lipid Screening 1962 Anxiety Screening (KAT-2) 08/31/1963 Depression Assessment (PHQ-2) 08/31/1963 Zoster Vaccine (1 of 2) 2012 Yearly Review of HCD 03/08/2021 03/08/2020, 02/24/2020 Adult Tetanus Booster 06/02/2021 06/02/2011 , 03/13/2008 COVID-19 Vaccine ( - 2023-2 5 season) 2023 Influenza Vaccine (#1) 2023 , 01/18/2020, 02/15/2018 RSV Vaccines (1 - 1-dose 75+ series) 2037 Pneumococcal <65 Aged Out No longer e ligible based on patient's age to complete this topic Medical Devices Implanted Type Area Plant Taxonomist Device Identifier Shelf Expiration Date Model / Serial / Lot Foley Cf Capsule - [id number] Implanted:Qty: 1 on 04/10/2020 by Kobe Johnson MD at [facility] Prosthetic Implant Non-Specific [employer] 05/17/2021 [id number] Insurance [id number] OPEN ACCESS/CHOICE [id number] OPEN ACCESS/CHOICE [id number] OPEN ACCESS/CHOICE Care Teams Acid Condenser Relationship Specialty Start Date End Date Clinic, No Primary PCP - Primary Care Clinic 02/24/20 [place] [address] [place] [address] PCP - General 02/24/20
--- OUTSIDE RECORDS SUMMARY | 2024-02-23 07:01 | XMS_ITS | Referral Summary ---
Author Organization [facility] Address [address] [place], [place] [address] [address] Care Team Providers Care Lna Name Role Phone Clinic, No Primary Unavailable Unavailable Kolby Lau MD Primary Care Provider [phone] Allergies No known active allergies Medications acetaminophen [...] as needed. 20 tablet 02/24/2020 5:04 PM BLUE PRINTS TRIMMER 02/24/2020 Active calcium carbonate (TUMS) 200 mg [...] on file Legal Sex Male 2:22 PM BLUE PRINTS TRIMMER Gender Identity Not on file Sexual Orientation Not on file Last Filed Vital Signs Vital Sign Reading Time Taken Comments Blood Pressure 139/83 04/10/2020 1:15 PM BLUE PRINTS TRIMMER Pulse 55 04/10/2020 1:15 PM BLUE PRINTS TRIMMER Temperature 36.1 C (97 F) 04/10/2020 1:15 PM BLUE PRINTS TRIMMER Respiratory Rate 16 04/10/2020 1:15 PM BLUE PRINTS TRIMMER Oxygen Saturation 100% 04/10/2020 1:15 PM BLUE PRINTS TRIMMER Inhaled Oxygen Concentration - - Weight 92.5 kg (204 lb) 04/03/2020 9:47 AM BLUE PRINTS TRIMMER Height 177.8 cm (5' 10) 04/03/2020 9:47 AM BLUE PRINTS TRIMMER Body Mass Index 29.27 04/03/2020 9:47 AM BLUE PRINTS TRIMMER Plan of Treatment Not on file Medical Devices Implanted Type Area Teaching Supervisor Device Identifier Shelf Expiration Date Model / Serial / Lot Foley Cf Capsule - [id number] Implanted:Qty: 1 on 04/10/2020 by Kobe Johnson MD at [facility] Prosthetic Implant Non-Specific [employer] 05/17/2021 [id number] / [id number] / [id number] Insurance [email or web address] OPEN ACCESS/CHOICE [email or web address] OPEN ACCESS/CHOICE [email or web address] OPEN ACCESS/CHOICE Care Teams Lna Relationship Specialty Start Date End Date Clinic, No Primary PCP - Primary Care Clinic 02/24/20 [place] [address] [place] [address] PCP - General 02/24/20
--- OUTSIDE RECORDS SUMMARY | 2024-02-23 07:01 | XMS_ITS | Data Portability ---
Author Organization [place] [facility] Address [address] [place] [address] Care Team Providers Care Salesperson Florist Supplies Name Role Phone THERESA YANCEY Referring Provider [phone] Assessment Encounter Date Assessment Date Assessment LastModified [...] Orders cyclobenzap rine 5 mg tablet 2023 [id number], [address] [place], [place], [id number], 19:07:13 Patient Targets Encounter Date Encounter Id Patient Goals Patient Target Last Modified By Organization Details Last Modified Time retirement goals (to be met in 6 weeks):*Patient [...] By Organization Details Last Modified Time 04/07/2023 [id number] Self Care for TMD Not availab le 04/15/2023 09:27:04 oral appliance preparation* Not available 04/15/2023 09:27:06 Three Jaw Exercises Not available 04/15/2023 09:28:51 Contributing factors identified at today's appointment include: daytime clenching, sleep bruxism, oral habits. Not available 04/15/2023 09:29:16 04/15/2023 [id number] Total treatment time minutes today = 40 Next Visit Plan: how is joint mob? recheck ROM. Add CR. ROM to relocation 30mm, full 45 w/ pain. Patient/Therapist Goals: resume eating and decrease pain and popping Progress Note Date: 06/09 [email or web address] Not available 04/15/2023 11:28:26 04/28/2023 [id number] Total treatment time minutes today = 40 Next Visit Plan: Recheck ROM, upgrade CR. How was dry needling? ROM to relocation 40mm, full 42 w/ pain. Patient/Therapist Goals: resume eating and decrease pain and popping Progress Note Date: 06/09 lhovda Not available 04/28/2023 17:39:35 05/14/2023 [id number] Total treatment time minutes today = 33 [...] stabil izatio n applia nce Not Available [facility] [address], [place], [address], 04/15/2023 09:25:53 04/07/19 24 04/07/2023 XR, ortho panto gram No observ ation record ed. Not Available 2023 19:02:52 Result Notes None recorded. 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 Procedures Surgical History Date Name Laterality Status Provider Name and Address Organization Details Recorded Time 05/14/19 24 60319: Therapeutic Exercise completed Delmy Suresh DPT [address], [place], [address], [facility] 05/14/2023 18:09:34 05/14/19 24 30855: Neuromuscular Re-Education completed Delmy Suresh DPT [address], [place], [address], [facility] 05/14/2023 18:09:35 05/14/19 24 08310: Manual Therapy completed Delmy Suresh DPT [address], [place], [address], [facility] 05/14/2023 18:09:57 04/28/19 24 46609: Needle insertion(s) without injection(s), 1 or 2 muscle(s) completed Delmy Suresh DPT [address], [place], [address], [facility] 04/28/2023 17:39:15 04/28/19 24 24296: E-Stim - Direct Contact completed Delmy Suresh DPT [address], [place], [address], [facility] 04/28/2023 17:39:19 01/23/20 24 89872: Therapeutic Exercise completed Delmy Suresh, DPT [address], [place], [address], [facility] 04/28/2023 17:38:33 04/28/19 61843: Neuromuscular Re-Education completed Delmy Suresh, DPT [address], [place], [address], [facility] 04/28/2023 17:38:35 04/28/19 24 15444: Manual Therapy completed Delmy Suresh, DPT [address], [place], [address], [facility] 04/28/2023 17:38:32 04/15/19 21525 - PT Eval Moderate Complexity completed Delmy Suresh, DPT [address], [place], [address], [facility] 04/15/2023 11:24:52 04/15/19 24 86972: Self Care/Home Management Training completed JERARDO PedrazaT [address], [place], [address], [facility] 04/15/2023 11:24:00 04/15/19 67729: Therapeutic Exercise completed JERARDO PedrazaT [address], [place], [address], [facility] 04/15/2023 11:23:54 04/15/19 24 27463: Manual Therapy completed Delmy Suresh, DPT [address], [place], [address], [facility] 04/15/2023 11:23:59 04/07/19 24 Orthopantogram completed Shaniqua Hanks [facility] 04/07/2023 18:50:07 hernia repair completed Shaniqua Hanks [facility] 04/07/2023 18:30:20 [facility]er [facility] 04/07/2023 18:30:31 [place] Teeth Extraction [facility] [...] Last Updated DateTime 177.8 cm 29.7 kg/m2 34519.6 2 g 49 /min 153 mm[Hg] 95 mm[Hg] [facility] 18:29:07 Date Recorded Body height Systolic blood pressure Diastolic blood pressure Provider Name and Address Organization Details Last Updated DateTime 05/26/2023 177.8 cm 139 mm[Hg] 101 mm[Hg] [facility] [...] Or The Highest Degree You Have Received? [id number] Information not available 04/07/2023 What Is Your Occupation? [employer] Information not available 04/07/2023 What Number Best [...] History Condition Response Coronary Artery Disease N Gout N Other Y Chronic fatigue syndrome N Hyperthyroidism N Premenstrual syndrome (PMS) N MRSA N Emphysema N Head Trauma/Injury N Irritable bowel syndrome N Glaucoma N Lung Disease N COPD N Depression N Hypothyroidism N Pneumonia N Pacemaker N [...] Meningitis N Pancreatic disease N Heart Attack ([place]) N Stomach Ulcers N Back pain N Diabetes N Bleeding Disorder N Seizures/Epilepsy N Sjogren's syndrome N Mental Health Concerns N Tuberculosis N AIDS/HIV N History of radiation therapy N Hyperlipidemia N Dementia N Asthma N Physical or sexual abuse N Substance Abuse N Peripheral Vascular Disease N Psoriasis N Reflux/GERD N Vertigo N Sleep Disorder N GERD/Reflux N Aneurysm N Hepatitis N Heart Disease N Neuropathy N Pulmonary Embolism N Hypertension N Osteoporosis N Immunizations Vaccine Type Date Status Provider Name and Address Organization Details Recorded Time influenza, unspecified formulation 01/04/2023 completed RAYMOND Corley [facility] 04/07/2023 18:28:37 SARS-COV-2 (COVID-19) vaccine, UNSPECIFIED 02/04/2023 completed RAYMOND Corley [facility] 04/07/2023 18:28:57 Past Encounters Encounter ID Performer Location Encounter Start Date Encounter Closed Date Diagnosis/Indication Diagnosis SNOMED-CT Code Diagnosis ICD10 Code [id number] ROSALINA MEZA BDS, [place] [address] [place] [id number] 04/07/2023 18:12:57 04/07/2023 19:25:21 Myofascial pain 218945863 M79.11 Spasm 23475447 R25.2 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 0507481648 0706137 M26.632 Episodic t ension-type headache 756866504 G44.219 [id number] JERARDO PedrazaT [place] [facility] [address] [place] [id number] 04/15/2023 10:19:53 04/15/2023 11:37:43 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 1701286363 4696958 M26.632 Episodic t ension-type headache 807139190 G44.219 Myofascial pain 91864686 9 M79.11 Spasm 00777667 R25.2 [id number] Delmy Sweeneychanoeden, DPT [place] [address] [place] [id number] 04/28/2023 16:30:12 04/28/2023 17:22:39 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 4900287885 4490234 M26.632 Episodic t ension-type headache 824460569 G44.219 Myofascial pain 20421967 9 M79.11 Spasm 89644225 R25.2 [id number] Delmy Kerwin, DPT [place] [address] [place] [id number] 05/14/2023 17:08:36 05/14/2023 18:04:53 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 1576852029 7469986 M26.632 Episodic t ension-type headache 693531217 G44.219 Myofascial pain 54249762 9 M79.11 Spasm 01204600 R25.2 [id number] FRANKLIN ALANIZS, [place] [address] [place] [id number] 05/26/2023 16:10:52 05/26/2023 18:16:47 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 8053083877 8865838 M26.632 Episodic t ension-type headache 026847829 G44.219 Myofascial pain 23374056 9 M79.11 Spasm 48285865 R25.2 Health Concerns Section Related Observation LastModified by Organization Detai ls LastModified Time None Recorded Concern Status LastModified by Organization Details LastModified Time None Recorded Advance Directives Directive None Recorded Payers Encounter Date Sequence Insurance Name Policy Number Policy [place] Covered Member ID [place] Member ID Guarantor Name 04/07/2023 1 [facility] [id number] Kevinryne Grace 04/15/2023 1 [employer] Grace [id number] Kevin Grace 04/28/2023 1 [employer] Kevin Grace [id number] Kevin Grace 05/14/2023 1 [employer] Grace [id number] Kevin Grace 05/26/2023 1 [facility] Kevin Grace [id number] Kevinryne Grace Notes Date Note Type Note Provider Name and Address Organization Details Recorded Time 4 text/html general HPI for jaw, face, TMD painReported bypatient.Onset:starte d 3 week(s) ago Location:left; masseteric; temporal Quality:dull Severity:pain level 3/10 Durationconstant Symptom triggers:chews hard/crunchy/chewy foods Aggravating Factors:yawning; wide mouth opening; dental work; chewing Alleviating Factors:NSAIDs; acetaminophen; ice Associated Symptoms:no tooth pain; no malocclusion; no tinnitus;jaw popping left;headaches Prior Treatment:chiropractor adjustment Prior opiniondentist Patient presents today for evaluation of a possible temporomandibular disorder. These symptoms are {{acute* chronic}} and began with {{ no clear triggering events significant stress and tension eating something hard#}}. Previous consultation include {{ none evaluation with his/her primary care provider evaluation with his/her dentist* evaluation with both his/her dentist and primary care provider}}. Symptoms are {{right sided only left sided only* bilateral}} and aggravated by {{ no clear triggers jaw use and function* clenching and grinding of their teeth stress and tension}}. The patient is {{aware not aware*}} of teeth clenching and grinding.Kevin states he was biting into a frozen [...] ear. 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 JAYLEEN MEZA BDS, [place] [address] [facility] [address], [place], [address], [facility] 04/15/2023 09:30:51 4 text/html Patient presents today for PT evaluation regarding: L sided jaw popping and pain.Symptoms present for: about a month after biting into a frozen cookieAggravated by: chewingImproved by: heat and massaging itCurrent symptoms are reported at -06/13. Pt was previously able to complete ADLs and IADLs I without limitation or pain.Functional limitations and participation restrictions currently include:*yawning*speak ing*laughing*oral hygiene*eating*friends and significant other can hear the click when he's eating Personal factors and/or comorbidities affecting the plan of care include:*Headaches: yes*Clenching*Bruxism* Stress*Stimulant use: caffeine*Medical/Surgi david Hx: hernia repair, shoulder surgery - B RC repairs, 3rd molars, GERD. Denies: numbness, tingling, vision changes, swallowing difficulty. Previous Treatment: Dr. Meza Patient Goals include: Resume eating and decrease pain and popping. Patient Reported Outcome JFLS-8 (out of 80): 04/14/23=24 Delmy Suresh DPT [address] [facility] [address], [place], [address], [facility] 04/15/2023 11:28:42 4 text/html Pt reports less pain and the clicking is still present. He would like the clicking to improved as others can hear it when he is eating. Delmy Suresh DPT [address] [facility] [address], [place], [address], [facility] 04/28/2023 17:40:59 4 text/html Pt reports being sore from being at the dentist yesterday. More of an ear ache lately, backed off on the exercises. Wide opening more painful and it takes a while to calm down. Click still present with chewing on the R. Delmy Suresh DPT [address] [facility] [address], [place], [address], [facility] 05/14/2023 18:10:15 4 text/html general HPI for jaw, face, TMD painReported bypatient.Onset:starte d 3 week(s) ago Location:left; masseteric; temporal Quality:dull Severity:pain level 0-3/10 Durationintermittent Symptom triggers:chews hard/crunchy/chewy foods Aggravating Factors:yawning; wide mouth opening; dental work; chewing Alleviating Factors:NSAIDs; acetaminophen; ice; soft foods; avoids opening wide, avoids hard foods Associated Symptoms:no tooth pain; no malocclusion; no tinnitus;jaw popping left;headaches Prior Treatment:chiropractor adjustment Prior opiniondentist Patient presents today for follow-up. They report jaw symptoms which are {{improved* stable chr onic chronic and progressive worsened u nchanged flared resolv ed}} since the previous visit. Symptoms and pertinent information along with prior data was reviewed, updated and documented in the patient history of present illness. Patient rates the pain intensity as {{0* 1 2 3 4 5 6 7 8 9 10}} on a scale of 0 to 10. Patient is {{engaged in* not engaged in partially engaged in completed discontin ued}} active treatment at this time.Kevin is present today for a follow up [...] for his pain. JAYLEEN MEZA BDS, [place] [address] [facility] [address], [place], [address], [facility] 05/26/2023 18:12:05
--- OUTSIDE RECORDS SUMMARY | 2024-02-23 07:01 | XMS_ITS | Clinical Summary ---
Author Organization [facility] Address [address] [place] [address] Care Team Providers Care Doctorate Of Chiropractic Name Role Phone Melvin Lau MD Primary Care Provider [phone] Allergies No known active allergies Medications TAMSULOSIN [...] AM CDT Pulse - - Temperature 36.1 C (97 F) 09/11/2017 9:30 AM CDT Respiratory Rate 16 09/11/2017 10:30 AM CDT Oxygen Saturation 97% 09/11/2017 10:30 AM CDT Inhaled Oxygen Concentration - - Weight 88.5 kg (195 lb) 09/11/2017 6:03 AM CDT Height 177.8 cm (5' 10) 09/11/2017 6:03 AM CDT Body Mass Index 27.98 09/11/2017 6:03 AM CDT Plan of Treatment Not on file Medical Devices Implanted Type Area Bench Worker Helper Device Identifier Shelf Expiration Date Model / Serial / Lot Stent Ureteral Contour Soft Percuflex [id number] Implanted:Qty: 1 on 09/11/2017 by Nelson Anderson MD at [facility] Stent Left: Ureter [employer] 06/22/2020 [id number] Insurance Bl[employer] Care Teams Doctorate Of Chiropractic Relationship Specialty Start Date End Date Melvin Lau MD PCP - General Family Practice 09/08/17
--- OUTSIDE RECORDS SUMMARY | 2024-02-23 07:01 | XMS_ITS | Referral Summary ---
Author Organization [facility] Address [address] [place] [address] Care Team Providers Care Integrity Analyst Name Role Phone Melvin Lau MD Primary Care Provider [phone] Allergies No known active allergies Medications TAMSULOSIN [...] on file Medical Devices Implanted Type Area Perinatal Tech Device Identifier Shelf Expiration Date Model / Serial / Lot Stent Ureteral Contour Soft Percuflex [id number] Implanted:Qty: 1 on 09/11/2017 by Nelson Anderson MD at [facility] Stent Left: Ureter [employer] 06/22/2020 [id number] Insurance [employer] Care Teams Integrity Analyst Relationship Specialty Start Date End Date Melvin Lau MD PCP - General Family Practice 09/08/17
--- OUTSIDE RECORDS SUMMARY | 2024-02-23 07:01 | XMS_ITS | Clinical Summary ---
Author Organization [facility] Address [place], [place] [address] Care Team Providers Care Outside Operator Name Role Phone Pcp, No Primary [...] 0.4 mg by mouth once daily. Active HYDROcodone-acet aminophen (5-325 mg/tablet) Take 1 Tablet by mouth every 4 hours if needed for Pain. Max acetaminophen dose: 4000 mg in 24 hrs. Active omeprazole (PRILOSEC) 20 mg Delayed-Release capsule Take 20 mg by mouth once daily. Active traMADoL (ULTRAM) 50 mg tabletIndication s:Kidney stones Take 1 Tablet (50 mg) by mouth two times daily. 12 Tablet 01/18/2024 Active cephalexin (KEFLEX) 500 mg capsuleIndicatio ns:Kidney stones Take 1 Capsule (500 mg) by mouth two times daily for 7 days. 14 Capsule 01/18/2024 01/25/2024 tamsulosin (FLOMAX) 0.4 mg capsuleIndicatio ns:Kidney stones Take 1 Capsule (0.4 mg) by mouth once daily after a meal for 14 days. 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 Genitofemoral neuralgia 06/17/2013 Kidney stones 07/07/2012 Encounters Date Type Department Care Team Description 01/18/2024 10:24 AM CDT Anesthesia Event [facility] [address] [place] [address] Valentino Villa MD Danger, Wes Jabier, AGILE QA TESTER 01/18/2024 9:50 AM CDT - 01/18/2024 11:11 AM CDT Surgery [facility] [address] [place] [address] Nelson Anderson MD CYSTOSCOPY, RIGHT URETEROSCOPY, HOLMIUM LASER LITHOTRIPSY, RIGHT URETERAL STENT PLACEMENT 01/17/2024 2:10 PM CDT - 01/18/2024 2:52 PM CDT Hospital Encounter [facility] [address] [place] [address] [facility] Hospitalists [facility], MD Cody Sierra, Merrick Mcdonald MD Kidney [...] 60 01/18/2024 1:12 PM CDT Temperature 36 C (96.8 F) 01/18/2024 11:22 AM CDT Respiratory Rate 18 01/18/2024 1:12 PM CDT Oxygen Saturation 97% 01/18/2024 1:12 PM CDT Inhaled Oxygen Concentration - - Weight 92.8 kg (204 lb 9.6 oz) 05/01/2014 12:51 PM MULTIMEDIA TECHNICIAN Height 177.8 cm (5' 10) 04/10/2014 1:53 PM MULTIMEDIA TECHNICIAN Body Mass Index 29.36 04/10/2014 1:53 PM MULTIMEDIA TECHNICIAN Plan of Treatment Health Maintenance Due Date Last Done Comments Depression screening for age 12+ 1974 HIV for age 15-65 1977 BMI (ht and wt on same day) for age 18+ 1980 Hepatitis C screening for age 18-79 1980 Zoster (shingles) series for age 50+ (1 of 2) 2012 Lipids for age 45-75 05/19/2016 05/19/2011 ([facility]) Tetanus booster 06/02/2021 06/02/2011, 06/02/2011 Colonoscopy through age 75 09/03/2021 09/04/2011 COVID-19 vaccine series (2023- season) 2023 01/30/2023, 11/01/2021, 03/27/2021, Additional history exists Influenza for age 50-64 12/06/2023 Tdap Completed 06/02/2011 Pneumococcal series for age 6-64 Aged Out No longer eligible based on patient's age to complete this topic Medical Devices Implanted Type Area Coroner Technician Device Identifier Shelf Expiration Date Model / Serial / Lot Stent Uret [id number] Contour - [id number] Implanted:Qty: 1 on 01/18/2024 by Nelson Anderson MD at [facility] Right: Ureter [facility] 08/09/2026 [id number] / / [id number] Procedures Procedure Name Priority Date/Time Associated Diagnosis [...] CDT 39 seconds fluoroscopy time was provided. See operative/procedure report for further information. Nelson Anderson MD GENERAL IMAGING * HCHG MASK PR5 (01/18/2024 10:38 AM CDT) Narrative Danger, Wes Eugene, AGILE QA TESTER - 01/18/2024 10:38 AM CDT Danger, Wes Jabier, AGILE QA TESTER 01/18/2024 10:39 AM Procedure: Supraglottic Patient location [...] 11.0 thou/cu mm 01/18/2024 6:01 AM CDT [facility] Transaction [facility] NRBC 0.0 % 01/18/2024 6:01 AM CDT [facility] ABS NRBC 0.0 thou /cu mm 01/18/2024 6:01 AM CDT [facility] Blood BLOOD SPECIMEN / Unknown Butterfly / Unknown 01/18/2024 5:15 AM CDT 01/18/2024 5:51 AM CDT Eric Schilling MD HEMATOLOGY [facility] [address] [place] [address], * (ABNORMAL) Creatinine AM (01/18/2024 5:15 AM CDT) eGFR 58(L) >90 mL/min/1.7 3m2 01/18/2024 6:49 AM CDT [facility] Comment:As of 2021, eG FR is calculated by the CKD-EPI creatinine equation without race adjustment. eGFR can be influenced by muscle mass, exercise, and diet. The reported eGFR is an estimation only and is only applicable if the renal function is stable. CREATININE 1.39(H) 0.70 - 1.20 mg/dL 01/18/2024 6:49 AM CDT [facility] TR[facility] Blood BLOOD SPECIMEN / Unknown Butterfly / Unknown 01/18/2024 5:15 AM CDT 01/18/2024 6:08 AM CDT Eric Schilling MD CHEMISTRY [facility] [address] [place] [address], * SCAN-CARDIAC STRIP (01/17/2024 12:00 AM CDT) [...] Code Status Discussion: Reviewed Preferences Care Teams Outside Operator Relationship Specialty Start Date End Date Pcp, No . PCP - General 07/07/12
--- OUTSIDE RECORDS SUMMARY | 2024-02-23 07:02 | XMS_ITS | Continuity of Care Document ---
Author Organization [facility], [facility] Address [address] [place] [address] Assessment Encounter Date Assessment Date Assessment LastModified by Organization Details LastModified Time 01/26/2024 01/26/2024 63 y/o male, hx of [...] Modified Time Details Appointments HOSPITAL 60 2023 07:00A M Nelson Anderson MD Not available Not available Not available Lab None recorded. Referral None recorded. Procedures None recorded. Surgeries None recorded. Imaging None recorded. Medication Orders None recorded. Patient TargetsNo targets recorded. Patient InstructionsNo instructions recorded. Reason for Referral None Reported. Results Created Date Observation Date Name Description Value Unit Range Abnormal Flag Note LastModifiedBy Organization Detail LastModifiedTime 01/14/20 24 01/13/2024 XR, kidne y + urete r + bladd er EXAM: XR, KIDNEY + URETER + BLADDE R LOCATI ON: [facility] [place] DATE: INDICA TION: Calcul us of kidney [...] Tawanna Connors MD on 2023 at 13:[address] Radiology - [facility] [place] [address], [place], [address], 01/27/2024 13:18:12 01/18/20 24 01/18/2024 XR, urogr am, retro grade No observ ation record ed. [email or web address] [facility] [address], [place], [address], 01/20/2024 09:11:16 01/26/20 24 01/26/2024 XR, kidne y + urete r + bladd er EXAM: XR, KIDNEY + URETER + BLADDE R LOCATI ON: [facility] DATE: 2023 INDICA TION: [...] Ashutosh Cuevas MD on 2023 at 13:[address] Radiology [facility] [place] [address], [place], [address], 01/27/2024 09:12:17 Result Notes None recorded. Problems Name Problem SNOMED Code Status Onset Date Resolution Date Notes Provider Name and Address Organization Details Recorded Time Calculus of kidney and ureter 053556514 Active 024 Nelson Anderson MD [address] [place] [address],[address], [address] [place] [address] , [facility] 4 14:41:07 Ureteric stone 49342897 Active 024 Nelson Anderson MD [address] [place] [address], [address] [place] [address] , [facility] 4 16:29:56 Right flank pain 699208530 Active 024 Nelson Anderson MD [address] [place] [address], [address] [place] [address] , [facility] 4 16:30:01 Problem Notes None recorded. Procedures Surgical History Date Name Laterality Status Provider Name and Address Organization Details Recorded Time 01/26/20 24 Cystoscopy with foreign body/stent removal completed Nelson Anderson MD [address] [place] [address], [address] [place] [address], [facility] 01/26/2024 12:11:09 01/26/20 24 COMPLEX VISIT completed Nelson Anderson MD [address] [place] [address], [address] [place] [address], [facility] 01/26/2024 12:10:54 06/23/19 24 Cystoscopy with foreign body/stent removal completed Nelson Anderson MD [address] [place] [address], [address], [facility] 06/23/2023 14:39:05 05/25/19 24 Urinalysis completed Macy Ding [facility] 05/25/2023 13:51:40 repair of shoulder completed Riley Lane [facility] 12/06/2019 16:23:28 procedure on wrist completed Riley Lane [facility] 12/06/2019 16:23:34 Fragmenting of kidney stone completed Riley Lane [facility] 12/06/2019 16:24:10 Imaging Results None [...] Updated DateTime 01/26/2024 177.8 cm 28.3 kg/m2 08750.7 g Riley ANDRADE [facility] 01/26/2024 11:50:18 Social History Question Answer Notes LastModified by Organizat ion Details LastModified Time Tobacco Smoking Status Never Smoker Riley shen [facility] 12/06/2019 16:23:12 What Is Your Level Of Alcohol Consumption? None Information not available 05/25/2023 What Was The Date Of Your Most Recent Tobacco Screening? 05/25/2023 Information not available 05/25/2023 Has Tobacco Cessation Counseling Been Provided? No [email or web address] Information not available 05/25/2023 Sex: Unknown Functional [...] split virus, quadrivalent, preservative [facility]2023 [facility] 13:57:34 Influenza, split virus, quadrivalent, preservative 01/16/2021 [facility] 13:57:34 Influenza, split virus, quadrivalent, preservative 01/18/2020 [facility]23 13:57:34 Influenza, split virus, quadrivalent, preservative 02/21/2022 [facility]23 13:57:34 COVID-19, mRNA, LNP-S, PF, 100 mcg/0.5mL dose or 50 mcg/0.25mL dose 05/03/2020 [facility]23 13:57:34 COVID-19, mRNA, LNP-S, PF, 100 mcg/0.5mL dose or 50 mcg/0.25mL dose 11/01/2021 [facility]2023 13:57:34 COVID-19, mRNA, LNP-S, PF, 100 mcg/0.5mL dose or 50 mcg/0.25mL dose 04/05/2020 [facility] 05/[facility]2023 13:57:34 COVID-19, mRNA, LNP-S, PF, 30 mcg/0.3 mL dose 03/27/2021 [facility]2023 13:57:34 COVID-19, mRNA, LNP-S, PF, 50 mcg/0.5 mL 01/30/2023 [facility]23 13:57:34 Tdap 06/02/2011 completed Macy shen, [facility] 05/25/2023 13:57:34 Tdap 03/13/2008 completed Macy shen, [facility] 05/25/2023 13:57:34 Influenza, split virus, trivalent, preservative 03/14/2008 completed Macy shen, [facility] 05/25/2023 13:57:34 Influenza, split virus, quadrivalent, PF 01/24/2020 completed Macy shen, [facility] 05/25/2023 13:57:34 Influenza, split virus, quadrivalent, PF 02/15/2018 completed Macy shen, [facility] 05/25/2023 13:57:34 Tdap 06/12/2023 completed Riley Bermanb hermelinda, [facility] 01/13/2024 15:51:31 Past Encounters Encounter ID Performer Location Encounter Start Date Encounter Closed Date Diagnosis/Indication Diagnosis SNOMED-CT Code Diagnosis ICD10 Code [id number] MD NATHANIEL [facility] [address] [place] [address] 01/13/2024 15:46:35 01/14/2024 14:25:07 Calculus of kidney and ureter 408598457 N20.2 Ureteric stone 63229317 N20.1 Right flank pain 2958887 09 R10.9 [id number] MD NATHANIEL [facility] [address] [place] [address] 01/26/2024 11:11:06 01/29/2024 11:47:26 Right flank pain 768721510 R10.9 Calculus o f kidney and ureter 203512546 N20.2 Health Concerns Section Related Observation LastModified by Organization Detai ls LastModified Time None Recorded Concern Status LastModified by Organization Details LastModified Time None Recorded Payers Encounter Date Sequence Insurance Name Policy Number Policy Ogden Covered Member ID Ogden Member ID Guarantor Name 01/26/2024 1 [id number] Kevin Grace [id number] Kevinryne Grace Notes Date Note Type Note Provider Name and Address Organization Details Recorded Time 01/26/2024 text/html 62 yo M here for kidney stones. [...] Denies fever/chills, dysuria, n/v. 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 Nelson Anderson MD [address] [facility],[address], [place], [address], [facility] 01/26/2024 12:13:52
--- OUTSIDE RECORDS SUMMARY | 2024-02-23 07:02 | XMS_ITS | Continuity of Care Document ---
Author Organization [facility], [facility] Address [address] [place] [address] Assessment Encounter Date Assessment Date Assessment LastModified [...] + bladder - PREV NORTHFIEL D 12/12/232023 [facility] , [address], [place], [address], 01/27/2024 04:19:08 Medication Orders tramadol 50 mg tablet 2023 024 ssamb Not available 01/13/2024 16:17:51 tamsulosi n 0.4 mg capsule 2023 024 [id number], [address], [place], [place], [id number], 01/13/2024 16:24:24 Patient TargetsNo targets recorded. Patient InstructionsNo instructions recorded. Reason for Referral None Reported. Results Created Date Observation Date Name Description Value Unit Range Abnormal Flag Note LastModifiedBy Organization Detail LastModifiedTime 12/22/1912/12/2023 CT, abdom en + pelvi s, w/o contr ast No observ ation record ed. [email or web address] [facility] [address], [place], [address], 01/12/2024 13:54:53 01/14/2001/13/2024 XR, kidne y + urete r + bladd er EXAM: XR, KIDNEY + URETER + BLADDE R LOCATI ON: [facility] DATE: INDICA TION: Calcul us of kidney [...] Tawanna Connors MD on 2023 at 13:[address] Rad[facility] [place] [address] [facility] [address], [place], [address], 01/27/2024 13:18:12 01/18/20 24 01/18/2024 XR, urogr am, retro grade No observ ation record ed. [email or web address] [facility] [address], [place], [address], 01/20/2024 09:11:16 01/26/20 24 01/26/2024 XR, kidne y + urete r + bladd er EXAM: XR, KIDNEY + URETER + BLADDE R LOCATI ON: [facility] DATE: 2023 INDICA TION: [...] Ashutosh Cuevas MD on 2023 at 13:[address] [facility] [place] [address] [facility] [address], [place], [address], 01/27/2024 09:12:17 Result Notes None recorded. Problems Name Problem SNOMED Code Status Onset Date Resolution Date Notes Provider Name and Address Organization Details Recorded Time Calculus of kidney and ureter 502080401 Active 024 Nelson Anderson MD [address] [place] [address],[address], [address] , [facility] 4 14:41:07 Ureteric stone 88718258 Active 024 Nelson Anderson MD [address] [place] [address],[address] [place] [address], [phone] , [facility] 4 16:29:56 Right flank pain 656833435 Active 024 Nelson Anderson MD [address] [place] [address],[address] [place] [address], [phone] , [facility] 4 16:30:01 Problem Notes None recorded. Procedures Surgical History Date Name Laterality Status Provider Name and Address Organization Details Recorded Time 01/26/20 24 Cystoscopy with foreign body/stent removal completed Nelson Anderson MD [address] [facility],[address], [place], [address], [facility] 01/26/2024 12:11:09 01/26/20 24 COMPLEX VISIT completed Nelson Anderson MD [address] [facility],[address], [place], [address], [facility] 01/26/2024 12:10:54 06/23/19 24 Cystoscopy with foreign body/stent removal completed Nelson Anderson MD [address] [place] [address],[address], [place], [address], [facility] 06/23/2023 14:39:05 05/25/19 24 Urinalysis completed Macy Ding [facility] 05/25/2023 13:51:40 repair of shoulder completed Riley Ariana [facility] 12/06/2019 16:23:28 procedure on wrist completed Riley [facility] 12/06/2019 16:23:34 Fragmenting of kidney stone completed Riley [facility] 12/06/2019 16:24:10 Imaging Results None recorded. Procedure [...] Updated DateTime 01/13/2024 177.8 cm 28.3 kg/m2 45149.7 g Nelson Anderson MD [address] [place] [address], [address], [facility] 01/13/2024 15:53:44 Social History Question Answer Notes LastModified by Organizat ion Details LastModified Time Tobacco Smoking Status Never Smoker Riley Ariana shen [facility] 12/06/2019 16:23:12 What Is Your Level [...] split virus, quadrivalent, preservative 01/15/2023 karyn shen [facility] 05/25/2023 13:57:34 Influenza, split virus, quadrivalent, preservative 01/16/2021 karyn shen [facility] 05/25/2023 13:57:34 Influenza, split virus, quadrivalent, preservative 01/18/2020 karyn shen [facility] 05/25/2023 13:57:34 Influenza, split virus, quadrivalent, preservative 02/21/2022 karyn shen [facility] 05/25/2023 13:57:34 COVID-19, mRNA, LNP-S, PF, 100 mcg/0.5mL dose or 50 mcg/0.25mL dose 05/03/2020 completed Macy shen [facility] 05/25/2023 13:57:34 COVID-19, mRNA, LNP-S, PF, 100 mcg/0.5mL dose or 50 mcg/0.25mL dose 11/01/2021 [facility]23 13:57:34 COVID-19, mRNA, LNP-S, PF, 100 mcg/0.5mL dose or 50 mcg/0.25mL dose 04/05/2020 [facility] 05/25/2023 13:57:34 COVID-19, mRNA, LNP-S, PF, 30 mcg/0.3 mL dose 03/27/2021 [facility] 05/25/2023 13:57:34 COVID-19, mRNA, LNP-S, PF, 50 mcg/0.5 mL 01/30/2023 completed Macy shen [facility] 05/25/2023 13:57:34 Tdap 06/02/2011 [facility] 05/25/2023 13:57:34 Tdap 03/13/2008 [facility] 05/25/2023 13:57:34 Influenza, split virus, trivalent, preservative 03/14/2008 completed Macy shen [facility] 05/25/2023 13:57:34 Influenza, split virus, quadrivalent, PF 01/24/2020 [facility] 05/25/2023 13:57:34 Influenza, split virus, quadrivalent, PF 02/15/2018 [facility] 05/25/2023 13:57:34 Tdap 06/12/2023 [facility] 01/13/2024 15:51:31 Past Encounters Encounter ID Performer Location Encounter Start Date Encounter Closed Date Diagnosis/Indication Diagnosis SNOMED-CT Code Diagnosis ICD10 Code [id number] Nelson Anderson MD [facility] [address] [address] 01/13/2024 15:46:35 01/14/2024 14:25:07 Calculus of kidney and ureter 193283082 N20.2 Ureteric stone 44651611 N20.1 Right flank pain 0804926 09 R10.9 Health Concerns Section Related Observation LastModified by Organization Detai ls LastModified Time None Recorded Concern Status LastModified by Organization Details LastModified Time None Recorded Payers Encounter Date Sequence Insurance Name Policy Number Policy Ogden Covered Member ID Ogden Member ID Guarantor Name 01/13/2024 1 [facility] [id number] Kevinryne Grace [id number] Kevin Sridhar Grace Notes Date Note Type Note Provider Name and Address Organization Details Recorded Time 01/13/2024 text/html 62 yo M here for kidney [...] fever/chills, dysuria, n/v. 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 Nelson Anderson MD [address] [facility],[address], [place], [address], [facility] 01/13/2024 16:30:18
[2024-02-23] MEDS: SODIUM CHLORIDE 0.9 % (FLUSH) 10 ML SYRINGE IVF (07:39)
[2024-02-23] MEDS: LACTATED RINGERS 1000 ML 1,000 ML 100 ML IV (08:15)
[2024-02-23] MEDS: OXYCODONE (CR) 10 MG TAB.ER.12H PO (08:15)
[2024-02-23] MEDS: fentaNYL 100 MCG/2 ML inj IVP (08:20)
[2024-02-23] MEDS: MIDAZOLAM HCL 1 MG/ML inj IVP (08:20)
--- NOTE | 2024-02-23 08:31 | SUR.PREOP ---
TIME?OUT:?17, right shoulder PT/RN/MDA?VERIFICATION?OF?SURGICAL?SITE,?PROCEDURE,?AND?CONSENT OBTAINED?PRIOR?TO?INVASIVE?PROCEDURE.
[2024-02-23] MEDS: CEFAZOLIN 2 GM INJ IVP (09:04)
--- NOTE | 2024-02-23 09:24 | P.NB_ITS ---
Nerve Block Nerve Block Time Seen by Provider: 08:22 Date Seen: 02/23/24 Type of block requested by surgeon for post-operative analgesia: supraclavicular Side: right Time out performed: Yes Verification of patient name: Yes Verification of date of : Yes Site marking: site marked Name of person performing procedure: Allen Continuous monitoring Was continuous monitoring of O2 sat, B/P, monitoring analyst, recorded every 15 minutes?: Yes Procedure Checklist: sterile prep, needles and gloves Ultrasound guided. Images saved: Yes Medications given in 5ml increments after negative aspiration: Ropivicaine %: 0.5 mL: 15 Needle gauge: 22 Precedex (mcg): 25 Patient tolerated procedure well: Yes Block Charges Block Charge (with Pro Fee): Brachial Plexus Use of Ultrasound Machine for Block: Yes- US Guidance/pain block
--- NOTE | 2024-02-23 09:25 | W.ANESCHARGE ---
Anesthesia Charges Start Date/Time Anesthesia Start Date: 02/23/24 Anesthesia Start Time: 08:45 Stop Date/Time Anesthesia Stop Date: 02/23/24 Anesthesia Stop Time: 11:28
[2024-02-23] MEDS: EPINEPHrine 1 MG in SODIUM CHLORIDE IRRIG SOLUTION 3,000 ML 3001 MG IRRIGATION ×2 (09:27→10:06)
--- NOTE | 2024-02-23 11:03 | PM.ORPRC ---
Procedure Note Date of procedure: 02/23/24 Procedure: PREOPERATIVE DIAGNOSIS: Right shoulder recurrent rotator cuff tear, subscap tear, biceps instability POSTOPERATIVE DIAGNOSIS: Right shoulder recurrent rotator cuff tear, subscap tear, biceps instability NAME OF OPERATION: Right shoulder arthroscopic limited glenohumeral joint debridement, revision arthroscopic subacromial decompression, revision mini open rotator cuff repair, subscap repair, biceps tenodesis SURGEON: Taco Oneill MD TIP PRINTER: Traci Parrish PA-C ANESTHESIA: Supraclavicular block plus general endotracheal ESTIMATED BLOOD LOSS: 5 mL COMPLICATIONS: None SPECIMENS: None DRAINS: None PREOPERATIVE ANTIBIOTICS: Ancef 2 grams INDICATIONS: The patient is a 63-year-old with a history of right shoulder pain secondary to the above diagnoses. Despite appropriate non operative management, they continue to have symptoms. Operative intervention was recommended. The risks, benefits and expected outcomes were discussed in detail. These included but were not limited to: Infection, bleeding, injury to blood vessel or nerve, venous thromboembolism. All questions were answered to their satisfaction. PROCEDURE: A supraclavicular block was placed by Anesthesia. General anesthesia was administered. The patient was placed in the high beach chair position. The right shoulder was prepped and draped in the usual sterile fashion. The glenohumeral joint was infiltrated with 20 mL of normal saline with epinephrine. The posterior portal was established, the arthroscope was introduced. The anterior portal was established, Diagnostic arthroscopy was performed with findings as follows: The biceps is torn and retracted out of the field. There was a small stump of biceps still attached to the supraglenoid tubercle. The anterior, posterior and superior labrum are normal. Articular surfaces on the humeral head and glenoid are normal. There are no loose bodies. There is a full-thickness tear of the supraspinatus, infraspinatus and subscap. The stump of the biceps was resected with the arthroscopic scissors and shaver. The arthroscope was placed in the subacromial space, the lateral portal was established. The Arthrex Johnston was used to dissect the acromion free. The far medial aspect of the acromion required revision acromioplasty with the bur in the posterior portal. An accessory anterolateral portal was placed. The subacromial/subdeltoid bursa was aggressively debrided. There is a full-thickness tear of the supraspinatus, infraspinatus and subscap. Arthroscopic instruments were removed. The accessory anterolateral portal was extended proximally and distally, subcutaneous dissection was taken with electrocautery to the deltoid. The deltoid was divided in line with its fibers. The static retractor was placed. The subacromial/subdeltoid bursa was debrided with the Merrill scissors. The greater and lesser tuberosities were debrided to punctate bleeding bone using the arthroscopic bur. Two Arthrex BioComposite SwiveLock anchors were placed just off the articular surface. Both limbs of the FiberWire and fiber tape were passed using the scorpion. A fiber link was placed in the leading edge of the rotator cuff x2. A suture tape was placed in the subscap in an inverted mattress. Likewise, whipstitch was placed in the biceps. We tied the 2 central FiberWire sutures over the rotator cuff. We then proceeded with a lateral row of SwiveLock anchors x 2 crossing the FiberTape and incorporating the FiberWire and fiber link into each lateral row anchor. The suture tape in the subscap and the biceps suture were incorporated in a SwiveLock anchor at the top of the bicipital groove. The suture on the eyelet of each of the lateral row anchors was passed through the leading edge of the supraspinatus, infraspinatus and subscap and tied in a simple fashion. This provides an anatomic, watertight repair of the rotator cuff. There is no tension on the repair with the shoulder at 0? abduction. The wound was irrigated with normal saline off the pump. The deltoid was repaired with an 0 Vicryl in an interrupted [id number] fashion. Subcutaneous tissues were closed with a 3-0 Vicryl. Skin was closed with a 3-0 Monocryl in a subcuticular fashion. A dry dressing and sling were applied. Sponge and needle counts were correct x2. The patient tolerated the procedure well. There were no apparent complications. They were carefully transferred to the hospital bed and taken to the postanesthesia care unit in satisfactory condition. PLAN: The patient will be discharged to home. No active range of motion of the shoulder will be allowed for 6 weeks postoperatively. They can work on active range of motion of the elbow, wrist and fingers. They will follow up in the office next week for a wound check and an AP and transscapular Y-view of the shoulder prior to being seen.
== END 2024-02-23 13:49 | disposition home or self-care (01) ==
PROVIDERS: PCP Family Medicine; Visit Provider Orthopaedic Surgery
PROC: (CPT 23412; principal; 2024-02-23 09:00)
DX: M75.121 Complete rotator cuff tear or rupture of right shoulder, not specified as traumatic (principal); S46.111A Strain of muscle, fascia and tendon of long head of biceps, right arm, initial encounter; M25.311 Other instability, right shoulder; G89.18 Other acute postprocedural pain
CPT/HCPCS: 29828; 29826; 23412; 01630; 64415; 76942; A9270; C1713; J0171; J0330; J0690; J1100; J2250; J2371; J2405; J2704; J2795; J3010; J3490; J7120; L3670

== ENCOUNTER 2024-03-09 10:10 | Outpatient (CLI) | payer OTHER, SELFPAY | END 2024-03-09 10:11 | disposition home or self-care (01) | LOC: LKVREF 10:10 | PROVIDERS: PCP Family Medicine; Visit Provider Family Medicine | DX: I10 Essential (primary) hypertension (principal); Z01.818 Encounter for other preprocedural examination | CPT/HCPCS: 80048 ==

== ENCOUNTER 2024-03-31 12:04 | Emergency (ER) | payer OTHER, SELFPAY ==
--- OUTSIDE RECORDS SUMMARY | 2024-03-31 12:06 | XMS_ITS | Data Portability ---
Author Organization [facility] - [place] [facility], [facility] Address [address] [facility] [address] [place] [address] Assessment Encounter Date Assessment Date Assessment LastModified by Organization Details LastModified Time 06/23/2023 06/23/2023 62 Y/O MALE, HX RECURRENT STONES. S/P LEFT URS, HLL, LEFT STENT. DOING WELL. STENT REMOVED. RESIDUAL STONES ON PREEV. C.T. DONE AT [facility], HOWEVER , RADIOLOGIST DID NOT STATE SIZE [...] available Lab urinalysi s, dipstick 2023 024 [facility], [address], [place], [address], 05/25/2023 13:53:10 Referral None recorded. Procedures None recorded. Surgeries cystoscop y, with ureterosc opy, with lithotrip sy, with insertion of ureteral stent (SURG) 2023 024 [email or web address] Not available 06/02/2023 12:08:10 Imaging XR, kidney + ureter + bladder - [facility] 12/12/232023 024 [facility] , [address] [place], [address], 03/17/2024 10:39:53 Medication Orders Flomax 0.4 mg capsule 2023 024 [id number], [address] [place], [place], [id number], 05/25/2023 14:18:00 oxycodone 5 mg tablet 2023 024 [facility] #[id number], [address] [place], [place], [id number], 05/25/2023 14:17:59 tramadol 50 mg tablet 2023 ssamb Not available 01/13/2024 16:17:51 tamsulosi n 0.4 mg capsule 2023 [facility][id number], [address] [place], [place], [id number], 01/13/2024 16:24:24 tramadol 50 mg tablet 2023 024 ssamb Not available 03/25/2024 12:06:34 Patient TargetsNo targets recorded. Patient Instructions Encounter Date Encounter Id Patient Instructions Last Modified By Organization Details Last Modified Time 05/25/2023 [id number] Discussed medica l expulsive therapy versus surgical [...] Available [facility] [address], [place], [address], 05/25/2023 13:52:34 05/25/19 24 05/25/2023 urina lysis , dipst ick Clarity-Stat us Clear Not Available [facility] [address], [place], [address], 05/25/2023 13:52:34 05/25/19 24 05/25/2023 urina lysis , dipst ick Sp [place]-Stat us 1.020 Not Available [facility] [address], [place], [address], 05/25/2023 13:52:34 05/25/19 24 05/25/2023 urina lysis , dipst ick pH-Status 5.5 Not Available [facility] [address], [place], [address], 05/25/2023 13:52:34 05/25/19 24 05/25/2023 urina lysis , dipst ick Nitrates-Sta tus negati ve Not Available [facility] [address], [place], [address], 05/25/2023 13:52:34 05/25/19 24 05/25/2023 urina lysis , dipst ick Blood-Status Small Not Available [facility] [address], [place], [address], 05/25/2023 13:52:34 05/25/19 24 05/25/2023 urina lysis , dipst ick Leuko-Status Negati ve Not Available [facility] [address], [place], [address], 05/25/2023 13:52:34 05/25/19 24 05/25/2023 urina lysis , dipst ick Specimen Type Voided Not Available [facility] [address], [place], [address], 05/25/2023 13:52:34 05/25/19 24 05/25/2023 urina lysis , dipst ick Performed by Morales michele RN Not Available [facility] [address], [place], [address], 05/25/2023 13:52:34 12/22/19 24 12/12/2023 CT, abdom en + pelvi s, w/o contr ast No observ ation record ed. [email or web address] [facility] [address], [place], [address], 01/12/2024 13:54:53 01/14/2001/13/2024 XR, kidne y + urete r + bladd er EXAM: XR, KIDNEY + URETER + BLADDE R LOCATI ON: [facility] [place] DATE: INDICA TION: Calcul us of kidney [...] Tawanna Connors MD on 2023 at 13:[address] [facility] [place] [address] [place] [address] [address], [place], [address], 01/27/2024 13:18:12 01/18/20 01/18/2024 XR, urogr am, retro grade No observ ation record ed. [email or web address] [facility] [address], [place], [address], 01/20/2024 09:11:16 01/26/20 24 01/26/2024 XR, kidne [...] Ashutosh Cuevas MD on 2023 at 13:[address] [facility] [address], [place], [address], 01/27/2024 09:12:17 03/25/20 24 03/25/2024 XR, kidne y + urete r + bladd er EXAM: XR, KIDNEY + URETER + BLADDE R LOCATI ON: [facility] [employer] [facility] DATE: 2023 INDICA TION: [...] Jabier michele MD on 2023 at 13:[address] [facility] [place] [address], [place], [address], 03/25/2024 23:15:25 Result Notes None recorded. Problems Name Problem SNOMED Code Status Onset Date Resolution Date Notes Provider Name and Address Organization Details Recorded Time Calculus of kidney and ureter 775196834 Active 024 Nelson Anderson MD [address] [place] [address],[address], [place], [address] , [facility] 14:41:07 Ureteric stone 45134114 Active 024 Nelson Anderson MD [address] [place] [address],[address] [facility], [place], [address] , [facility] 4 16:29:56 Right flank pain 697140127 Active 024 Nelson Anderson MD [address] [place] [address],[address] [facility], [place], [address] , [facility] 4 16:30:01 Problem Notes None recorded. Procedures Surgical History Date Name Laterality Status Provider Name and Address Organization Details Recorded Time 03/25/20 24 Cystoscopy with foreign body/stent removal completed Nelson Anderson MD [address] [place] [address],[address], [place], [address], [facility] 03/25/2024 12:13:11 01/26/20 24 Cystoscopy with foreign body/stent removal completed Nelson Anderson MD [address] [place] [address],[address], [place], [address], [facility] 01/26/2024 12:11:09 01/26/20 24 COMPLEX VISIT completed Nelson Anderson MD [address] [place] [address],[address], [place], [address], [facility] 01/26/2024 12:10:54 06/23/19 24 Cystoscopy with foreign body/stent removal completed Nelson Anderson MD [address] [place] [address],[address], [place], [address], [facility] 06/23/2023 14:39:05 05/25/19 24 Urinalysis completed Macy Ding [facility] 05/25/2023 13:51:40 repair of shoulder completed Riley Lane [facility] 12/06/2019 16:23:28 procedure on wrist completed [address] Lane [facility] 12/06/2019 16:23:34 Fragmenting of kidney stone completed [address] Lane [facility] 12/06/2019 16:24:10 Imaging Results Imaging Date Name Status LastModified by Organiz ation Details LastModified Time 12/12/2023 CT, abdomen + pelvis, w/o contrast completed [email or web address], [place], [address], 01/12/2024 13:54:53 01/13/2024 XR, kidney + ureter + bladder completed [address] [facility] - [facility] [place] [address], [place], [address], 01/27/2024 13:18:12 01/18/2024 XR, urogram, retrograde completed [email or web address], [place], [address], 01/20/2024 09:11:16 01/26/2024 XR, kidney + ureter + bladder completed [address] [facility] [place] [address], [place], [address], 01/27/2024 09:12:17 03/25/2024 XR, kidney + ureter + bladder completed [address] [facility] [place] [address], [place], [address], 03/25/2024 23:15:25 Procedure Notes None recorded. Medical [...] Updated DateTime 01/13/2024 177.8 cm 28.3 kg/m2 68109.7 g Nelson Anderson MD [address], [address], [facility] 01/13/2024 15:53:44 Date Recorded Body height Body mass index (BMI) Body weight Provider Name and Address Organization Details Last Updated DateTime 01/26/2024 177.8 cm 28.3 kg/m2 [address] [facility] 01/26/2024 11:50:18 Date Recorded Body height Provider Name an d Address Organization Details Last Updated DateTime 03/25/[address] [facility] 1 05/26/2023 11:50:45 Social History Question Answer Notes LastModified by Organizat ion Details LastModified Time Tobacco Smoking Status Never Smoker [facility] 12/06/2019 16:23:12 What Is Your Level Of Alcohol Consumption? None Information not available 05/25/2023 What Was The Date Of Your Most Recent Tobacco Screening? 05/25/2023 Information not available 05/25/2023 Has Tobacco Cessation Counseling Been Provided? No [email or web address] Information not available 05/25/2023 Sex: Unknown Functional [...] split virus, quadrivalent, preservative 3 [facility] 05/25/2023 13:57:34 Influenza, split virus, quadrivalent, preservative 1 completed Macy shen [facility] 05/25/2023 13:57:34 Influenza, split virus, quadrivalent, preservative 0 completed Macy shen [facility] 05/25/2023 13:57:34 Influenza, split virus, quadrivalent, preservative 2 completed [facility] 05/25/2023 13:57:34 COVID-19, mRNA, LNP-S, PF, 100 mcg/0.5mL dose or 50 mcg/0.25mL dose 1 karyn shen [facility] 05/25/2023 13:57:34 COVID-19, mRNA, LNP-S, PF, 100 mcg/0.5mL dose or 50 mcg/0.25mL dose 2 completed Macy shen [facility] 05/25/2023 13:57:34 COVID-19, mRNA, LNP-S, PF, 100 mcg/0.5mL dose or 50 mcg/0.25mL dose 0 karyn shen [facility] 05/25/2023 13:57:34 COVID-19, mRNA, LNP-S, PF, 30 mcg/0.3 mL dose 1 completed Macy shen, [facility] 05/25/2023 13:57:34 COVID-19, mRNA, LNP-S, PF, 50 mcg/0.5 mL 3 completed Macy shen, [facility] 05/25/2023 13:57:34 Tdap 2 completed Macy Ding null, [facility] 05/25/2023 13:57:34 Tdap 8 completed Macy shen, [facility] 05/25/2023 13:57:34 Influenza, split virus, trivalent, preservative 8 completed [facility] 05/25/2023 13:57:34 Influenza, split virus, quadrivalent, PF 0 completed Macy shen, [facility] 05/25/2023 13:57:34 Influenza, split virus, quadrivalent, PF 8 completed Macy shen, [facility] 05/25/2023 13:57:34 Tdap 4 completed [facility] 01/13/2024 15:51:31 Past Encounters Encounter ID Performer Location Encounter Start Date Encounter Closed Date Diagnosis/Indication Diagnosis SNOMED-CT Code Diagnosis ICD10 Code [id number] MD Jarett Gupta [address] [place] [address] 12/06/2019 16:01:42 12/08/2019 11:34:14 Pain in testicle 58739809 N50.819 [id number] MD Jarett Gupta [address] [place] [address] 12/16/2019 12:31:24 12/19/2019 12:53:19 Pain in scrotum 13072840 N50.82 [id number] MD Jarett Gupta [address] [place] [address] 01/09/2020 14:37:55 01/09/2020 17:54:17 Inguinal pain 981162635 R10.2 Pain in testicle 4012084 9 N50.819 [id number] NADIA GAYTAN PA-C [facility] [address] [place] [address] 05/25/2023 13:19:17 06/01/2023 09:29:06 Kidney stone 14386847 N20.0 [id number] Nelson Anderson MD [facility] [address] [place] [address] 06/23/2023 14:02:00 06/24/2023 11:03:24 Calculus of kidney and ureter 848420992 N20.2 [id number] Nelson Anderson MD [facility] [address] [place] [address] 01/13/2024 15:46:35 01/14/2024 14:25:07 Calculus of kidney and ureter 689612337 N20.2 Ureteric stone 03073748 N20.1 Right flank pain 2136014 09 R10.9 [id number] Nelson Anderson MD [facility] [address] [place] [address] 01/26/2024 11:11:06 01/29/2024 11:47:26 Right flank pain 739120069 R10.9 Calculus o f kidney and ureter 011134382 N20.2 [id number] Nelson Anderson MD [facility] [address] [place] [address] 03/25/2024 11:37:25 03/29/2024 12:39:21 Calculus of kidney and ureter 029347561 N20.2 History of calculus of kidney 724063444 Z87.442 Health Concerns Section Related Observation LastModified by Organization Detai ls LastModified Time None Recorded Concern Status LastModified by Organization Details LastModified Time None Recorded Advance Directives Directive None Recorded Payers Encounter Date Sequence Insurance Name Policy Number Policy Ogden Covered Member ID Ogden Member ID Guarantor Name 05/25/2023 1 [facility] [id number] Kevin Grace [id number] Kevinryne Grace 06/23/[address] [facility] [id number] Kevin Grace [id number] Kevin Sridhar Grace 01/13/[address] [facility] [id number] Kevin Grace [id number] Kevinryne Grace 01/26/[address] [facility] [id number] Kevin Grace [id number] Kevin Grace 03/25/2024 1 [place] [id number] Kevin Grace [id number] Kevin Sridhar Grace Notes Date Note Type [...] Denies fever/chills, dysuria, n/v. 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 Has a long h/o stones, most recently passed stone 2018. Has required several surgeries with Dr Anderson. H/o chronic left testicular pain, tried marcaine spermatic cord block with Dr Anderson with minimal relief. UA today with blood NADIA GAYTAN PA-C [address] [place] [address],[address], [place], [address], [facility] 05/25/2023 14:42:36 06/23/2023 text/html 62 yo M here for kidney stone. Recently seen in ED on 05/18 with flank pain; CT reveals 7mm distal left ureteral stone. He has had symptoms for about 2 weeks now. Continues to have renal colic, flares of severe pain. Has been taking Flomax TID and PRN narcotics from ED. Denies fever/chills, dysuria, n/v. 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 Nelson Anderson MD [address] [place] [address],[address], [place], [address], [facility] 06/23/2023 14:41:23 01/13/2024 text/html 62 yo [...] Denies fever/chills, dysuria, n/v. 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 Nelson Anderson MD [address] [place] [address],[address], [place], [address], [facility] 01/13/2024 16:30:18 01/26/2024 text/html 62 yo [...] Denies fever/chills, dysuria, n/v. 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 Nelson Anderson MD [address] [facility],[address], [place], [address], [facility] 01/26/2024 12:13:52 03/25/2024 text/html 62 yo [...] Denies fever/chills, dysuria, n/v. 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 Nelson Anderson MD [address] [facility],[address], [place], [address], [facility] 03/25/2024 12:15:38
--- OUTSIDE RECORDS SUMMARY | 2024-03-31 12:06 | XMS_ITS | Patient Health Record ---
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 Name Role Phone SELF, SELF Primary [...] Status Risk Notes Problem Gastroesophageal reflux disease (336038170) GERD (gastroesopha geal reflux disease) (K21.9) Active confirmed Problem Hiatal hernia (87637169) Hiatal hernia (K44.9) Active confirmed Problem Recurrent left inguinal hernia (378428305) Recurrent left inguinal hernia (K40.91) Active confirmed Problem Pain in testicle (55646958) Pain in left testicle (N50.812) Active confirmed Problem Postoperative follow-up visit (378069194) Post op follow-up exam (Z48.89) Active confirmed Plan Of Treatment No Information Insurance Providers Payer Name Payer Address Payer Phone Subscriber Number Group Number Insured Name Patient Relationship to Insured Coverage Start Date Coverage End Date [facility] [address] [address] [place] [address] [id number] KYLAH BRADY Self - patient is the [...]
--- OUTSIDE RECORDS SUMMARY | 2024-03-31 12:06 | XMS_ITS | Data Portability ---
Author Organization [place] [facility] Address [address] [place] [address] Care Team Providers Care Vascular Technologist Name Role Phone THERESA YANCEY Referring Provider [...] Orders cyclobenzap rine 5 mg tablet 2023 [id number], [address] [place], [place], [id number], 19:07:13 Patient Targets Encounter Date Encounter Id Patient Goals Patient Target Last Modified By Organization Details Last Modified Time residential goals (to be met in 6 weeks):*Patient [...] By Organization Details Last Modified Time 04/07/2023 [id number] Self Care for TMD Not availab le 04/15/2023 09:27:04 oral appliance preparation* Not available 04/15/2023 09:27:06 Three Jaw Exercises Not available 04/15/2023 09:28:51 Contributing factors identified at today's appointment include: daytime clenching, sleep bruxism, oral habits. Not available 04/15/2023 09:29:16 04/15/2023 [id number] Total treatment time minutes today = 40 Next Visit Plan: how is joint mob? recheck ROM. Add CR. ROM to relocation 30mm, full 45 w/ pain. Patient/Therapist Goals: resume eating and decrease pain and popping Progress Note Date: 06/09 lhovda Not available 04/15/2023 11:28:26 04/28/2023 [id number] Total treatment time minutes today = 40 Next Visit Plan: Recheck ROM, upgrade CR. How was dry needling? ROM to relocation 40mm, full 42 w/ pain. Patient/Therapist Goals: resume eating and decrease pain and popping Progress Note Date: 06/09 lhovda Not available 04/28/2023 17:39:35 05/14/2023 [id number] Total treatment time minutes today = 33 [...] stabil izatio n applia nce Not Available [place] [address], [place], [address], 04/15/2023 09:25:53 04/07/19 24 04/07/2023 XR, ortho panto gram No observ ation record ed. Not Available 2023 19:02:52 Result Notes None recorded. 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 Procedures Surgical History Date Name Laterality Status Provider Name and Address Organization Details Recorded Time 05/14/19 24 21388: Therapeutic Exercise completed Delmy Suresh DPT [address] [employer] [address], [place], [address], [facility] 05/14/2023 18:09:34 05/14/19 24 62899: Neuromuscular Re-Education completed Delmy Suresh DPT [address], [place], [address], [facility] 05/14/2023 18:09:35 05/14/19 24 93280: Manual Therapy completed Delmy Suresh DPT [address], [place], [address], [facility] 05/14/2023 18:09:57 04/28/19 24 82931: Needle insertion(s) without injection(s), 1 or 2 muscle(s) completed Delmy Suresh DPT [address] [employer], [place], [address], [facility] 04/28/2023 17:39:15 04/28/19 24 26017: E-Stim - Direct Contact completed Delmy Suresh DPT [address], [place], [address], [facility] 04/28/2023 17:39:19 01/23/20 24 26869: Therapeutic Exercise completed Delmy Suresh, DPT [address], [place], [address], [facility] 04/28/2023 17:38:33 04/28/19 57577: Neuromuscular Re-Education completed Delmy Suresh, DPT [address], [place], [address], [facility] 04/28/2023 17:38:35 04/28/19 24 78407: Manual Therapy completed Delmy Suresh, DPT [address], [place], [address], [facility] 04/28/2023 17:38:32 04/15/19 99080 - PT Eval Moderate Complexity completed Delmy Suresh, DPT [address], [place], [address], [facility] 04/15/2023 11:24:52 04/15/19 24 39116: Self Care/Home Management Training completed JERARDO PedrazaT [address], [place], [address], [facility] 04/15/2023 11:24:00 04/15/19 21203: Therapeutic Exercise completed JERARDO PedrazaT [address], [place], [address], [facility] 04/15/2023 11:23:54 04/15/19 24 41132: Manual Therapy completed Delmy Suresh, DPT [address], [place], [address], [facility] 04/15/2023 11:23:59 04/07/19 24 Orthopantogram completed Shaniqua Hanks [facility] 04/07/2023 18:50:07 hernia repair completed Shaniqua Hanks [facility] 04/07/2023 18:30:20 Shoulder Surgery [facility] 04/07/2023 18:30:31 [place] Teeth Extraction completed [facility] 04/07/2023 18:30:39 [...] Last Updated DateTime 177.8 cm 29.7 kg/m2 28258.6 2 g 49 /min 153 mm[Hg] 95 mm[Hg] Shaniqua [facility] 18:29:07 Date Recorded Body height Systolic blood pressure Diastolic blood pressure Provider Name and Address Organization Details Last Updated DateTime 05/26/2023 177.8 cm 139 mm[Hg] 101 mm[Hg] [facility] 05/26/2023 16:30:01 Social History Question Answer Notes LastModified by Organizat ion Details LastModified Time Tobacco Smoking Status Never Smoker Shaniqua Hanks [facility] 04/07/2023 18:57:45 [...] Or The Highest Degree You Have Received? 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 [employer] Information not available 04/07/2023 What Number Best [...] N Emphysema N Irritable bowel syndrome N Hypothyroidism N Lung Disease N Glaucoma N COPD N Depression N Pneumonia N Pacemaker N [...] Meningitis N Pancreatic disease N Heart Attack ([place]) N Stomach Ulcers N Diabetes N Back pain N Bleeding Disorder N Seizures/Epilepsy N Sjogren's syndrome N Mental Health Concerns N Tuberculosis N AIDS/HIV N Hyperlipidemia N History of radiation therapy N Dementia N Asthma N Physical or sexual abuse N Substance Abuse N Psoriasis N Peripheral Vascular Disease N Reflux/GERD N Vertigo N Sleep Disorder N GERD/Reflux N Hepatitis N Aneurysm N Neuropathy N Heart Disease N Pulmonary Embolism N Hypertension N Osteoporosis N Immunizations Vaccine Type Date Status Note Provider Nam e and Address Organization Details Recorded Time influenza, unspecified formulation 01/04/2023 completed RAYMOND Corley [facility] 04/07/2023 18:28:37 SARS-COV-2 (COVID-19) vaccine, UNSPECIFIED 02/04/2023 completed RAYMOND Corley [facility] 04/07/2023 18:28:57 Past Encounters Encounter ID Performer Location Encounter Start Date Encounter Closed Date Diagnosis/Indication Diagnosis SNOMED-CT Code Diagnosis ICD10 Code [id number] ROSALINA MEZA BDS, [place] [address] [place] [id number] 04/07/2023 18:12:57 04/07/2023 19:25:21 Myofascial pain 180393917 M79.11 Spasm 43742432 R25.2 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 2837301923 4751888 M26.632 Episodic t ension-type headache 353249420 G44.219 [id number] JERARDO PedrazaT [place] [address] [place] [id number] 04/15/2023 10:19:53 04/15/2023 11:37:43 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 1865577398 5884616 M26.632 Episodic t ension-type headache 179049965 G44.219 Myofascial pain 12927716 9 M79.11 Spasm 24116294 R25.2 [id number] Delmy Sweeneychanoeden, DPT [place] [address] [place] [id number] 04/28/2023 16:30:12 04/28/2023 17:22:39 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 1839219706 3397710 M26.632 Episodic t ension-type headache 463367150 G44.219 Myofascial pain 07923167 9 M79.11 Spasm 37172599 R25.2 [id number] Delmy Kerwin, JERARDOT [place] [address] [place] [id number] 05/14/2023 17:08:36 05/14/2023 18:04:53 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 2143252894 2156499 M26.632 Episodic t ension-type headache 179965406 G44.219 Myofascial pain 98271245 9 M79.11 Spasm 39045038 R25.2 [id number] ROSALINA MEZA BDS, [place] [address] [place] [id number] 05/26/2023 16:10:52 05/26/2023 18:16:47 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 5568246055 3237178 M26.632 Episodic t ension-type headache 149329564 G44.219 Myofascial pain 80259244 9 M79.11 Spasm 70484509 R25.2 Health Concerns Section Related Observation LastModified by Organization Detai ls LastModified Time None Recorded Concern Status LastModified by Organization Details LastModified Time None Recorded Advance Directives Directive None Recorded Payers Encounter Date Sequence Insurance Name Policy Number Policy [place] Covered Member ID [place] Member ID Guarantor Name 04/07/2023 1 [facility] [id number] Kevin Grace 04/15/2023 1 [employer] Grace [id number] Kevin Grace 04/28/2023 1 [employer] Kevinryne Grace [id number] Kevin Grace 05/14/2023 1 [employer] Grace [id number] Kevin Grace 05/26/2023 1 [employer] Kevinryne Grace [id number] Kevin Grace Notes Date Note Type Note [...] ear. 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 JAYLEEN MEZA BDS, [place] [address] [facility] [address], [place], [address], [facility] 04/15/2023 [...] (out of 80): 04/14/23=24 Delmy Suresh DPT [address] [facility] [address], [place], [address], [facility] 04/15/2023 11:28:42 4 text/html Pt reports less pain and the clicking is still present. He would like the clicking to improved as others can hear it when he is eating. Delmy Suresh DPT [address] [facility] [address], [place], [address], [facility] 04/28/2023 17:40:59 4 text/html Pt reports being sore from being at the dentist yesterday. More of an ear ache lately, backed off on the exercises. Wide opening more painful and it takes a while to calm down. Click still present with chewing on the R. Delmy Suresh DPT [address] [facility] [address], [place], [address], [facility] 05/14/2023 [...] for his pain. [place] [address] [facility] [address], [place], [address], [facility] 05/26/2023 18:12:05
--- OUTSIDE RECORDS SUMMARY | 2024-03-31 12:06 | XMS_ITS | Continuity of Care Document ---
Author Organization [facility] Address [address] [place] [address] Assessment Encounter Date Assessment Date Assessment LastModified [...] Jabier michele MD on 2023 at 13:[address] [facility] [place] [address], [place], [address], 03/25/2024 23:15:25 Result Notes None recorded. Problems Name Problem SNOMED Code Status Onset Date Resolution Date Notes Provider Name and Address Organization Details Recorded Time Calculus of kidney and ureter 288343190 Active 024 Nelson Anderson MD [address] [place] [address],[address], [address] , [facility] 4 14:41:07 Ureteric stone 34147890 Active 024 Nelson Anderson MD [address] [place] [address],[address], [address] , [facility] 4 16:29:56 Right flank pain 333510071 Active 024 Nelson Anderson MD [address] [place] [address],[address], [address] , [facility] 4 16:30:01 Problem Notes None recorded. Procedures Surgical History Date Name Laterality Status Provider Name and Address Organization Details Recorded Time 03/25/20 24 Cystoscopy with foreign body/stent removal completed Nelson Anderson MD [address] [place] [address],[address], [address], [facility] 03/25/2024 12:13:11 01/26/20 24 Cystoscopy with foreign body/stent removal completed Nelson Anderson MD [address] [place] [address],[address], [address], [facility] 01/26/2024 12:11:09 01/26/20 24 COMPLEX VISIT completed Nelson Anderson MD [address] [facility], [place], [address], [facility] 01/26/2024 12:10:54 06/23/19 24 Cystoscopy with foreign body/stent removal completed Nelson Anderson MD [address] [facility],[address], [place], [address], [facility] 06/23/2023 14:39:05 05/25/19 24 Urinalysis completed Macy Ding [facility] 05/25/2023 13:51:40 repair of shoulder completed Riley Ariana [facility] 12/06/2019 16:23:28 procedure on wrist completed Riley Ariana [facility] 12/06/2019 16:23:34 Fragmenting of kidney stone [facility] 16:24:10 Imaging Results None recorded. Procedure [...] Updated DateTime 03/25/[address] [facility] 1 05/26/2023 11:50:45 Social History Question Answer Notes LastModified by Organizat ion Details LastModified Time Tobacco Smoking Status [facility] 16:23:12 What Is Your Level [...] virus, quadrivalent, preservative 3 completed Macy shen [facility] 05/25/2023 13:57:34 Influenza, split virus, quadrivalent, preservative 1 completed Macy shen [facility] 05/25/2023 13:57:34 Influenza, split virus, quadrivalent, preservative 0 completed Macy shen [facility] 05/25/2023 13:57:34 Influenza, split virus, quadrivalent, preservative 2 completed Macy shen [facility] 05/25/2023 13:57:34 COVID-19, mRNA, LNP-S, PF, 100 mcg/0.5mL dose or 50 mcg/0.25mL dose 1 completed Macy shen, [facility] 05/25/2023 13:57:34 COVID-19, mRNA, LNP-S, PF, 100 mcg/0.5mL dose or 50 mcg/0.25mL dose 2 [facility] 05/25[facility]2023 13:57:34 COVID-19, mRNA, LNP-S, PF, 100 mcg/0.5mL dose or 50 mcg/0.25mL dose 0 [facility] 05/25/2023 13:57:34 COVID-19, mRNA, LNP-S, PF, 30 mcg/0.3 mL dose 1 [facility] 05/25/2023 13:57:34 COVID-19, mRNA, LNP-S, PF, 50 mcg/0.5 mL 3 completed Macy shen, [facility] 05/25/2023 13:57:34 Tdap 2 [facility] 05/25/2023 13:57:34 Tdap 8 [facility] 05/25/2023 13:57:34 Influenza, split virus, trivalent, preservative 8 [facility] 05/25/2023 13:57:34 Influenza, split virus, quadrivalent, PF 0 [facility] 05/25/2023 13:57:34 Influenza, split virus, quadrivalent, PF 8 [facility] 05/25/2023 13:57:34 Tdap 4 [facility] 01/13/2024 15:51:31 Past Encounters Encounter ID Performer Location Encounter Start Date Encounter Closed Date Diagnosis/Indication Diagnosis SNOMED-CT Code Diagnosis ICD10 Code [id number] Nelson Anderson MD [facility] [address] [place] [address] 03/25/2024 11:37:25 03/29/2024 12:39:21 Calculus of kidney and ureter 731231162 N20.2 History of calculus of kidney 996636527 Z87.442 Health Concerns Section Related Observation LastModified by Organization Detai ls LastModified Time None Recorded Concern Status LastModified by Organization Details LastModified Time None Recorded Payers Encounter Date Sequence Insurance Name Policy Number Policy [place] Covered Member ID [place] Member ID Guarantor Name 03/25/2024 1 [employer] [id number] Kevin Sanjay [id number] Kevin Sridhar Grace Notes Date Note Type [...] Denies fever/chills, dysuria, n/v. 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 Nelson Anderson MD [address] [facility],[address], [place], [address], [facility] 03/25/2024 12:15:38
[2024-03-31 12:15] VITALS: BP 174/97; PULSE 90; RESP 24; TEMP 36.1; O2SAT 98; BMI 30.6
--- NOTE | 2024-03-31 12:28 | CRLHL7_ITS ---
For Patients: As a result of the Century Cures Act, medical imaging exams and procedure reports are released immediately into your electronic medical record. You may view this report before your referring provider. If you have questions, please contact your health care provider. INDICATION: Left flank pain, recent lithotripsy. COMPARISON: 01/11/2024, 12/12/2023 TECHNIQUE: CT of the abdomen and pelvis without intravenous contrast. Multiplanar axial, coronal, and sagittal reformats were reconstructed. Contrast: None. FINDINGS: Lung bases: Normal. Liver: Diffuse hepatic steatosis. Fairly well-circumscribed low-density lesion in the caudate lobe measures 1.5 centimeters. Has fluid attenuation Hounsfield units. Gallbladder and bile ducts: Normal gallbladder. No bile duct dilation. Pancreas: Normal. Spleen: Calcified splenic granulomas. Adrenal glands: Peripherally calcified right adrenal nodule has not changed since 2019. Kidneys: Normal overall renal size and position. Mild bilateral perinephric stranding is similar to previous exams. There is a 2.4 centimeter exophytic right renal cyst. No solid mass seen on this noncontrast exam. Two and 4 millimeter nonobstructing right intrarenal calculi. No right ureteral calculi. No right-sided urinary tract dilatation. There is a 6 x 6 x 7 centimeter calculus in the left proximal ureter. There are few other smaller left intrarenal calculi. There is left pelvocaliectasis. No distal left ureteral calculi. Urinary bladder: Empty. Pelvis: No cyst or mass. Vessels: Few atherosclerotic vascular calcifications. Bowel: No dilated or inflamed bowel. Normal appendix. Mild stool burden. Lymph nodes: No adenopathy. Peritoneum: No ascites. Abdominal wall: Prior lower abdominal hernia repair. No recurrent hernia or bowel containing hernia. Bones: No fractures. No focal worrisome bone lesions. IMPRESSION: There is a 7 millimeter calculus in the left proximal ureter with upstream urinary tract dilatation. Please note that all CT scans at this facility use dose modulation, iterative reconstruction, and/or weight-based dosing when appropriate to reduce radiation dose to as low as reasonably achievable. Dictated by Urvashi Alarcon MD @ 03/31/2024 12:45:35 PM (Electronically Signed)
[2024-03-31 12:29] LABS: Appearance Urine Clear (Clear); Bilirubin Urine Negative (Negative); Blood Urine Trace-intact (Negative); Color Urine Yellow (Yellow); Glucose Urine Negative (Negative); Ketones Urine Negative (Negative); Leukocyte Esterase Urine Negative (Negative); Nitrite Urine Negative (Negative); Protein Urine Negative (Negative); Specific Gravity Urine 1.015 (1.000-1.030); Urobilinogen Urine 0.2 (0.2-1.0); pH Urine 7.5 (5.0-8.5)
--- NOTE | 2024-03-31 12:31 | ED_ITS ---
HPI - General Adult General Chief complaint: Flank Pain Stated complaint: Possible Kidney Stone Time Seen by Provider: 03/31/24 12:15 Source: patient History of Present Illness HPI narrative: Patient is a 63-year-old here with his fimildrede for evaluation of left flank pain. He has an extensive history of kidney stones, had recent lithotripsy on March 17 with stent removal on the . Since then he has been passing multiple stones. Yesterday he developed left flank pain which has not relented and today was too severe for him to manage at home. He denies dysuria, hematuria, fevers, vomiting. He has had some nausea. He is taking oxycodone which she had prescribed actually for a shoulder surgery and this is not managing the pain. Related Data Home Medications ?Medication ?Instructions ?Recorded ?Confirmed omeprazole 20 mg capsule,delayed 20 mg PO DAILY 06/12/23 03/31/24 release Previous Rx's ?Medication ?Instructions ?Recorded amlodipine 5 mg tablet 5 mg PO QDAY #30 tabs 02/05/24 Allergies Allergy/AdvReac Type Severity Reaction Status Date / Time No Known Drug Allergies Allergy Verified 03/31/24 12:21 Review of Systems Status of ROS: Reports: 10 or more systems reviewed and unremarkable except as noted in History and below [facility] Medical History Osteoarthritis of right shoulder ?M19.011 - Primary osteoarthritis, right shoulder (ICD-10) Osteoarthritis of right hip ?M16.11 - Unilateral primary osteoarthritis, right hip (ICD-10) Tear of right biceps muscle ?S46.211A - Strain of muscle, fascia and tendon of other parts of biceps, right arm, initial encounter (ICD-10) History of hydrocele ?Z87.438 - Personal history of other diseases of male genital organs (ICD-10) Surgical History History of arthroscopy of right shoulder (02/23/24) ?Z98.890 - Other specified postprocedural states (ICD-10) S/P nerve repair (03/23/97) ?Z98.890 - Other specified postprocedural states (ICD-10) History of excision of mass (03/20/97) ?Z98.890 - Other specified postprocedural states (ICD-10) History of hydrocelectomy ?Z98.890 - Other specified postprocedural states (ICD-10) S/P foot surgery, left ?Z98.890 - Other specified postprocedural states (ICD-10) Status post arthroscopy of right shoulder (11/21/16) ?Z98.890 - Other specified postprocedural states (ICD-10) Status post arthroscopy of left shoulder (01/01/07) ?Z98.890 - Other specified postprocedural states (ICD-10) History of inguinal hernia repair ?Z98.890 - Other specified postprocedural states (ICD-10) ?Z87.19 - Personal history of other diseases of the digestive system (ICD-10) History of hemorrhoidectomy (04/29/11) ?Z98.890 - Other specified postprocedural states (ICD-10) History of hernia surgery ?Z98.890 - Other specified postprocedural states (ICD-10) ?Z87.19 - Personal history of other diseases of the digestive system (ICD-10) Social History What is your current living situation?: I presently have a place to live Problems where you live: no known problems Problems where you live details: NA In the past 12 months, utilities in danger of being shut off: no In past 12 months, lack of transportation kept you from medical appts, meetings, work, or getting things needed for daily living: no In the past 12 mos, have been you worried that your food would run out before you had money to buy more?: never true In the past 12 mos, the food you bought just didn't last and you didn't have money to buy more?: never true Highest level of school completed/degree received: Associate degree: academic program Smoking Status: Never smoker Do you use any of these nicotine containing products: None Second hand tobacco smoke exposure: No How often do you have a drink containing alcohol: never AUDIT-C Alcohol total score: 0 Non-prescribed substance use: denies use Caffeine: No How often does anyone, including family, friends and others, physically hurt you : never How often does anyone, including family, friends and others, insult or talk down to you: never How often does anyone, including family, friends and others, threaten you with harm: never How often does anyone, including family, friends and others, scream or curse at you: never service: No Exam Narrative: Exam Narrative: Vital signs reviewed In general, alert, nontoxic male. He looks mildly uncomfortable. Head: Normocephalic, atraumatic. Eyes: Sclera clear. Pupils equal and reactive. ENT: Mucous membranes moist. Neck: Supple without adenopathy. Heart: Regular rate and rhythm without murmur. Lungs: Clear. No increased work of breathing, crackles or wheezes. Abdomen: Soft, nontender to palpation. No CVA tenderness. Extremities: Well perfused, pulses intact. No significant edema. Neurologic: Alert, conversant. Speech fluent, face symmetric. Moves all extremities equally. Skin: Warm, dry well perfused. Affect: Normal. Const: Vital Signs, click to edit/add: Vital Signs - 24 hr 03/31/24 12:15 Temperature 97.0 F L Pulse Rate [Pulse Oximeter] 90 Respiratory Rate 24 Blood Pressure [Ri ght Upper Arm] 174/97 H Pulse Oximetry 98 Oxygen Delivery Me thod Room Air Documenting provider has reviewed patient's vital signs: yes Course Course ED Course: Will obtain a UA to rule out urinary tract infection. No signs of significant infection or sepsis. CT scan to evaluate for hydronephrosis or retained stone. I have ordered an IV with morphine, Toradol and Zofran as well as 500 mL of fluid for symptomatic management. Urinalysis is negative aside from trace blood. CT scan by my review shows a 6 mm stone in the proximal left ureter with some hydronephrosis. Other stones noted. Final radiology report attached below, read as a 7 mm stone in the left proximal ureter with upstream urinary tract dilation. We will try to get pain under control here. At that point, I think it is reasonable to let him go home, I do not see any indication that this needs to be addressed today assuming we can get pain control. Will try to get him to his daughter's wedding, I have encouraged him to call [place] [facility] to arrange for outpatient follow-up as this likely will need further treatment. Instructions to return for fevers, chills, uncontrolled vomiting or pain, or other new worsening symptoms. He has not been taking ibuprofen, did recommend that he start taking 400 mg 3 times daily with food, continue with oxycodone as needed. Zofran prescribed if needed for nausea. He did require dose of Dilaudid but feels improved, is eager to get going so that he can make it to his daughter's wedding. He says he talked with his urologist and they have a plan for managing this should he have difficulty with pain control at home. Discharged with outpatient follow-up as described. Vital Signs Vital signs: Initial Vital Signs Temperature 97.0 F L 03/31/24 12:15 Temperature Source Temporal Artery Scan 03/31/24 12:15 Pulse Rate 90 03/31/24 12:15 Respiratory Rate 24 03/31/24 12:15 Blood Pressure 174/97 H 03/31/24 12:15 Blood Pressure Mean 122 H 03/31/24 12:15 Blood Pressure Position Sitting 03/31/24 12:15 Pulse Oximetry 98 03/31/24 12:15 Oxygen Delivery Method Room Air 03/31/24 12:15 Vital Signs Temperature 97.0 F L 03/31/24 12:15 Pulse Rate 90 03/31/24 12:15 Respiratory Rate 24 03/31/24 12:15 Blood Pressure 174/97 H 03/31/24 12:15 Pulse Oximetry 98 03/31/24 12:15 Oxygen Delivery Method Room Air 03/31/24 12:15 Temperature 97.0 F L 03/31/24 12:15 Pulse Rate 90 03/31/24 12:15 Respiratory Rate 24 03/31/24 12:15 Blood Pressure 174/97 H 03/31/24 12:15 Pulse Oximetry 98 03/31/24 12:15 Oxygen Delivery Method Room Air 03/31/24 12:15 Medications Administered Medications: Discontinued Medications Generic Name Dose Route Start Last Admin Trade Name Freq PRN Reason Stop Dose Admin Hydromorphone HCl 0.5 mg 03/31/24 13:46 03/31/24 14:17 Hydromorphone 0.5 Mg/0.5 Ml Inj IVP 03/31/24 13:47 0.5 mg ONCE ONE Administration Sodium Chloride 500 mls @ 500 mls/hr 03/31/24 12:27 03/31/24 13:05 0.9 % Sodium Chloride 500 Ml IV 03/31/24 13:26 500 mls/hr .Q1H ONE Administration Ketorolac Tromethamine 15 mg 03/31/24 12:03/31/24 13:04 Ketorolac 15 Mg/Ml Inj IVP 03/31/24 12:28 15 mg ONCE ONE Administration Morphine Sulfate 4 mg 03/31/24 12:27 03/31/24 13:04 Morphine 4 Mg/Ml Inj IVP 03/31/24 12:28 4 mg ONCE ONE Administration Ondansetron HCl 4 mg 03/31/24 12:27 03/31/24 13:04 Ondansetron 2 Mg/Ml Inj IVP 03/31/24 12:28 4 mg ONCE ONE Administration Medical Decision Making Lab Data Labs: Lab Results 03/31/24 Range/Units 12:24 Urine Color Yellow (Yellow) Urine Appearance Clear (Clear) Urine pH 7.5 (5.0-8.5) Ur Specific [place] 1.015 (1.000-1.030) Urine Protein Negative (Negative) Urine Glucose (UA) Negative (Negative) Urine Ketones Negative (Negative) Urine Blood Trace-intact A (Negative) Urine Nitrite Negative (Negative) Urine Bilirubin Negative (Negative) Urine Urobilinogen 0.2 (0.2-1.0) Ur Leukocyte Esterase Negative (Negative) Urine RBC 0-2 (0-2) Urine WBC 0-2 (0-5) Ur Squamous Epith Cells None (None-Few) Urine Bacteria None (None) Imaging Data CT scan - abdomen: Attestation: I have reviewed the pertinent imaging results. Radiologist's impression: Patient: KYLAH BRADY Facility: [facility] . Site : 1960 Study: CT-Abdomen/Pelvis WO-03/31/2024 12:39:29 PM Ordering Physician: Hernandez Bradley Final Report: INDICATION: Left flank pain, recent lithotripsy. COMPARISON: 01/11/2024, 12/12/2023 TECHNIQUE: CT of the abdomen and pelvis without intravenous contrast. Multiplanar axial, coronal, and sagittal reformats were reconstructed. Contrast: None. FINDINGS: Lung bases: Normal. Liver: Diffuse hepatic steatosis. Fairly well-circumscribed low-density lesion in the caudate lobe measures 1.5 centimeters. Has fluid attenuation Hounsfield units. Gallbladder and bile ducts: Normal gallbladder. No bile duct dilation. Pancreas: Normal. Spleen: Calcified splenic granulomas. Adrenal glands: Peripherally calcified right adrenal nodule has not changed since 2019. Kidneys: Normal overall renal size and position. Mild bilateral perinephric stranding is similar to previous exams. There is a 2.4 centimeter exophytic right renal cyst. No solid mass seen on this noncontrast exam. Two and 4 millimeter nonobstructing right intrarenal calculi. No right ureteral calculi. No right-sided urinary tract dilatation. There is a 6 x 6 x 7 centimeter calculus in the left proximal ureter. There are few other smaller left intrarenal calculi. There is left pelvocaliectasis. No distal left ureteral calculi. Urinary bladder: Empty. Pelvis: No cyst or mass. Vessels: Few atherosclerotic vascular calcifications. Bowel: No dilated or inflamed bowel. Normal appendix. Mild stool burden. Lymph nodes: No adenopathy. Peritoneum: No ascites. Abdominal wall: Prior lower abdominal hernia repair. No recurrent hernia or bowel containing hernia. Bones: No fractures. No focal worrisome bone lesions. IMPRESSION: There is a 7 millimeter calculus in the left proximal ureter with upstream urinary tract dilatation. Please note that all CT scans at this facility use dose modulation, iterative reconstruction, and/or weight-based dosing when appropriate to reduce radiation dose to as low as reasonably achievable. Dictated by Urvashi Alarcon MD @ 03/31/2024 12:45:35 PM Discharge Plan Discharge Clinical Impression: Calculus of proximal left ureter Patient Disposition: Home, Self-Care Condition: Improved Instructions: Ureteral Stones (ED) Additional Instructions: Please call [place] [facility] to arrange follow-up. This stone is 7 mm and is in the upper ureter, you will likely need a procedure to help the stone pass. You can take the Flomax that you were prescribed. I would take ibuprofen 400 mg 3 times daily with food, and use oxycodone as needed for persistent or worsening pain. Zofran if needed for nausea. If you have new symptoms such as fevers, chills, uncontrolled vomiting, uncontrolled pain, return to the emergency department. Otherwise, you can be seen as an outpatient for this stone. Have fun at the wedding! Prescriptions: No Action amlodipine 5 mg tablet 5 mg PO QDAY Qty: 30 3RF omeprazole 20 mg capsule,delayed release(DR/EC) 20 mg PO DAILY Follow Up/Referrals: Kolby Lau MD [Primary Care Provider] - Stand Alone Forms: Swagsy Info Instructions
[2024-03-31 12:39] LABS: RBC Urine 0-2 (0-2); WBC Urine 0-2 (0-5)
--- OUTSIDE RECORDS SUMMARY | 2024-03-31 12:49 | XMS_ITS | Continuity of Care Document ---
Author Organization [facility], [facility] Address [address] [facility] [address] Assessment Encounter Date Assessment Date Assessment LastModified [...] R LOCATI ON: [facility] DATE: 024 INDICA TION: Calcul us of kidney COMPAR [...] Tawanna Connors MD on 2023 at 13:[address] [facility] [place] [address], [place], [address], 01/27/2024 13:18:12 01/18/20 24 01/18/2024 XR, urogr am, retro grade No observ ation record ed. [email or web address] [facility] [address], [place], [address], 01/20/2024 09:11:16 01/26/20 24 01/26/2024 XR, kidne y + urete r + bladd er EXAM: XR, KIDNEY + URETER + BLADDE R LOCATI ON: [facility] DATE: 2023 INDICA TION: [...] Ashutosh Cuevas MD on 2023 at 13:[address] [facility] [place] [address], [place], [address], 01/27/2024 09:12:17 03/25/20 24 03/25/2024 XR, kidne [...] Jabier michele MD on 2023 at 13:[address] [facility] [place] [address] [facility] [address], [place], [address], 03/25/2024 23:15:25 Result Notes None recorded. Problems Name Problem SNOMED Code Status Onset Date Resolution Date Notes Provider Name and Address Organization Details Recorded Time Calculus of kidney and ureter 349387006 Active 024 Nelson Anderson MD [address] [place] [address],[address], [address] , [facility] 4 14:41:07 Ureteric stone 60360144 Active 024 Nelson Anderson MD [address] [place] [address],[address], [address] , [facility] 4 16:29:56 Right flank pain 432366354 Active 024 Nelson Anderson MD [address] [place] [address],[address], [address] , [facility] 16:30:01 Problem Notes None recorded. Procedures Surgical History Date Name Laterality Status Provider Name and Address Organization Details Recorded Time 03/25/20 24 Cystoscopy with foreign body/stent removal completed Nelson Anderson MD [address] [facility],[address], [place], [address], [facility] 03/25/2024 12:13:11 01/26/20 24 Cystoscopy with foreign body/stent removal completed Nelson Anderson MD [address] [place] [address],[address], [place], [address], [facility] 01/26/2024 12:11:09 01/26/20 24 COMPLEX VISIT completed Nelson Anderson MD [address] [place] [address],[address], [place], [address], [facility] 01/26/2024 12:10:54 06/23/19 24 Cystoscopy with foreign body/stent removal completed Nelson Anderson MD [address] [place] [address],[address], [place], [address], [facility] 06/23/2023 14:39:05 05/25/19 24 Urinalysis completed Macy Ding [facility] 05/25/2023 13:51:40 repair of shoulder completed Riley Ariana [facility] 12/06/2019 16:23:28 procedure on wrist completed Riley [facility] 12/06/2019 16:23:34 Fragmenting of kidney stone completed Riley [facility] 12/06/2019 16:24:10 Imaging Results None recorded. [...] Updated DateTime 01/26/2024 177.8 cm 28.3 kg/m2 64188.7 g Riley ANDRADE [facility] 01/26/2024 11:50:18 Social History Question Answer Notes LastModified by Organizat ion Details LastModified Time Tobacco Smoking Status Never Smoker Riley shen [facility] 12/06/2019 16:23:12 What Is [...] virus, quadrivalent, preservative 3 completed Macy shen [facility] 05/25/2023 13:57:34 Influenza, split virus, quadrivalent, preservative 1 completed Macy shen [facility] 05/25/2023 13:57:34 Influenza, split virus, quadrivalent, preservative [facility] 13:57:34 Influenza, split virus, quadrivalent, preservative 2 [facility] 13:57:34 COVID-19, mRNA, LNP-S, PF, 100 mcg/0.5mL dose or 50 mcg/0.25mL dose 1 [facility] 13:57:34 COVID-19, mRNA, LNP-S, PF, 100 mcg/0.5mL dose or 50 mcg/0.25mL dose 2 [facility]23 13:57:34 COVID-19, mRNA, LNP-S, PF, 100 mcg/0.5mL dose or 50 mcg/0.25mL dose 0 [facility]23 13:57:34 COVID-19, mRNA, LNP-S, PF, 30 mcg/0.3 mL dose [facility]23 13:57:34 COVID-19, mRNA, LNP-S, PF, 50 mcg/0.5 mL [facility]23 13:57:34 [facility]ap [facility]23 13:57:34 [facility]dap 8 [facility]23 13:57:34 Influenza, split virus, trivalent, preservative 8 [facility]23 13:57:34 Influenza, split virus, quadrivalent, PF [facility]23 13:57:34 Influenza, split virus, quadrivalent, PF 8 completed Macy Ding null, [facility] 05/25/2023 13:57:34 Tdap 4 completed Riley Ariana hermelinda, [facility] 01/13/2024 15:51:31 Past Encounters Encounter ID Performer Location Encounter Start Date Encounter Closed Date Diagnosis/Indication Diagnosis SNOMED-CT Code Diagnosis ICD10 Code [id number] Nelson Anderson MD [facility] [address] [place] [address] 01/13/2024 15:46:35 01/14/2024 14:25:07 Calculus of kidney and ureter 832162331 N20.2 Ureteric stone 31747892 N20.1 Right flank pain 9434379 09 R10.9 [id number] Nelson Anderson MD [facility] [address] [place] [address] 01/26/2024 11:11:06 01/29/2024 11:47:26 Right flank pain 940664206 R10.9 Calculus o f kidney and ureter 702097719 N20.2 Health Concerns Section Related Observation LastModified by Organization Detai ls LastModified Time None Recorded Concern Status LastModified by Organization Details LastModified Time None Recorded Payers Encounter Date Sequence Insurance Name Policy Number Policy [place] Covered Member ID [place] Member ID Guarantor Name 01/26/2024 1 [facility] [id number] Kevin Grace [id number] Kevin Sridhar Grace Notes Date Note Type [...] Denies fever/chills, dysuria, n/v. 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 Nelson Anderson MD [address] [facility],[address], [place], [address], [facility] 01/26/2024 12:13:52
--- OUTSIDE RECORDS SUMMARY | 2024-03-31 12:50 | XMS_ITS | Continuity of Care Document ---
Author Organization [place] [facility] [place] [facility] Address [address] [place] [address] Assessment Encounter Date Assessment Date Assessment LastModified [...] + bladder - PREV NORTHFIEL D 12/12/232023 [facility] , [address], [place], [address], 03/17/2024 10:39:53 Medication Orders tramadol 50 mg tablet 2023 [facility] Not available 01/13/2024 16:17:51 tamsulosi n 0.4 mg capsule 2023 [id number], [address], [place], [place], [phone], 01/13/2024 16:24:24 Patient TargetsNo targets recorded. Patient InstructionsNo instructions recorded. Reason for Referral None Reported. Results Created Date Observation Date Name Description Value Unit Range Abnormal Flag Note LastModifiedBy Organization Detail LastModifiedTime 12/22/1912/12/2023 CT, abdom en + pelvi s, w/o contr ast No observ ation record ed. [email or web address] [facility] [address], [place], [address], 01/12/2024 13:54:53 01/14/2001/13/2024 XR, kidne y + urete r + bladd er EXAM: XR, KIDNEY + URETER + BLADDE R LOCATI ON: [place] [employer] [facility] [place] DATE: INDICA TION: Calcul us of kidney [...] Tawanna Connors MD on 2023 at 13:[address] [facility] [address] [place] [address] [address], [place], [address], 01/27/2024 13:18:12 01/18/2001/1701/18/2024 XR, urogr am, retro grade No observ ation record ed. [email or web address] [facility] [address], [place], [address], 01/20/2024 09:11:16 01/26/20 24 01/26/2024 XR, kidne [...] Ashutosh Cuevas MD on 2023 at 13:[address] [facility] - [facility] [address], [place], [address], 01/27/2024 09:12:17 03/25/20 24 03/25/2024 XR, kidne y + urete r + bladd er EXAM: XR, KIDNEY + URETER + BLADDE R LOCATI ON: [facility] DATE: 2023 INDICA TION: [...] michele MD on 2023 at 13:[address] [facility] [address], [place], [address], 03/25/2024 23:15:25 Result Notes None recorded. Problems Name Problem SNOMED Code Status Onset Date Resolution Date Notes Provider Name and Address Organization Details Recorded Time Calculus of kidney and ureter 334196861 Active 024 Nelson Anderson MD [address] [place] [address],[address], [place], [address] , [facility] 4 14:41:07 Ureteric stone 85718227 Active 024 Nelson Anderson MD [address] [place] [address],[address], [place], [address] , [facility] 4 16:29:56 Right flank pain 387913254 Active 024 Nelson Anderson MD [address] [place] [address],[address], [place], [address] , [facility] 4 16:30:01 Problem Notes None recorded. Procedures Surgical History Date Name Laterality Status Provider Name and Address Organization Details Recorded Time 03/25/20 24 Cystoscopy with foreign body/stent removal completed Nelson Anderson MD [address] [place] [address],[address], [place], [address], [facility] 03/25/2024 12:13:11 01/26/20 24 Cystoscopy with foreign body/stent removal completed Nelson Anderson MD [address] [place] [address],[address], [place], [address], [facility] 01/26/2024 12:11:09 01/26/20 24 COMPLEX VISIT completed Nelson Anderson MD [address] [place] [address],[address], [place], [address], [facility] 01/26/2024 12:10:54 06/23/19 24 Cystoscopy with foreign body/stent removal completed Nelson Anderson MD [address] [place] [address],[address], [place], [address], [facility] 06/23/2023 14:39:05 05/25/19 24 Urinalysis completed Macy Ding [facility] 05/25/2023 13:51:40 repair of shoulder completed [address] [facility] 12/06/2019 16:23:28 procedure on wrist completed [address] [facility] 12/06/2019 16:23:34 Fragmenting of kidney stone completed [address] [facility] 12/06/2019 16:24:10 Imaging Results None [...] Updated DateTime 01/13/2024 177.8 cm 28.3 kg/m2 95087.7 g Nelson Anderson MD [address] [place] [address],[address], [address], [facility] 01/13/2024 15:53:44 Social History Question Answer Notes LastModified by Organizat ion Details LastModified Time Tobacco Smoking Status Never Smoker [facility] 16:23:12 What Is Your Level Of [...] GERD/Acid Reflux Y Sexually Transmitted Infection N Diabetes N Bleeding Disorder N Cancer N High Cholesterol N Heart Disease N Immunizations Vaccine Type Date Status Note Provider Nam e and Address Organization Details Recorded Time Influenza, split virus, quadrivalent, preservative 3 completed Macy shen [facility] 05/25/2023 13:57:34 Influenza, split virus, quadrivalent, preservative 1 completed Macy shen [facility] 05/25/2023 13:57:34 Influenza, split virus, quadrivalent, preservative 0 completed Macy shen [facility] 05/25/2023 13:57:34 Influenza, split virus, quadrivalent, preservative 2 karyn shen [facility] 05/25/2023 13:57:34 COVID-19, mRNA, LNP-S, PF, 100 mcg/0.5mL dose or 50 mcg/0.25mL dose 1 karyn shen [facility] 05/25/2023 13:57:34 COVID-19, mRNA, LNP-S, PF, 100 mcg/0.5mL dose or 50 mcg/0.25mL dose 2 karyn shen [facility] 05/25/2023 13:57:34 COVID-19, mRNA, LNP-S, PF, 100 mcg/0.5mL dose or 50 mcg/0.25mL dose 0 [facility] 13:57:34 COVID-19, mRNA, LNP-S, PF, 30 mcg/0.3 mL dose 1 [facility] 05/25/2023 13:57:34 COVID-19, mRNA, LNP-S, PF, 50 mcg/0.5 mL 3 [facility]/25/2023 13:57:34 Tdap 2 [facility]2023 13:57:34 Tdap 8 [facility]/25/2023 13:57:34 Influenza, split virus, trivalent, preservative 8 [facility] 05/25/2023 13:57:34 Influenza, split virus, quadrivalent, PF 0 [facility] 05/25/2023 13:57:34 Influenza, split virus, quadrivalent, PF 8 [facility] 05/25/2023 13:57:34 Tdap 4 completed [facility] 01/13/2024 15:51:31 Past Encounters Encounter ID Performer Location Encounter Start Date Encounter Closed Date Diagnosis/Indication Diagnosis SNOMED-CT Code Diagnosis ICD10 Code [id number] MD NATHANIEL [facility] [address] [place] [address] 01/13/2024 15:46:35 01/14/2024 14:25:07 Calculus of kidney and ureter 978772737 N20.2 Ureteric stone 57825169 N20.1 Right flank pain 1775225 09 R10.9 Health Concerns Section Related Observation LastModified by Organization Detai ls LastModified Time None Recorded Concern Status LastModified by Organization Details LastModified Time None Recorded Payers Encounter Date Sequence Insurance Name Policy Number Policy [place] Covered Member ID [place] Member ID Guarantor Name 01/13/2024 1 [id number] Kevinryne Grace [id number] Kevin Sridhar Grace Notes Date Note Type [...] Denies fever/chills, dysuria, n/v. 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 Nelson Anderson MD [address], [place], [address], [facility] 01/13/2024 16:30:18
[2024-03-31] MEDS: ONDANSETRON 2 MG/ML inj 4 MG IVP (13:04)
[2024-03-31] MEDS: MORPHINE 4 MG/ML INJ IVP (13:04)
[2024-03-31] MEDS: KETOROLAC 15 MG/ML inj IVP (13:04)
[2024-03-31] MEDS: 0.9 % SODIUM CHLORIDE 500 ML 500 ML IV (13:05)
[2024-03-31] MEDS: HYDROmorphone 0.5 mg/0.5 ml inj IVP (14:17)
== END 2024-03-31 14:38 | disposition home or self-care (01) ==
PROVIDERS: Emergency Provider Emergency Medicine; PCP Family Medicine
DX: N20.1 Calculus of ureter (principal)
CPT/HCPCS: 74176; 81001; 81003; 96374; 96375; 99284; J1171; J1885; J2270; J2405; J7030

== ENCOUNTER 2024-04-02 21:14 | Emergency (ER) | payer OTHER, SELFPAY ==
[2024-04-02] VITALS (13 sets, daily range): BP systolic 177; BP diastolic 97; PULSE 67–108; RESP 18–20; TEMP 36.6; O2SAT 94–100; BMI 29.7
--- OUTSIDE RECORDS SUMMARY | 2024-04-02 21:16 | XMS_ITS | Data Portability ---
Author Organization [place] [facility] Address [address] [place] [address] Care Team Providers Care Master At Arms Name Role Phone THERESA YANCEY Referring Provider [...] Orders cyclobenzap rine 5 mg tablet 2023 [id number], [address] [place], [place], [id number], 19:07:13 Patient Targets Encounter Date Encounter Id Patient Goals Patient Target Last Modified By Organization Details Last Modified Time long-term goals (to be met in 6 weeks):*Patient [...] By Organization Details Last Modified Time 04/07/2023 [id number] Self Care for TMD Not availab le 04/15/2023 09:27:04 oral appliance preparation* Not available 04/15/2023 09:27:06 Three Jaw Exercises Not available 04/15/2023 09:28:51 Contributing factors identified at today's appointment include: daytime clenching, sleep bruxism, oral habits. Not available 04/15/2023 09:29:16 04/15/2023 [id number] Total treatment time minutes today = 40 Next Visit Plan: how is joint mob? recheck ROM. Add CR. ROM to relocation 30mm, full 45 w/ pain. Patient/Therapist Goals: resume eating and decrease pain and popping Progress Note Date: 06/09 lhovda Not available 04/15/2023 11:28:26 04/28/2023 [id number] Total treatment time minutes today = 40 Next Visit Plan: Recheck ROM, upgrade CR. How was dry needling? ROM to relocation 40mm, full 42 w/ pain. Patient/Therapist Goals: resume eating and decrease pain and popping Progress Note Date: 06/09 lhovda Not available 04/28/2023 17:39:35 05/14/2023 [id number] Total treatment time minutes today = 33 [...] stabil izatio n applia nce Not Available [facility] [address], [place], [address], 04/15/2023 09:25:53 04/07/19 24 04/07/2023 XR, ortho panto gram No observ ation record ed. Not Available 2023 19:02:52 Result Notes None recorded. Problems Name Problem SNOMED Code Status Onset Date Resolution Date Notes Provider Name and Address Organization Details Recorded Time Spasm 57573697 Active 2023 L masseter muscle JAYLEEN MEZA [place], [place] 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 Procedures Surgical History Date Name Laterality Status Provider Name and Address Organization Details Recorded Time 05/14/19 24 26245: Therapeutic Exercise completed Delmy Suresh DPT [address], [place], [address], [facility] 05/14/2023 18:09:34 05/14/19 24 33648: Neuromuscular Re-Education completed Delmy Suresh DPT [address], [place], [address], [facility] 05/14/2023 18:09:35 05/14/19 24 45531: Manual Therapy completed Delmy Suresh DPT [address], [place], [address], [facility] 05/14/2023 18:09:57 04/28/19 24 63379: Needle insertion(s) without injection(s), 1 or 2 muscle(s) completed Delmy Suresh DPT [address], [place], [address], [facility] 04/28/2023 17:39:15 04/28/19 24 24940: E-Stim - Direct Contact completed Delmy Suresh DPT [address], [place], [address], [facility] 04/28/2023 17:39:19 01/23/20 24 90308: Therapeutic Exercise completed Delmy Suresh, DPT [address], [place], [address], [facility] 04/28/2023 17:38:33 04/28/19 86494: Neuromuscular Re-Education completed Delmy Suresh, DPT [address], [place], [address], [facility] 04/28/2023 17:38:35 04/28/19 24 68493: Manual Therapy completed Delmy Suresh, DPT [address], [place], [address], [facility] 04/28/2023 17:38:32 04/15/19 00156 - PT Eval Moderate Complexity completed Delmy Suresh, DPT [address], [place], [address], [facility] 04/15/2023 11:24:52 04/15/19 24 81872: Self Care/Home Management Training completed JERARDO PedrazaT [address], [place], [address], [facility] 04/15/2023 11:24:00 04/15/19 94769: Therapeutic Exercise completed JERARDO PedrazaT [address], [place], [address], [facility] 04/15/2023 11:23:54 04/15/19 24 18825: Manual Therapy completed Delmy Suresh, DPT [address], [place], [address], [facility] 04/15/2023 11:23:59 04/07/19 24 Orthopantogram completed Shaniqua Hanks [facility] 04/07/2023 18:50:07 hernia repair completed Shaniqua Hanks [facility] 04/07/2023 18:30:20 Shoulder [facility] 04/07/2023 18:30:31 [place] Teeth Extraction [facility] [...] Last Updated DateTime 177.8 cm 29.7 kg/m2 16989.6 2 g 49 /min 153 mm[Hg] 95 mm[Hg] [facility] 18:29:07 Date Recorded Body height Systolic blood pressure Diastolic blood pressure Provider Name and Address Organization Details Last Updated DateTime 05/26/2023 177.8 cm 139 mm[Hg] 101 mm[Hg] [facility] 05/26/2023 16:30:01 Social History Question Answer Notes LastModified by Organizat ion Details LastModified Time Tobacco Smoking Status Never Smoker Shaniqua Hanks [facility] [...] Or The Highest Degree You Have Received? [id number] Information not available 04/07/2023 What Is Your Occupation? [employer] [place] Information not available 04/07/2023 What Number Best [...] Meningitis N Pancreatic disease N Heart Attack (VT) N Stomach Ulcers N Back pain N [...] influenza, unspecified formulation 01/04/2023 completed [place] [facility] 04/07/2023 18:28:37 SARS-COV-2 (COVID-19) vaccine, UNSPECIFIED 02/04/2023 completed [place] [facility] 04/07/2023 18:28:57 Past Encounters Encounter ID Performer Location Encounter Start Date Encounter Closed Date Diagnosis/Indication Diagnosis SNOMED-CT Code Diagnosis ICD10 Code [id number] ROSALINA MEZA BDS, [place] [address] [place] [id number] 04/07/2023 18:12:57 04/07/2023 19:25:21 Myofascial pain 816439065 M79.11 Spasm 53331868 R25.2 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 2190894562 9041704 M26.632 Episodic t ension-type headache 304524390 G44.219 [id number] Delmy Suresh, JERARDOT [place] [address] [place] [id number] 04/15/2023 10:19:53 04/15/2023 11:37:43 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 6532825223 8207781 M26.632 Episodic t ension-type headache 378859188 G44.219 Myofascial pain 20301389 9 M79.11 Spasm 04267577 R25.2 [id number] Delmy Sweeneychanoeden, DPT [place] [address] [place] [id number] 04/28/2023 16:30:12 04/28/2023 17:22:39 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 5348779541 4801788 M26.632 Episodic t ension-type headache 606347504 G44.219 Myofascial pain 04564791 9 M79.11 Spasm 29069454 R25.2 [id number] Delmy Kerwin, JERARDOT [place] [address] [place] [id number] 05/14/2023 17:08:36 05/14/2023 18:04:53 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 4454352128 2774543 M26.632 Episodic t ension-type headache 756959750 G44.219 Myofascial pain 61651510 9 M79.11 Spasm 08261141 R25.2 [id number] ROSALINA MEZA BDS, [place] to [address] [place] [id number] 05/26/2023 16:10:52 05/26/2023 18:16:47 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 1845343563 7642511 M26.632 Episodic t ension-type headache 557525938 G44.219 Myofascial pain 79589799 9 M79.11 Spasm 05639251 R25.2 Health Concerns Section Related Observation LastModified by Organization Detai ls LastModified Time None Recorded Concern Status LastModified by Organization Details LastModified Time None Recorded Advance Directives Directive None Recorded Payers Encounter Date Sequence Insurance Name Policy Number Policy [place] Covered Member ID [place] Member ID Guarantor Name 04/07/2023 1 [facility] [id number] Kevin Grace 04/15/2023 1 [employer] Grace [id number] Kevin Grace 04/28/2023 1 [employer] Kevinryne Grace [id number] Kevin Grace 05/14/2023 1 [employer] Grace [id number] Kevin Grace 05/26/2023 1 [employer] Kevinryne Grace [id number] Kevin Grace Notes Date Note Type Note [...] ear. 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 JAYLEEN MEZA BDS, [place] [address] [facility] [address], [place], [address], [facility] 04/15/2023 09:30:51 [...] (out of 80): 04/14/23=24 Delmy Suresh DPT [address] [facility] [address], [place], [address], [facility] 04/15/2023 11:28:42 4 text/html Pt reports less pain and the clicking is still present. He would like the clicking to improved as others can hear it when he is eating. Delmy Suresh DPT [address] [facility] [address], [place], [address], [facility] 04/28/2023 17:40:59 4 text/html Pt reports being sore from being at the dentist yesterday. More of an ear ache lately, backed off on the exercises. Wide opening more painful and it takes a while to calm down. Click still present with chewing on the R. Delmy Suresh DPT [address] [facility] [address], [place], [address], [facility] 05/14/2023 18:10:15 [...] for his pain. JAYLEEN [place]DS[place] [address] [facility] [address], [place], [address], [facility] 05/26/2023 18:12:05
--- NOTE | 2024-04-02 21:17 | ED.GENADULT ---
HPI - General Adult General Time Seen by Provider: 21:17 Date Seen: 04/02/24 Chief complaint: Flank Pain Stated complaint: Kidney stone Time Seen by Provider: 04/02/24 21:16 Source: patient, RN notes reviewed and old records reviewed Mode of arrival: ambulatory Limitations: no limitations History of Present Illness HPI narrative: 63-year-old male with known history of stone, presents with flank pain. Patient was seen with similar couple days ago, at that time CT scan demonstrated a 7 mm stone in left proximal ureter with upstream dilation. Patient is discharged, has been taking ibuprofen oxycodone but pain is poorly controlled, pain is gotten worse over the last 5-6 hours. Denies hematuria, nausea but no vomiting, no diarrhea, no fever chills. Related Data Home Medications ?Medication ?Instructions ?Recorded ?Confirmed omeprazole 20 mg capsule,delayed 20 mg PO DAILY 06/12/23 03/31/24 release Previous Rx's ?Medication ?Instructions ?Recorded amlodipine 5 mg tablet 5 mg PO QDAY #30 tabs 02/05/24 Allergies Allergy/AdvReac Type Severity Reaction Status Date / Time No Known Drug Allergies Allergy Verified 03/31/24 12:21 [facility] Medical History Osteoarthritis of right shoulder ?M19.011 - Primary osteoarthritis, right shoulder (ICD-10) Osteoarthritis of right hip ?M16.11 - Unilateral primary osteoarthritis, right hip (ICD-10) Tear of right biceps muscle ?S46.211A - Strain of muscle, fascia and tendon of other parts of biceps, right arm, initial encounter (ICD-10) History of hydrocele ?Z87.438 - Personal history of other diseases of male genital organs (ICD-10) Surgical History History of arthroscopy of right shoulder (02/23/24) ?Z98.890 - Other specified postprocedural states (ICD-10) S/P nerve repair (03/23/97) ?Z98.890 - Other specified postprocedural states (ICD-10) History of excision of mass (03/20/97) ?Z98.890 - Other specified postprocedural states (ICD-10) History of hydrocelectomy ?Z98.890 - Other specified postprocedural states (ICD-10) S/P foot surgery, left ?Z98.890 - Other specified postprocedural states (ICD-10) Status post arthroscopy of right shoulder (11/21/16) ?Z98.890 - Other specified postprocedural states (ICD-10) Status post arthroscopy of left shoulder (01/01/07) ?Z98.890 - Other specified postprocedural states (ICD-10) History of inguinal hernia repair ?Z98.890 - Other specified postprocedural states (ICD-10) ?Z87.19 - Personal history of other diseases of the digestive system (ICD-10) History of hemorrhoidectomy (04/29/11) ?Z98.890 - Other specified postprocedural states (ICD-10) History of hernia surgery ?Z98.890 - Other specified postprocedural states (ICD-10) ?Z87.19 - Personal history of other diseases of the digestive system (ICD-10) Social History What is your current living situation?: I presently have a place to live Problems where you live: no known problems Problems where you live details: NA In the past 12 months, utilities in danger of being shut off: no In past 12 months, lack of transportation kept you from medical appts, meetings, work, or getting things needed for daily living: no In the past 12 mos, have been you worried that your food would run out before you had money to buy more?: never true In the past 12 mos, the food you bought just didn't last and you didn't have money to buy more?: never true Highest level of school completed/degree received: Associate degree: academic program Smoking Status: Never smoker Do you use any of these nicotine containing products: None Second hand tobacco smoke exposure: No How often do you have a drink containing alcohol: never AUDIT-C Alcohol total score: 0 Non-prescribed substance use: denies use Caffeine: No How often does anyone, including family, friends and others, physically hurt you: never How often does anyone, including family, friends and others, insult or talk down to you: never How often does anyone, including family, friends and others, threaten you with harm: never How often does anyone, including family, friends and others, scream or curse at you: never service: No Exam Narrative: Exam Narrative: General: Well-developed and well-nourished, no acute distress Head: Atraumatic and normocephalic Eyes: Pupils are equal reactive, extraocular motions intact, conjunctiva clear ENT: External nose and ears are normal, posterior pharynx without erythema or exudate Neck: No midline cervical tenderness, full spontaneous range of motion the neck, trachea midline, no adenopathy Heart: Regular rate and rhythm no murmurs or thrills Lungs: Clear to auscultation bilaterally without wheezes or crackles Abdomen: Soft, nontender, nondistended with active bowel sounds Musculoskeletal: No tenderness, deformity, or edema Neurologic: Awake, alert, and oriented x3, no gross focal neurologic deficits, cranial nerves intact as tested Psych: Mood and affect are appropriate Skin: No rashes Const: Vital Signs, click to edit/add: Vital Signs - 24 hr 04/02/24 21:24 Temperature 97.8 F Pulse Rate [Left P ulse Oximeter] 108 H Respiratory Rate 20 Blood Pressure [Le ft Forearm] 177/97 H Pulse Oximetry 100 Oxygen Delivery Me thod Room Air Course Course ED Course: Reviewed most recent urology note from March 25, patient with a history of kidney stones, recently had a stent on the left with ESWL, stent was removed March 25. Patient subsequently return to the emergency department March 31 with pain, found to have a 7 mm proximal ureteral stone. Returns today with ongoing pain. On exam here, patient appears uncomfortable, vital is stable, left lower quadrant abdominal tenderness. Labs and repeat CT scan ordered to evaluate for progression of stone and will discuss with urology. Vital Signs Vital signs: Initial Vital Signs Temperature 97.8 F 04/02/24 21:24 Temperature Source Temporal Artery Scan 04/02/24 21:24 Pulse Rate 108 H 04/02/24 21:24 Respiratory Rate 20 04/02/24 21:24 Blood Pressure 177/97 H 04/02/24 21:24 Blood Pressure Mean 123 H 04/02/24 21:24 Pulse Oximetry 100 04/02/24 21:24 Oxygen Delivery Method Room Air 04/02/24 21:24 Vital Signs Temperature 97.8 F 04/02/24 21:24 Pulse Rate 108 H 04/02/24 21:24 Respiratory Rate 20 04/02/24 21:24 Blood Pressure 177/97 H 04/02/24 21:24 Pulse Oximetry 100 04/02/24 21:24 Oxygen Delivery Method Room Air 04/02/24 21:24 Temperature 97.8 F 04/02/24 21:24 Pulse Rate 108 H 04/02/24 21:24 Respiratory Rate 20 04/02/24 21:24 Blood Pressure 177/97 H 04/02/24 21:24 Pulse Oximetry 100 04/02/24 21:24 Oxygen Delivery Method Room Air 04/02/24 21:24 Medications Administered Medications: Generic Name Dose Route Start Last Admin Trade Name Freq PRN Reason Stop Dose Admin Ketorolac Tromethamine 15 mg 04/02/24 21:19 04/02/24 21:41 Ketorolac 15 Mg/Ml Inj IVP 04/02/24 21:20 15 mg ONCE ONE Administration Discharge Plan Discharge Prescriptions: No Action amlodipine 5 mg tablet 5 mg PO QDAY Qty: 30 3RF omeprazole 20 mg capsule,delayed release(DR/EC) 20 mg PO DAILY Follow Up/Referrals: Kolby Lau MD [Primary Care Provider] -
--- OUTSIDE RECORDS SUMMARY | 2024-04-02 21:17 | XMS_ITS | Continuity of Care Document ---
Author Organization [facility], [facility] Address [address] [address] Assessment Encounter Date Assessment Date Assessment LastModified [...] Jabier michele MD on 2023 at 13:[address] [facility] [place] [address], [place], [address], 03/25/2024 23:15:25 Result Notes None recorded. Problems Name Problem SNOMED Code Status Onset Date Resolution Date Notes Provider Name and Address Organization Details Recorded Time Calculus of kidney and ureter 757888304 Active 024 Nelson Anderson MD [address] [place] [address],[address], [address] , [facility] 4 14:41:07 Ureteric stone 76183740 Active 024 Nelson Anderson MD [address] [place] [address],[address], [address] , [facility] 4 16:29:56 Right flank pain 973108384 Active 024 Nelson Anderson MD [address] [place] [address],[address], [address] , [facility] 4 16:30:01 Problem Notes None recorded. Procedures Surgical History Date Name Laterality Status Provider Name and Address Organization Details Recorded Time 03/25/20 24 Cystoscopy with foreign body/stent removal completed Nelson Anderson MD [address] [place] [address],[address], [address], [facility] 03/25/2024 12:13:11 01/26/20 24 Cystoscopy with foreign body/stent removal completed Nelson Anderson MD [address] [place] [address],[address], [address], [facility] 01/26/2024 12:11:09 01/26/20 24 COMPLEX VISIT completed Nelson Anderson MD [address] [facility],[address], [place], [address], [facility] 01/26/2024 12:10:54 06/23/19 24 Cystoscopy with foreign body/stent removal completed Nelson Anderson MD [address] [facility],[address], [place], [address], [facility] 06/23/2023 14:39:05 05/25/19 24 Urinalysis completed Macy Ding [facility] 05/25/2023 13:51:40 repair of shoulder completed Riley Ariana [facility] 12/06/2019 16:23:28 procedure on wrist completed Riley Ariana [facility] 12/06/2019 16:23:34 [facility] 16:24:10 Imaging Results None recorded. [...] Not Avai lable ketorolac 10 mg tablet Take 1 tablet every 6 hours by oral route. 2023 active Not Available Not Available Not Avai lable oxycodone-a cetaminophe n 5 mg-325 mg tablet [...] Available Not Available oxycodone 5 mg tablet Take 1 tablet every 4-6 hours by oral route as needed. 2023 active Not Available Not Available Not Avai lable cyclobenzap rine 5 mg tablet TAKE 1 TABLET BY MOUTH EVERY DAY AT DINNER active Not Available Not Available No t Available omeprazole active Not Available Not Av ailable Not Available Vitals Date Recorded Body height Provider Name an d Address Organization Details Last Updated DateTime 03/25/[address] [facility] 1 05/26/2023 11:50:45 Social History Question Answer Notes LastModified by Organizat ion Details LastModified Time Tobacco Smoking Status Never Smoker Riley shen [facility] 12/06/2019 16:23:12 What Is Your Level Of [...] virus, quadrivalent, preservative 3 completed Macy shen [facility] 05/25/2023 13:57:34 Influenza, split virus, quadrivalent, preservative 1 completed Macy shen [facility] 05/25/2023 13:57:34 Influenza, split virus, quadrivalent, preservative 0 completed Macy shen [facility] 05/25/2023 13:57:34 Influenza, split virus, quadrivalent, preservative 2 karyn shen [facility] 05/25/2023 13:57:34 COVID-19, mRNA, LNP-S, PF, 100 mcg/0.5mL dose or 50 mcg/0.25mL dose [facility] 13:57:34 COVID-19, mRNA, LNP-S, PF, 100 mcg/0.5mL dose or 50 mcg/0.25mL dose 2 [facility] 05/25/2023 13:57:34 COVID-19, mRNA, LNP-S, PF, 100 mcg/0.5mL dose or 50 mcg/0.25mL dose 0 [facility] 05/25/2023 13:57:34 COVID-19, mRNA, LNP-S, PF, 30 mcg/0.3 mL dose 1 [facility] 05/25/2023 13:57:34 COVID-19, mRNA, LNP-S, PF, 50 mcg/0.5 mL 3 completed Macy shen, [facility] 05/25/2023 13:57:34 [facility]dap 2 [facility] 05/25/2023 13:57:34 Tdap 8 completed Macy shen, [facility] 05/25/2023 13:57:34 Influenza, split virus, trivalent, preservative 8 completed Macy shen, [facility] 05/25/2023 13:57:34 Influenza, split virus, quadrivalent, PF 0 completed Macy shen, [facility] 05/25/2023 13:57:34 Influenza, split virus, quadrivalent, PF 8 [facility] 05/25/2023 13:57:34 [facility]ap 4 [facility] 01/13/2024 15:51:31 Past Encounters Encounter ID Performer Location Encounter Start Date Encounter Closed Date Diagnosis/Indication Diagnosis SNOMED-CT Code Diagnosis ICD10 Code [id number] [facility] [address] [address] 03/25/2024 11:37:25 03/29/2024 12:39:21 Calculus of kidney and ureter 527574662 N20.2 History of calculus of kidney 220779087 Z87.442 Health Concerns Section Related Observation LastModified by Organization Detai ls LastModified Time None Recorded Concern Status LastModified by Organization Details LastModified Time None Recorded Payers Encounter Date Sequence Insurance Name Policy Number Policy Ogden Covered Member ID Ogden Member ID Guarantor Name 03/25/2024 1 [employer] [id number] Kevinryne Grace [id number] Kevin Sridhar Grace Notes Date Note Type [...] Denies fever/chills, dysuria, n/v. 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 Nelson Anderson MD [address] [facility],[address], [place], [address], [facility] 03/25/2024 12:15:38
--- OUTSIDE RECORDS SUMMARY | 2024-04-02 21:17 | XMS_ITS | Data Portability ---
Author Organization [place] [facility] [place] [facility], [facility] Address [address] [facility] [address] [place] [address] Assessment Encounter Date Assessment Date Assessment LastModified by Organization Details LastModified Time 06/23/2023 06/23/2023 62 Y/O MALE, HX RECURRENT STONES. S/P LEFT URS, HLL, LEFT STENT. DOING WELL. STENT REMOVED. RESIDUAL STONES ON PREEV. C.T. DONE AT [facility], HOWEVER , RADIOLOGIST DID NOT STATE [...] available Lab urinalysi s, dipstick 2023 024 [place], [address], [place], [address], 05/25/2023 13:53:10 Referral None recorded. Procedures None recorded. Surgeries cystoscop y, with ureterosc opy, with lithotrip sy, with insertion of ureteral stent (SURG) 2023 024 Not available 06/02/2023 12:08:10 Imaging XR, kidney + ureter + bladder - [facility] 12/12/232023 024 [facility] , [address] [place], [address], 03/17/2024 10:39:53 Medication Orders Flomax 0.4 mg capsule 2023 024 [facility][id number], [address] [place], [place], [id number], 05/25/2023 14:18:00 oxycodone 5 mg tablet 2023 024 [facility] #66040, [address] [place], [place], [id number], 05/25/2023 14:17:59 tramadol 50 mg tablet 2023 ssamb Not available 01/13/2024 16:17:51 tamsulosi n 0.4 mg capsule 2023 [facility], [address] [place], [place], [id number], 01/13/2024 16:24:24 tramadol 50 mg tablet 2023 024 ssamb Not available 03/25/2024 12:06:34 Patient TargetsNo targets recorded. Patient Instructions Encounter Date Encounter Id Patient Instructions Last Modified By Organization Details Last Modified Time 05/25/2023 [id number] Discussed medica l expulsive therapy versus surgical [...] Available [facility] [address], [place], [address], 05/25/2023 13:52:34 05/25/19 24 05/25/2023 urina lysis , dipst ick Clarity-Stat us Clear Not Available [facility] [address], [place], [address], 05/25/2023 13:52:34 05/25/19 24 05/25/2023 urina lysis , dipst ick Sp [place]-Stat us 1.020 Not Available [facility] [address], [place], [address], 05/25/2023 13:52:34 05/25/19 24 05/25/2023 urina lysis , dipst ick pH-Status 5.5 Not Available [facility] [address], [place], [address], 05/25/2023 13:52:34 05/25/19 24 05/25/2023 urina lysis , dipst ick Nitrates-Sta tus negati ve Not Available [facility] [address], [place], [address], 05/25/2023 13:52:34 05/25/19 24 05/25/2023 urina lysis , dipst ick Blood-Status Small Not Available [facility] [address], [place], [address], 05/25/2023 13:52:34 05/25/19 24 05/25/2023 urina lysis , dipst ick Leuko-Status Negati ve Not Available [facility] [address], [place], [address], 05/25/2023 13:52:34 05/25/19 24 05/25/2023 urina lysis , dipst ick Specimen Type Voided Not Available [facility] [address], [place], [address], 05/25/2023 13:52:34 05/25/19 24 05/25/2023 urina lysis , dipst ick Performed by Morales michele RN Not Available [facility] [address], [place], [address], 05/25/2023 13:52:34 12/22/19 24 12/12/2023 CT, abdom en + pelvi s, w/o contr ast No observ ation record ed. [email or web address] [facility] [address], [place], [address], 01/12/2024 13:54:53 01/14/2001/13/2024 XR, kidne y + urete r + bladd er EXAM: XR, KIDNEY + URETER + BLADDE R [facility]ATI [facility]: [facility] [place] DATE: INDICA TION: Calcul us of kidney [...] Tawanna Connors MD on 2023 at 13:[address] [facility] [place] [address] [place] [address] [address], [place], [address], 01/27/2024 13:18:12 01/18/20 01/18/2024 XR, urogr am, retro grade No observ ation record ed. [email or web address] [facility] [address], [place], [address], 01/20/2024 09:11:16 01/26/20 24 01/26/2024 XR, kidne [...] Ashutosh Cuevas MD on 2023 at 13:[address] [facility] [address], [place], [address], 01/27/2024 09:12:17 03/25/20 24 03/25/2024 XR, kidne y + urete r + bladd er EXAM: XR, KIDNEY + URETER + BLADDE R LOCATI ON: [facility] DATE: 2023 INDICA TION: [...] Jabier michele MD on 2023 at 13:[address] [facility] [place] [address], [place], [address], 03/25/2024 23:15:25 Result Notes None recorded. Problems Name Problem SNOMED Code Status Onset Date Resolution Date Notes Provider Name and Address Organization Details Recorded Time Calculus of kidney and ureter 986205882 Active 024 Neslon Anderson MD [address] [place] [address],[address], [place], [address] , [facility] 14:41:07 Ureteric stone 54550062 Active 024 Nelson Anderson MD [address] [place] [address],[address] [facility], [place], [address] , [facility] 4 16:29:56 Right flank pain 241468219 Active 024 Nelson Anderson MD [address] [place] [address],[address] [facility], [place], [address] , [facility] 4 16:30:01 Problem Notes None recorded. Procedures Surgical History Date Name Laterality Status Provider Name and Address Organization Details Recorded Time 03/25/20 24 Cystoscopy with foreign body/stent removal completed Nelson Anderson MD [address] [place] [address],[address], [place], [address], [facility] 03/25/2024 12:13:11 01/26/20 24 Cystoscopy with foreign body/stent removal completed Nelson Anderson MD [address] [place] [address],[address], [place], [address], [facility] 01/26/2024 12:11:09 01/26/20 24 COMPLEX VISIT completed Nelson Anderson MD [address] [place] [address],[address], [place], [address], [facility] 01/26/2024 12:10:54 06/23/19 24 Cystoscopy with foreign body/stent removal completed Nelson Anderson MD [address] [place] [address],[address], [place], [address], [facility] 06/23/2023 14:39:05 05/25/19 24 Urinalysis completed Macy Ding [facility] 05/25/2023 13:51:40 repair of shoulder completed Riley [address] [facility] 12/06/2019 16:23:28 procedure on wrist completed Riley Lane [facility] 12/06/2019 16:23:34 Fragmenting of kidney stone completed [address] [facility] 12/06/2019 16:24:10 Imaging Results Imaging Date Name Status LastModified by Organiz ation Details LastModified Time 12/12/2023 CT, abdomen + pelvis, w/o contrast completed [email or web address], [place], [address], 01/12/2024 13:54:53 01/13/2024 XR, kidney + ureter + bladder completed [address] Radiology - [facility] [place] [address], [place], [address], 01/27/2024 13:18:12 01/18/2024 XR, urogram, retrograde completed [email or web address], [place], [address], 01/20/2024 09:11:16 01/26/2024 XR, kidney + ureter + bladder completed [address] [facility] [place] [address], [place], [address], 01/27/2024 09:12:17 03/25/2024 XR, kidney + ureter + bladder completed [address] [facility] [place] [address], [place], [address], 03/25/2024 23:15:25 Procedure Notes None recorded. Medical [...] Updated DateTime 01/13/2024 177.8 cm 28.3 kg/m2 18908.7 g Nelson Anderson MD [address] [place] [address], [address] 01/13/2024 15:53:44 Date Recorded Body height Body mass index (BMI) Body weight Provider Name and Address Organization Details Last Updated DateTime 01/26/2024 177.8 cm 28.3 kg/m2 [address] [facility] 01/26/2024 11:50:18 Date Recorded Body height Provider Name an d Address Organization Details Last Updated DateTime 03/25/[address] [facility] 1 05/26/2023 11:50:45 Social History Question Answer Notes LastModified by Organizat ion Details LastModified Time Tobacco Sm[facility] Status [facility] 16:23:12 What Is Your Level Of Alcohol Consumption? None Information not available 05/25/2023 What Was The Date Of Your Most Recent Tobacco Screening? 05/25/2023 Information not available 05/25/2023 Has Tobacco Cessation Counseling Been Provided? No [facility] Information not available 05/25/2023 Sex: Unknown Functional Status None recorded. Mental Status None recorded. Family History Nothing Reported. Medical History Condition Response Other N High Blood Pressure N Kidney Stones Y Lung Disease N Depression N GERD/Acid Reflux Y Diabetes N Sexually Transmitted Infection N Bleeding Disorder N Cancer N High Cholesterol N Heart Disease N Immunizations Vaccine Type Date Status Note Provider Nam e and Address Organization Details Recorded Time Influenza, split virus, quadrivalent, preservative 3 completed Macy shen [facility] 05/25/2023 13:57:34 Influenza, split virus, quadrivalent, preservative 1 completed Macy shen [facility] 05/25/2023 13:57:34 Influenza, split virus, quadrivalent, preservative 0 completed Macy shen [facility] 05/25/2023 13:57:34 Influenza, split virus, quadrivalent, preservative 2 completed Macy shen [facility] 05/25/2023 13:57:34 COVID-19, mRNA, LNP-S, PF, 100 mcg/0.5mL dose or 50 mcg/0.25mL dose 1 completed Macy shen [facility] 05/25/2023 13:57:34 COVID-19, mRNA, LNP-S, PF, 100 mcg/0.5mL dose or 50 mcg/0.25mL dose 2 completed Macy shen [facility] 05/25/2023 13:57:34 COVID-19, mRNA, LNP-S, PF, 100 mcg/0.5mL dose or 50 mcg/0.25mL dose 0 completed Macy shen, [facility] 05/25/2023 13:57:34 COVID-19, mRNA, LNP-S, PF, 30 mcg/0.3 mL dose 1 [facility] 05/25/2023 13:57:34 COVID-19, mRNA, LNP-S, PF, 50 mcg/0.5 mL 3 [facility] 05/25/2023 13:57:34 Tdap 2 [facility] 05/25/2023 13:57:34 Tdap 8 [facility] 05/25/2023 13:57:34 Influenza, split virus, trivalent, preservative 8 completed [facility] 05/25/2023 13:57:34 Influenza, split virus, quadrivalent, PF 0 [facility] 05/25/2023 13:57:34 Influenza, split virus, quadrivalent, PF 8 completed [facility] 05/25/2023 13:57:34 Tdap 4 [facility] 01/13/2024 15:51:31 Past Encounters Encounter ID Performer Location Encounter Start Date Encounter Closed Date Diagnosis/Indication Diagnosis SNOMED-CT Code Diagnosis ICD10 Code [id number] MD NATHANIEL [facility] [address] [place] [address] 12/06/2019 16:01:42 12/08/2019 11:34:14 Pain in testicle 32051785 N50.819 [id number] MD NATHANIEL [facility] [address] [place] [address] 12/16/2019 12:31:24 12/19/2019 12:53:19 Pain in scrotum 16193176 N50.82 [id number] MD NATHANIEL Gupat[facility] [address] [place] [address] 01/09/2020 14:37:55 01/09/2020 17:54:17 Inguinal pain 887866043 R10.2 Pain in testicle 2080085 9 N50.819 [id number] YO MACC [facility] [address] [place] [address] 05/25/2023 13:19:17 06/01/2023 09:29:06 Kidney stone 58134789 N20.0 [id number] MD NATHANIEL [facility] [address] [place] [address] 06/23/2023 14:02:00 06/24/2023 11:03:24 Calculus of kidney and ureter 814282231 N20.2 [id number] MD NATHANIEL [facility] [address] [place] [address] 01/13/2024 15:46:35 01/14/2024 14:25:07 Calculus of kidney and ureter 869163250 N20.2 Ureteric stone 31244963 N20.1 Right flank pain 7084154 09 R10.9 [id number] MD NATHANIEL [facility] [address] [place] [address] 01/26/2024 11:11:06 01/29/2024 11:47:26 Right flank pain 041291292 R10.9 Calculus o f kidney and ureter 178835602 N20.2 [id number] MD NATHANIEL [facility] [address] [place] [address] 03/25/2024 11:37:25 03/29/2024 12:39:21 Calculus of kidney and ureter 096287192 N20.2 History of calculus of kidney 177290404 Z87.442 Health Concerns Section Related Observation LastModified by Organization Detai ls LastModified Time None Recorded Concern Status LastModified by Organization Details LastModified Time None Recorded Advance Directives Directive None Recorded Payers Encounter Date Sequence Insurance Name Policy Number Policy Ogden Covered Member ID [place] Member ID Guarantor Name 05/25/[address] [facility] Kevin Sanjay [id number] Kevin Grace 06/23/2023 1 [employer] Kevinryne Grace [id number] Kevin Sridhar Grace 01/13/2024 1 [employer] Kevin Sanjay [id number] Kevin Sridhar Johntiff 01/26/2024 1 [employer] [place] Sanjay [id number] Kevin Sridhar Sanjay 03/25/2024 1 [employer] Kevinryne Grace [id number] Kevin Sridhar Grace Notes Date Note Type [...] Denies fever/chills, dysuria, n/v. 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 Has a long h/o stones, most recently passed stone 2018. Has required several surgeries with Dr Anderson. H/o chronic left testicular pain, tried marcaine spermatic cord block with Dr Anderson with minimal relief. UA today with blood NADAI GAYTAN PA-C [address] [facility],[address], [place], [address], [facility] [place] [facility] 05/25/2023 14:42:36 06/23/2023 text/html 62 yo M here for kidney stone. Recently seen in ED on 05/18 with flank pain; CT reveals 7mm distal left ureteral stone. He has had symptoms for about 2 weeks now. Continues to have renal colic, flares of severe pain. Has been taking Flomax TID and PRN narcotics from ED. Denies fever/chills, dysuria, n/v. 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 Nelson Anderson MD [address] [facility],[address], [place], [address], [facility] 06/23/2023 14:41:23 01/13/2024 text/html 62 yo [...] Denies fever/chills, dysuria, n/v. 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 Nelson Anderson MD [address] [facility],[address], [place], [address], [facility] 01/13/2024 16:30:18 01/26/2024 text/html 62 yo [...] Denies fever/chills, dysuria, n/v. 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 Nelson Anderson MD [address] [place] [address],[address], [place], [address], [facility] 01/26/2024 12:13:52 03/25/2024 text/html 62 yo [...] Denies fever/chills, dysuria, n/v. 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 Nelson Anderson MD [address] [place] [address],[address], [place], [address], [facility] 03/25/2024 12:15:38
--- OUTSIDE RECORDS SUMMARY | 2024-04-02 21:17 | XMS_ITS | Patient Health Record ---
Author Organization [facility] Address [address] [place] [address] [address] [place] [address] Care Team Providers Care Manuscripts Curator Name Role Phone SELF, SELF Primary Care [...] Status Risk Notes Problem Gastroesophageal reflux disease (600906263) GERD (gastroesopha geal reflux disease) (K21.9) Active confirmed Problem Hiatal hernia (97528595) Hiatal hernia (K44.9) Active confirmed Problem Recurrent left inguinal hernia (869639582) Recurrent left inguinal hernia (K40.91) Active confirmed Problem Pain in testicle (35460587) Pain in left testicle (N50.812) Active confirmed Problem Postoperative follow-up visit (939770771) Post op follow-up exam (Z48.89) Active confirmed Plan Of Treatment No Information Insurance Providers Payer Name Payer Address Payer Phone Subscriber Number Group Number Insured Name Patient Relationship to Insured Coverage Start Date Coverage End Date [facility] [address] [address] [place] [address] [id number] KYLAH BRADY Self - patient is the [...]
--- OUTSIDE RECORDS SUMMARY | 2024-04-02 21:18 | XMS_ITS | Continuity of Care Document ---
Author Organization [facility], [facility] Address [address] [place] [address] Assessment Encounter Date Assessment Date Assessment LastModified [...] Tawanna Connors MD on 2023 at 13:[address] [facility] [place] [address], [place], [address], 01/27/2024 13:18:12 01/18/20 24 01/18/2024 XR, urogr am, retro grade No observ ation record ed. [email or web address] [facility] [address], [place], [address], 01/20/2024 09:11:16 01/26/20 24 01/26/2024 XR, kidne y + urete r + bladd er EXAM: XR, KIDNEY + URETER + BLADDE R LOCATI ON: [facility] DATE: 2023 INDICA TION: [...] Ashutosh Cuevas MD on 2023 at 13:[address] [facility] [place] [address], [place], [address], 01/27/2024 09:12:17 03/25/20 24 03/25/2024 XR, kidne [...] Jabier michele MD on 2023 at 13:[address] [facility] [place] [address] [facility] [address], [place], [address], 03/25/2024 23:15:25 Result Notes None recorded. Problems Name Problem SNOMED Code Status Onset Date Resolution Date Notes Provider Name and Address Organization Details Recorded Time Calculus of kidney and ureter 807358478 Active 024 Nelson Anderson MD [address] [place] [address],[address], [address] , [facility] 4 14:41:07 Ureteric stone 65522568 Active 024 Nelson Anderson MD [address] [place] [address],[address], [address] , [facility] 4 16:29:56 Right flank pain 872659473 Active 024 Nelson Anderson MD [address] [place] [address],[address], [address] , [facility] 4 16:30:01 Problem Notes None recorded. Procedures Surgical History Date Name Laterality Status Provider Name and Address Organization Details Recorded Time 03/25/20 24 Cystoscopy with foreign body/stent removal completed Nelson Anderson MD [address] [facility],[address], [place], [address], [facility] 03/25/2024 12:13:11 01/26/20 24 Cystoscopy with foreign body/stent removal completed Nelson Anderson MD [address] [place] [address],[address], [place], [address], [facility] 01/26/2024 12:11:09 01/26/20 24 COMPLEX VISIT completed Nelson Anderson MD [address] [place] [address],[address], [place], [address], [facility] 01/26/2024 12:10:54 06/23/19 24 Cystoscopy with foreign body/stent removal completed Nelson Anderson MD [address] [place] [address],[address], [place], [address], [facility] 06/23/2023 14:39:05 05/25/19 24 Urinalysis completed Macy Ding [facility] 05/25/2023 13:51:40 repair of shoulder completed Riley Ariana [facility] 12/06/2019 16:23:28 procedure on wrist completed Riley [facility] 12/06/2019 16:23:34 Fragmenting of kidney stone completed Riley [facility] 12/06/2019 16:24:10 Imaging Results [...] Updated DateTime 01/26/2024 177.8 cm 28.3 kg/m2 48681.7 g Riley ANDRADE [facility] 01/26/2024 11:50:18 Social History Question Answer Notes LastModified by Organizat ion Details LastModified Time Tobacco Smoking Status Never [facility]oker [facility] 16:23:12 What Is [...] virus, quadrivalent, preservative 3 completed Macy shen [facility] 05/25/2023 13:57:34 Influenza, split virus, quadrivalent, preservative 1 [facility]23 13:57:34 Influenza, split virus, quadrivalent, preservative 0 completed Macy shen, [facility] 05/25/2023 13:57:34 Influenza, split virus, quadrivalent, preservative 2 [facility] 05/25[facility]2023 13:57:34 COVID-19, mRNA, LNP-S, PF, 100 mcg/0.5mL dose or 50 mcg/0.25mL dose 1 [facility] 05/25/2023 13:57:34 COVID-19, mRNA, LNP-S, PF, 100 mcg/0.5mL dose or 50 mcg/0.25mL dose 2 [facility] 05/25/2023 13:57:34 COVID-19, mRNA, LNP-S, PF, 100 mcg/0.5mL dose or 50 mcg/0.25mL dose 0 [facility] 05/25/2023 13:57:34 COVID-19, mRNA, LNP-S, PF, 30 mcg/0.3 mL dose 1 [facility] 05/25/2023 13:57:34 COVID-19, mRNA, LNP-S, PF, 50 mcg/0.5 mL 3 [facility] 05/25/2023 13:57:34 Tdap 2 [facility] 05/25/2023 13:57:34 Tdap 8 [facility] 05/25/2023 13:57:34 Influenza, split virus, trivalent, preservative 8 [facility] 05/25/2023 13:57:34 Influenza, split virus, quadrivalent, PF 0 completed Macy shen, [facility] 05/25/2023 13:57:34 Influenza, split virus, quadrivalent, PF 8 completed Macybiju Ding null, [facility] 05/25/2023 13:57:34 Tdap 4 completed Riley Bermanb hermelinda, [facility] 01/13/2024 15:51:31 Past Encounters Encounter ID Performer Location Encounter Start Date Encounter Closed Date Diagnosis/Indication Diagnosis SNOMED-CT Code Diagnosis ICD10 Code [id number] Nelson Anderson MD [facility] [address] [place] [address] 01/13/2024 15:46:35 01/14/2024 14:25:07 Calculus of kidney and ureter 272034757 N20.2 Ureteric stone 30876633 N20.1 Right flank pain 4516353 09 R10.9 [id number] Nelson Anderson MD [facility] [address] [place] [address] 01/26/2024 11:11:06 01/29/2024 11:47:26 Right flank pain 290707405 R10.9 Calculus o f kidney and ureter 525662497 N20.2 Health Concerns Section Related Observation LastModified by Organization Detai ls LastModified Time None Recorded Concern Status LastModified by Organization Details LastModified Time None Recorded Payers Encounter Date Sequence Insurance Name Policy Number Policy [place] Covered Member ID [place] Member ID Guarantor Name 01/26/2024 1 [id number] Kevinryne Grace [id number] Kevin Sridhar Grace Notes Date Note Type [...] n/v. 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 Nelson Anderson MD [address] [facility] [address],[address], [place], [address], [facility] 01/26/2024 12:13:52
--- OUTSIDE RECORDS SUMMARY | 2024-04-02 21:18 | XMS_ITS | Continuity of Care Document ---
Author Organization [place] [facility], [facility] Address [address] [place] [address] Assessment Encounter Date Assessment Date Assessment LastModified [...] + bladder - PREV [facility] D 12/12/232023 [facility] , [address], [place], [address], 03/17/2024 10:39:53 Medication Orders tramadol 50 mg tablet 2023 [facility] Not available 01/13/2024 16:17:51 tamsulosi n 0.4 mg capsule 2023 [id number], [address], [place], [place], [id number], 01/13/2024 16:24:24 Patient TargetsNo targets recorded. Patient InstructionsNo instructions recorded. Reason for Referral None Reported. Results Created Date Observation Date Name Description Value Unit Range Abnormal Flag Note LastModifiedBy Organization Detail LastModifiedTime 12/22/1912/12/2023 CT, abdom en + pelvi s, w/o contr ast No observ ation record ed. [email or web address] [facility] [address], [place], [address], 01/12/2024 13:54:53 01/14/2001/13/2024 XR, kidne y + urete r + bladd er EXAM: XR, KIDNEY + URETER + BLADDE R LOCATI ON: [facility] [place] DATE: INDICA TION: Calcul us of kidney [...] Tawanna Connors MD on 2023 at 13:[address] [facility] [place] [address] [place] [address] [address], [place], [address], 01/27/2024 13:18:12 01/18/2001/1701/18/2024 XR, urogr am, retro grade No observ ation record ed. [email or web address] [facility] [address], [place], [address], 01/20/2024 09:11:16 01/26/20 24 01/26/2024 XR, kidne [...] Ashutosh Cuevas MD on 2023 at 13:[address] [facility] [address], [place], [address], 01/27/2024 09:12:17 03/25/20 24 03/25/2024 XR, kidne y + urete r + bladd er EXAM: XR, KIDNEY + URETER + BLADDE R LOCATI ON: [facility] DATE: 2023 INDICA TION: [...] michele MD on 2023 at 13:[address] [facility] [place] [address], [place], [address], 03/25/2024 23:15:25 Result Notes None recorded. Problems Name Problem SNOMED Code Status Onset Date Resolution Date Notes Provider Name and Address Organization Details Recorded Time Calculus of kidney and ureter 699538205 Active 024 Nelson Anderson MD [address] [place] [address],[address], [place], [address] , [facility] 4 14:41:07 Ureteric stone 79423619 Active 024 Nelson Anderson MD [address] [place] [address],[address], [place], [address] , [facility] 4 16:29:56 Right flank pain 441183901 Active 024 Nelson Anderson MD [address] [place] [address],[address], [place], [address] , [facility] 4 16:30:01 Problem Notes None recorded. Procedures Surgical History Date Name Laterality Status Provider Name and Address Organization Details Recorded Time 03/25/20 24 Cystoscopy with foreign body/stent removal completed Nelson Anderson MD [address] [place] [address],[address], [place], [address], [facility] 03/25/2024 12:13:11 01/26/20 24 Cystoscopy with foreign body/stent removal completed Nelson Anderson MD [address] [place] [address],[address], [place], [address], [facility] 01/26/2024 12:11:09 01/26/20 24 COMPLEX VISIT completed Nelson Anderson MD [address] [place] [address],[address], [place], [address], [facility] 01/26/2024 12:10:54 06/23/19 24 Cystoscopy with foreign body/stent removal completed Nelson Anderson MD [address] [place] [address],[address], [place], [address], [facility] 06/23/2023 14:39:05 05/25/19 24 Urinalysis completed Macy Ding [facility] 05/25/2023 13:51:40 repair of shoulder completed Riley Lane [facility] 12/06/2019 16:23:28 procedure on wrist completed Riley [address] [facility] 12/06/2019 16:23:34 Fragmenting of kidney stone completed Riley Ariana [facility] 12/06/2019 16:24:10 Imaging Results None recorded. [...] Updated DateTime 01/13/2024 177.8 cm 28.3 kg/m2 11778.7 g Nelson Anderson MD [address] [facility],[address], [place], [address] 01/13/2024 15:53:44 Social History Question Answer Notes LastModified by Organizat ion Details LastModified Time Tobacco Smoking Status Never Smoker [facility] 12/06/2019 16:23:12 What Is Your [...] 3 completed Macy shen [facility] 05/25/2023 13:57:34 Influenza, split virus, quadrivalent, preservative 1 [facility] 05/25[facility]2023 13:57:34 Influenza, split virus, quadrivalent, preservative 0 completed Macy shen [facility] 05/25/2023 13:57:34 Influenza, split virus, quadrivalent, preservative 2 completed Macy shen [facility] 05/25/2023 13:57:34 COVID-19, mRNA, LNP-S, PF, 100 mcg/0.5mL dose or 50 mcg/0.25mL dose 1 completed Macy shen [facility] 05/25/2023 13:57:34 COVID-19, mRNA, LNP-S, PF, 100 mcg/0.5mL dose or 50 mcg/0.25mL dose 2 completed Macy shen [facility] 05/25/2023 13:57:34 COVID-19, mRNA, LNP-S, PF, 100 mcg/0.5mL dose or 50 mcg/0.25mL dose 0 [facility] 05/25/2023 13:57:34 COVID-19, mRNA, LNP-S, PF, 30 mcg/0.3 mL dose 1 [facility] 05/25/2023 13:57:34 COVID-19, mRNA, LNP-S, PF, 50 mcg/0.5 mL 3 [facility] 05/25/2023 13:57:34 Tdap 2 [facility] 05/25/2023 13:57:34 Tdap 8 [facility] 05/25/2023 13:57:34 Influenza, split virus, trivalent, preservative 8 [facility] 05/25/2023 13:57:34 Influenza, split virus, quadrivalent, PF 0 [facility] 05/25/2023 13:57:34 Influenza, split virus, quadrivalent, PF 8 [facility] 05/25/2023 13:57:34 Tdap 4 [facility] 01/13/2024 15:51:31 Past Encounters Encounter ID Performer Location Encounter Start Date Encounter Closed Date Diagnosis/Indication Diagnosis SNOMED-CT Code Diagnosis ICD10 Code [id number] Nelson Anderson MD [facility] [address] [place] [address] 01/13/2024 15:46:35 01/14/2024 14:25:07 Calculus of kidney and ureter 787237776 N20.2 Ureteric stone 74478350 N20.1 Right flank pain 7780886 09 R10.9 Health Concerns Section Related Observation LastModified by Organization Detai ls LastModified Time None Recorded Concern Status LastModified by Organization Details LastModified Time None Recorded Payers Encounter Date Sequence Insurance Name Policy Number Policy [place] Covered Member ID [place] Member ID Guarantor Name 01/13/2024 1 [id number] Kevinryne Grace [id number] Kevin Sridhar Grace Notes Date Note Type [...] Denies fever/chills, dysuria, n/v. 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 Nelson Anderson MD [address] [facility],[address], [place], [address], [facility] 01/13/2024 16:30:18
--- NOTE | 2024-04-02 21:19 | CRLHL7_ITS ---
For Patients: As a result of the Century Cures Act, medical imaging exams and procedure reports are released immediately into your electronic medical record. You may view this report before your referring provider. If you have questions, please contact your health care provider. INDICATION: History of renal calculi. Left-sided stent removed 03/25/2024. TECHNIQUE: CT abdomen and pelvis without contrast. COMPARISON: CT abdomen pelvis 03/31/2024. FINDINGS: Lower chest: Calcified hilar lymph nodes likely reflect sequelae of prior granulomatous disease. Liver: Hepatic steatosis. Unchanged caudate lobe cyst. Gallbladder and bile ducts: Unremarkable. Pancreas: Unremarkable. Spleen: Scattered parenchymal calcifications likely reflecting sequelae of prior granulomatous disease. Adrenal glands: Unchanged calcified right adrenal nodule. Normal left adrenal gland. Kidneys: Slight interval distal migration of 7 mm left ureteral calculus. Xaqx-nj-dpnasely left-sided hydronephrosis and proximal hydroureter are similar to prior. Additional nonobstructing left lower pole renal calculi are unchanged in position. Punctate nonobstructing right lower pole renal calculus also unchanged in appearance. Mild interval increase in degree of left-sided perinephric/periureteral fat stranding. GI tract: Unremarkable. Normal in caliber. No sign of mass or inflammation. Normal appendix. Vasculature: Abdominal aorta is normal in caliber. Lymph nodes: No lymphadenopathy. Peritoneum/Abdominal Wall: No ascites or pneumoperitoneum. No acute abdominal wall abnormality. Pelvis: Normal bladder. Mild prostatomegaly. Bones: No acute abnormality. IMPRESSION: 1. Slight interval distal migration of 7 mm left ureteral calculus, now within the proximal to mid left ureter with stable mild to moderate associated left-sided hydronephrosis/proximal hydroureter. Interval increase in degree of left-sided perinephric/periureteral fat stranding, nonspecific. Correlate for superimposed ascending urinary tract infection. 2. Additional nonobstructing bilateral renal calculi, as above, unchanged in appearance. 3. Diffuse hepatic steatosis. Please note that all CT scans at this facility use dose modulation, iterative reconstruction, and/or weight-based dosing when appropriate to reduce radiation dose to as low as reasonably achievable. Dictated by Ashutosh Haley MD @ 04/02/2024 10:14:47 PM (Electronically Signed)
[2024-04-02] MEDS: KETOROLAC 15 MG/ML inj IVP (21:41)
[2024-04-02 21:43] LABS: Basophils Absolute Auto 0.04 K/uL (0.00-0.30); Basophils Percent Auto 0.5 % (0.0-3.0); Eosinophils Absolute Auto 0.16 K/uL (0.00-0.50); Eosinophils Percent Auto 1.9 % (0.0-7.0); Hematocrit 42.8 % (37.0-53.0); Hemoglobin* 14.9 gm/dL (13.5-17.5); Immature Granulocytes Abs Auto 0.02 K/uL (0.00-0.30); Immature Granulocytes Pct Auto 0.2 %; Lymphocytes Absolute Auto 1.75 K/uL (0.90-2.90); Lymphocytes Percent Auto 20.7 % (20-44); Mean Corpuscular HGB Conc 35 gm/dL (32-36); Mean Corpuscular Hemoglobin 32 pg (26-34); Mean Corpuscular Volume 91 fL (80-100); Neutrophils Absolute Auto 5.74 K/uL (1.7-7.0); Neutrophils Percent Auto 67.7 % (42.0-72.0); Platelet Count* 221 K/uL (140-440); RDW Coefficient of Variation % 12.6 % (11.5-15.5); Red Blood Count 4.72 m/uL (4.30-5.90); White Blood Count* 8.47 K/uL (4.50-11.00)
[2024-04-02 21:51] LABS: Slide Review Reflex No
[2024-04-02 21:57] LABS: Chloride* 106 mmol/L (96-114)
[2024-04-02 21:58] LABS: Potassium* 3.8 mmol/L (3.6-5.1); Sodium* 138 mmol/L (135-149)
[2024-04-02 22:00] LABS: Anion Gap 10 mEq/L (7-15); Carbon Dioxide* 22 mmol/L (20-32); Creatinine* 1.4 mg/dL (0.5-1.5); Est. Creatinine Clearance* 57.21; Estimated Glomerular Filt Rate 57 ml/min
[2024-04-02 22:01] LABS: Blood Urea Nitrogen* 22 mg/dL (7-30); Calcium* 9.1 mg/dL (8.4-10.6); Glucose* 103 mg/dL (60-115)
[2024-04-02] MEDS: HYDROmorphone 0.5 mg/0.5 ml inj IVP ×2 (22:08→23:11)
[2024-04-02 22:32] LABS: Appearance Urine Clear (Clear); Bilirubin Urine Negative (Negative); Blood Urine Trace-intact (Negative); Color Urine Yellow (Yellow); Glucose Urine Negative (Negative); Ketones Urine Negative (Negative); Leukocyte Esterase Urine Negative (Negative); Nitrite Urine Negative (Negative); Protein Urine Negative (Negative); Specific Gravity Urine 1.025 (1.000-1.030); Urobilinogen Urine 0.2 (0.2-1.0); pH Urine 6.5 (5.0-8.5)
[2024-04-02 22:40] LABS: RBC Urine 0-2 (0-2); WBC Urine 0-2 (0-5)
[2024-04-03] VITALS (80 sets, daily range): BP systolic 139–160; BP diastolic 74–103; PULSE 52–80; RESP 18; O2SAT 89–99
[2024-04-03] MEDS: HYDROmorphone 0.5 mg/0.5 ml inj IVP ×7 (00:44→18:36)
--- NOTE | 2024-04-03 01:18 | PC.NURSE ---
Pt continues to writh in pain. Meds given as ordered. Aqua K pad provided.
--- NOTE | 2024-04-03 04:10 | PC.NURSE ---
0400 pt c/o of continued pain. .5mg IV dilaudid given. States he was just up to the BR. VSS. Explained [facility] wait time for tx to [facility]
--- NOTE | 2024-04-03 06:10 | PC.NURSE ---
Pt up to BR with steady gait. No c/o or further requests.
[2024-04-03] MEDS: KETOROLAC 15 MG/ML inj IVP (11:32)
== END 2024-04-03 19:19 | disposition short-term general hospital (02) ==
PROVIDERS: Emergency Provider Family Medicine; PCP Family Medicine
DX: R10.32 Left lower quadrant pain (principal)
CPT/HCPCS: 36415; 74176; 80048; 81001; 85025; 94761; 96374; 96375; 96376; 99284; J1171; J1885

== ENCOUNTER 2024-04-03 19:05 | Outpatient (CLI) | payer OTHER, SELFPAY | END 2024-04-03 19:06 | disposition home or self-care (01) | LOC: AMB 04-05 15:22 | PROVIDERS: PCP Family Medicine; Visit Provider Family Medicine | DX: N20.0 Calculus of kidney (principal) | CPT/HCPCS: A0425; A0429 ==

== ENCOUNTER 2024-05-11 10:30 | Outpatient (RCR) | payer OTHER, SELFPAY ==
--- OUTSIDE RECORDS SUMMARY | 2024-03-28 11:07 | XMS_ITS | Data Portability ---
Author Organization [place] [facility] Address [address] [place] [id number] Care Team Providers Care Senior Policy Analyst Name Role Phone THERESA YANCEY Referring Provider [...] Orders cyclobenzap rine 5 mg tablet 2023 [employer] [id number], [address] [place], [place], [id number], 19:07:13 Patient Targets Encounter Date Encounter Id Patient Goals Patient Target Last Modified By Organization Details Last Modified Time prison goals (to be met in 6 weeks):*Patient [...] By Organization Details Last Modified Time 04/07/2023 [id number] Self Care for TMD Not availab le 04/15/2023 09:27:04 oral appliance preparation* Not available 04/15/2023 09:27:06 Three Jaw Exercises Not available 04/15/2023 09:28:51 Contributing factors identified at today's appointment include: daytime clenching, sleep bruxism, oral habits. Not available 04/15/2023 09:29:16 04/15/2023 [id number] Total treatment time minutes today = 40 Next Visit Plan: how is joint mob? recheck ROM. Add CR. ROM to relocation 30mm, full 45 w/ pain. Patient/Therapist Goals: resume eating and decrease pain and popping Progress Note Date: 06/09 lhovda Not available 04/15/2023 11:28:26 04/28/2023 [id number] Total treatment time minutes today = 40 Next Visit Plan: Recheck ROM, upgrade CR. How was dry needling? ROM to relocation 40mm, full 42 w/ pain. Patient/Therapist Goals: resume eating and decrease pain and popping Progress Note Date: 06/09 lhovda Not available 04/28/2023 17:39:35 05/14/2023 [id number] Total treatment time minutes today = 33 [...] stabil izatio n applia nce Not Available [facility] [address], [place], [address], 04/15/2023 09:25:53 04/07/19 24 04/07/2023 XR, ortho panto gram No observ ation record ed. Not Available 2023 19:02:52 Result Notes None recorded. 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 Procedures Surgical History Date Name Laterality Status Provider Name and Address Organization Details Recorded Time 05/14/19 24 36302: Therapeutic Exercise completed Delmy Suresh DPT [address], [place], [address], [facility] 05/14/2023 18:09:34 05/14/19 24 05878: Neuromuscular Re-Education completed Delmy Suresh DPT [address], [place], [address], [facility] 05/14/2023 18:09:35 05/14/19 24 95686: Manual Therapy completed Delmy Suresh DPT [address], [place], [address], [facility] 05/14/2023 18:09:57 04/28/19 24 70086: Needle insertion(s) without injection(s), 1 or 2 muscle(s) completed Delmy Suresh DPT [address], [place], [address], [facility] 04/28/2023 17:39:15 04/28/19 24 44428: E-Stim - Direct Contact completed Delmy Suresh DPT [address], [place], [address], [facility] 04/28/2023 17:39:19 01/23/20 24 74703: Therapeutic Exercise completed Delmy Suresh, DPT [address], [place], [address], [facility] 04/28/2023 17:38:33 04/28/19 78009: Neuromuscular Re-Education completed Delmy Suresh, DPT [address], [place], [address], [facility] 04/28/2023 17:38:35 04/28/19 24 61057: Manual Therapy completed Delmy Suresh, DPT [address], [place], [address], [facility] 04/28/2023 17:38:32 04/15/19 06133 - PT Eval Moderate Complexity completed Delmy Suresh, DPT [address], [place], [address], [facility] 04/15/2023 11:24:52 04/15/19 24 22405: Self Care/Home Management Training completed JERARDO PedrazaT [address], [place], [address], [facility] 04/15/2023 11:24:00 04/15/19 74045: Therapeutic Exercise completed JERARDO PedrazaT [address], [place], [address], [facility] 04/15/2023 11:23:54 04/15/19 24 58390: Manual Therapy completed Delmy Suresh, DPT [address], [place], [address], [facility] 04/15/2023 11:23:59 04/07/19 24 Orthopantogram completed Shaniqua Hanks [facility] 04/07/2023 18:50:07 hernia repair completed Shaniqua Hanks [facility] 04/07/2023 18:30:20 [facility] 04/07/2023 18:30:31 [place] Teeth Extraction [facility] 04/07/2023 [...] Last Updated DateTime 177.8 cm 29.7 kg/m2 01010.6 2 g 49 /min 153 mm[Hg] 95 mm[Hg] [facility] 18:29:07 Date Recorded Body height Systolic blood pressure Diastolic blood pressure Provider Name and Address Organization Details Last Updated DateTime 05/26/2023 177.8 cm 139 mm[Hg] 101 mm[Hg] [facility] 05/26/2023 16:30:01 Social History Question Answer Notes LastModified by Organizat ion Details LastModified Time Tobacco Smoking Status Never Smoker Shaniqua Hanks [facility] [...] Or The Highest Degree You Have Received? [id number] Information not available 04/07/2023 What Is Your Occupation? [employer] [place] Information not available 04/07/2023 What Number Best [...] Meningitis N Pancreatic disease N Heart Attack (ID) N Stomach Ulcers N Back pain N [...] Osteoporosis N Immunizations Vaccine Type Date Status Note Provider Nam e and Address Organization Details Recorded Time influenza, unspecified formulation 01/04/2023 completed RAYMOND Corley [facility] 04/07/2023 18:28:37 SARS-COV-2 (COVID-19) vaccine, UNSPECIFIED 02/04/2023 completed RAYMOND Corley [facility] 04/07/2023 18:28:57 Past Encounters Encounter ID Performer Location Encounter Start Date Encounter Closed Date Diagnosis/Indication Diagnosis SNOMED-CT Code Diagnosis ICD10 Code [id number] ROSALINA MEZA BDS, [place] [facility] [address] [place] [id number] 04/07/2023 18:12:57 04/07/2023 19:25:21 Myofascial pain 275755107 M79.11 Spasm 35296041 R25.2 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 7052501598 2791321 M26.632 Episodic t ension-type headache 879641930 G44.219 [id number] Delmy Suresh, JERARDOT [place] [address] [place] [id number] 04/15/2023 10:19:53 04/15/2023 11:37:43 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 6426541654 1620686 M26.632 Episodic t ension-type headache 146721061 G44.219 Myofascial pain 33845557 9 M79.11 Spasm 50577076 R25.2 [id number] Delmy Sweeneychanoeden, DPT [place] [address] [place] [id number] 04/28/2023 16:30:12 04/28/2023 17:22:39 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 4837931265 7650233 M26.632 Episodic t ension-type headache 647430331 G44.219 Myofascial pain 39918410 9 M79.11 Spasm 27357986 R25.2 [id number] Delmy Kerwin, JERARDOT [place] [address] [place] [id number] 05/14/2023 17:08:36 05/14/2023 18:04:53 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 6058048106 2349271 M26.632 Episodic t ension-type headache 382335618 G44.219 Myofascial pain 90034384 9 M79.11 Spasm 71249577 R25.2 [id number] ROSALINA MEZA BDS, [place] [facility] [address] [place] [id number] 05/26/2023 16:10:52 05/26/2023 18:16:47 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 5006884882 7776779 M26.632 Episodic t ension-type headache 250804213 G44.219 Myofascial pain 92551831 9 M79.11 Spasm 99900995 R25.2 Health Concerns Section Related Observation LastModified by Organization Detai ls LastModified Time None Recorded Concern Status LastModified by Organization Details LastModified Time None Recorded Advance Directives Directive None Recorded Payers Encounter Date Sequence Insurance Name Policy Number Policy [place] Covered Member ID [place] Member ID Guarantor Name 04/07/2023 1 [facility] [id number] Kevin Grace 04/15/2023 1 [employer] Grace [id number] Kevin Grace 04/28/2023 1 [employer] Kevinryne Grace [id number] Kevin Grace 05/14/2023 1 [employer] Grace [id number] Kevin Grace 05/26/2023 1 [employer] Kevinryne Grace [id number] Kevin Grace Notes Date Note Type Note Provider Name and Address Organization Details Recorded Time text/html general HPI for jaw, face, TMD [...] ear. 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 JAYLEEN MEZA BDS, [place] [address] [facility] [facility] [address], [place], [address], [facility] 04/15/2023 [...] (out of 80): 04/14/23=24 Delmy Suresh DPT [address], [place], [address], [facility] 04/15/2023 11:28:42 4 text/html Pt reports less pain and the clicking is still present. He would like the clicking to improved as others can hear it when he is eating. Delmy Suresh DPT [address] [facility] [facility] [address], [place], [address], [facility] 04/28/2023 17:40:59 4 text/html Pt reports being sore from being at the dentist yesterday. More of an ear ache lately, backed off on the exercises. Wide opening more painful and it takes a while to calm down. Click still present with chewing on the R. Delmy Suresh DPT [address] [facility] [address], [place], [address], [facility] 05/14/2023 [...] for his pain. JAYLEEN MEZA BDS, [place] [address] [facility] [address], [place], [address], [facility] 05/26/2023 18:12:05
--- OUTSIDE RECORDS SUMMARY | 2024-03-28 11:07 | XMS_ITS | Patient Health Record ---
Author Organization [facility] Address [address] [place] [address] [address] LIMTI[address] [place] [address] Care Team Providers Care Vascular Neurologist Name Role Phone SELF, SELF Primary Care [...] Status Risk Notes Problem Gastroesophageal reflux disease (455761376) GERD (gastroesopha geal reflux disease) (K21.9) Active confirmed Problem Hiatal hernia (66171649) Hiatal hernia (K44.9) Active confirmed Problem Recurrent left inguinal hernia (018852116) Recurrent left inguinal hernia (K40.91) Active confirmed Problem Pain in testicle (51918848) Pain in left testicle (N50.812) Active confirmed Problem Postoperative follow-up visit (567276832) Post op follow-up exam (Z48.89) Active confirmed Plan Of Treatment No Information Insurance Providers Payer Name Payer Address Payer Phone Subscriber Number Group Number Insured Name Patient Relationship to Insured Coverage Start Date Coverage End Date [facility] [address] [address] [place] [address] [id number] [id number] BRADY Self - patient is the [...]
--- OUTSIDE RECORDS SUMMARY | 2024-03-28 11:08 | XMS_ITS | Data Portability ---
Author Organization [place] - [facility] Address [address] [facility] [address] [place] [address] Assessment Encounter Date Assessment Date Assessment LastModified by Organization Details LastModified Time 06/23/2023 06/23/2023 62 Y/O MALE, HX RECURRENT STONES. S/P LEFT URS, HLL, LEFT STENT. DOING WELL. STENT REMOVED. RESIDUAL STONES ON PREEV. C.T. DONE AT [facility], HOWEVER , RADIOLOGIST DID NOT [...] EXPLAINED IN DETAIL. Not available 01/26/2024 12:13:22 03/25/2024 03/25/2024 63 Y/O MALE, HX LARGE LEFT RENAL STONE. S/P LEFT STENT, LEFT ESWL. KUB WELL FRAGMENTED, MULTIPLE SMALL FRAGMENTS LEFT LOWER POLE CALYX. STENT REMOVED. ORDERED, REVIEWED , INTERPRETED KUB STENT REMOVAL PLAN RTC 1 MO. POSITIONAL CHANGES, STRAIN URINE. TRAMADOL 50 MG NEEDED. Not available 03/25/2024 12:15:10 Plan of Treatment Reminders Order Date Submit Date Provider Last Modified By Organization Details Last Modified Time Details Appointments XRAY 15 2024 02:45P M CT Not available Not available Not available ESTABLISH ED 10 2024 03:10P M Nelson Anderson MD Not available Not available Not available Lab urinalysi s, dipstick 2023 024 [facility], [address], [place], [address], 05/25/2023 13:53:10 Referral None recorded. Procedures None recorded. Surgeries cystoscop y, with ureterosc opy, with lithotrip sy, with insertion of ureteral stent (SURG) 2023 024 [email or web address] Not available 06/02/2023 12:08:10 Imaging XR, kidney + ureter + bladder - [facility] 12/12/232023 024 [facility] , [address] [place], [address], 03/17/2024 10:39:53 Medication Orders Flomax 0.4 mg capsule 2023 024 [facility], [address] [place], [place], [id number], 05/25/2023 14:18:00 oxycodone 5 mg tablet 2023 024 [facility] #54992, [address] [place], [place], [phone], 05/25/2023 14:17:59 tramadol 50 mg tablet 2023 ssamb Not available 01/13/2024 16:17:51 tamsulosi n 0.4 mg capsule 2023 [facility]83, [address] [place], [place], [phone], 01/13/2024 16:24:24 tramadol 50 mg tablet 2023 024 ssamb Not available 03/25/2024 12:06:34 Patient TargetsNo targets recorded. Patient Instructions Encounter Date Encounter Id Patient Instructions Last Modified By Organization Details Last Modified Time 05/25/2023 [id number] Discussed medica l expulsive therapy versus surgical intervention. Had a discussion with the patient about options for ureteral stone including medical expulsive therapy versus ureteroscopy with possible ureteral stent placement +/- laser lithotripsy. He would like to proceed with cysto, URS/HLL/possible stent. Discussed the procedure, risks, and benefits with patient including but not limited to post-procedure pain or stent pain, infection/UTI/sep sis, hematuria, anesthesia reaction, injury to adjacent structures, and possible need for additional procedures. He verbalized understanding of risks and wishes to proceed. [...] Available [facility] [address], [place], [address], 05/25/2023 13:52:34 05/25/19 24 05/25/2023 urina lysis , dipst ick Clarity-Stat us Clear Not Available [facility] [address], [place], [address], 05/25/2023 13:52:34 05/25/19 24 05/25/2023 urina lysis , dipst ick Sp [place]-Stat us 1.020 Not Available [facility] [address], [place], [address], 05/25/2023 13:52:34 05/25/19 24 05/25/2023 urina lysis , dipst ick pH-Status 5.5 Not Available [facility] [address], [place], [address], 05/25/2023 13:52:34 05/25/19 24 05/25/2023 urina lysis , dipst ick Nitrates-Sta tus negati ve Not Available [facility] [address], [place], [address], 05/25/2023 13:52:34 05/25/19 24 05/25/2023 urina lysis , dipst ick Blood-Status Small Not Available [facility] [address], [place], [address], 05/25/2023 13:52:34 05/25/19 24 05/25/2023 urina lysis , dipst ick Leuko-Status Negati ve Not Available [facility] [address], [place], [address], 05/25/2023 13:52:34 05/25/19 24 05/25/2023 urina lysis , dipst ick Specimen Type Voided Not Available [facility] [address], [place], [address], 05/25/2023 13:52:34 05/25/19 24 05/25/2023 urina lysis , dipst ick Performed by Morales michele RN Not Available [facility] [address], [place], [address], 05/25/2023 13:52:34 12/22/19 24 12/12/2023 CT, abdom en + pelvi s, w/o contr ast No observ ation record ed. [email or web address] [facility] [address], [place], [address], 01/12/2024 13:54:53 01/14/2001/13/2024 XR, kidne y + urete r + bladd er EXAM: XR, KIDNEY + URETER + BLADDE R LOCATI ON: [facility] DATE: INDICA TION: Calcul us of kidney COMPAR GENOVEVA: 024 IMPRES CHRIS: The right mid/di stal ureter [...] Tawanna Connors MD on 2023 at 13:[address] [facility] [place] [address] [place] [address] [address], [place], [address], 01/27/2024 13:18:12 01/18/20 01/18/2024 XR, urogr am, retro grade No observ ation record ed. [email or web address] [facility] [address], [place], [address], 01/20/2024 09:11:16 01/26/20 24 01/26/2024 XR, kidne [...] Ashutosh Cuevas MD on 2023 at 13:[address] [facility] [address], [place], [address], 01/27/2024 09:12:17 03/25/20 24 03/25/2024 XR, kidne y + urete r + bladd er EXAM: XR, KIDNEY + URETER + BLADDE R LOCATI ON: [facility] DATE: 2023 INDICA TION: Calcul us of kidney . COMPAR GENOVEVA: 2023. IMPRES CHRIS: Previo usly seen right ureter al stent has been remove d. Stable 3 mm right renal calcul us. A new left ureter al stent has been placed . There are multip le left renal calcul i. A cluste r of calcul i in the lower pole calyx measur es 1.9 cm in combin ed total length . There are also 6 mm calcul i mid pole and a 4 mm calcul us upper pole. This report was electr onical ly interp reted by: Jabier michele MD on 2023 at 13:[address] [facility] [place] [address], [place], [address], 03/25/2024 23:15:25 Result Notes None recorded. Problems Name Problem SNOMED Code Status Onset Date Resolution Date Notes Provider Name and Address Organization Details Recorded Time Calculus of kidney and ureter 918298357 Active 024 Nelson Anderson MD [address] [place] [address],[address], [place], [address] , [facility] 4 14:41:07 Ureteric stone 97231735 Active 024 Nelson Anderson MD [address] [place] [address],[address]ITE [facility], [place], [address] , [facility] 4 16:29:56 Right flank pain 890558643 Active 024 Nelson Anderson MD [address] [place] [address],[address] [facility], [place], [address] , [facility] 4 16:30:01 Problem Notes None recorded. Procedures Surgical History Date Name Laterality Status Provider Name and Address Organization Details Recorded Time 03/25/20 24 Cystoscopy with foreign body/stent removal completed Nelson Anderson MD [address] [place] [address],[address], [place], [address], [facility] 03/25/2024 12:13:11 01/26/20 24 Cystoscopy with foreign body/stent removal completed Nelson Anderson MD [address] [place] [address],[address], [place], [address], [facility] 01/26/2024 12:11:09 01/26/20 24 COMPLEX VISIT completed Nelson Anderson MD [address] [place] [address],[address], [place], [address], [facility] 01/26/2024 12:10:54 06/23/19 24 Cystoscopy with foreign body/stent removal completed Nelson Anderson MD [address] [place] [address],[address], [place], [address], [facility] 06/23/2023 14:39:05 05/25/19 24 Urinalysis completed Macy Ding [facility] 05/25/2023 13:51:40 repair of shoulder completed [address] [facility] 12/06/2019 16:23:28 procedure on wrist completed [address] [facility] 12/06/2019 16:23:34 Fragmenting of kidney stone completed [address] [facility] 12/06/2019 16:24:10 Imaging Results Imaging Date Name Status LastModified by Organiz ation Details LastModified Time 12/12/2023 CT, abdomen + pelvis, w/o contrast completed [email or web address], [place], [address], 01/12/2024 13:54:53 01/13/2024 XR, kidney + ureter + bladder completed [address] Radiology - [facility] [place] [address], [place], [address], 01/27/2024 13:18:12 01/18/2024 XR, urogram, retrograde completed [email or web address], [place], [address], 01/20/2024 09:11:16 01/26/2024 XR, kidney + ureter + bladder completed [address] [facility] [place] [address], [place], [address], 01/27/2024 09:12:17 03/25/2024 XR, kidney + ureter + bladder completed [address] [facility] [place] [address], [place], [address], 03/25/2024 23:15:25 Procedure Notes None recorded. Medical Equipment None Reported. Allergies No known drug allergies Medications Name Sig Start Date Stop Date Status Note LastModified by Organization Details LastModified Time hydrocodone 5 mg-acetamin ophen 325 mg tablet TAKE 1 TO 2 TABLETS BY MOUTH EVERY 6 HOURS NEEDED DIRECTED FOR PAIN active Not Available Not Available No t Available amlodipine 5 mg tablet TAKE 1 TABLET BY MOUTH ONCE DAILY active Not Available Not Available No t [...] TAKE 1 CAPSULE BY MOUTH EVERY DAY 2023 active Not Available Not Available Not Avai lable cephalexin 500 mg capsule TAKE 1 CAPSULE BY MOUTH TWICE DAILY active Not Available Not Available No t [...] Updated DateTime 01/13/2024 177.8 cm 28.3 kg/m2 73558.7 g Nelson Anderson MD [address], [address], [facility] 01/13/2024 15:53:44 Date Recorded Body height Body mass index (BMI) Body weight Provider Name and Address Organization Details Last Updated DateTime 01/26/2024 177.8 cm 28.3 kg/m2 [address] [facility] 01/26/2024 11:50:18 Date Recorded Body height Provider Name an d Address Organization Details Last Updated DateTime 03/25/[address] [facility] 1 05/26/2023 11:50:45 Social History Question Answer Notes LastModified by Organizat ion Details LastModified Time Tobacco Smoking Status Never [facility]oker [facility] 16:23:12 What Is Your Level Of Alcohol Consumption? None Information not available 05/25/2023 What Was The Date Of Your Most Recent Tobacco Screening? 05/25/2023 Information not available 05/25/2023 Has Tobacco Cessation Counseling Been Provided? No [email or web address] Information not available 05/25/2023 Sex: Unknown Functional Status None recorded. Mental Status None recorded. Family History Nothing Reported. Medical History Condition Response Other N High Blood Pressure N Kidney Stones Y Lung Disease N Depression N GERD/Acid Reflux Y Sexually Transmitted Infection N Cancer N High Cholesterol N Diabetes N Bleeding Disorder N Heart Disease N Immunizations Vaccine Type Date Status Note Provider Nam e and Address Organization Details Recorded Time Influenza, split virus, quadrivalent, preservative 3 [facility]23 13:57:34 Influenza, split virus, quadrivalent, preservative 1 completed Macy shen [facility] 05/25/2023 13:57:34 Influenza, split virus, quadrivalent, preservative 0 completed Macy shen [facility] 05/25/2023 13:57:34 Influenza, split virus, quadrivalent, preservative 2 [facility]23 13:57:34 COVID-19, mRNA, LNP-S, PF, 100 mcg/0.5mL dose or 50 mcg/0.25mL dose 1 karyn shen [facility] 05/25/2023 13:57:34 COVID-19, mRNA, LNP-S, PF, 100 mcg/0.5mL dose or 50 mcg/0.25mL dose 2 completed Macy shen [facility] 05/25/2023 13:57:34 COVID-19, mRNA, LNP-S, PF, 100 mcg/0.5mL dose or 50 mcg/0.25mL dose 0 karyn shen [facility] 05/25/2023 13:57:34 COVID-19, mRNA, LNP-S, PF, 30 mcg/0.3 mL dose 1 completed Macy shen, [facility] 05/25/2023 13:57:34 COVID-19, mRNA, LNP-S, PF, 50 mcg/0.5 mL 3 completed Macy shen, [facility] 05/25/2023 13:57:34 Tdap 2 completed Macy Ding null, [facility] 05/25/2023 13:57:34 Tdap 8 completed Macy shen, [facility] 05/25/2023 13:57:34 Influenza, split virus, trivalent, preservative 8 [facility] 05/25/2023 13:57:34 Influenza, split virus, quadrivalent, PF 0 completed Macy shen, [facility] 05/25/2023 13:57:34 Influenza, split virus, quadrivalent, PF 8 completed Macy shen, [facility] 05/25/2023 13:57:34 Tdap 4 [facility] 01/13/2024 15:51:31 Past Encounters Encounter ID Performer Location Encounter Start Date Encounter Closed Date Diagnosis/Indication Diagnosis SNOMED-CT Code Diagnosis ICD10 Code [id number] MD Jarett Gupta [address] [place] [address] 12/06/2019 16:01:42 12/08/2019 11:34:14 Pain in testicle 37674993 N50.819 [id number] MD Jarett Gupta [address] [place] [address] 12/16/2019 12:31:24 12/19/2019 12:53:19 Pain in scrotum 55989639 N50.82 [id number] MD Jarett Gupta [address] [place] [address] 01/09/2020 14:37:55 01/09/2020 17:54:17 Inguinal pain 549169103 R10.2 Pain in testicle 0630911 9 N50.819 [id number] NADIA GAYTAN PA-C [facility] [address] [place] [address] 05/25/2023 13:19:17 06/01/2023 09:29:06 Kidney stone 78058785 N20.0 [id number] Nelson Anderson MD [facility] [address] [place] [address] 06/23/2023 14:02:00 06/24/2023 11:03:24 Calculus of kidney and ureter 127388541 N20.2 [id number] Nelson Anderson MD [facility] [address] [place] [address] 01/13/2024 15:46:35 01/14/2024 14:25:07 Calculus of kidney and ureter 556297295 N20.2 Ureteric stone 88921579 N20.1 Right flank pain 8251416 09 R10.9 [id number] Nelson Anderson MD [facility] [address] [place] [address] 01/26/2024 11:11:06 01/29/2024 11:47:26 Right flank pain 911724194 R10.9 Calculus o f kidney and ureter 636282783 N20.2 [id number] Nelson Anderson MD [facility] [address] [place] [address] 03/25/2024 11:37:25 03/25/2024 12:15:42 Calculus of kidney and ureter 225947005 N20.2 History of calculus of kidney 250812808 Z87.442 Health Concerns Section Related Observation LastModified by Organization Detai ls LastModified Time None Recorded Concern Status LastModified by Organization Details LastModified Time None Recorded Advance Directives Directive None Recorded Payers Encounter Date Sequence Insurance Name Policy Number Policy [place] Covered Member ID [place] Member ID Guarantor Name 05/25/2023 1 [facility] [id number] Kevin Grace [id number] Kevinryne Grace 06/23/2023 1 [facility] [id number] Kevin Grace [id number] Kevin Sridhar Grace 01/13/2024 1 [facility] [id number] Kevin Grace [id number] Kevinryne Grace 01/26/2024 1 [facility] [id number] Kevin Grace [id number] Kevin Grace 03/25/2024 1 [place] [id number] Kevin Grace [id number] Kevin Sridhar Grace Notes Date Note Type Note Provider Name and Address Organization Details Recorded Time 05/25/2023 text/html 62 yo M here for kidney stone. Recently seen in ED on 05/18 with flank pain; CT reveals 7mm distal left ureteral stone. He has had symptoms for about 2 weeks now. Continues to have renal colic, flares of severe pain. Has been taking Flomax TID and PRN narcotics from ED. Denies fever/chills, dysuria, n/v. 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 Has a long h/o stones, most recently passed stone 2018. Has required several surgeries with Dr Anderson. H/o chronic left testicular pain, tried marcaine spermatic cord block with Dr Anderson with minimal relief. UA today with blood NADIA GAYTAN PA-C [address] [place] [address],[address], [place], [address], [facility] 05/25/2023 14:42:36 06/23/2023 text/html 62 yo M here for kidney stone. Recently seen in ED on 05/18 with flank pain; CT reveals 7mm distal left ureteral stone. He has had symptoms for about 2 weeks now. Continues to have renal colic, flares of severe pain. Has been taking Flomax TID and PRN narcotics from ED. Denies fever/chills, dysuria, n/v. 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 Has a long h/o stones, most recently passed stone 2019. Has required several surgeries with Dr Anderson. H/o chronic left testicular pain, tried marcaine spermatic cord block with Dr Justin with minimal relief. UA today with blood S/P LEFT URS, HLL, LEFT STENT. DOING WELL, EXCEPT MILD STENT DISCOMFORT. HERE FOR STENT REMOVAL. Nelson Anderson MD [address] [place] [address],[address], [place], [address], [facility] 06/23/2023 14:41:23 01/13/2024 text/html 62 yo M here for [...] fever/chills, dysuria, n/v. 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 Nelson Anderson MD [address] [place] [address],[address], [place], [address], [facility] 01/13/2024 16:30:18 01/26/2024 text/html 62 yo M here for [...] fever/chills, dysuria, n/v. 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 Nelson Anderson MD [address] [facility],[address], [place], [address], [facility] 01/26/2024 12:13:52 03/25/2024 text/html 62 yo M here for kidney [...] fever/chills, dysuria, n/v. 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 Has a long h/o stones, most recently passed stone 2019. Has required several surgeries with Dr Anderson. H/o chronic left testicular pain, tried marcaine spermatic cord block with Dr Anderson with minimal relief. UA today with blood STENT REMOVAL ON 06/22 S/P LEFT STENT , LEFT ESWL. KUB WELL FRAGMENTED NOTED WAS A LARGE 1.5 CM LEFT LOWER POLE STONE.here for stent removal. Nelson Anderson MD [address] [facility],[address], [place], [address], [facility] 03/25/2024 12:15:38
--- OUTSIDE RECORDS SUMMARY | 2024-03-28 11:08 | XMS_ITS | Continuity of Care Document ---
Author Organization [facility], [facility] Address [address] [facility] [place] [address] Assessment Encounter Date Assessment Date Assessment LastModified by Organization Details LastModified Time 03/25/2024 03/25/2024 63 Y/O MALE, HX LARGE [...] None recorded. Imaging None recorded. Medication Orders tramadol 50 mg tablet 2023 024 ssamb Not available 03/25/2024 12:06:34 Patient TargetsNo targets recorded. Patient InstructionsNo instructions recorded. Reason for Referral None Reported. Results Created Date Observation Date Name Description Value Unit Range Abnormal Flag Note LastModifiedBy Organization Detail LastModifiedTime 03/25/20 24 03/25/2024 XR, kidne y + [...] Jabier michele MD on 2023 at 13:[address] [facility] [place] [address], [place], [address], 03/25/2024 23:15:25 Result Notes None recorded. Problems Name Problem SNOMED Code Status Onset Date Resolution Date Notes Provider Name and Address Organization Details Recorded Time Calculus of kidney and ureter 776922149 Active 024 Nelson Anderson MD [address] [place] [address],[address], [address] , [facility] 4 14:41:07 Ureteric stone 80744080 Active 024 Nelson Anderson MD [address] [place] [address],[address], [address] , [facility] 4 16:29:56 Right flank pain 301906171 Active 024 Nelson Anderson MD [address] [place] [address],[address], [address] , [facility] 4 16:30:01 Problem Notes None recorded. Procedures Surgical History Date Name Laterality Status Provider Name and Address Organization Details Recorded Time 03/25/20 24 Cystoscopy with foreign body/stent removal completed Nelson Anderson MD [address] [place] [address],[address], [address], [facility] 03/25/2024 12:13:11 01/26/20 24 Cystoscopy with foreign body/stent removal completed Nelson Anderson MD [address] [place] [address],[address], [address], [facility] 01/26/2024 12:11:09 01/26/20 24 COMPLEX VISIT completed Nelson Anderson MD [address] [facility],[address], [place], [address], [facility] 01/26/2024 12:10:54 06/23/19 24 Cystoscopy with foreign body/stent removal completed Nelson Anderson MD [address] [facility],[address], [place], [address], [facility] 06/23/2023 14:39:05 05/25/19 24 Urinalysis completed Macy Ding [facility] 05/25/2023 13:51:40 repair of shoulder completed Riley Ariana [facility] 12/06/2019 16:23:28 procedure on wrist completed Riley Ariana [facility] 12/06/2019 16:23:34 [facility]ing [facility] 12[facility] 16:24:10 Imaging Results None recorded. Procedure [...] Not Available Vitals Date Recorded Body height Provider Name an d Address Organization Details Last Updated DateTime 03/25/[address] [facility] 1 05/26/2023 11:50:45 Social History Question Answer Notes LastModified by Organizat ion Details LastModified Time Tobacco Smoking Status [facility] 12/06/2019 16:23:12 What Is Your Level Of [...] Response Diabetes N Sexually Transmitted Infection N Other N Bleeding Disorder N High Blood Pressure N Kidney Stones Y High Cholesterol N GERD/Acid Reflux Y Heart Disease N Cancer N Lung Disease N Depression N Immunizations Vaccine Type Date Status Note Provider Nam e and Address Organization Details Recorded Time Influenza, split virus, quadrivalent, preservative [address] [facility] 05/25/2023 13:57:34 Influenza, split virus, quadrivalent, preservative [address] [facility] 05/25/2023 13:57:34 Influenza, split virus, quadrivalent, preservative [address] [facility] 05/25/2023 13:57:34 Influenza, split virus, quadrivalent, preservative [address] [facility] 05/25/2023 13:57:34 COVID-19, mRNA, LNP-S, PF, 100 mcg/0.5mL dose or 50 mcg/0.25mL dose 1 completed Macy shen, [facility] 05/25/2023 13:57:34 COVID-19, mRNA, LNP-S, PF, 100 mcg/0.5mL dose or 50 mcg/0.25mL dose 2 [facility] 05/25/2023 13:57:34 COVID-19, mRNA, LNP-S, PF, 100 mcg/0.5mL dose or 50 mcg/0.25mL dose 0 [facility] 05/25/2023 13:57:34 COVID-19, mRNA, LNP-S, PF, 30 mcg/0.3 mL dose 1 [facility] 05/25/2023 13:57:34 COVID-19, mRNA, LNP-S, PF, 50 mcg/0.5 mL 3 completed Macy shen, [facility] 05/25/2023 13:57:34 Tdap 2 [facility] 05/25/2023 13:57:34 Tdap 8 [facility] 05/25/2023 13:57:34 Influenza, split virus, trivalent, preservative 8 [facility] 05/25/2023 13:57:34 Influenza, split virus, quadrivalent, PF 0 [facility] 05/25/2023 13:57:34 Influenza, split virus, quadrivalent, PF 8 [facility] 05/25/2023 13:57:34 Tdap 4 completed [facility] 01/13/2024 15:51:31 Past Encounters Encounter ID Performer Location Encounter Start Date Encounter Closed Date Diagnosis/Indication Diagnosis SNOMED-CT Code Diagnosis ICD10 Code [id number] Nelson Anderson MD [facility] [address] [place] [address] 03/25/2024 11:37:25 03/25/2024 12:15:42 Calculus of kidney and ureter 051562362 N20.2 History of calculus of kidney 067146261 Z87.442 Health Concerns Section Related Observation LastModified by Organization Detai ls LastModified Time None Recorded Concern Status LastModified by Organization Details LastModified Time None Recorded Payers Encounter Date Sequence Insurance Name Policy Number Policy Ogden Covered Member ID Ogden Member ID Guarantor Name 03/25/2024 1 [place] [id number] Kevin Sanjay [id number] Kevin Sridhar Grace Notes Date Note Type Note Provider Name and Address Organization Details Recorded Time 03/25/2024 text/html 62 yo M here for [...] Denies fever/chills, dysuria, n/v. 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 Nelson Anderson MD [address] [facility],[address], [place], [address], [facility] 03/25/2024 12:15:38
== END 2024-06-09 13:15 | disposition home or self-care (01) ==
PROVIDERS: PCP Family Medicine; Visit Provider Orthopaedic Surgery
DX: Z98.890 Other specified postprocedural states (principal); M25.511 Pain in right shoulder; R53.1 Weakness; Z51.89 Encounter for other specified aftercare
CPT/HCPCS: 97110; 97140; 97161; 97535

== ENCOUNTER 2024-08-09 08:07 | Outpatient (CLI) | payer OTHER, SELFPAY ==
--- NOTE | 2024-08-09 10:05 | P.ANES_ITS ---
Anesthesia Charges Start Date/Time Anesthesia Start Date: 08/09/24 Anesthesia Start Time: 09:24 Stop Date/Time Anesthesia Stop Date: 08/09/24 Anesthesia Stop Time: 09:58 Coding CPT Codes CPT Codes: ANES LWR INTST NDSC NOS - 98664 ([id number]) P3 - PATIENT W/SEVERE SYS DISEASE, QK - WELDER OPERATOR 2-4 CNCRNT ANES PROC, QX - YARN SKEINS EXAMINER SVC W/ MD MED DIRECTION
--- NOTE | 2024-08-09 10:05 | W.ANESCHARGE ---
Anesthesia Charges Start Date/Time Anesthesia Start Date: 08/09/24 Anesthesia Start Time: 09:24 Stop Date/Time Anesthesia Stop Date: 08/09/24 Anesthesia Stop Time: 09:58 Coding CPT Codes CPT Codes: ANES LWR INTST NDSC NOS - [id number] ([id number]) P3 - PATIENT W/SEVERE SYS DISEASE, QK - PRENATAL GENETIC COUNSELOR 2-4 CNCRNT ANES PROC, QX - CROCHET BEADER SVC W/ MD MED DIRECTION
--- NOTE | 2024-08-09 10:13 | P.ANES_ITS ---
Anesthesia Charges Start Date/Time Anesthesia Start Date: 08/09/24 Anesthesia Start Time: 09:24 Stop Date/Time Anesthesia Stop Date: 08/09/24 Anesthesia Stop Time: 09:58 Coding CPT Codes CPT Codes: ANES LWR INTST NDSC NOS - [id number] ([id number]) QK - SURGICAL SCRUB TECHNICIAN 2-4 CNCRNT ANES PROC, QX - INSPECTOR PAPER PRODUCTS SVC W/ MED DIRECTION, P3 - PATIENT W/SEVERE SYS DISEASE
--- NOTE | 2024-08-09 10:13 | W.ANESCHARGE ---
Anesthesia Charges Start Date/Time Anesthesia Start Date: 08/09/24 Anesthesia Start Time: 09:24 Stop Date/Time Anesthesia Stop Date: 08/09/24 Anesthesia Stop Time: 09:58 Coding CPT Codes CPT Codes: ANES LWR INTST NDSC NOS - [id number] ([id number]) QK - RELEASE OF INFORMATION CLERK 2-4 CNCRNT ANES PROC, QX - INVESTMENT BANKING MANAGER SVC W/ MED DIRECTION, P3 - PATIENT W/SEVERE SYS DISEASE
== END 2024-08-09 08:08 | disposition home or self-care (01) ==
LOC: OP CLINIC 08:08
PROVIDERS: PCP Family Medicine; Visit Provider Surgery
DX: Z12.11 Encounter for screening for malignant neoplasm of colon (principal); D12.2 Benign neoplasm of ascending colon; D12.8 Benign neoplasm of rectum; Z86.0100 Personal history of colon polyps, unspecified
CPT/HCPCS: 00811; 45385; 88305; J2704

== ENCOUNTER 2024-11-21 08:45 | Outpatient (CLI) | payer OTHER, SELFPAY ==
--- NOTE | 2024-11-21 09:15 | CRLHL7_ITS ---
For Patients: As a result of the Century Cures Act, medical imaging exams and procedure reports are released immediately into your electronic medical record. You may view this report before your referring provider. If you have questions, please contact your health care provider. Indication: Cervicalgia. Technique: MRI of the cervical spine was performed without the use of intravenous contrast. Comparison: Cervical spine radiographs 10/28/2024. Findings: The vertebral body heights appear maintained without evidence of fracture. No discrete T1 hypointense marrow infiltrating process. Mild multilevel disc degeneration. Straightening of the cervical lordosis. No abnormal cord signal. C2-3: No spinal canal or neural foraminal narrowing. C3-4: Trace anterolisthesis. No spinal canal narrowing. Mild left neural foraminal narrowing secondary to uncovertebral joint and facet arthropathy. Right neural foramen is patent. Moderate left facet arthropathy with reactive edema. C4-5: No spinal canal or neural foraminal narrowing. C5-6: Grade 1 anterolisthesis. No spinal canal narrowing. Moderate left and mild right neural foraminal narrowing secondary to uncovertebral joint and facet arthropathy. C6-7: Minimal spinal canal narrowing. Moderate right and mild left neural foraminal narrowing secondary to uncovertebral joint and facet arthropathy. C7-T1: Grade 1 anterolisthesis. No spinal canal or neural foraminal narrowing. Impression: 1. At C5-6, moderate left neural foraminal narrowing. 2. At C6-7, moderate right and mild left neural foraminal narrowing. 3. Moderate left facet arthropathy with reactive edema at C3-4. 4. Grade 1 anterolisthesis at C5-6 and C7-T1. 5. No abnormal cord signal. Dictated by Dima Aguilar MD @ 11/21/2024 10:33:18 AM (Electronically Signed)
== END 2024-11-21 08:46 | disposition home or self-care (01) ==
LOC: MRI 08:47
PROVIDERS: PCP Family Medicine; Visit Provider Family Medicine
DX: M50.222 Other cervical disc displacement at C5-C6 level (principal); M50.223 Other cervical disc displacement at C6-C7 level
CPT/HCPCS: 72141

== ENCOUNTER 2025-03-13 10:53 | Outpatient (CLI) | payer OTHER, SELFPAY | END 2025-03-13 10:54 | disposition home or self-care (01) | PROVIDERS: PCP Family Medicine; Visit Provider Family Medicine | DX: Z01.818 Encounter for other preprocedural examination (principal); Z12.5 Encounter for screening for malignant neoplasm of prostate | CPT/HCPCS: 80048; G0103 ==